=== PATIENT | male | born 1935 | race Caucasian/White ===

== ENCOUNTER → 2016-09-14 | Outpatient (CLI) | payer MEDICARE, OTHER ==
[~2016-09-14] MED LIST: ALLO100T PO; ASPI81CH CHEW; BUME1TAB PO; CHOL1CAP14 PO; FERR325T20; METO50TA PO; OXYGENTANK NAS.CANULA; POLY119S PO; PRED10 PO; Pill Splitter OTHER; Remove Old Patch TD; SPIR25TA PO; SPIRCAP INH; SYMB80AE INH; TYLE325T PO; UNIS25TA2 PO; UNIS25TA3
[2016-09-14 13:16] LABS: AUTOMATED NEUTROPHIL # 4.5 TH/MM3 (1.8-7.7); BASOPHIL % 0.6 % (0.0-2.0); EOSINOPHIL # 0.3 TH/MM3 (0-0.4); EOSINOPHIL % 4.4 % (0.0-4.0); HEMATOCRIT 37.2 % (39.0-51.0); HEMO FLAGS DIFF FINAL; LYMPH % 16.3 % (9.0-44.0); LYMPHOCYTE # 1.1 TH/MM3 (1.0-4.8); MEAN CELL VOLUME 98.8 FL (80.0-100.0); MEAN CORPUSCULAR HEMOGLOBIN 32.2 PG (27.0-34.0); MEAN CORPUSCULAR HGB CONC 32.6 % (32.0-36.0); MONO % 9.6 % (0.0-8.0); NEUT % 69.1 % (16.0-70.0); PLATELET COUNT 153 TH/MM3 (150-450); RED BLOOD COUNT 3.76 MIL/MM3 (4.50-5.90); RED CELL DISTRIBUTION WIDTH 18.5 % (11.6-17.2); WHITE BLOOD COUNT 6.5 TH/MM3 (4.0-11.0)
[2016-09-14 13:42] LABS: POTASSIUM 4.5 MEQ/L (3.5-5.1); URIC ACID 7.6 MG/DL (2.6-7.2)
== END ==
LOC: PLAB 09:44
PROVIDERS: ATTEND Internal Medicine Nephrology
DX: N18.3 Chronic kidney disease, stage 3 (moderate) (principal); M10.00 Idiopathic gout, unspecified site
CPT/HCPCS: 36415; 80048; 82652; 83970; 84100; 84550; 85025

== ENCOUNTER → 2016-11-06 | Outpatient (CLI) | payer MEDICARE, OTHER ==
[2016-11-06 12:57] LABS: BICARBONATE 26.2 MEQ/L (21.0-32.0); POTASSIUM 4.8 MEQ/L (3.5-5.1)
== END ==
LOC: PLAB 09:46
PROVIDERS: ATTEND Internal Medicine Cardiovascular Disease
DX: I50.9 Heart failure, unspecified (principal); R06.02 Shortness of breath; I25.10 Atherosclerotic heart disease of native coronary artery without angina pectoris; I10 Essential (primary) hypertension
CPT/HCPCS: 36415; 80048

== ENCOUNTER 2017-01-04 15:09 | Inpatient (IN) | payer MEDICARE, OTHER ==
[~2017-01-04] VITALS: Ht 190.5 cm; Wt 106.4 kg
[2017-01-04] VITALS (7 sets, daily range): BP systolic 100–113; BP diastolic 57–65; PULSE 65–104; RESP 18–27; TEMP 98.2–98.5; O2SAT 92–97
[~2017-01-04 15:09] MED LIST changes: -ALLO100T PO; -ASPI81CH CHEW; -BUME1TAB PO; -CHOL1CAP14 PO; -FERR325T20; -OXYGENTANK NAS.CANULA; -PRED10 PO; -SPIR25TA PO; -SPIRCAP INH; -SYMB80AE INH; -TYLE325T PO; -UNIS25TA3
[2017-01-04] MEDS: RESP: ALBUTEROL 2.5 MG/3 ML NEB (SCH) INH ×2 (15:45→15:55)
[2017-01-04] MEDS ORDERED: methylPREDNISolone SOD SUCC 125 MG/2 ML VIAL IVP ONE (15:45)
[2017-01-04] MEDS ORDERED: SODIUM CHLORIDE 0.9% FLUSH 10 ML FLUSH IVF PRN (15:45)
--- NOTE | 2017-01-04 15:53 | PD ---
HPI Chief Complaint: SOB/GEN WEAKNESS Time Seen by Provider: 15:37 Travel History International Travel<30 days: No Contact w/Intl Traveler<30days: No Traveled to known affect area: No History of Present Illness HPI C/O SOB AND GEN WEAKNESS, RECENTLY TAKEN OFF ELIQUIS DUE TO BLACK TARRY STOOL PENDING GI VISIT. PCP IS DR MONROE AND CARDIAC IS DR MCKENZIE. PATIENT HAS A H/O RT TOTAL HIP REPLACEMENT AFTER WHICH HE DEVELOPED RT DVT AND PLACED ON ELIQUIS. ALSO HAS H/O HI/VTACH/AICD. TODAY STATES WORSENING SOB AT REST AND WITH EXERTION PFSH Past Medical History Anemia: Yes Arthritis: Yes Asthma: No Autoimmune Disease: No Blood Disorders: No Anxiety: No Depression: No Heart Rhythm Problems: No Cancer: Yes (SKIN CANCER) Cardiovascular Problems: Yes (HI, V TACH ) High Cholesterol: Yes Chemotherapy: No Chest Pain: No Congestive Heart Failure: Yes COPD: Yes Cerebrovascular Accident: Yes (HX ) Coronary Artery Disease: Yes Diabetes: No Diminished Hearing: No Endocrine: No Gastrointestinal Disorders: No GERD: No Glaucoma: No Gout: Yes Genitourinary: Yes Headaches: No Hepatitis: No Hiatal Hernia: No Hypertension: Yes Immune Disorder: No Implanted Vascular Access Dvce: Yes Kidney Stones: No Musculoskeletal: Yes Neurologic: No Psychiatric: No Reproductive: No Respiratory: Yes Immunizations Current: Yes Migraines: No Myocardial Infarction: Yes Radiation Therapy: No Renal Failure: Yes (45% functional) Seizures: No Sickle Cell Disease: No Sleep Apnea: Yes (C-Pap) Thyroid Disease: No Ulcer: No Past Surgical History Abdominal Surgery: Yes (umbilical hernis) AICD: Yes Appendectomy: No Arteriovenous Shunt: No Body Medical Devices: N/A Cardiac Surgery: No Cholecystectomy: No Coronary Artery Bypass Graft: Yes Ear Surgery: No Endocrine Surgery: No Eye Surgery: Yes (bilateral cataracts) Genitourinary Surgery: No Gynecologic Surgery: No Insulin Pump: No Joint Replacement: Yes (RIGHT TOTAL HIP ) Oral Surgery: Yes (wisdom teeth,pulled teeth) Pacemaker: No Thoracic Surgery: No Tonsillectomy: Yes Other Surgery: Yes (ICD) Social History Alcohol Use: Yes (DAILY) Tobacco Use: No Substance Use: No Allergies-Medications (Allergen,Severity, Reaction): Coded Allergies: No Known Allergies (Verified , 01/04/17) Reported Meds & Prescriptions Reported Meds & Active Scripts Active Reported Ferosul (Ferrous Sulfate) 325 Mg Tablet BID Tylenol (Acetaminophen) 325 Mg Tab 650 Mg PO Q4H PRN Unisom Sleep Aid (Doxylamine Succinate) 25 Mg Tablet Aspirin 81 Mg Chew 81 Mg CHEW DAILY Allopurinol 100 Mg Tab 100 Mg PO BID Spiriva Handihaler (Tiotropium Inh) 18 Mcg Cap 18 Mcg INH DAILY 1 capsule = 18 mcg Symbicort Inh (Budesonide/Formoterol Fumarate) 80-4.5 Mcg/Act Aero 2 Puff INH Q12HR D3 Maximum Strength (Cholecalciferol) 5,000 Unit Cap 2,000 Units PO DAILY Metoprolol Tartrate 50 Mg Tab 50 Mg PO BID Spironolactone 25 Mg Tab 25 Mg PO DAILY Review of Systems Except as stated in HPI: all other systems reviewed are Neg Respiratory: Positive: Shortness of Breath, Wheezing Physical Exam Narrative GENERAL: SKIN: Warm and dry. HEAD: Atraumatic. Normocephalic. EYES: Pupils equal and round. No scleral icterus. No injection or drainage. ENT: No nasal bleeding or discharge. Mucous membranes pink and moist. NECK: Trachea midline. No JVD. CARDIOVASCULAR: Regular rate and rhythm. RESPIRATORY: No accessory muscle use. RONCHI AND WHEEZING DIFFUSELY BILATERALLY , TRIPODING,, TACHYPNEIC, GASTROINTESTINAL: Abdomen soft, non-tender, nondistended. Hepatic and splenic margins not palpable. MUSCULOSKELETAL: Extremities without clubbing, OR cyanosis.No obvious deformities. HAS SAMANTHA LE EDEMA 2+ SAMANTHA NEUROLOGICAL: Awake and alert. No obvious cranial nerve deficits. Motor grossly within normal limits. Five out of 5 muscle strength in the arms and legs. Normal speech. PSYCHIATRIC: Appropriate mood and affect; insight and judgment normal. Data Data Last Documented VS Vital Signs Date Time Temp Pulse Resp B/P Pulse Ox O2 Delivery O2 Flow Rate FiO2 01/04/17 17:53 104 20 113/65 94 Nasal Cannula 2 01/04/17 15:12 98.5 Orders Complete Blood Count With Diff (01/04/17 15:40) Comprehensive Metabolic Panel (01/04/17 15:40) B-Type Natriuretic Peptide (01/04/17 15:40) Act Partial Throm Time (Ptt) (01/04/17 15:40) Prothrombin Time / Inr (Pt) (01/04/17 15:40) Ckmb (Isoenzyme) Profile (01/04/17 15:40) Troponin I (01/04/17 15:40) Iv Access Insert/Monitor (01/04/17 15:40) Electrocardiogram (01/04/17 15:40) Ecg Monitoring (01/04/17 15:40) Oximetry (01/04/17 15:40) Oxygen Administration (01/04/17 15:40) Chest, Single Ap (01/04/17 15:40) Sodium Chloride 0.9% Flush (Ns Flush) (01/04/17 15:45) Methylprednisolone So Succ Inj (Solumedr (01/04/17 15:45) Albuterol Neb (Albuterol Neb) (01/04/17 15:45) Furosemide Inj (Lasix Inj) (01/04/17 17:45) Vital Signs (Adult) Q4H (01/04/17 18:01) Activity Oob With Assistance (01/04/17 18:01) Fur Designer / Telemetry .CONTINUOUS (01/04/17 18:01) Intake + Output MICHALE.QSHIFT (01/04/17 18:01) Diet Heart Healthy (01/04/17 Dinner) Sodium Chloride 0.9% Flush (Ns Flush) (01/04/17 18:15) Sodium Chloride 0.9% Flush (Ns Flush) (01/04/17 21:00) Ondansetron Inj (Zofran Inj) (01/04/17 19:00) Basic Metabolic Panel (Bmp) (01/05/17 06:00) Complete Blood Count With Diff (01/05/17 06:00) Resp Oxygen Roge C Titrat 1-4 L (01/04/17 ) Pt Request For Service (01/04/17 18:01) Enoxaparin Inj (Lovenox Inj) (01/04/17 20:00) Scd Bilateral/Knee High MICHAEL.BID (01/04/17 18:01) Cm Bilateral/Knee High MICHAEL.QSHIFT (01/04/17 18:01) Docusate Sodium-Senna (Melanie-Colace) (01/04/17 21:00) Magnesium Hydroxide Liq (Milk Of Magnesi (01/04/17 19:00) Sennosides (Senokot) (01/04/17 19:00) Bisacodyl Supp (Dulcolax Supp) (01/04/17 19:00) Lactulose Liq (Lactulose Liq) (01/04/17 18:15) Furosemide Inj (Lasix Inj) (01/05/17 09:00) B-Type Natriuretic Peptide (01/05/17 06:00) Admit Order (Ed Use Only) (01/04/17 18:07) Labs Laboratory Tests Test 01/04/17 16:01 White Blood Count 8.4 TH/MM3 Red Blood Count 3.10 MIL/MM3 Hemoglobin 10.3 GM/DL Hematocrit 30.9 % Mean Corpuscular Volume 99.6 FL Mean Corpuscular Hemoglobin 33.3 PG Mean Corpuscular Hemoglobin 33.5 % Concent Red Cell Distribution Width 15.8 % Platelet Count 160 TH/MM3 Mean Platelet Volume 9.1 FL Neutrophils (%) (Auto) 76.6 % Lymphocytes (%) (Auto) 9.0 % Monocytes (%) (Auto) 12.9 % Eosinophils (%) (Auto) 0.9 % Basophils (%) (Auto) 0.6 % Neutrophils # (Auto) 6.4 TH/MM3 Lymphocytes # (Auto) 0.8 TH/MM3 Monocytes # (Auto) 1.1 TH/MM3 Eosinophils # (Auto) 0.1 TH/MM3 Basophils # (Auto) 0.0 TH/MM3 CBC Comment DIFF FINAL Differential Comment Prothrombin Time 10.0 SEC Prothromb Time International 0.9 RATIO Ratio Activated Partial 29.2 SEC Thromboplast Time Sodium Level 137 MEQ/L Potassium Level 4.2 MEQ/L Chloride Level 104 MEQ/L Carbon Dioxide Level 21.1 MEQ/L Anion Gap 12 MEQ/L Blood Urea Nitrogen 30 MG/DL Creatinine 2.11 MG/DL Estimat Glomerular Filtration 30 ML/MIN Rate Random Glucose 91 MG/DL Calcium Level 8.6 MG/DL Total Bilirubin 0.5 MG/DL Aspartate Amino Transf 33 U/L (AST/SGOT) Alanine Aminotransferase 29 U/L (ALT/SGPT) Alkaline Phosphatase 86 U/L Total Creatine Kinase 25 U/L Troponin I LESS THAN 0.02 NG/ML B-Type Natriuretic Peptide 299 PG/ML Total Protein 7.3 GM/DL Albumin 3.0 GM/DL MDM Medical Decision Making Medical Screen Exam Complete: Yes Emergency Medical Condition: Yes Medical Record Reviewed: Yes Interpretation(s) NSR 85, PROLONGED NE 1ST DEGREE BLOCK, UNIFOCAL PVC...MOTION ARTIFACT Differential Diagnosis ANEMIA, CHF, COPD EXAC, PE Narrative Course patient presented with sob with h/o copd/chf/anemia as well as dvt to rt leg which was due to a right hip reconstruction. although cxr, bnp and presentation suggests chf exacerebation admitting service was advised that it would be prudent to at least perform a VQ to r/o PE. I made admitting team aware that due to elevated creatinine, i was unable to perform ct chest with IV r/o pe protocol. patient was given lasix and admittted to [facility] service Diagnosis Primary Impression: CHF exacerbation Qualified Code: I50.9 - Acute on chronic congestive heart failure, unspecified congestive heart failure type Additional Impression: Renal insufficiency Scripts Oxygen tank 1 Ea Tank #2 Liter Roge.canula Continuous Oxygen Concentrator Portable Gaseous 2 L/min via Nasal Cannula Continuous For 99 months Prov:Sudhakar Reyes MD 01/06/17 Bumetanide 1 Mg Tab1 Mg PO BID #60 TAB Ref 0 Prov:Sudhakar Reyes MD 01/06/17 Prednisone 10 Mg Tab10 Mg PO DAILY #44 TAB Ref 0 TAKE THREE TABLETS BY MOUTH DAILY FOR FOUR DAYS THEN TAKE TWO TABLETS BY MOUTH DAILY FOR FOUR DAYS THEN TAKE ONE TABLET DAILY Prov:Sudhakar Reyes MD 01/06/17 Guevara Roche MD Jan 04, 2017 15:53
--- NOTE | 2017-01-04 16:16 | RADRPT ---
EXAM DATE/TIME: 01/04/2017 15:55 [facility] COMPARISON: CHEST SINGLE AP, April 02, 2016, 9:21. INDICATIONS : Short of breath for several days. MEDICAL HISTORY : Myocardial infarction. Hypercholesterolemia. Chronic obstructive pulmonary disease. Head trauma. CHF. Hypertension. Sleep apnea. Emphysema. Renal failure. Arthritis. Gout. Anemia. Skin cancer. Measles. SURGICAL HISTORY : Tonsillectomy. CABG Umbilical hernia repair. Bilateral cataract surgery. AICD. Right hip surgery. Blo od transfusion. ENCOUNTER: Initial ACUITY: 2 days PAIN SCORE: 2/10 LOCATION: Bilateral chest FINDINGS: Stable dual-lead AICD device. Lungs are slightly hypoaerated with linear projectile opacity in the le ft lung base. Mild lower lobe predominant interstitial opacities and minimal airspace disease. Cardia c silhouette is enlarged. Pulmonary vascularity is indistinct. Remainder of the exam is unchanged. CONCLUSION: 1. Cardiomegaly with trace positive fluid balance. 2. Mild bibasilar atelectasis. Enoc Das MD on January 04, 2017 at 16:12 Board Certified Radiologist. This report was verified electronically.
[2017-01-04 16:34] LABS: AUTOMATED NEUTROPHIL # 6.4 TH/MM3 (1.8-7.7); BASOPHIL % 0.6 % (0.0-2.0); EOSINOPHIL # 0.1 TH/MM3 (0-0.4); EOSINOPHIL % 0.9 % (0.0-4.0); HEMATOCRIT 30.9 % (39.0-51.0); HEMO FLAGS DIFF FINAL; LYMPHOCYTE # 0.8 TH/MM3 (1.0-4.8); MEAN CELL VOLUME 99.6 FL (80.0-100.0); MEAN CORPUSCULAR HEMOGLOBIN 33.3 PG (27.0-34.0); MEAN CORPUSCULAR HGB CONC 33.5 % (32.0-36.0); MONO % 12.9 % (0.0-8.0); NEUT % 76.6 % (16.0-70.0); PLATELET COUNT 160 TH/MM3 (150-450); RED CELL DISTRIBUTION WIDTH 15.8 % (11.6-17.2); WHITE BLOOD COUNT 8.4 TH/MM3 (4.0-11.0)
[2017-01-04 16:40] LABS: APTT (PATIENT) 29.2 SEC (24.3-30.1); INTERNATIONAL NORMALIZED RATIO 0.9 RATIO
[2017-01-04] MEDS ORDERED: METO50TA PO (16:40)
[2017-01-04] MEDS ORDERED: UNIS25TA3 (16:40)
[2017-01-04] MEDS ORDERED: BUME1TAB PO (16:40)
[2017-01-04] MEDS ORDERED: CHOL1CAP14 PO (16:40)
[2017-01-04] MEDS ORDERED: ALLO100T PO (16:40)
[2017-01-04] MEDS ORDERED: SPIRCAP INH (16:40)
[2017-01-04] MEDS ORDERED: SYMB80AE INH (16:40)
[2017-01-04] MEDS ORDERED: ASPI81CH CHEW (16:40)
[2017-01-04] MEDS ORDERED: TYLE325T PO (16:40)
[2017-01-04] MEDS ORDERED: FERR325T20 (16:40)
[2017-01-04] MEDS ORDERED: SPIR25TA PO (16:40)
[2017-01-04 17:00] LABS: ALT (GPT) 29 U/L (12-78); ANION GAP 12 MEQ/L (5-15); AST (GOT) 33 U/L (15-37); BICARBONATE 21.1 MEQ/L (21.0-32.0); BLOOD UREA NITROGEN 30 MG/DL (7-18); CHLORIDE 104 MEQ/L (98-107); GLOMERULAR FILTRATION RATE 30 ML/MIN (>89); POTASSIUM 4.2 MEQ/L (3.5-5.1); SODIUM (NA) 137 MEQ/L (136-145)
[2017-01-04 17:04] LABS: ALKALINE PHOSPHATASE 86 U/L (45-117); TOTAL BILIRUBIN ADULT 0.5 MG/DL (0.2-1.0)
[2017-01-04 17:09] LABS: CREATINE KINASE 25 U/L (39-308)
[2017-01-04] MEDS ORDERED: FUROSEMIDE 20 MG/2 ML VIAL IV PUSH ONE (17:45)
[2017-01-04] MEDS ORDERED: SODIUM CHLORIDE 0.9% FLUSH 10 ML FLUSH IV FLUSH PRN (18:15)
[2017-01-04] MEDS ORDERED: LACTULOSE SYRUP 20 GM/30 ML CUP PO PRN (18:15)
[2017-01-04] MEDS ORDERED: ONDANSETRON HCL 4 MG/2 ML VIAL IVP PRN (19:00)
[2017-01-04] MEDS ORDERED: BISACODYL 10 MG SUPP RECTAL PRN (19:00)
[2017-01-04] MEDS ORDERED: MAGNESIUM HYDROXIDE SUSP 30 ML CUP PO PRN (19:00)
[2017-01-04] MEDS ORDERED: SENNOSIDES 8.6 MG TAB PO PRN (19:00)
[2017-01-04] MEDS ORDERED: MORPHINE SULFATE 4 MG/ML INJ IV PUSH PRN (20:00)
[2017-01-04] MEDS ORDERED: ENOXAPARIN SODIUM 40 MG/0.4 ML SYRINGE SQ SCH (20:00)
[2017-01-04] MEDS ORDERED: ACETAMINOPHEN/HYDROcodone 325 MG/5 MG TAB PO PRN (20:00)
[2017-01-04] MEDS ORDERED: RESP: ALBUTEROL 2.5 MG/IPRATROPIUM 0.5 MG NEB (PRN) NEB (20:00)
--- NOTE | 2017-01-04 20:07 | HHI.HP ---
[facility] Stanislav Castro MD Admission Diagnosis CHF EXACERBATION Diagnoses: (1) CHF (congestive heart failure) Diagnosis: Principal (2) COPD (chronic obstructive pulmonary disease) Diagnosis: Principal (3) Renal insufficiency Diagnosis: Principal (4) H/O: GI bleed Diagnosis: Principal Travel History International Travel<30 Days: No Contact w/Intl Traveler <30 Da: No Traveled to Known Affected Are: No History of Present Illness This is a 81-year-old male with a PMH of HTN, CAD, h/o V. Tach s/p AICD, CHF ( Cardiac PET 01/2016 w/ EF 63-70%), CKD, h/o DVT, h/o GI Bleed off Eliquis and COPD who was brought to the ER from SNF secondary to progressive SOB and lower extremity edema x1wk. Denies fever, chills or chest pain. On arrival, BP 100 /57, HR 65, O2 sat 92% on RA, Afebrile. CBC at baseline. Creatinine 2.11, previously 2.43 on 11/06/16. Troponin negative. BNP 299. INR 0.9. CXR with cardiomegaly trace positive fluid balance. S/p Lasix 20mg IV x1. Noted to have wheezing on exam, s/p Solu-Medrol and DuoNeb in ER w/ some improvement. Review of Systems Except as stated in HPI: all other systems reviewed are Neg ROS: 14 point review of systems otherwise negative. Past Family Social History Past Medical History PMH: HTN, CAD, h/o V. Tach s/p AICD, CHF (Cardiac PET 01/2016 w/ EF 63-70%), CKD , h/o DVT, h/o GI Bleed off Eliquis and COPD Past Surgical History PAST SURGICAL HISTORY: Umbilical Hernia, AICD, Bilateral Cataract Surgery, CABG , Right Hip Replacement, Tonsillectomy, Dental Extraction Allergies: Coded Allergies: No Known Allergies (Verified , 01/04/17) Family History PAST FAMILY HISTORY: Reviewed. No h/o DM or CAD Social History PAST SOCIAL HISTORY: Positive for alcohol. Negative for tobacco or drugs. Physical Exam Vital Signs Vital Signs Date Time Temp Pulse Resp B/P Pulse Ox O2 Delivery O2 Flow Rate FiO2 01/04/17 17:53 104 20 113/65 94 Nasal Cannula 2 01/04/17 16:29 103 27 109/60 97 Aerosol Mask 01/04/17 16:27 97 Aerosol Mask 01/04/17 16:27 97 Aerosol Mask 01/04/17 15:55 94 Nasal Cannula 2.00 01/04/17 15:12 98.5 65 20 100/57 92 Room Air Physical Exam PE: GENERAL: Elderly male in no acute distress. HEENT: PERRLA, EOMI. No scleral icterus or conjunctival pallor. No lid lag or facial droop. CARDIOVASCULAR: Regular rate and rhythm. No obvious murmurs to auscultation. No chest tenderness to palpation. RESPIRATORY: No obvious rhonchi. Occasional wheezing. Clear to auscultation. Breath sounds equal bilaterally. GASTROINTESTINAL: Abdomen soft, non-tender, nondistended. BS normal. MUSCULOSKELETAL: Extremities without clubbing, cyanosis. 2+ edema. No obvious deformities. NEUROLOGICAL: Awake, alert and oriented x4. No focal neurologic deficits. Moving both upper and lower extremities spontaneously. Laboratory Laboratory Tests Test 01/04/17 16:01 White Blood Count 8.4 Red Blood Count 3.10 Hemoglobin 10.3 Hematocrit 30.9 Mean Corpuscular Volume 99.6 Mean Corpuscular Hemoglobin 33.3 Mean Corpuscular Hemoglobin 33.5 Concent Red Cell Distribution Width 15.8 Platelet Count 160 Mean Platelet Volume 9.1 Neutrophils (%) (Auto) 76.6 Lymphocytes (%) (Auto) 9.0 Monocytes (%) (Auto) 12.9 Eosinophils (%) (Auto) 0.9 Basophils (%) (Auto) 0.6 Neutrophils # (Auto) 6.4 Lymphocytes # (Auto) 0.8 Monocytes # (Auto) 1.1 Eosinophils # (Auto) 0.1 Basophils # (Auto) 0.0 CBC Comment DIFF FINAL Differential Comment Prothrombin Time 10.0 Prothromb Time International 0.9 Ratio Activated Partial 29.2 Thromboplast Time Sodium Level 137 Potassium Level 4.2 Chloride Level 104 Carbon Dioxide Level 21.1 Anion Gap 12 Blood Urea Nitrogen 30 Creatinine 2.11 Estimat Glomerular Filtration 30 Rate Random Glucose 91 Calcium Level 8.6 Total Bilirubin 0.5 Aspartate Amino Transf 33 (AST/SGOT) Alanine Aminotransferase 29 (ALT/SGPT) Alkaline Phosphatase 86 Total Creatine Kinase 25 Troponin I LESS THAN 0.02 B-Type Natriuretic Peptide 299 Total Protein 7.3 Albumin 3.0 Result Diagram: 01/04/17 1601 01/04/17 1601 Assessment and Plan Problem List: (1) CHF (congestive heart failure) ICD Code: I50.9 Status: Chronic (2) COPD (chronic obstructive pulmonary disease) ICD Code: J44.9 Status: Chronic (3) Renal insufficiency ICD Code: N28.9 Status: Acute (4) H/O: GI bleed ICD Code: Z87.19 Status: Acute Assessment and Plan A/P: 1. CHF: Acute on Chronic. Diastolic. Cardiac PET 01/2016 EF 63-70% per Cardiology reports. Follows w/ Dr. Simental as outpatient. +lower extremity edema, BNP 299, CXR w/ cardiomegaly and trace positive fluid balance, images reviewed by me. S/p Lasix 20mg IV x1 in ER, continue w/ diuresis, monitor I/O. Repeat BNP in am. 2. COPD: Chronic Respiratory Failure w/ Acute Exacerbation. +wheezing on arrival, O2 sat 92% on RA. CXR w/ no acute infiltrate. S/p Solu-Medrol and DuoNeb, continue w/ Solu-Medrol, DuoNeb, Symbicort, Mucinex. 3. Renal Insufficiency: Chronic. Creatinine 2.11, previously 2.43 on . Will monitor. 4. H/o GI Bleed: Previous h/o DVT following Hip Replacement, on Eliquis, however anticoagulation d/c'd secondary to GI Bleed. Hgb stable, no acute bleeding at this time. 5. DVT Prophylaxis: SCD/Teds. 6. Social work for d/c planning as needed. 7. Case discussed w/ ER physician at length Chio Lincoln MD Jan 04, 2017 20:07
[2017-01-04] MEDS ORDERED: MELATONIN 5 MG TAB PO ONE (21:15)
[2017-01-04] MEDS: METOPROLOL TARTRATE 50 MG TAB PO SCH (23:11)
[2017-01-04] MEDS: guaiFENesin E.R. 600 MG TAB PO SCH (23:11)
[2017-01-04] MEDS: DOCUSATE SODIUM 50 MG/SENNA 8.6 MG TAB PO SCH (23:11)
[2017-01-04] MEDS: BUDESONIDE-FORMOTEROL 80/4.5 MCG INHALER INH SCH (23:12)
[2017-01-04] MEDS: SODIUM CHLORIDE 0.9% FLUSH 10 ML FLUSH IV FLUSH SCH (23:13)
[2017-01-04] MEDS: methylPREDNISolone SOD SUCC 40 MG/1 ML VIAL IV PUSH SCH (23:20)
[2017-01-05] VITALS (9 sets, daily range): BP systolic 97–111; BP diastolic 63–72; PULSE 66–80; RESP 18–20; TEMP 97.2–97.8; O2SAT 92–96
[2017-01-05] MEDS: methylPREDNISolone SOD SUCC 40 MG/1 ML VIAL IV PUSH SCH ×4 (05:52→23:29)
[2017-01-05] MEDS ORDERED: ACETAMINOPHEN 500 MG CPLT PO PRN (06:15)
[2017-01-05] MEDS: guaiFENesin E.R. 600 MG TAB PO SCH ×2 (08:45→21:06)
[2017-01-05] MEDS: FUROSEMIDE 40 MG/4 ML VIAL IV PUSH SCH ×2 (08:45→18:09)
[2017-01-05] MEDS: DOCUSATE SODIUM 50 MG/SENNA 8.6 MG TAB PO SCH ×2 (08:46→21:06)
[2017-01-05] MEDS: SPIRONOLACTONE 25 MG TAB PO SCH (08:46)
[2017-01-05] MEDS: ASPIRIN 81 MG CHEW TAB CHEW SCH (08:46)
[2017-01-05] MEDS: BUDESONIDE-FORMOTEROL 80/4.5 MCG INHALER INH SCH ×2 (08:46→21:05)
[2017-01-05] MEDS: METOPROLOL TARTRATE 50 MG TAB PO SCH ×2 (08:46→21:06)
[2017-01-05] MEDS: SODIUM CHLORIDE 0.9% FLUSH 10 ML FLUSH IV FLUSH SCH ×2 (08:47→21:05)
[2017-01-05] MEDS: TIOTROPIUM BROMIDE 18 MCG INH INH SCH (08:49)
[2017-01-05 09:28] LABS: AUTOMATED NEUTROPHIL # 4.1 TH/MM3 (1.8-7.7); BASOPHIL % 0.1 % (0.0-2.0); HEMATOCRIT 29.6 % (39.0-51.0); HEMO FLAGS DIFF FINAL; LYMPH % 6.6 % (9.0-44.0); LYMPHOCYTE # 0.3 TH/MM3 (1.0-4.8); MEAN CORPUSCULAR HEMOGLOBIN 31.9 PG (27.0-34.0); MEAN CORPUSCULAR HGB CONC 31.9 % (32.0-36.0); MONO % 5.3 % (0.0-8.0); PLATELET COUNT 153 TH/MM3 (150-450); RED BLOOD COUNT 2.96 MIL/MM3 (4.50-5.90); RED CELL DISTRIBUTION WIDTH 15.5 % (11.6-17.2); WHITE BLOOD COUNT 4.7 TH/MM3 (4.0-11.0)
--- NOTE | 2017-01-05 09:52 | HHI.PR ---
Subjective Remarks This is a pleasant 81 y/o Male with Hypertension, CAD, History of V tach, status post AICD, CHF, (Cardiac PET 01/2016 w/ EF 63-70%), CKD, h/o DVT, h/o GI Bleed off Eliquis and COPD who was brought to the ER from SNF secondary to progressive SOB and lower extremity edema x1wk. Denies fever, chills or chest pain. On arrival, BP 100/57, HR 65 , O2 sat 92% on RA, Afebrile. CBC at baseline. Creatinine 2.11, previously 2.43 on 11/06/16. Troponin negative. BNP 299. INR 0.9. CXR with cardiomegaly trace positive fluid balance. S/p Lasix 20mg IV x1. Noted to have wheezing on exam, s/p Solu-Medrol and DuoNeb in ER w/ some improvement. 01/05: Seen in his bedroom in the presence of his Mrs. Francy Grace, asked for Cm Morgan I agree, asked for Ambien low dose will be given, he is stable improving condition, she says her has chronic swollen legs. No nausea, vomit or diarrhea. Objective Vital Signs Date Time Temp Pulse Resp B/P Pulse Ox O2 Delivery O2 Flow Rate FiO2 01/05/17 08:00 97.4 70 20 109/67 92 01/05/17 07:37 96 21 01/05/17 05:00 97.8 76 20 100/68 95 01/04/17 21:22 93 01/04/17 20:06 98.2 86 18 102/65 94 01/04/17 17:53 104 20 113/65 94 Nasal Cannula 2 01/04/17 16:29 103 27 109/60 97 Aerosol Mask 01/04/17 16:27 97 Aerosol Mask 01/04/17 16:27 97 Aerosol Mask 01/04/17 15:55 94 Nasal Cannula 2.00 01/04/17 15:12 98.5 65 20 100/57 92 Room Air I/O 01/04/17 01/04/17 01/04/17 01/05/17 01/05/17 01/05/17 07:00 15:00 23:00 07:00 15:00 23:00 Output Total 200 ml Balance -200 ml Output Urine Total 200 ml # Bowel Movements 0 Result Diagram: 01/05/17 0831 01/04/17 1601 Imaging Last Impressions Chest X-Ray 01/04/17 1540 Signed Impressions: Service Date/Time: December 15:55 - CONCLUSION: 1. Cardiomegaly with trace positive fluid balance. 2. Mild bibasilar atelectasis. Enoc Das MD Procedures No procedures performed Other Results Laboratory Tests Test 01/04/17 01/05/17 16:01 08:31 Prothrombin Time 10.0 SEC Prothromb Time International 0.9 RATIO Ratio Activated Partial 29.2 SEC Thromboplast Time Sodium Level 137 MEQ/L Potassium Level 4.2 MEQ/L Chloride Level 104 MEQ/L Carbon Dioxide Level 21.1 MEQ/L Anion Gap 12 MEQ/L Blood Urea Nitrogen 30 MG/DL Creatinine 2.11 MG/DL Estimat Glomerular Filtration 30 ML/MIN Rate Random Glucose 91 MG/DL Calcium Level 8.6 MG/DL Total Bilirubin 0.5 MG/DL Aspartate Amino Transf 33 U/L (AST/SGOT) Alanine Aminotransferase 29 U/L (ALT/SGPT) Alkaline Phosphatase 86 U/L Total Creatine Kinase 25 U/L Troponin I LESS THAN 0.02 NG/ML B-Type Natriuretic Peptide 299 PG/ML Total Protein 7.3 GM/DL Albumin 3.0 GM/DL White Blood Count 4.7 TH/MM3 Red Blood Count 2.96 MIL/MM3 Hemoglobin 9.4 GM/DL Hematocrit 29.6 % Mean Corpuscular Volume 100.0 FL Mean Corpuscular Hemoglobin 31.9 PG Mean Corpuscular Hemoglobin 31.9 % Concent Red Cell Distribution Width 15.5 % Platelet Count 153 TH/MM3 Mean Platelet Volume 9.0 FL Neutrophils (%) (Auto) 88.0 % Lymphocytes (%) (Auto) 6.6 % Monocytes (%) (Auto) 5.3 % Eosinophils (%) (Auto) 0.0 % Basophils (%) (Auto) 0.1 % Neutrophils # (Auto) 4.1 TH/MM3 Lymphocytes # (Auto) 0.3 TH/MM3 Monocytes # (Auto) 0.2 TH/MM3 Eosinophils # (Auto) 0.0 TH/MM3 Basophils # (Auto) 0.0 TH/MM3 CBC Comment DIFF FINAL Differential Comment Objective Remarks GENERAL: Elderly male in no acute distress. HEENT: PERRLA, EOMI. No scleral icterus or conjunctival pallor. No lid lag or facial droop. CARDIOVASCULAR: Regular rate and rhythm. No obvious murmurs to auscultation. No chest tenderness to palpation. RESPIRATORY: No obvious rhonchi. Occasional wheezing. Clear to auscultation. Breath sounds equal bilaterally. GASTROINTESTINAL: Abdomen soft, non-tender, nondistended. BS normal. MUSCULOSKELETAL: Extremities without clubbing, cyanosis. 2+ edema. No obvious deformities. NEUROLOGICAL: Awake, alert and oriented x4. No focal neurologic deficits. Moving both upper and lower extremities spontaneously. Medications and IVs Current Medications Medications (Trade) Dose Ordered Sig/Guy Route Start Time Stop Time Status Last Admin (NS Flush) 2 ml UNSCH PRN IV FLUSH 01/04/17 18:15 01/05/17 05:52 (NS Flush) 2 ml BID IV FLUSH 01/04/17 21:00 01/05/17 08:47 (Zofran Inj) 4 mg Q6H PRN IVP 01/04/17 19:00 (Melanie-Colace) 1 tab BID PO 01/04/17 21:00 01/05/17 08:46 (Milk Of Magnesia Liq) 30 ml Q12H PRN PO 01/04/17 19:00 (Senokot) 17.2 mg Q12H PRN PO 01/04/17 19:00 (Dulcolax Supp) 10 mg DAILY PRN RECTAL 01/04/17 19:00 (Lactulose Liq) 30 ml DAILY PRN PO 01/04/17 18:15 (Lasix Inj) 40 mg BID@,18 IV PUSH 01/05/17 09:00 01/05/17 08:45 (SoluMEDROL INJ) 40 mg Q6HR IV PUSH 01/05/17 00:00 01/05/17 05:52 ([place] 5-325 Mg) 1 tab Q4H PRN PO 01/04/17 20:00 (Morphine Inj) 2 mg Q3H PRN IV PUSH 01/04/17 20:00 (Mucinex Er) 600 mg BID PO 01/04/17 21:00 01/05/17 08:45 (Aspirin Chew) 81 mg DAILY CHEW 01/05/17 09:00 01/05/17 08:46 (Symbicort 80-4.5 Mcg Inh) 2 puff Q12HR INH 01/04/17 21:00 01/05/17 08:46 (Lopressor) 50 mg BID PO 01/04/17 21:00 01/05/17 08:46 (Aldactone) 25 mg DAILY PO 01/05/17 09:00 01/05/17 08:46 (Spiriva Inh) 18 mcg DAILY INH 01/05/17 09:00 01/05/17 08:49 (Tylenol) 500 mg Q6H PRN PO 01/05/17 06:15 01/05/17 08:45 A/P Assessment and Plan 1. CHF: Acute on Chronic. Diastolic heart failure. Cardiac PET 01/2016 EF 63- 70% per Cardiology reports. Follows w/ Dr. Simental as outpatient. +lower extremity edema, BNP 299, CXR w/ cardiomegaly and trace positive fluid balance. continue diuresis today, worsening BNP. 2. COPD: Chronic Respiratory Failure w/ Acute Exacerbation. +wheezing on arrival, O2 sat 92% on RA. CXR w/ no acute infiltrate. S/p Solu-Medrol and DuoNeb, continue w/ Solu- Medrol, DuoNeb, Symbicort, Mucinex. added Incentive spirometry. 3. Renal Insufficiency: Chronic. stable and following continue diuresis. 4. H/o GI Bleed: Previous h/o DVT following Hip Replacement, on Eliquis, however anticoagulation d/c'd secondary to GI Bleed. Hgb stable, no acute bleeding at this time. DVT Prophylaxis: SCD/Teds. Social work for d/c planning as needed. Discharge Planning Expected in one to two days. Sudhakar Reyes MD Jan 05, 2017 09:51
[2017-01-05 10:10] LABS: POTASSIUM 4.3 MEQ/L (3.5-5.1)
--- NOTE | 2017-01-05 17:51 | EKG ---
Date Performed: 01/04/2017 Time Performed: 15:58:42 PTAGE: 81 years EKG: Sinus rhythm WITH FIRST DEGREE AV BLOCK WITH FREQUENT VENTRICULAR PREMATURE COMPLEXES LOW QRS VOLTAGE IN PRECORDI AL LEADS ABNORMAL ECG Compared to the PREVIOUS TRACING PVCs present DOCTOR: Jeffery Butt Interpretating Date/Time 01/05/2017 17:50:00
[2017-01-05] MEDS ORDERED: ZOLPIDEM TARTRATE 5 MG TAB PO PRN (18:00)
[2017-01-06 00:31] VITALS: BP 119/67; PULSE 75; RESP 18; TEMP 97.2; O2SAT 92
[2017-01-06 04:30] VITALS: BP 119/67; PULSE 61; RESP 18; TEMP 97.4; O2SAT 92
[2017-01-06] MEDS: methylPREDNISolone SOD SUCC 40 MG/1 ML VIAL IV PUSH SCH ×2 (06:18→12:29)
[2017-01-06] MEDS: guaiFENesin E.R. 600 MG TAB PO SCH (08:25)
[2017-01-06] MEDS: FUROSEMIDE 40 MG/4 ML VIAL IV PUSH SCH (08:25)
[2017-01-06] MEDS: SPIRONOLACTONE 25 MG TAB PO SCH (08:25)
[2017-01-06] MEDS: ASPIRIN 81 MG CHEW TAB CHEW SCH (08:25)
[2017-01-06] MEDS: METOPROLOL TARTRATE 50 MG TAB PO SCH (08:25)
[2017-01-06] MEDS: DOCUSATE SODIUM 50 MG/SENNA 8.6 MG TAB PO SCH (08:25)
[2017-01-06] MEDS: SODIUM CHLORIDE 0.9% FLUSH 10 ML FLUSH IV FLUSH SCH (08:26)
[2017-01-06] MEDS: TIOTROPIUM BROMIDE 18 MCG INH INH SCH (08:29)
[2017-01-06] MEDS: BUDESONIDE-FORMOTEROL 80/4.5 MCG INHALER INH SCH (08:29)
[2017-01-06 08:40] VITALS: BP 116/76; PULSE 52; PULSE 60; RESP 18; TEMP 98.4; O2SAT 96
[2017-01-06 09:51] LABS: BICARBONATE 21.2 MEQ/L (21.0-32.0); MAGNESIUM 2.6 MG/DL (1.5-2.5); POTASSIUM 4.4 MEQ/L (3.5-5.1)
--- NOTE | 2017-01-06 11:58 | HHI.PR ---
Subjective Remarks This is a pleasant 81 y/o Male with Hypertension, CAD, History of V tach, status post AICD, CHF, (Cardiac PET 01/2016 w/ EF 63-70%), CKD, h/o DVT, h/o GI Bleed off Eliquis and COPD who was brought [facility] the ER from SNF secondary to progressive SOB and lower extremity edema x1wk. Denies fever, chills or chest pain. On arrival, BP 100/57, HR 65 , O2 sat 92% on RA, Afebrile. CBC at baseline. Creatinine 2.11, previously 2.43 on 11/06/16. Troponin negative. BNP 299. INR 0.9. CXR with cardiomegaly trace positive fluid balance. S/p Lasix 20mg IV x1. Noted to have wheezing on exam, s/p Solu-Medrol and DuoNeb in ER w/ some improvement. 01/05: Seen in his bedroom in the presence of his Mrs. Francy Grace, asked for Cm Morgan I agree, asked for Ambien low dose will be given, he is stable improving condition, she says her has chronic swollen legs. No nausea, vomit or diarrhea. 01/06: Stable in his bedroom in the presence of his , reviewed his laboratory , and vital sings the patient denies any nausea, vomit or diarrhea he will benefit for the use of Oxygen at home when sleeping and on activity, at this time he may go home and continue management there awaiting final by Respiratory therapy specialist for six minutes walk. Objective Vital Signs Date Time Temp Pulse Resp B/P Pulse Ox O2 Delivery O2 Flow Rate FiO2 01/06/17 08:40 52 01/06/17 08:40 98.4 60 18 116/76 96 01/06/17 04:30 97.4 61 18 119/67 92 01/06/17 00:31 97.2 75 18 119/67 92 01/05/17 20:31 95 Nasal Cannula 2.00 01/05/17 20:05 97.6 76 18 111/72 92 01/05/17 20:01 75 01/05/17 16:00 97.6 66 20 98/63 93 01/05/17 12:00 97.2 66 18 97/66 93 I/O 6/9/17 6/04/1501/05/17 01/06/17 01/06/17 01/06/17 07:00 15:00 23:00 07:00 15:00 23:00 Intake Total 720 ml Output Total 200 ml 550 ml 1000 ml 450 ml Balance -200 ml 170 ml -1000 ml -450 ml Intake Oral 720 ml Output Urine Total 200 ml 550 ml 1000 ml 450 ml # Voids 1 # Bowel Movements 0 1 Result Diagram: 01/05/17 0831 01/06/17 0610 Imaging Last Impressions Chest X-Ray 01/04/17 1540 Signed Impressions: Service Date/Time: December 15:55 - CONCLUSION: 1. Cardiomegaly with trace positive fluid balance. 2. Mild bibasilar atelectasis. Enoc Das MD Procedures No procedures performed Other Results Laboratory Tests Test 01/04/17 01/05/17 01/06/17 16:01 08:31 06:10 Prothrombin Time 10.0 SEC Prothromb Time International 0.9 RATIO Ratio Activated Partial 29.2 SEC Thromboplast Time Total Bilirubin 0.5 MG/DL Aspartate Amino Transf 33 U/L (AST/SGOT) Alanine Aminotransferase 29 U/L (ALT/SGPT) Alkaline Phosphatase 86 U/L Total Creatine Kinase 25 U/L Troponin I LESS THAN 0.02 NG/ML Total Protein 7.3 GM/DL Albumin 3.0 GM/DL White Blood Count 4.7 TH/MM3 Red Blood Count 2.96 MIL/MM3 Hemoglobin 9.4 GM/DL Hematocrit 29.6 % Mean Corpuscular Volume 100.0 FL Mean Corpuscular Hemoglobin 31.9 PG Mean Corpuscular Hemoglobin 31.9 % Concent Red Cell Distribution Width 15.5 % Platelet Count 153 TH/MM3 Mean Platelet Volume 9.0 FL Neutrophils (%) (Auto) 88.0 % Lymphocytes (%) (Auto) 6.6 % Monocytes (%) (Auto) 5.3 % Eosinophils (%) (Auto) 0.0 % Basophils (%) (Auto) 0.1 % Neutrophils # (Auto) 4.1 TH/MM3 Lymphocytes # (Auto) 0.3 TH/MM3 Monocytes # (Auto) 0.2 TH/MM3 Eosinophils # (Auto) 0.0 TH/MM3 Basophils # (Auto) 0.0 TH/MM3 CBC Comment DIFF FINAL Differential Comment B-Type Natriuretic Peptide 370 PG/ML Sodium Level 134 MEQ/L Potassium Level 4.4 MEQ/L Chloride Level 101 MEQ/L Carbon Dioxide Level 21.2 MEQ/L Anion Gap 12 MEQ/L Blood Urea Nitrogen 54 MG/DL Creatinine 2.24 MG/DL Estimat Glomerular Filtration 28 ML/MIN Rate Random Glucose 141 MG/DL Calcium Level 8.3 MG/DL Phosphorus Level 4.7 MG/DL Magnesium Level 2.6 MG/DL Objective Remarks GENERAL: Elderly male in no acute distress. HEENT: PERRLA, EOMI. No scleral icterus or conjunctival pallor. No lid lag or facial droop. CARDIOVASCULAR: Regular rate and rhythm. No obvious murmurs to auscultation. No chest tenderness to palpation. RESPIRATORY: No obvious rhonchi. Occasional wheezing. Clear to auscultation. Breath sounds equal bilaterally. GASTROINTESTINAL: Abdomen soft, non-tender, nondistended. BS normal. MUSCULOSKELETAL: Extremities without clubbing, cyanosis. 2+ edema. No obvious deformities. NEUROLOGICAL: Awake, alert and oriented x4. No focal neurologic deficits. Moving both upper and lower extremities spontaneously. Medications and IVs Current Medications Medications (Trade) Dose Ordered Sig/Guy Route Start Time Stop Time Status Last Admin (NS Flush) 2 ml UNSCH PRN IV FLUSH 01/04/17 18:15 01/05/17 05:52 (NS Flush) 2 ml BID IV FLUSH 01/04/17 21:00 01/06/17 08:26 (Zofran Inj) 4 mg Q6H PRN IVP 01/04/17 19:00 (Melanie-Colace) 1 tab BID PO 01/04/17 21:00 01/06/17 08:25 (Milk Of Magnesia Liq) 30 ml Q12H PRN PO 01/04/17 19:00 (Senokot) 17.2 mg Q12H PRN PO 01/04/17 19:00 (Dulcolax Supp) 10 mg DAILY PRN RECTAL 01/04/17 19:00 (Lactulose Liq) 30 ml DAILY PRN PO 01/04/17 18:15 (Lasix Inj) 40 mg BID@,18 IV PUSH 01/05/17 09:00 01/06/17 08:25 (SoluMEDROL INJ) 40 mg Q6HR IV PUSH 01/05/17 00:00 01/06/17 06:18 (Barre 5-325 Mg) 1 tab Q4H PRN PO 01/04/17 20:00 (Morphine Inj) 2 mg Q3H PRN IV PUSH 01/04/17 20:00 (Mucinex Er) 600 mg BID PO 01/04/17 21:00 01/06/17 08:25 (Aspirin Chew) 81 mg DAILY CHEW 01/05/17 09:00 01/06/17 08:25 (Symbicort 80-4.5 Mcg Inh) 2 puff Q12HR INH 01/04/17 21:00 01/06/17 08:29 (Lopressor) 50 mg BID PO 01/04/17 21:00 01/06/17 08:25 (Aldactone) 25 mg DAILY PO 01/05/17 09:00 01/06/17 08:25 (Spiriva Inh) 18 mcg DAILY INH 01/05/17 09:00 01/06/17 08:29 (Tylenol) 500 mg Q6H PRN PO 01/05/17 06:15 01/05/17 08:45 (Ambien) 5 mg HS PRN PO 01/05/17 18:00 01/05/17 23:28 A/P Assessment and Plan 1. CHF: Acute on Chronic. Diastolic heart failure. Cardiac PET 01/2016 EF 63- 70% per Cardiology reports. Follows w/ Dr. Simental as outpatient. +lower extremity edema, BNP 299, CXR w/ cardiomegaly and trace positive fluid balance. on IV diuretics at this time will switch to by mouth and discharge home. 2. COPD: Chronic Respiratory Failure w/ Acute Exacerbation. +wheezing on arrival, O2 sat 92% on RA. CXR w/ no acute infiltrate. S/p Solu-Medrol and DuoNeb, continue w/ Solu- Medrol, DuoNeb, Symbicort, Mucinex. added Incentive spirometry. Improving will optimize his home medicines and discharge Home 3. Renal Insufficiency: Chronic. stable and following continue diuresis. 4. H/o GI Bleed: Previous h/o DVT following Hip Replacement, on Eliquis, however anticoagulation d/c'd secondary to GI Bleed. Hgb stable, no acute bleeding at this time. DVT Prophylaxis: SCD/Teds. Discussed with Patient and his in the room all questions answered to the best of my abilities. Discussed with nurse Miss Crouch and with Pigment Making Supervisor his considering Palliative care and Hospice for future Discharge Planning Discharge Home Sudhakar Reyes MD Jan 06, 2017 11:58
[2017-01-06 12:00] VITALS: BP 106/68; PULSE 71; RESP 18; TEMP 96.9; O2SAT 95
[2017-01-06] MEDS ORDERED: PRED10 PO (12:04)
[2017-01-06] MEDS ORDERED: BUME1TAB PO (12:04)
--- NOTE | 2017-01-06 12:08 | HHI.DS ---
Discharge Summary Admission Date Jan 05, 2017 at 12:27 Discharge Date: Jan 06, 2017 Admitting Diagnosis CHF EXACERBATION (1) CHF (congestive heart failure) ICD Code: I50.9 Diagnosis: Principal (2) COPD (chronic obstructive pulmonary disease) ICD Code: J44.9 Diagnosis: Principal (3) Renal insufficiency ICD Code: N28.9 Diagnosis: Secondary (4) H/O: GI bleed ICD Code: Z87.19 Diagnosis: Secondary Procedures No procedures Brief History - From Admission This is a 81-year-old male with a PMH of HTN, CAD, h/o V. Tach s/p AICD, CHF ( Cardiac PET 01/2016 w/ EF 63-70%), CKD, h/o DVT, h/o GI Bleed off Eliquis and COPD who was brought to the ER from SNF secondary to progressive SOB and lower extremity edema x1wk. Denies fever, chills or chest pain. On arrival, BP 100 /57, HR 65, O2 sat 92% on RA, Afebrile. CBC at baseline. Creatinine 2.11, previously 2.43 on 11/06/16. Troponin negative. BNP 299. INR 0.9. CXR with cardiomegaly trace positive fluid balance. S/p Lasix 20mg IV x1. Noted to have wheezing on exam, s/p Solu-Medrol and DuoNeb in ER w/ some improvement. CBC/BMP: 01/05/17 0831 01/06/17 0610 Significant Findings Laboratory Tests Test 01/04/17 01/05/17 01/06/17 16:01 08:31 06:10 Red Blood Count 3.10 MIL/MM3 2.96 MIL/MM3 (4.50-5.90) (4.50-5.90) Hemoglobin 10.3 GM/DL 9.4 GM/DL (13.0-17.0) (13.0-17.0) Hematocrit 30.9 % 29.6 % (39.0-51.0) (39.0-51.0) Neutrophils (%) (Auto) 76.6 % 88.0 % (16.0-70.0) (16.0-70.0) Monocytes (%) (Auto) 12.9 % (0.0-8.0) Lymphocytes # (Auto) 0.8 TH/MM3 0.3 TH/MM3 (1.0-4.8) (1.0-4.8) Monocytes # (Auto) 1.1 TH/MM3 (0-0.9) Blood Urea Nitrogen 30 MG/DL (7-18) 42 MG/DL (7-18) 54 MG/DL (7-18) Creatinine 2.11 MG/DL 2.35 MG/DL 2.24 MG/DL (0.60-1.30) (0.60-1.30) (0.60-1.30) Estimat Glomerular Filtration 30 ML/MIN (>89) 27 ML/MIN (>89) 28 ML/MIN (>89) Rate Total Creatine Kinase 25 U/L (39-308) Troponin I LESS THAN 0.02 NG/ML (0.02-0.05) B-Type Natriuretic Peptide 299 PG/ML 370 PG/ML (0-100) (0-100) Albumin 3.0 GM/DL (3.4-5.0) Mean Corpuscular Hemoglobin 31.9 % Concent (32.0-36.0) Lymphocytes (%) (Auto) 6.6 % (9.0-44.0) Carbon Dioxide Level 20.0 MEQ/L (21.0-32.0) Random Glucose 131 MG/DL 141 MG/DL (74-106) (74-106) Sodium Level 134 MEQ/L (136-145) Calcium Level 8.3 MG/DL (8.5-10.1) Magnesium Level 2.6 MG/DL (1.5-2.5) Imaging Last Impressions Chest X-Ray 01/04/17 1540 Signed Impressions: Service Date/Time: December 15:55 - CONCLUSION: 1. Cardiomegaly with trace positive fluid balance. 2. Mild bibasilar atelectasis. Enoc Das MD PE at Discharge GENERAL: Elderly male in no acute distress. HEENT: PERRLA, EOMI. No scleral icterus or conjunctival pallor. No lid lag or facial droop. CARDIOVASCULAR: Regular rate and rhythm. No obvious murmurs to auscultation. No chest tenderness to palpation. RESPIRATORY: No obvious rhonchi. Occasional wheezing. Clear to auscultation. Breath sounds equal bilaterally. GASTROINTESTINAL: Abdomen soft, non-tender, nondistended. BS normal. MUSCULOSKELETAL: Extremities without clubbing, cyanosis. 2+ edema. No obvious deformities. NEUROLOGICAL: Awake, alert and oriented x4. No focal neurologic deficits. Moving both upper and lower extremities spontaneously. Hospital Course This is a pleasant 81 y/o Male with Hypertension, CAD, History of V tach, status post AICD, CHF, (Cardiac PET 01/2016 w/ EF 63-70%), CKD, h/o DVT, h/o GI Bleed off Eliquis and COPD who was brought to the ER from SNF secondary to progressive SOB and lower extremity edema x1wk. Denies fever, chills or chest pain. On arrival, BP 100/57, HR 65 , O2 sat 92% on RA, Afebrile. CBC at baseline. Creatinine 2.11, previously 2.43 on 11/06/16. Troponin negative. BNP 299. INR 0.9. CXR with cardiomegaly trace positive fluid balance. S/p Lasix 20mg IV x1. Noted to have wheezing on exam, s/p Solu-Medrol and DuoNeb in ER w/ some improvement. 01/05: Seen in his bedroom in the presence of his Mrs. Francy Grace, asked for Cm Morgan I agree, asked for Ambien low dose will be given, he is stable improving condition, she says her has chronic swollen legs. No nausea, vomit or diarrhea. 01/06: Stable in his bedroom in the presence of his , reviewed his laboratory , and vital sings the patient denies any nausea, vomit or diarrhea he will benefit for the use of Oxygen at home when sleeping and on activity, at this time he may go home and continue management there awaiting final by Respiratory therapy specialist for six minutes walk. Assessment and Plan 1. CHF: Acute on Chronic. Diastolic heart failure. Cardiac PET 01/2016 EF 63- 70% per Cardiology reports. Follows w/ Dr. Simental as outpatient. +lower extremity edema, BNP 299, CXR w/ cardiomegaly and trace positive fluid balance. on IV diuretics at this time will switch to by mouth and discharge home. 2. COPD: Chronic Respiratory Failure w/ Acute Exacerbation. +wheezing on arrival, O2 sat 92% on RA. CXR w/ no acute infiltrate. S/p Solu-Medrol and DuoNeb, continue w/ Solu- Medrol, DuoNeb, Symbicort, Mucinex. added Incentive spirometry. Improving will optimize his home medicines and discharge Home 3. Renal Insufficiency: Chronic. stable and following continue diuresis. 4. H/o GI Bleed: Previous h/o DVT following Hip Replacement, on Eliquis, however anticoagulation d/c'd secondary to GI Bleed. Hgb stable, no acute bleeding at this time. DVT Prophylaxis: SCD/Teds. Discussed with Patient and his in the room all questions answered to the best of my abilities. Discussed with nurse Miss Crouch and with Sewer Pipe Cleaner his considering Palliative care and Hospice for future Discharge Planning Discharge Home Pt Condition on Discharge: Stable Discharge Disposition: Discharge Home Discharge Time: <= 30 minutes Discharge Instructions DIET: Follow Instructions for: Heart Healthy Diet Activities you can perform: Regular-No Restrictions Sudhakar Reyes MD Jan 06, 2017 12:08
[2017-01-06] MEDS ORDERED: OXYGENTANK NAS.CANULA (13:00)
[2017-01-06 17:23] VITALS: O2SAT 95
== END 2017-01-06 18:02 | disposition home or self-care (01) | DRG 291 ==
LOC: NEPC 15:09 → NEDA 18:09 → N04A 20:07 → OBSVTOIN 01-05 12:27
PROVIDERS: ADMIT Internal Medicine; ATTEND Internal Medicine
DX: I13.0 Hypertensive heart and chronic kidney disease with heart failure and stage 1 through stage 4 chronic kidney disease, or unspecified chronic kidney disease (principal); I50.33 Acute on chronic diastolic (congestive) heart failure; J96.20 Acute and chronic respiratory failure, unspecified whether with hypoxia or hypercapnia; J44.9 Chronic obstructive pulmonary disease, unspecified; M10.9 Gout, unspecified; N18.9 Chronic kidney disease, unspecified; I25.10 Atherosclerotic heart disease of native coronary artery without angina pectoris; Z86.718 Personal history of other venous thrombosis and embolism; Z96.641 Presence of right artificial hip joint; Z95.810 Presence of automatic (implantable) cardiac defibrillator; Z95.1 Presence of aortocoronary bypass graft
CPT/HCPCS: 71010; 80048; 80053; 82550; 83735; 83880; 84100; 84484; 85025; 85610; 85730; 93005; 94150; 94620; 94640; 94664; 96374; 96375; 96376; G0378; G8987-GP; G8988-GP; J1940; J2920; J2930; J7613

== ENCOUNTER → 2017-01-10 | Outpatient (CLI) | payer MEDICARE, OTHER ==
[~2017-01-10] MED LIST changes: +ALLO100T PO; +ASPI81CH CHEW; +BUME1TAB PO; +CHOL1CAP14 PO; +FERR325T20; +OXYGENTANK NAS.CANULA; -POLY119S PO; +PRED10 PO; -Pill Splitter OTHER; -Remove Old Patch TD; +SPIR25TA PO; +SPIRCAP INH; +SYMB80AE INH; +TYLE325T PO; -UNIS25TA2 PO; +UNIS25TA3
[2017-01-10 13:16] LABS: EOSINOPHIL % 0.1 % (0.0-4.0); HEMATOCRIT 32.8 % (39.0-51.0); LYMPH % 10.2 % (9.0-44.0); MEAN CELL VOLUME 97.9 FL (80.0-100.0); MEAN CORPUSCULAR HEMOGLOBIN 30.9 PG (27.0-34.0); MEAN CORPUSCULAR HGB CONC 31.6 % (32.0-36.0); MONO % 7.1 % (0.0-8.0); NEUT % 82.6 % (16.0-70.0); PLATELET COUNT 246 TH/MM3 (150-450); RED BLOOD COUNT 3.35 MIL/MM3 (4.50-5.90); RED CELL DISTRIBUTION WIDTH 15.4 % (11.6-17.2); WHITE BLOOD COUNT 9.7 TH/MM3 (4.0-11.0)
[2017-01-10 13:17] LABS: HEMO FLAGS AUTO DIFF
[2017-01-10 13:20] LABS: BLOOD, URINE NEG (NEG); COMMENT (UR) CULT NOT INDICATED; CULTURE IF INDICATED CULT NOT INDICATED; GLUCOSE,URINE NEG (NEG); KETONE, URINE NEG (NEG); MUCUS URINE FEW /lpf (OCC); NITRITE,URINE NEG (NEG); PH, URINE 5.5 (5.0-8.5); URINE COLOR YELLOW (YELLW/STRAW)
[2017-01-10 13:52] LABS: BICARBONATE 23.2 MEQ/L (21.0-32.0); POTASSIUM 4.7 MEQ/L (3.5-5.1)
[2017-01-10 13:56] LABS: URIC ACID 8.2 MG/DL (2.6-7.2)
[2017-01-10 17:40] LABS: SCAN/DIFF AUTO DIFF CONFIRMED
[2017-01-10 18:02] LABS: PLATELET ESTIMATE SMEAR NORMAL (NORMAL); PLATELET MORPHOLOGY NORMAL (NORMAL)
== END ==
LOC: PLAB 09:32
PROVIDERS: ATTEND Family Medicine
DX: I50.42 Chronic combined systolic (congestive) and diastolic (congestive) heart failure (principal); N18.3 Chronic kidney disease, stage 3 (moderate); M10.00 Idiopathic gout, unspecified site; E55.9 Vitamin D deficiency, unspecified
CPT/HCPCS: 80048; 81001; 82306; 83880; 83970; 84100; 84550; 85025

== ENCOUNTER 2017-02-14 12:05 | Inpatient (IN) | payer MEDICARE, OTHER ==
[2017-02-14] VITALS (7 sets, daily range): BP systolic 105–122; BP diastolic 57–82; PULSE 95–117; RESP 20–40; TEMP 97.4–98.8; O2SAT 89–96
[~2017-02-14] VITALS: Ht 190.5 cm; Wt 109.0 kg
[2017-02-14] MEDS ORDERED: methylPREDNISolone SOD SUCC 125 MG/2 ML VIAL IVP ONE (12:30)
[2017-02-14] MEDS ORDERED: SODIUM CHLORIDE 0.9% FLUSH 10 ML FLUSH IVF PRN (12:30)
[2017-02-14] MEDS ORDERED: SODIUM CHLORID 0.9% 500 ML INJ 500 ML IV ONE (12:45)
--- NOTE | 2017-02-14 12:46 | PD ---
HPI Chief Complaint: Respiratory Distress Time Seen by Provider: 12:10 Travel History International Travel<30 days: No Contact w/Intl Traveler<30days: No Traveled to known affect area: No History of Present Illness HPI Patient is a 81-year-old male presenting to emergency department evaluation of shortness of breath and weakness. Symptoms ongoing for several days, reports a fever of 100.7 this morning. Patient gets more short of breath when he exerts himself, he is oxygen dependent at night. states that he was recently discharged from hospital in [place] after being diagnosed with sepsis. He was on oral Levaquin and steroids which she recently completed. Patient's past medical history significant for hypertension, coronary artery disease, AICD secondary to V. tach, CHF, chronic kidney disease, COPD, DVT, he is off of anticoagulation secondary to a GI bleed. He does continue to take a baby aspirin daily. Patient saw his primary doctor this morning and was sent to the emergency department for evaluation. states that patient's weight has been stable. PFSH Past Medical History Anemia: Yes Arthritis: Yes Asthma: No Autoimmune Disease: No Blood Disorders: No Anxiety: No Depression: No Heart Rhythm Problems: Yes Cancer: Yes (SKIN CANCER) High Cholesterol: Yes Chemotherapy: No Chest Pain: No Congestive Heart Failure: Yes COPD: Yes Cerebrovascular Accident: Yes Coronary Artery Disease: Yes Diabetes: No Diminished Hearing: No Deep Vein Thrombosis: Yes (off anticoagulation secondary to GI bleed) Endocrine: No Gastrointestinal Disorders: Yes (illeus) GERD: No Glaucoma: No Gout: Yes Genitourinary: Yes Headaches: No Hepatitis: No Hiatal Hernia: No Hypertension: Yes Immune Disorder: No Kidney Stones: No Neurologic: Yes Psychiatric: No Reproductive: No Immunizations Current: Yes Migraines: No Myocardial Infarction: Yes Radiation Therapy: No Renal Failure: Yes (chronic kidney disease) Seizures: No Sickle Cell Disease: No Sleep Apnea: Yes (C-Pap) Thyroid Disease: No Ulcer: No Past Surgical History Abdominal Surgery: Yes (umbilical hernia) AICD: Yes Appendectomy: No Arteriovenous Shunt: No Cardiac Surgery: No Cholecystectomy: No Coronary Artery Bypass Graft: Yes Ear Surgery: No Endocrine Surgery: No Eye Surgery: Yes (bilateral cataracts) Genitourinary Surgery: No Gynecologic Surgery: No Insulin Pump: No Joint Replacement: Yes (RIGHT TOTAL HIP ) Oral Surgery: Yes Pacemaker: No Thoracic Surgery: No Tonsillectomy: Yes Social History Alcohol Use: No Tobacco Use: Yes Substance Use: No Allergies-Medications (Allergen,Severity, Reaction): Coded Allergies: No Known Allergies (Verified , 02/14/17) Reported Meds & Prescriptions Reported Meds & Active Scripts Active Oxygen tank (Oxygen) 1 Ea Tank 2 Liter MATY.CANULA CONTINUOUS Oxygen Concentrator Portable Gaseous 2 L/min via Nasal Cannula Continuous For 99 months Bumetanide 1 Mg Tab 1 Mg PO BID Reported Ferosul (Ferrous Sulfate) 325 Mg Tablet BID Tylenol (Acetaminophen) 325 Mg Tab 650 Mg PO Q4H PRN Unisom Sleep Aid (Doxylamine Succinate) 25 Mg Tablet Aspirin 81 Mg Chew 81 Mg CHEW DAILY Allopurinol 100 Mg Tab 100 Mg PO BID Spiriva Handihaler (Tiotropium Inh) 18 Mcg Cap 18 Mcg INH DAILY 1 capsule = 18 mcg Symbicort Inh (Budesonide/Formoterol Fumarate) 80-4.5 Mcg/Act Aero 2 Puff INH Q12HR D3 Maximum Strength (Cholecalciferol) 5,000 Unit Cap 2,000 Units PO DAILY Metoprolol Tartrate 50 Mg Tab 50 Mg PO BID Spironolactone 25 Mg Tab 25 Mg PO DAILY Review of Systems Except as stated in HPI: all other systems reviewed are Neg General / Constitutional: Positive: Fever Cardiovascular: Positive: Tachycardia, Dyspnea on exertion, Edema Respiratory: Positive: Shortness of Breath, Wheezing Gastrointestinal: No: Nausea, Vomiting, Abdominal Pain Genitourinary: No: Dysuria Musculoskeletal: Positive: Edema, No: Myalgias Neurologic: Positive: Weakness, No: Syncope, Focal Abnormalities, Change in Mentation Physical Exam Narrative GENERAL: Well-developed, well-nourished, chronically ill-appearing elderly male. Resting in no acute distress. SKIN: Warm and dry. HEAD: Atraumatic. Normocephalic. EYES: Pupils equal and round. No scleral icterus. No injection or drainage. ENT: No nasal bleeding or discharge. Mucous membranes pink and moist. NECK: Trachea midline. No JVD. CARDIOVASCULAR: Tachycardic RESPIRATORY: Tachypneic, diaphragmatic breathing, etc. expiratory wheezing throughout. GASTROINTESTINAL: Abdomen soft, non-tender, nondistended. Hepatic and splenic margins not palpable. Positive bowel sounds, no rebound, no guarding. MUSCULOSKELETAL: Extremities without clubbing, cyanosis. No obvious deformities. 2+ peripheral edema bilaterally NEUROLOGICAL: Awake and alert. No obvious cranial nerve deficits. Motor grossly within normal limits. Five out of 5 muscle strength in the arms and legs. Normal speech. PSYCHIATRIC: Appropriate mood and affect; insight and judgment normal. Data Data Last Documented VS Vital Signs Date Time Temp Pulse Resp B/P Pulse Ox O2 Delivery O2 Flow Rate FiO2 02/14/17 13:44 96 Nasal Cannula 2 02/14/17 12:08 98.8 110 40 122/82 Orders Electrocardiogram (02/14/17 ) Complete Blood Count With Diff (02/14/17 12:21) Comprehensive Metabolic Panel (02/14/17 12:21) B-Type Natriuretic Peptide (02/14/17 12:21) Act Partial Throm Time (Ptt) (02/14/17 12:21) Prothrombin Time / Inr (Pt) (02/14/17 12:21) Magnesium (Mg) (02/14/17 12:21) Ckmb (Isoenzyme) Profile (02/14/17 12:21) Troponin I (02/14/17 12:21) Iv Access Insert/Monitor (02/14/17 12:21) Electrocardiogram (02/14/17 12:21) Ecg Monitoring (02/14/17 12:21) Oximetry (02/14/17 12:21) Oxygen Administration (02/14/17 12:21) Chest, Single Ap (02/14/17 12:21) Sodium Chloride 0.9% Flush (Ns Flush) (02/14/17 12:30) Methylprednisolone So Succ Inj (Solumedr (02/14/17 12:30) Albuterol-Ipratropium Neb (Duoneb Neb) (02/14/17 12:30) Lactic Acid Sepsis Protocol (02/14/17 12:28) Blood Culture (02/14/17 12:28) Sodium Chlorid 0.9% 500 Ml Inj (Ns 500 M (02/14/17 12:45) Piperacil-Tazo 4.5 Gm Premix (Zosyn 4.5 (02/14/17 13:57) Azithromycin Inj (Zithromax Inj) (02/14/17 13:57) Acetaminophen (Tylenol) (02/14/17 14:15) Allopurinol (Zyloprim) (02/14/17 21:00) Aspirin Chew (Aspirin Chew) (02/15/17 09:00) Budeson-Formot 80-4.5 Mcg Inh (Symbicort (02/14/17 21:00) Bumetanide (Bumetanide) (02/14/17 21:00) Cholecalciferol (Vitamin D3) (02/15/17 09:00) Metoprolol Tartrate (Lopressor) (02/14/17 21:00) Spironolactone (Aldactone) (02/15/17 09:00) Tiotropium Inh (Spiriva Inh) (02/15/17 09:00) Admit Order (Ed Use Only) (02/14/17 14:55) Labs Laboratory Tests Test 02/14/17 12:40 White Blood Count 8.7 TH/MM3 Red Blood Count 3.85 MIL/MM3 Hemoglobin 11.8 GM/DL Hematocrit 36.6 % Mean Corpuscular Volume 95.1 FL Mean Corpuscular Hemoglobin 30.8 PG Mean Corpuscular Hemoglobin 32.3 % Concent Red Cell Distribution Width 18.1 % Platelet Count 124 TH/MM3 Mean Platelet Volume 8.7 FL Neutrophils (%) (Auto) 83.2 % Lymphocytes (%) (Auto) 5.7 % Monocytes (%) (Auto) 9.5 % Eosinophils (%) (Auto) 1.1 % Basophils (%) (Auto) 0.5 % Neutrophils # (Auto) 7.3 TH/MM3 Lymphocytes # (Auto) 0.5 TH/MM3 Monocytes # (Auto) 0.8 TH/MM3 Eosinophils # (Auto) 0.1 TH/MM3 Basophils # (Auto) 0.0 TH/MM3 CBC Comment DIFF FINAL Differential Comment Prothrombin Time 10.1 SEC Prothromb Time International 0.9 RATIO Ratio Activated Partial 25.9 SEC Thromboplast Time Sodium Level 134 MEQ/L Potassium Level 5.7 MEQ/L Chloride Level 102 MEQ/L Carbon Dioxide Level 24.9 MEQ/L Anion Gap 7 MEQ/L Blood Urea Nitrogen 30 MG/DL Creatinine 1.95 MG/DL Estimat Glomerular Filtration 33 ML/MIN Rate Random Glucose 88 MG/DL Lactic Acid Level 1.8 mmol/L Calcium Level 8.7 MG/DL Magnesium Level 2.0 MG/DL Total Bilirubin 1.1 MG/DL Aspartate Amino Transf 47 U/L (AST/SGOT) Alanine Aminotransferase 31 U/L (ALT/SGPT) Alkaline Phosphatase 81 U/L Total Creatine Kinase 68 U/L Troponin I LESS THAN 0.02 NG/ML B-Type Natriuretic Peptide 102 PG/ML Total Protein 7.1 GM/DL Albumin 2.9 GM/DL MDM Medical Decision Making Medical Screen Exam Complete: Yes Emergency Medical Condition: Yes Medical Record Reviewed: Yes Interpretation(s) Last Impressions Chest X-Ray 02/14/17 1221 Signed Impressions: Service Date/Time: Tuesday, February 14, 2017 12:50 - CONCLUSION: Possible early pneumonia left lower lobe. Francis Huerta MD Vital Signs Date Time Temp Pulse Resp B/P Pulse Ox O2 Delivery O2 Flow Rate FiO2 02/14/17 13:44 96 Nasal Cannula 2 02/14/17 13:00 Nasal Cannula 2.00 02/14/17 12:25 Nasal Cannula 2 02/14/17 12:08 98.8 110 40 122/82 89 Room Air Laboratory Tests Test 02/14/17 12:40 White Blood Count 8.7 TH/MM3 Red Blood Count 3.85 MIL/MM3 Hemoglobin 11.8 GM/DL Hematocrit 36.6 % Mean Corpuscular Volume 95.1 FL Mean Corpuscular Hemoglobin 30.8 PG Mean Corpuscular Hemoglobin 32.3 % Concent Red Cell Distribution Width 18.1 % Platelet Count 124 TH/MM3 Mean Platelet Volume 8.7 FL Neutrophils (%) (Auto) 83.2 % Lymphocytes (%) (Auto) 5.7 % Monocytes (%) (Auto) 9.5 % Eosinophils (%) (Auto) 1.1 % Basophils (%) (Auto) 0.5 % Neutrophils # (Auto) 7.3 TH/MM3 Lymphocytes # (Auto) 0.5 TH/MM3 Monocytes # (Auto) 0.8 TH/MM3 Eosinophils # (Auto) 0.1 TH/MM3 Basophils # (Auto) 0.0 TH/MM3 CBC Comment DIFF FINAL Differential Comment Prothrombin Time 10.1 SEC Prothromb Time International 0.9 RATIO Ratio Activated Partial 25.9 SEC Thromboplast Time Sodium Level 134 MEQ/L Potassium Level 5.7 MEQ/L Chloride Level 102 MEQ/L Carbon Dioxide Level 24.9 MEQ/L Anion Gap 7 MEQ/L Blood Urea Nitrogen 30 MG/DL Creatinine 1.95 MG/DL Estimat Glomerular Filtration 33 ML/MIN Rate Random Glucose 88 MG/DL Lactic Acid Level 1.8 mmol/L Calcium Level 8.7 MG/DL Magnesium Level 2.0 MG/DL Total Bilirubin 1.1 MG/DL Aspartate Amino Transf 47 U/L (AST/SGOT) Alanine Aminotransferase 31 U/L (ALT/SGPT) Alkaline Phosphatase 81 U/L Total Creatine Kinase 68 U/L Troponin I LESS THAN 0.02 NG/ML B-Type Natriuretic Peptide 102 PG/ML Total Protein 7.1 GM/DL Albumin 2.9 GM/DL Vital Signs Date Time Temp Pulse Resp B/P Pulse Ox O2 Delivery O2 Flow Rate FiO2 02/14/17 12:25 Nasal Cannula 2 02/14/17 12:08 98.8 110 40 122/82 89 Room Air Differential Diagnosis CHF exacerbation versus COPD exacerbation versus sepsis versus pneumonia versus metabolic abnormality versus other Narrative Course Patient is a 81-year-old male to take for evaluation on the advice of his primary doctor, Dr. Castro. Patient had a recent admit for sepsis in [place]. His past medical history is significant for CHF and COPD with chronic kidney disease. In the differential would be CHF exacerbation, COPD exacerbation, pneumonia, sepsis. Labs and imaging ordered and pending. at bedside. Patient's resting comfortably. IV access was established, patient placed on telemetry monitoring and continuous pulse oximetry. EKG shows sinus tachycardia. CBC with a slight left shift, mild anemia is stable. Chemistry potassium of 5.7, slight hemolysis noted. BUN and creatinine are improved from prior. Lactic acid 1.8, BNP 102 Coags are unremarkable. Chest x-ray shows possible early pneumonia in the left lower lobe Patient was reassessed after duo nebs and budesonide. He reports feeling better with less wheezing. Patient's temp was reassessed at 100.7. [facility] paged for admission, Dr. Hightower came to the ED. Admit accepted. Orders placed. Sepsis Criteria SIRS Criteria (2 or more): Temp > 100.9 or < 96.8, Heart rate over 90 Severe Sepsis (+one): Hypotension Diagnosis Primary Impression: Sepsis Qualified Code: A41.9 - Sepsis, due to unspecified organism Additional Impressions: Pneumonia Qualified Code: J18.1 - Pneumonia of left lower lobe due to infectious organism COPD (chronic obstructive pulmonary disease) Qualified Code: J44.9 - Chronic obstructive pulmonary disease, unspecified COPD type Admitting Information Admitting Physician Requests: Admit Condition: Stable Margarita Cox PROJECTOR OPERATOR Feb 14, 2017 12:46
[2017-02-14 12:58] LABS: AUTOMATED NEUTROPHIL # 7.3 TH/MM3 (1.8-7.7); BASOPHIL % 0.5 % (0.0-2.0); EOSINOPHIL # 0.1 TH/MM3 (0-0.4); EOSINOPHIL % 1.1 % (0.0-4.0); HEMATOCRIT 36.6 % (39.0-51.0); HEMO FLAGS DIFF FINAL; LYMPH % 5.7 % (9.0-44.0); LYMPHOCYTE # 0.5 TH/MM3 (1.0-4.8); MEAN CELL VOLUME 95.1 FL (80.0-100.0); MEAN CORPUSCULAR HEMOGLOBIN 30.8 PG (27.0-34.0); MEAN CORPUSCULAR HGB CONC 32.3 % (32.0-36.0); MONO % 9.5 % (0.0-8.0); NEUT % 83.2 % (16.0-70.0); PLATELET COUNT 124 TH/MM3 (150-450); RED BLOOD COUNT 3.85 MIL/MM3 (4.50-5.90); RED CELL DISTRIBUTION WIDTH 18.1 % (11.6-17.2); WHITE BLOOD COUNT 8.7 TH/MM3 (4.0-11.0)
[2017-02-14] MEDS: RESP: ALBUTEROL 2.5 MG/IPRATROPIUM 0.5 MG NEB (SCH) INH ×2 (12:59→13:00)
[2017-02-14 13:09] LABS: APTT (PATIENT) 25.9 SEC (24.3-30.1); INTERNATIONAL NORMALIZED RATIO 0.9 RATIO; PROTHROMBIN TIME - PATIENT 10.1 SEC (9.8-11.6)
[2017-02-14 13:22] LABS: ALKALINE PHOSPHATASE 81 U/L (45-117); ALT (GPT) 31 U/L (12-78); ANION GAP 7 MEQ/L (5-15); AST (GOT) 47 U/L (15-37); BICARBONATE 24.9 MEQ/L (21.0-32.0); BLOOD UREA NITROGEN 30 MG/DL (7-18); CHLORIDE 102 MEQ/L (98-107); GLOMERULAR FILTRATION RATE 33 ML/MIN (>89); SODIUM (NA) 134 MEQ/L (136-145); TOTAL BILIRUBIN ADULT 1.1 MG/DL (0.2-1.0)
[2017-02-14 13:27] LABS: CREATINE KINASE 68 U/L (39-308); POTASSIUM 5.7 MEQ/L (3.5-5.1)
--- NOTE | 2017-02-14 13:30 | RADRPT ---
EXAM DATE/TIME: 02/14/2017 12:50 [facility] COMPARISON: No previous studies available for comparison. INDICATIONS : Short of breath with wheezing. MEDICAL HISTORY : Chronic obstructive pulmonary disease. Congestive heart failure. Myocardial infarction. SURGICAL HISTORY : Pacemaker. ENCOUNTER: Initial ACUITY: 3 days PAIN SCORE: 0/10 LOCATION: Bilateral chest FINDINGS: A single view of the chest demonstrate there is a new amount of airspace disease in the left lung bas e. Aorta remains quite tortuous. Left subclavian bipolar pacer in good position. Upper lungs are c lear. CONCLUSION: Possible early pneumonia left lower lobe. Francis Huerta MD on February 14, 2017 at 13:24 Board Certified Radiologist. This report was verified electronically.
[2017-02-14] MEDS ORDERED: AZITHROMYCIN INJ 500 MG in SODIUM CHLOR 0.9% 250 ML INJ 250 ML IV STA (13:57)
[2017-02-14] MEDS ORDERED: PIPERACIL-TAZO 4.5 GM PREMIX 100 ML IV STA (13:57)
[2017-02-14] MEDS ORDERED: ACETAMINOPHEN 325 MG TAB PO ONE (14:15)
[2017-02-14] MEDS ORDERED: RESP: ALBUTEROL 2.5 MG/IPRATROPIUM 0.5 MG NEB (PRN) NEB (15:00)
[2017-02-14] MEDS ORDERED: MAGNESIUM HYDROXIDE SUSP 30 ML CUP PO PRN (15:00)
[2017-02-14] MEDS ORDERED: LACTULOSE SYRUP 20 GM/30 ML CUP PO PRN (15:00)
[2017-02-14] MEDS ORDERED: BISACODYL 10 MG SUPP RECTAL PRN (15:00)
[2017-02-14] MEDS ORDERED: ACETAMINOPHEN 325 MG TAB PO PRN (15:00)
[2017-02-14] MEDS ORDERED: ONDANSETRON HCL 4 MG/2 ML VIAL IVP PRN (15:00)
[2017-02-14] MEDS ORDERED: SENNOSIDES 8.6 MG TAB PO PRN (15:00)
[2017-02-14] MEDS: RESP: ALBUTEROL 2.5 MG/IPRATROPIUM 0.5 MG NEB (SCH) NEB ×2 (16:37→19:10)
--- NOTE | 2017-02-14 16:52 | HHI.HP ---
HPI Service [facility] Hospitalists Primary Care Physician Stanislav Castro MD Admission Diagnosis COPD EXAC/ PNA Diagnoses: Chief Complaint: SOB Fatigue Travel History International Travel<30 Days: No Contact w/Intl Traveler <30 Da: No Traveled to Known Affected Are: No Sepsis Criteria SIRS Criteria (2 or more): Heart rate over 90, RR > 20 or PaCO2 < 32 Sepsis Criteria (SIRS+source): Infect source susp/known History of Present Illness Written by Eve Madrid PA-C acting as scribe for Dr. Hightower on 02/14/17 at 16:50. This note was transcribed by scribe Eve Madrid PA-C. I, Dr. Nuris Hightower personally performed the history, physical exam, and medical decision making; and confirmed the accuracy of the information in the transcribed note. Authenticated by Dr. Nuris Hightower on 02/14/17 at 16:50. This is a 81yo male with PMHX of hypertension, history of V. tach status post AICD, CAD s/p CABG, CHF, previous CVA, COPD, MILY on CPAP, chronic kidney disease and h/o DVT following hip replacement not on anticoagulation due to previous GI bleed who presents to [facility] ED with complaints of progressive shortness of breath with minimal exertion and fatigue for the past several days. Patient reports he was recently hospitalized in [place] for sepsis with unknown source. He completed a course of Levaquin and steroids that he finished 1 week ago. Patient reports associated wheezing. He denies any lightheadedness, cough or chest pain. His reports a fever 100.7. Patient admits he did not take his diuretics today because he had a doctor's appointment this morning and did not want to be bothered with frequent urination. In the ED, his tachycardic and tachypneic. His white count is 8.7. Creatinine is 1.95 which appears to be near patient's baseline. BNP is 102. Troponin is flat. Chest x-ray reveals early left lower lobe pneumonia. While in the ED, patient received 125mg of methylprednisolone IVP as well as 3 DuoNeb treatments and his breathing has improved. He was also started on IV Zosyn and azithromycin. Review of Systems Except as stated in HPI: all other systems reviewed are Neg Past Family Social History Past Medical History h/o Vtach s/p AICD HTN CHF CKD COPD oxygen dependent at night CVA H/O DVT following hip replacement not on anticoagulation due to previous GIB HLD Anemia Previous GIB OA Gout MILY on CPAP Past Surgical History AICD Right THR CABG Umbilical hernia surgery Bilateral cataract surgery Tonsillectomy Dental extraction Reported Medications Ferosul (Ferrous Sulfate) 325 Mg Tablet BID Tylenol (Acetaminophen) 325 Mg Tab 650 Mg PO Q4H PRN Unisom Sleep Aid (Doxylamine Succinate) 25 Mg Tablet Aspirin 81 Mg Chew 81 Mg CHEW DAILY Allopurinol 100 Mg Tab 100 Mg PO BID Spiriva Handihaler (Tiotropium Inh) 18 Mcg Cap 18 Mcg INH DAILY 1 capsule = 18 mcg Symbicort Inh (Budesonide/Formoterol Fumarate) 80-4.5 Mcg/Act Aero 2 Puff INH Q12HR D3 Maximum Strength (Cholecalciferol) 5,000 Unit Cap 2,000 Units PO DAILY Metoprolol Tartrate 50 Mg Tab 50 Mg PO BID Spironolactone 25 Mg Tab 25 Mg PO DAILY Allergies: Coded Allergies: No Known Allergies (Verified , 02/14/17) Active Ordered Medications Current Medications Medications (Trade) Dose Ordered Sig/Guy Route Start Time Stop Time Status Last Admin (Zyloprim) 100 mg BID PO 02/14/17 21:00 (Aspirin Chew) 81 mg DAILY CHEW 02/15/17 09:00 (Symbicort 80-4.5 Mcg Inh) 2 puff Q12HR INH 02/14/17 21:00 (Bumetanide) 1 mg BID PO 02/14/17 21:00 (Vitamin D3) 2,000 units DAILY PO 02/15/17 09:00 (Lopressor) 50 mg BID PO 02/14/17 21:00 (Aldactone) 25 mg DAILY PO 02/15/17 09:00 (Spiriva Inh) 18 mcg DAILY INH 02/15/17 09:00 (NS Flush) 2 ml UNSCH PRN IV FLUSH 02/14/17 15:00 (NS Flush) 2 ml BID IV FLUSH 02/14/17 21:00 (Tylenol) 650 mg Q4H PRN PO 02/14/17 15:00 (Zofran Inj) 4 mg Q6H PRN IVP 02/14/17 15:00 (Lovenox Inj) 30 mg Q24H SQ 02/14/17 17:00 (Melanie-Colace) 1 tab BID PO 02/14/17 21:00 (Milk Of Magnesia Liq) 30 ml Q12H PRN PO 02/14/17 15:00 (Senokot) 17.2 mg Q12H PRN PO 02/14/17 15:00 (Dulcolax Supp) 10 mg DAILY PRN RECTAL 02/14/17 15:00 Lactulose 30 ml 30 ml DAILY PRN PO 02/14/17 15:00 Piperacillin Sod/ Tazobactam Sod 50 ml @ 100 mls/hr Q6H IV 02/14/17 20:00 (Zithromax Inj/ NS 250 ml Inj) 250 ml @ 250 mls/hr Q24H IV 02/15/17 15:00 (SoluMEDROL INJ) 40 mg Q6HR IV PUSH 02/14/17 18:00 Family History Father, Alzheimer's dementia Sister, adrenal disorder Social History Patient has a history of tobacco use of 1/2 ppd x 30yrs but quit 5 yrs ago. Patient reports one Martini daily - has not had a drink in 5 days after becoming ill. Denies any previous h/o withdrawal symptoms. Patient denies any illicit drug use. Physical Exam Vital Signs Vital Signs Date Time Temp Pulse Resp B/P Pulse Ox O2 Delivery O2 Flow Rate FiO2 02/14/17 15:15 117 22 105/63 95 Nasal Cannula 2 02/14/17 13:44 96 Nasal Cannula 2 02/14/17 13:00 Nasal Cannula 2.00 02/14/17 12:25 Nasal Cannula 2 02/14/17 12:08 98.8 110 40 122/82 89 Room Air Physical Exam GENERAL: This is a well-nourished, well-developed patient, in mild distress. Awake and alert. On NC. SKIN: No rashes, ecchymoses or lesions. Cool and dry. HEAD: Atraumatic. Normocephalic. No temporal or scalp tenderness. EYES: Pupils equal round and reactive. Extraocular motions intact. No scleral icterus. No injection or drainage. ENT: Nose without bleeding or purulent drainage. Throat without erythema, tonsillar hypertrophy or exudate. Uvula midline. Airway patent. NECK: Trachea midline. No lymphadenopathy. Supple, nontender, no meningeal signs. CARDIOVASCULAR: Tachycardiac without murmurs, gallops, or rubs. RESPIRATORY: Mild scattered wheezing noted. Bibasilar crackles. GASTROINTESTINAL: Abdomen soft, non-tender, nondistended. No hepato-splenomegaly , or palpable masses. No guarding. MUSCULOSKELETAL: Extremities without clubbing or cyanosis. 2+ edema BLE. No joint tenderness, effusion, or edema noted. No calf tenderness. NEUROLOGICAL: Awake and alert. Able to move all extremities. Normal speech. Laboratory Laboratory Tests Test 02/14/17 12:40 White Blood Count 8.7 Red Blood Count 3.85 Hemoglobin 11.8 Hematocrit 36.6 Mean Corpuscular Volume 95.1 Mean Corpuscular Hemoglobin 30.8 Mean Corpuscular Hemoglobin 32.3 Concent Red Cell Distribution Width 18.1 Platelet Count 124 Mean Platelet Volume 8.7 Neutrophils (%) (Auto) 83.2 Lymphocytes (%) (Auto) 5.7 Monocytes (%) (Auto) 9.5 Eosinophils (%) (Auto) 1.1 Basophils (%) (Auto) 0.5 Neutrophils # (Auto) 7.3 Lymphocytes # (Auto) 0.5 Monocytes # (Auto) 0.8 Eosinophils # (Auto) 0.1 Basophils # (Auto) 0.0 CBC Comment DIFF FINAL Differential Comment Prothrombin Time 10.1 Prothromb Time International 0.9 Ratio Activated Partial 25.9 Thromboplast Time Sodium Level 134 Potassium Level 5.7 Chloride Level 102 Carbon Dioxide Level 24.9 Anion Gap 7 Blood Urea Nitrogen 30 Creatinine 1.95 Estimat Glomerular Filtration 33 Rate Random Glucose 88 Lactic Acid Level 1.8 Calcium Level 8.7 Magnesium Level 2.0 Total Bilirubin 1.1 Aspartate Amino Transf 47 (AST/SGOT) Alanine Aminotransferase 31 (ALT/SGPT) Alkaline Phosphatase 81 Total Creatine Kinase 68 Troponin I LESS THAN 0.02 B-Type Natriuretic Peptide 102 Total Protein 7.1 Albumin 2.9 Date/Time Procedure Status Source Growth 02/14/17 12:45 Aerobic Blood Culture Received Blood Peripheral Pending 02/14/17 12:45 Anaerobic Blood Culture Received Blood Peripheral Pending Result Diagram: 02/14/17 1240 02/14/17 1240 Imaging Last Impressions Chest X-Ray 02/14/17 1221 Signed Impressions: Service Date/Time: Tuesday, February 14, 2017 12:50 - CONCLUSION: Possible early pneumonia left lower lobe. Francis Huerta MD Assessment and Plan Assessment and Plan 81yo male with PMHX of hypertension, history of V. tach status post AICD, CAD s/ p CABG, CHF, previous CVA, COPD, MILY on CPAP, chronic kidney disease and h/o DVT following hip replacement not on anticoagulation due to previous GI bleed who presents to [facility] ED with complaints of progressive shortness of breath with minimal exertion and fatigue for the past several days. Sepsis with tachycardia and tachypnea with pneumonia source LLL HCAP, s/p hospitalization last week in [place] for sepsis - CXR personally reviewed shows early LLL PNA - Lactic acid is 1.8 - IV Zosyn and Azithromycin - IS and acapella - supplemental oxygen - follow up on blood culture results COPD exacerbation Acute on chronic respiratory failure - IV methylprednisolone 40mg IV q6h, taper as tolerated - IV abx as above - scheduled Duonebs and prn. taper as tolerated - supplemental oxygen to maintain O2 sats above 92% - resume home bronchodilators - PT eval/tx CHF exacerbation Medication noncompliance - Cardiac PET 01/2016 w/ EF 63-70% - Bumex 1mg IV x 1 dose now - resume home dose of diuretic Bumex 1mg BID and Aldactone 25mg daily - fluid and salt restrictions - monitor I&Os - daily wts - monitor BMP V tach s/p AICD CAD s/p CABG HTN - ASA daily - resume home Metoprolol 50mg BID - continuous cardiac monitoring - monitor CKD stage 3 - creatinine appears at baseline - avoid nephrotoxic agents - monitor BMP Hyperkalemia - s/t hemolysis - repeat lab in am MILY on CPAP - patients to bring in home CPAP machine for nightly use Anemia, chronic - resume home iron supplementation - appears stable - monitor Nausea and constipation - begin bowel regimen - Monitor for BM DVT prophylaxis - Lovenox 30mg sq daily - lower dose due to poor kidney function Other chronic medical conditions include previous CVA, h/o DVT not on anticoagulation due to previous GIB, OA and Gout: Stable at this time and will continue home medications as indicated. Discussed Condition With Patient and ED physician Physician Certification 2 Midnight Certification Type: Admission for Inpatient Services Order for Inpatient Services The services are ordered in accordance with Medicare regulations or non- Medicare payer requirements, as applicable. In the case of services not specified as inpatient-only, they are appropriately provided as inpatient services in accordance with the 2-midnight benchmark. Estimated LOS (days): 4 days is the estimated time the patient will need to remain in the hospital, assuming treatment plan goals are met and no additional complications. Post-Hospital Plan: Home Eve Madrid Feb 14, 2017 16:52 Nuris Hightower MD Feb 14, 2017 18:09
[2017-02-14] MEDS: methylPREDNISolone SOD SUCC 40 MG/1 ML VIAL IV PUSH SCH ×2 (17:58→23:25)
[2017-02-14] MEDS: ENOXAPARIN SODIUM 30 MG/0.3 ML SYRINGE SQ SCH (17:58)
[2017-02-14] MEDS: DOCUSATE SODIUM 50 MG/SENNA 8.6 MG TAB PO SCH (21:09)
[2017-02-14] MEDS: METOPROLOL TARTRATE 50 MG TAB PO SCH (21:10)
[2017-02-14] MEDS: SODIUM CHLORIDE 0.9% FLUSH 10 ML FLUSH IV FLUSH SCH (21:10)
[2017-02-14] MEDS: BUMETANIDE 1 MG TAB PO SCH (21:10)
[2017-02-14] MEDS: ALLOPURINOL 100 MG TAB PO SCH (21:10)
[2017-02-14] MEDS: PIPERACIL-TAZO 3.375 GM PREMIX 50 ML IV SCH (22:07)
[2017-02-14] MEDS: BUDESONIDE-FORMOTEROL 80/4.5 MCG INHALER INH SCH (23:25)
[2017-02-14 23:43] LABS: HDL CHOLESTEROL 47.6 MG/DL (40.0-60.0)
[2017-02-15] VITALS (10 sets, daily range): BP systolic 90–118; BP diastolic 62–78; PULSE 75–106; RESP 18–22; TEMP 97.1–97.5; O2SAT 90–97
[2017-02-15] MEDS ORDERED: ACETAMINOPHEN/HYDROcodone 325 MG/5 MG TAB PO ONE (00:15)
[2017-02-15] MEDS: PIPERACIL-TAZO 3.375 GM PREMIX 50 ML IV SCH ×4 (03:32→21:42)
[2017-02-15] MEDS: RESP: ALBUTEROL 2.5 MG/IPRATROPIUM 0.5 MG NEB (SCH) NEB ×6 (04:30→19:36)
[2017-02-15] MEDS: methylPREDNISolone SOD SUCC 40 MG/1 ML VIAL IV PUSH SCH ×3 (05:52→21:43)
[2017-02-15] MEDS: SODIUM CHLORIDE 0.9% FLUSH 10 ML FLUSH IV FLUSH PRN (05:53)
[2017-02-15 06:14] LABS: AUTOMATED NEUTROPHIL # 5.6 TH/MM3 (1.8-7.7); BASOPHIL % 0.1 % (0.0-2.0); HEMATOCRIT 32.4 % (39.0-51.0); HEMO FLAGS DIFF FINAL; LYMPH % 4.9 % (9.0-44.0); LYMPHOCYTE # 0.3 TH/MM3 (1.0-4.8); MEAN CELL VOLUME 95.1 FL (80.0-100.0); MEAN CORPUSCULAR HEMOGLOBIN 30.5 PG (27.0-34.0); MONO % 2.8 % (0.0-8.0); NEUT % 92.2 % (16.0-70.0); PLATELET COUNT 113 TH/MM3 (150-450); RED CELL DISTRIBUTION WIDTH 16.8 % (11.6-17.2); WHITE BLOOD COUNT 6.1 TH/MM3 (4.0-11.0)
[2017-02-15 07:07] LABS: POTASSIUM 4.4 MEQ/L (3.5-5.1)
[2017-02-15] MEDS ORDERED: CHOLECALCIFEROL (VIT D3) 5000 UNIT CAP PO SCH (09:00)
[2017-02-15] MEDS: CHOLECALCIFEROL (VIT D3) 1000 UNIT TAB PO SCH (10:07)
[2017-02-15] MEDS: DOCUSATE SODIUM 50 MG/SENNA 8.6 MG TAB PO SCH ×2 (10:07→21:43)
[2017-02-15] MEDS: SPIRONOLACTONE 25 MG TAB PO SCH (10:07)
[2017-02-15] MEDS: BUMETANIDE 1 MG TAB PO SCH ×2 (10:07→21:43)
[2017-02-15] MEDS: METOPROLOL TARTRATE 50 MG TAB PO SCH ×2 (10:08→21:43)
[2017-02-15] MEDS: ALLOPURINOL 100 MG TAB PO SCH ×2 (10:08→21:44)
[2017-02-15] MEDS: ASPIRIN 81 MG CHEW TAB CHEW SCH (10:08)
[2017-02-15] MEDS: SODIUM CHLORIDE 0.9% FLUSH 10 ML FLUSH IV FLUSH SCH ×2 (11:26→21:44)
[2017-02-15] MEDS: BUDESONIDE-FORMOTEROL 80/4.5 MCG INHALER INH SCH ×2 (11:26→21:44)
[2017-02-15] MEDS: TIOTROPIUM BROMIDE 18 MCG INH INH SCH (12:23)
--- NOTE | 2017-02-15 12:26 | HHI.PR ---
Subjective Remarks Still with shortness of breath. Coughing no blood in it. No fever or chills. Denies chest pain or palpitations. No wheezing at this time. No nausea, vomiting, diarrhea or constipation. At about bowel movement in the morning. Lower extremity edema is improving, he is able to ambulate he feels very short of breath. No chest pain with deep breaths. He is complaining cramps in his arms and legs, intermittent since he had not times at home. Objective Vitals Vital Signs Date Time Temp Pulse Resp B/P Pulse Ox O2 Delivery O2 Flow Rate FiO2 02/15/17 12:00 97.1 95 18 107/65 93 02/15/17 09:05 92 Nasal Cannula 2.00 02/15/17 08:00 97.4 86 18 114/66 96 02/15/17 04:33 90 Nasal Cannula 2.00 02/15/17 04:00 97.3 75 19 90/63 93 02/15/17 00:00 97.5 75 19 96/62 97 02/15/17 00:00 2.00 02/14/17 20:14 111 02/14/17 20:00 98.0 95 20 106/57 95 02/14/17 20:00 Nasal Cannula 2.00 02/14/17 19:10 91 Nasal Cannula 2.00 02/14/17 17:34 97.4 101 20 112/63 96 02/14/17 15:15 117 22 105/63 95 Nasal Cannula 2 02/14/17 13:44 96 Nasal Cannula 2 02/14/17 13:00 Nasal Cannula 2.00 02/14/17 12:25 Nasal Cannula 2 I/O 02/14/17 02/14/17 02/14/17 02/15/17 02/15/17 02/15/17 07:00 15:00 23:00 07:00 15:00 23:00 Intake Total 460 ml 410 ml Output Total 400 ml 500 ml Balance 60 ml -90 ml Intake Oral 410 ml 360 ml IV Total 50 ml 50 ml Output Urine Total 400 ml 500 ml # Bowel Movements 0 Result Diagram: 02/15/1723 02/15/17 0523 Imaging Last Impressions Chest X-Ray 02/14/17 1221 Signed Impressions: Service Date/Time: Tuesday, February 14, 2017 12:50 - CONCLUSION: Possible early pneumonia left lower lobe. Francis Huerta MD Objective Remarks GENERAL: This is a well-nourished, well-developed patient, in mild distress. Awake and alert. On NC. CARDIOVASCULAR: Tachycardiac without murmurs, gallops, or rubs. RESPIRATORY: Decreased breath sounds. Mild scattered wheezing noted. Bibasilar crackles. GASTROINTESTINAL: Abdomen soft, non-tender, nondistended. No hepato-splenomegaly , or palpable masses. No guarding. MUSCULOSKELETAL: Extremities without clubbing or cyanosis. 2+ edema BLE. No joint tenderness, effusion, or edema noted. No calf tenderness. NEUROLOGICAL: Awake and alert. Able to move all extremities. Normal speech. A/P Assessment and Plan 81yo male with PMHX of hypertension, history of V. tach status post AICD, CAD s/ p CABG, CHF, previous CVA, COPD, MILY on CPAP, chronic kidney disease and h/o DVT following hip replacement not on anticoagulation due to previous GI bleed who presents to [facility] ED with complaints of progressive shortness of breath with minimal exertion and fatigue for the past several days. Sepsis with tachycardia and tachypnea with pneumonia source LLL HCAP, s/p hospitalization last week in [place] for sepsis - CXR personally reviewed shows early LLL PNA - Lactic acid is 1.8 - Continue IV Zosyn and Azithromycin - IS and acapella - supplemental oxygen - follow up on blood culture results COPD exacerbation Acute on chronic respiratory failure - IV methylprednisolone 40mg IV q6h, taper as tolerated - IV abx as above - scheduled Duonebs and prn. taper as tolerated - supplemental oxygen to maintain O2 sats above 92% - resume home bronchodilators - PT eval/tx CHF exacerbation Medication noncompliance - Cardiac PET 01/2016 w/ EF 63-70% - Bumex 1mg IV x 1 dose now - resume home dose of diuretic Bumex 1mg BID and Aldactone 25mg daily - fluid and salt restrictions - monitor I&Os - daily wts - monitor BMP V tach s/p AICD CAD s/p CABG HTN - ASA daily - resume home Metoprolol 50mg BID - continuous cardiac monitoring - monitor CKD stage 3 - creatinine appears at baseline - avoid nephrotoxic agents - monitor BMP Hyperkalemia - s/t hemolysis - repeat lab in am MILY on CPAP - patients to bring in home CPAP machine for nightly use Anemia, chronic - resume home iron supplementation - appears stable - monitor Nausea and constipation - begin bowel regimen - Monitor for BM DVT prophylaxis - Lovenox 30mg sq daily - lower dose due to poor kidney function Other chronic medical conditions include previous CVA, h/o DVT not on anticoagulation due to previous GIB, OA and Gout: Stable at this time and will continue home medications as indicated. Discussed Condition With Patient and nurse Nuris Hightower MD Feb 15, 2017 12:26
[2017-02-15] MEDS ORDERED: TEMAZEPAM 15 MG CAP PO PRN (12:30)
[2017-02-15] MEDS ORDERED: AZITHROMYCIN INJ 500 MG in SODIUM CHLOR 0.9% 250 ML INJ 250 ML IV SCH (15:00)
--- NOTE | 2017-02-15 17:13 | PD.WCN.NOT ---
Wound Consult Description: R upper extremity Communicated with: RN Loreto mattson, and Doctor Katja Recommendation: Please leave scab to RUE open to air and apply skin prep bid. Additional Information: Patient seen for possible wound to RLE. Patient sitting in chair for wound assessment. Pulled compression stocking down to reveal intact skin to RLE. Pulled compression stocking back in to place. Family member in room during assessment state's, "He has a scab on his R arm". Assessed R arm with dry intact scab to RUE measuring 3 cm x 2 cm. . Applied skin prep to scab and left open to air. Cornelia Combs [facility] Feb 15, 2017 17:13
[2017-02-15 17:49] LABS: HEMOGLOBIN A1a 1.2 %; HEMOGLOBIN Ao 82.8 %; HEMOGLOBIN F 1.2 %; HEMOGLOBIN LA1C 2.7 %; HEMOGLOBIN P3 6.4 %
[2017-02-15] MEDS: ENOXAPARIN SODIUM 30 MG/0.3 ML SYRINGE SQ SCH (17:54)
--- NOTE | 2017-02-15 19:10 | EKG ---
Date Performed: 02/14/2017 Time Performed: 12:23:01 PTAGE: 81 years EKG: SINUS TACHYCARDIA Compared to previous tracing, the patient is now tachycardic ABNORMAL RHY THM ECG PREVIOUS TRACING : 01/04/2017 15.58 DOCTOR: Nova Pressley Interpretating Date/Time 02/15/2017 19:08:06
[2017-02-16] VITALS: BP 109/81; PULSE 98; RESP 21; TEMP 97.5; O2SAT 90
[2017-02-16] MEDS: PIPERACIL-TAZO 3.375 GM PREMIX 50 ML IV SCH ×2 (03:00→09:43)
[2017-02-16] MEDS: SODIUM CHLORIDE 0.9% FLUSH 10 ML FLUSH IV FLUSH PRN (03:00)
[2017-02-16 04:00] VITALS: BP 113/75; PULSE 79; RESP 20; TEMP 97.5; O2SAT 97
[2017-02-16 08:35] VITALS: O2SAT 97
[2017-02-16] MEDS: RESP: ALBUTEROL 2.5 MG/IPRATROPIUM 0.5 MG NEB (SCH) NEB ×2 (08:35→12:40)
[2017-02-16] MEDS ORDERED: SENN1TAB PO (09:18)
[2017-02-16] MEDS ORDERED: IPRASOL INH (09:18)
[2017-02-16] MEDS ORDERED: PRED10PA PO (09:18)
[2017-02-16] MEDS ORDERED: LEVO500T8 PO (09:18)
[2017-02-16] MEDS ORDERED: CEFU1TAB20 PO (09:18)
[2017-02-16] MEDS ORDERED: NORC5TAB PO (09:19)
--- NOTE | 2017-02-16 09:20 | HHI.DS ---
Discharge Summary Admission Date Feb 14, 2017 at 14:56 Discharge Date: Feb 16, 2017 Admitting Diagnosis COPD EXAC/ PNA (1) Pneumonia ICD Code: J18.9 Diagnosis: Principal (2) COPD with exacerbation ICD Code: J44.1 Diagnosis: Principal (3) Right leg DVT ICD Code: I82.401 Diagnosis: Secondary (4) Chronic kidney disease (CKD) ICD Code: N18.9 Diagnosis: Secondary (5) Obstructive sleep apnea ICD Code: G47.33 Diagnosis: Secondary Procedures None Brief History - From Admission Written by Eve Madrid PA-C acting as scribe for Dr. Hightower on 02/14/17 at 16:50. This note was transcribed by scribe Eve Madrid PA-C. I, Dr. Nuris Hightower personally performed the history, physical exam, and medical decision making; and confirmed the accuracy of the information in the transcribed note. Authenticated by Dr. Nuris Hightower on 02/14/17 at 16:50. This is a 81yo male with PMHX of hypertension, history of V. tach status post AICD, CAD s/p CABG, CHF, previous CVA, COPD, MILY on CPAP, chronic kidney disease and h/o DVT following hip replacement not on anticoagulation due to previous GI bleed who presents to [facility] ED with complaints of progressive shortness of breath with minimal exertion and fatigue for the past several days. Patient reports he was recently hospitalized in [place] for sepsis with unknown source. He completed a course of Levaquin and steroids that he finished 1 week ago. Patient reports associated wheezing. He denies any lightheadedness, cough or chest pain. His reports a fever 100.7. Patient admits he did not take his diuretics today because he had a doctor's appointment this morning and did not want to be bothered with frequent urination. In the ED, his tachycardic and tachypneic. His white count is 8.7. Creatinine is 1.95 which appears to be near patient's baseline. BNP is 102. Troponin is flat. Chest x-ray reveals early left lower lobe pneumonia. While in the ED, patient received 125mg of methylprednisolone IVP as well as 3 DuoNeb treatments and his breathing has improved. He was also started on IV Zosyn and azithromycin. CBC/BMP: 02/15/17 0523 02/15/17 0523 Significant Findings Laboratory Tests Test 02/14/17 02/15/17 12:40 05:23 Red Blood Count 3.85 MIL/MM3 3.40 MIL/MM3 (4.50-5.90) (4.50-5.90) Hemoglobin 11.8 GM/DL 10.4 GM/DL (13.0-17.0) (13.0-17.0) Hematocrit 36.6 % 32.4 % (39.0-51.0) (39.0-51.0) Red Cell Distribution Width 18.1 % (11.6-17.2) Platelet Count 124 TH/MM3 113 TH/MM3 (150-450) (150-450) Neutrophils (%) (Auto) 83.2 % 92.2 % (16.0-70.0) (16.0-70.0) Lymphocytes (%) (Auto) 5.7 % 4.9 % (9.0-44.0) (9.0-44.0) Monocytes (%) (Auto) 9.5 % (0.0-8.0) Lymphocytes # (Auto) 0.5 TH/MM3 0.3 TH/MM3 (1.0-4.8) (1.0-4.8) Sodium Level 134 MEQ/L (136-145) Potassium Level 5.7 MEQ/L (3.5-5.1) Blood Urea Nitrogen 30 MG/DL (7-18) 35 MG/DL (7-18) Creatinine 1.95 MG/DL 2.16 MG/DL (0.60-1.30) (0.60-1.30) Estimat Glomerular Filtration 33 ML/MIN (>89) 30 ML/MIN (>89) Rate Total Bilirubin 1.1 MG/DL (0.2-1.0) Aspartate Amino Transf 47 U/L (15-37) (AST/SGOT) Troponin I LESS THAN 0.02 NG/ML (0.02-0.05) B-Type Natriuretic Peptide 102 PG/ML (0-100) Albumin 2.9 GM/DL (3.4-5.0) Triglycerides Level 154 MG/DL (42-150) Random Glucose 167 MG/DL (74-106) Imaging Last Impressions Chest X-Ray 02/14/17 1221 Signed Impressions: Service Date/Time: Tuesday, February 14, 2017 12:50 - CONCLUSION: Possible early pneumonia left lower lobe. Francis Huerta MD PE at Discharge GENERAL: This is a well-nourished, well-developed patient, in mild distress. Awake and alert. On NC. CARDIOVASCULAR: Tachycardiac without murmurs, gallops, or rubs. RESPIRATORY: Decreased breath sounds. Mild scattered wheezing noted. Bibasilar crackles. GASTROINTESTINAL: Abdomen soft, non-tender, nondistended. No hepato-splenomegaly , or palpable masses. No guarding. MUSCULOSKELETAL: Extremities without clubbing or cyanosis. 2+ edema BLE. No joint tenderness, effusion, or edema noted. No calf tenderness. NEUROLOGICAL: Awake and alert. Able to move all extremities. Normal speech. Pt update on day of discharge The patient reads in bed at this time. He says he feels improved. He is satting well on 2 L by nasal cannula. He says he has CPAP as well at night and he has the machine at home. She also has oxygen at home. Family also at bedside. Patient says he feels improved. He was able to walk with physical therapy and his shortness of breath has improved significantly. He is not wheezing at this time. Says he doesn't have nebulizers at home and then will like some nebulizers at home at discharge. He denies any chest pain. Has some cough but doesn't feel congested. No nausea, vomiting, diarrhea or constipation. Says he had a bowel movement yesterday. Wants to go home. He will follow-up with his pulmonology Dr. villegas as outpatient Says temazepam was working very well for sleep last night and he had a very good night sleep. He will also like to have them as above at home to use it as needed for insomnia. No pain in his arms or legs, improved significantly with medications. Patient improved significantly quicker than anticipated Hospital Course 81yo male with PMHX of hypertension, history of V. tach status post AICD, CAD s/ p CABG, CHF, previous CVA, COPD, MILY on CPAP, chronic kidney disease and h/o DVT following hip replacement not on anticoagulation due to previous GI bleed who presents to [facility] ED with complaints of progressive shortness of breath with minimal exertion and fatigue for the past several days. The patient is found with left lower lobe hospital-acquired pneumonia he presented with sepsis meeting criteria. Treated with IV abx, steroids, nebs. Patient improved faster than anticipated. He will follow-up with Dr. Villegas his pulmonology as outpatient Patient is discharged home with [facility], to follow-up with his primary care doctor and pulmonology as outpatient. Keep other appointments with consultants. Sepsis with tachycardia and tachypnea with pneumonia source LLL HCAP, s/p hospitalization last week in [place] for sepsis - CXR personally reviewed shows early LLL PNA - Lactic acid is 1.8 - Continue IV Zosyn and Azithromycin - IS and acapella - supplemental oxygen - follow up on blood culture results, NTD COPD exacerbation Acute on chronic respiratory failure - IV methylprednisolone 40mg IV q6h, taper as tolerated, change to PO prednisone and continue tapering down. - IV abx as above - scheduled Duonebs and prn. taper as tolerated - supplemental oxygen to maintain O2 sats above 92% - resume home bronchodilators - PT eval/tx CHF exacerbation Medication noncompliance - Cardiac PET 01/2016 w/ EF 63-70% - Bumex 1mg IV x 1 dose now - resume home dose of diuretic Bumex 1mg BID and Aldactone 25mg daily - fluid and salt restrictions - monitor I&Os - daily wts - monitor BMP V tach s/p AICD CAD s/p CABG HTN - ASA daily - resume home Metoprolol 50mg BID - continuous cardiac monitoring - monitor CKD stage 3 - creatinine appears at baseline - avoid nephrotoxic agents - monitor BMP Hyperkalemia - s/t hemolysis - repeat lab in am MILY on CPAP - patients to bring in home CPAP machine for nightly use Anemia, chronic - resume home iron supplementation - appears stable - monitor Nausea and constipation - begin bowel regimen - Monitor for BM Insomnia. Ayaz upon as need at night DVT prophylaxis - Lovenox 30mg sq daily - lower dose due to poor kidney function Other chronic medical conditions include previous CVA, h/o DVT not on anticoagulation due to previous GIB, OA and Gout: Stable at this time and will continue home medications as indicated. Discussed Condition With Patient and nurse, family Pt Condition on Discharge: Stable Discharge Disposition: Disch w/ Home Health Serv Discharge Time: > 30 minutes Discharge Instructions DIET: Follow Instructions for: Heart Healthy Diet Activities you can perform: Regular-No Restrictions Follow up Referrals: PCP Follow-up - 3-5 Days Pulmonology - 3-5 Days with Matty Villegas MD New Medications: Albuterol 8.5 GM Inh (Proair Hfa 8.5 GM Inh) 90 Mcg/Act Aer 2 PUFF INH Q4-6H 108 mcg/actuation PRN SHORTNESS OF BREATH #1 Ref 0 INHALER Cefuroxime (Cefuroxime) 500 Mg Tab 500 MG PO BID Infection #20 Ref 0 TAB Hydrocodone-Acetaminophen ([place]) 5-325 mg Tab 1 TAB PO Q6H PRN PAIN #15 Ref 0 TAB Ipratropium-Albuterol Neb (Duoneb) 0.5-2.5 Mg/3 Ml Neb 1 NEBULE INH Q4HR NEB Breathing Treatment #180 Ref 0 NEBULE Levofloxacin (Levofloxacin) 500 Mg Tablet 500 MG PO DAILY Infection #7 Ref 0 TAB Nebulizer (Nebulizer) 1 Mis Mis 1 EA .ROUTE DIRECTED Breathing Treatment #1 Ref 0 EA Prednisone (21) 10 mg tab Dose Pack (Prednisone (21) 10 mg tab Dose Pack) 10 Mg Pack 10 MG PO DIRECTED Inflammation #1 Ref 0 DSPK Ranitidine (Ranitidine 75) 75 Mg Tab 75 MG PO BID Take 30 to 60 minutes before eating food or drinking beverages that cause heartburn. Heartburn #60 Ref 0 TAB Spacer/Device For Mdi (Inspirease Drug Delivery) 1 Ea Mis 1 EA .ROUTE DIRECTED #1 Ref 0 EA Sennosides-Docusate Sodium (Senna Plus 8.6-50 mg) 1 Tab Tab 1 TAB PO BID Constipation #30 TAB Temazepam (Restoril) 15 Mg Cap 15 MG PO HS PRN INSOMNIA #30 CAP Continued Medications: Acetaminophen (Tylenol) 325 Mg Tab 650 MG PO Q4H PRN PAIN SCALE 1 TO 4 Ref 0 TAB Allopurinol (Allopurinol) 100 Mg Tab 100 MG PO BID Gout #30 Ref 0 TAB Aspirin (Aspirin) 81 Mg Chew 81 MG CHEW DAILY Ref 0 TAB Budesonide-Formoterol Inh (Symbicort Inh) 80-4.5 Mcg/Act Aero 2 PUFF INH Q12HR Asthma Management #1 Ref 0 INHALER Bumetanide (Bumetanide) 1 Mg Tab 1 MG PO BID #60 Ref 0 TAB Cholecalciferol (D3 Maximum Strength) 5,000 Unit Cap 2000 UNITS PO DAILY Nutritional Supplement #30 Ref 0 CAP Doxylamine Succinate (Unisom Sleep Aid) 25 Mg Tablet Ferrous Sulfate (Ferosul) 325 Mg Tablet BID Metoprolol Tartrate (Metoprolol Tartrate) 50 Mg Tab 50 MG PO BID #60 Ref 0 TAB Oxygen tank (Oxygen tank) 1 Ea Tank 2 LITER MATY[employer] CONTINUOUS Oxygen Concentrator Portable Gaseous 2 L/min via Nasal Cannula Continuous For 99 months HYPOXEMIA PREVENTION #2 CYLINDER Spironolactone (Spironolactone) 25 Mg Tab 25 MG PO DAILY #30 Ref 0 TAB Tiotropium Inh (Spiriva Handihaler) 18 Mcg Cap 18 MCG INH DAILY 1 capsule = 18 mcg COPD #30 Ref 0 CAP Nuris Hightower MD Feb 16, 2017 09:20
[2017-02-16] MEDS ORDERED: INSPIREASE DRUG1 EA (09:25)
[2017-02-16] MEDS ORDERED: NEBULIZER1 MI1 (09:25)
[2017-02-16] MEDS: CHOLECALCIFEROL (VIT D3) 1000 UNIT TAB PO SCH (09:36)
[2017-02-16] MEDS: ASPIRIN 81 MG CHEW TAB CHEW SCH (09:36)
[2017-02-16] MEDS: SPIRONOLACTONE 25 MG TAB PO SCH (09:36)
[2017-02-16] MEDS: BUMETANIDE 1 MG TAB PO SCH (09:37)
[2017-02-16] MEDS: METOPROLOL TARTRATE 50 MG TAB PO SCH (09:37)
[2017-02-16] MEDS: DOCUSATE SODIUM 50 MG/SENNA 8.6 MG TAB PO SCH (09:38)
[2017-02-16] MEDS: ALLOPURINOL 100 MG TAB PO SCH (09:38)
[2017-02-16] MEDS: methylPREDNISolone SOD SUCC 40 MG/1 ML VIAL IV PUSH SCH (09:39)
[2017-02-16] MEDS: BUDESONIDE-FORMOTEROL 80/4.5 MCG INHALER INH SCH (09:41)
[2017-02-16] MEDS ORDERED: RANI1TAB5 PO (09:41)
[2017-02-16] MEDS: TIOTROPIUM BROMIDE 18 MCG INH INH SCH (09:42)
[2017-02-16] MEDS: SODIUM CHLORIDE 0.9% FLUSH 10 ML FLUSH IV FLUSH SCH (09:43)
[2017-02-16 09:57] LABS: AUTOMATED NEUTROPHIL # 12.5 TH/MM3 (1.8-7.7); BASOPHIL % 0.1 % (0.0-2.0); HEMATOCRIT 31.4 % (39.0-51.0); HEMO FLAGS DIFF FINAL; LYMPH % 2.7 % (9.0-44.0); LYMPHOCYTE # 0.4 TH/MM3 (1.0-4.8); MEAN CORPUSCULAR HEMOGLOBIN 30.3 PG (27.0-34.0); MEAN CORPUSCULAR HGB CONC 32.3 % (32.0-36.0); MONO % 3.5 % (0.0-8.0); NEUT % 93.7 % (16.0-70.0); PLATELET COUNT 129 TH/MM3 (150-450); RED BLOOD COUNT 3.34 MIL/MM3 (4.50-5.90); RED CELL DISTRIBUTION WIDTH 16.9 % (11.6-17.2); WHITE BLOOD COUNT 13.3 TH/MM3 (4.0-11.0)
[2017-02-16 10:21] LABS: BICARBONATE 27.1 MEQ/L (21.0-32.0); MAGNESIUM 2.4 MG/DL (1.5-2.5); POTASSIUM 4.5 MEQ/L (3.5-5.1)
[2017-02-16] MEDS ORDERED: ALBUAER3 INH (10:42)
[2017-02-16] MEDS ORDERED: REST15CA PO (10:42)
--- NOTE | 2017-02-16 10:44 | HHI.FF ---
Face to Face Verification Diagnosis: (1) Chronic kidney disease (CKD) (2) Obstructive sleep apnea (3) Hypertension (4) Cardiac dysrhythmia (5) Pneumonia (6) Right leg DVT (7) COPD with exacerbation Home Health Nursing Order: Medical education Signs/symptoms of disease process CHF education Oxygen administration education Medication education-adverse effect Nursing assessment with vital signs I have seen patient Cricket Grace on 02/16/17. My clinical findings support the need for the requested home health care services because: Ltd mobility - disease progression Patient has SOB I certify that my clinical findings support that this patient is homebound because: Post-op weakness Hx COPD- exertion dyspnea/weakness Nuris Hightower MD Feb 16, 2017 10:44
[2017-02-16 11:54] VITALS: PULSE 95
== END 2017-02-16 13:05 | disposition home or self-care (01) | DRG 871 ==
LOC: NEPC 12:05 → NEDA 14:56 → N04A 16:55
PROVIDERS: ADMIT Hospitalist; ATTEND Hospitalist
DX: A41.9 Sepsis, unspecified organism (principal); J18.9 Pneumonia, unspecified organism; J96.20 Acute and chronic respiratory failure, unspecified whether with hypoxia or hypercapnia; I13.0 Hypertensive heart and chronic kidney disease with heart failure and stage 1 through stage 4 chronic kidney disease, or unspecified chronic kidney disease; E87.5 Hyperkalemia; Z99.81 Dependence on supplemental oxygen; I50.9 Heart failure, unspecified; J44.0 Chronic obstructive pulmonary disease with (acute) lower respiratory infection; J44.1 Chronic obstructive pulmonary disease with (acute) exacerbation; G47.00 Insomnia, unspecified; K59.00 Constipation, unspecified; N18.3 Chronic kidney disease, stage 3 (moderate); I25.10 Atherosclerotic heart disease of native coronary artery without angina pectoris; M10.9 Gout, unspecified; D64.9 Anemia, unspecified; E78.5 Hyperlipidemia, unspecified; G47.33 Obstructive sleep apnea (adult) (pediatric); Z95.810 Presence of automatic (implantable) cardiac defibrillator; Z86.718 Personal history of other venous thrombosis and embolism; Z95.1 Presence of aortocoronary bypass graft; Z79.82 Long term (current) use of aspirin; Z86.73 Personal history of transient ischemic attack (TIA), and cerebral infarction without residual deficits; Z87.891 Personal history of nicotine dependence
CPT/HCPCS: 71010; 80048; 80053; 80061; 82550; 83036; 83605; 83735; 83880; 84484; 85025; 85610; 85730; 87040; 93005; 94150; 94640; 94664; 94667; 96361; 96365; 96375; J0456; J1650; J2543; J2920; J2930; J7040; J7050

== ENCOUNTER 2017-02-23 14:28 | Inpatient (IN) | payer MEDICARE, OTHER ==
[2017-02-23] VITALS (7 sets, daily range): BP systolic 105–123; BP diastolic 56–80; PULSE 76–113; RESP 16–24; TEMP 98.5–98.6; O2SAT 92–98
[~2017-02-23] VITALS: Ht 190.5 cm; Wt 108.0 kg
[~2017-02-23 14:28] MED LIST changes: +ALBUAER3 INH; +CEFU1TAB20 PO; +INSPIREASE DRUG1 EA; +IPRASOL INH; +LEVO500T8 PO; +NEBULIZER1 MI1; +NORC5TAB PO; -PRED10 PO; +PRED10PA PO; +RANI1TAB5 PO; +REST15CA PO; +SENN1TAB PO; -UNIS25TA3; +UNIS25TA3 PO
[2017-02-23] MEDS ORDERED: FUROSEMIDE 100 MG/10 ML VIAL IVP ONE (15:00)
[2017-02-23] MEDS ORDERED: SODIUM CHLORIDE 0.9% FLUSH 10 ML FLUSH IVF PRN (15:00)
[2017-02-23] MEDS: RESP: ALBUTEROL 2.5 MG/IPRATROPIUM 0.5 MG NEB (SCH) INH ×2 (15:13→21:01)
[2017-02-23 15:14] LABS: AUTOMATED NEUTROPHIL # 10.2 TH/MM3 (1.8-7.7); BASOPHIL % 0.2 % (0.0-2.0); EOSINOPHIL # 0.2 TH/MM3 (0-0.4); EOSINOPHIL % 1.5 % (0.0-4.0); HEMATOCRIT 37.8 % (39.0-51.0); LYMPH % 6.6 % (9.0-44.0); LYMPHOCYTE # 0.8 TH/MM3 (1.0-4.8); MEAN CELL VOLUME 94.3 FL (80.0-100.0); MEAN CORPUSCULAR HEMOGLOBIN 30.1 PG (27.0-34.0); MEAN CORPUSCULAR HGB CONC 31.9 % (32.0-36.0); MONO % 8.5 % (0.0-8.0); NEUT % 83.2 % (16.0-70.0); PLATELET COUNT 207 TH/MM3 (150-450); WHITE BLOOD COUNT 12.2 TH/MM3 (4.0-11.0)
[2017-02-23 15:18] LABS: INTERNATIONAL NORMALIZED RATIO 0.9 RATIO; PROTHROMBIN TIME - PATIENT 10.3 SEC (9.8-11.6)
--- NOTE | 2017-02-23 15:19 | PD ---
HPI Chief Complaint: Respiratory Distress Time Seen by Provider: 14:42 Travel History International Travel<30 days: No Contact w/Intl Traveler<30days: No Traveled to known affect area: No History of Present Illness HPI 81-year-old male came to the emergency room by his for shortness of breath. Patient was just discharged a few days ago after being treated for pneumonia in the hospital. Patient has history of congestive heart failure and COPD. He requires 2 L of oxygen at home and CPAP at night. He seemed obviously short of breath and unable to speak nearly one word per breath. His oxygen saturation was in the low 90s on 2 L of oxygen via nasal cannula. The nurse said that he had to bump it up to 3 L and oxygen saturation picked up to 95%. He sees Dr. Simental for his cardiac issues and Dr. Villegas for his pulmonology symptoms. Patient was diagnosed with DVT one year ago when he was started on Coumadin but he started having GI bleed and that was stopped. No history of fever or chills. The also says that his COPD medications didn' t arrive for 3-4 days after he left the hospital. Today she noticed that both his legs are more swollen than usual and felt cold and she was on his way to take him to his primary care. But when he appeared significantly short of breath she decided to bring him to the emergency room instead. Patient told me that he does not have history of coronary artery disease but I noticed that he has had bypass surgery in the past and has an AICD. No history of chest pain. [facility] Past Medical History Narrative Medical List of his past medical, surgical, social and family history is reviewed from the nursing note. Anemia: Yes Arthritis: Yes Asthma: No Autoimmune Disease: No Blood Disorders: No Anxiety: No Depression: No Heart Rhythm Problems: Yes Cancer: Yes (SKIN CANCER) Cardiovascular Problems: Yes (CHF, ND) High Cholesterol: No Chemotherapy: No Chest Pain: No Congestive Heart Failure: Yes COPD: Yes Cerebrovascular Accident: Yes (OCULAR STROKE) Coronary Artery Disease: Yes Diabetes: No Diminished Hearing: No Deep Vein Thrombosis: Yes (off anticoagulation secondary to GI bleed) Endocrine: No Gastrointestinal Disorders: Yes (illeus) GERD: No Glaucoma: No Gout: Yes Genitourinary: Yes Headaches: No Hepatitis: No Hiatal Hernia: No Hypertension: Yes Immune Disorder: No Implanted Vascular Access Dvce: Yes Kidney Stones: No Medical other: Yes (GOUT SAMANTHA) Musculoskeletal: Yes Neurologic: Yes Psychiatric: No Reproductive: No Respiratory: Yes (COPD) Immunizations Current: Yes Migraines: No Myocardial Infarction: Yes Radiation Therapy: No Renal Failure: Yes (chronic kidney disease) Seizures: No Sickle Cell Disease: No Sleep Apnea: Yes (C-Pap) Thyroid Disease: No Ulcer: No Influenza Vaccination: Yes Past Surgical History Abdominal Surgery: Yes (umbilical hernia) AICD: Yes Appendectomy: No Arteriovenous Shunt: No Body Medical Devices: N/A Cardiac Surgery: Yes (FEM-POP RIGHT LEG) Cholecystectomy: No Coronary Artery Bypass Graft: Yes Ear Surgery: No Endocrine Surgery: No Eye Surgery: Yes (bilateral cataracts) Genitourinary Surgery: No Gynecologic Surgery: No Insulin Pump: No Joint Replacement: Yes (RIGHT TOTAL HIP ) Oral Surgery: Yes Pacemaker: No Thoracic Surgery: No Tonsillectomy: Yes Other Surgery: Yes (AICD) Social History Alcohol Use: Yes (COUPLE DRINKS DAILY) Tobacco Use: No Substance Use: No Allergies-Medications (Allergen,Severity, Reaction): Coded Allergies: No Known Allergies (Verified , 02/23/17) Comments No known drug allergies. Reported Meds & Prescriptions Reported Meds & Active Scripts Active Proair Hfa 8.5 GM Inh (Albuterol Sulfate) 90 Mcg/Act Aer 2 Puff INH Q4-6H PRN 108 mcg/actuation Restoril (Temazepam) 15 Mg Cap 15 Mg PO HS PRN Inspirease Drug Delivery (Spacer/Device For Mdi) 1 Ea Mis 1 Ea .ROUTE DIRECTED Nebulizer 1 Mis Mis 1 Ea .ROUTE DIRECTED [place] (Hydrocodone-Acetaminophen) 5-325 mg Tab 1 Tab PO Q6H PRN Levofloxacin 500 Mg Tablet 500 Mg PO DAILY Duoneb (Ipratropium-Albuterol Neb) 0.5-2.5 Mg/3 Ml Neb 1 Nebule INH Q4HR NEB Cefuroxime (Cefuroxime Axetil) 500 Mg Tab 500 Mg PO BID Oxygen tank (Oxygen) 1 Ea Tank 2 Liter MATY.CANULA CONTINUOUS Oxygen Concentrator Portable Gaseous 2 L/min via Nasal Cannula Continuous For 99 months Bumetanide 1 Mg Tab 1 Mg PO BID Reported D3 (Cholecalciferol) 2,000 Unit Cap 2,000 Unit PO 3X WEEKLY Tylenol (Acetaminophen) 325 Mg Tab 650 Mg PO Q4H PRN Unisom Sleep Aid (Doxylamine Succinate) 25 Mg Tablet 25 Mg PO HS PRN Aspirin 81 Mg Chew 81 Mg CHEW DAILY Allopurinol 100 Mg Tab 100 Mg PO BID Spiriva Handihaler (Tiotropium Inh) 18 Mcg Cap 18 Mcg INH DAILY 1 capsule = 18 mcg Symbicort Inh (Budesonide/Formoterol Fumarate) 80-4.5 Mcg/Act Aero 2 Puff INH Q12HR Metoprolol Tartrate 50 Mg Tab 50 Mg PO BID Spironolactone 25 Mg Tab 25 Mg PO DAILY Narrative Medication List of his home medications reviewed from the nursing note. Review of Systems Except as stated in HPI: all other systems reviewed are Neg Physical Exam Narrative GENERAL: Awake, alert, obese, moderate to significant respiratory distress SKIN: Focused skin assessment warm/dry. Rosacea HEAD: Atraumatic. Normocephalic. EYES: Pupils equal and round. No scleral icterus. No injection or drainage. ENT: No nasal bleeding or discharge. Mucous membranes pink and moist. Rosacea NECK: Trachea midline. No JVD. CARDIOVASCULAR: Regular rate and rhythm. No murmur appreciated. RESPIRATORY: Moderate to significant respiratory distress, accessory muscles use for respiration, decreased air entry bilaterally GASTROINTESTINAL: Abdomen soft, non-tender, nondistended. Hepatic and splenic margins not palpable. MUSCULOSKELETAL: No obvious deformities. No clubbing. No cyanosis. 3+ pedal edema bilaterally NEUROLOGICAL: Awake and alert. No obvious cranial nerve deficits. Motor grossly within normal limits. Normal speech. PSYCHIATRIC: Appropriate mood and affect; insight and judgment normal. Data Data Last Documented VS Vital Signs Date Time Temp Pulse Resp B/P Pulse Ox O2 Delivery O2 Flow Rate FiO2 02/23/17 15:03 96 Nasal Cannula 3 02/23/17 14:36 95 16 123/80 02/23/17 14:33 98.5 Orders Complete Blood Count With Diff (02/23/17 14:49) Basic Metabolic Panel (Bmp) (02/23/17 14:49) B-Type Natriuretic Peptide (02/23/17 14:49) Prothrombin Time / Inr (Pt) (02/23/17 14:49) Ckmb (Isoenzyme) Profile (02/23/17 14:49) Troponin I (02/23/17 14:49) Iv Access Insert/Monitor (02/23/17 14:49) Ecg Monitoring (02/23/17 14:49) Oximetry (02/23/17 14:49) Oxygen Administration (02/23/17 14:49) Chest, Single Ap (02/23/17 14:49) Sodium Chloride 0.9% Flush (Ns Flush) (02/23/17 15:00) Albuterol-Ipratropium Neb (Duoneb Neb) (02/23/17 15:00) Furosemide Inj (Lasix Inj) (02/23/17 15:00) Arterial Blood Gas (Abg) (02/23/17 ) Us Leg Venous Doppler Bilat (02/23/17 ) Methylprednisolone So Succ Inj (Solumedr (02/23/17 15:30) Admit Order (Ed Use Only) (02/23/17 16:18) Labs Laboratory Tests Test 02/23/17 02/23/17 15:00 15:18 White Blood Count 12.2 TH/MM3 Red Blood Count 4.00 MIL/MM3 Hemoglobin 12.1 GM/DL Hematocrit 37.8 % Mean Corpuscular Volume 94.3 FL Mean Corpuscular Hemoglobin 30.1 PG Mean Corpuscular Hemoglobin 31.9 % Concent Red Cell Distribution Width 17.0 % Platelet Count 207 TH/MM3 Mean Platelet Volume 8.0 FL Neutrophils (%) (Auto) 83.2 % Lymphocytes (%) (Auto) 6.6 % Monocytes (%) (Auto) 8.5 % Eosinophils (%) (Auto) 1.5 % Basophils (%) (Auto) 0.2 % Neutrophils # (Auto) 10.2 TH/MM3 Lymphocytes # (Auto) 0.8 TH/MM3 Monocytes # (Auto) 1.0 TH/MM3 Eosinophils # (Auto) 0.2 TH/MM3 Basophils # (Auto) 0.0 TH/MM3 CBC Comment AUTO DIFF Differential Total Cells 100 Counted Neutrophils % (Manual) 84 % Band Neutrophils % 3 % Lymphocytes % 6 % Monocytes % 5 % Eosinophils % 1 % Neutrophils # (Manual) 10.7 TH/MM3 Metamyelocytes 1 % Differential Comment FINAL DIFF MANUAL Platelet Estimate NORMAL Platelet Morphology Comment NORMAL Ovalocytes 1+ Prothrombin Time 10.3 SEC Prothromb Time International 0.9 RATIO Ratio Sodium Level 135 MEQ/L Potassium Level 4.5 MEQ/L Chloride Level 102 MEQ/L Carbon Dioxide Level 23.7 MEQ/L Anion Gap 9 MEQ/L Blood Urea Nitrogen 40 MG/DL Creatinine 2.06 MG/DL Estimat Glomerular Filtration 31 ML/MIN Rate Random Glucose 85 MG/DL Calcium Level 8.5 MG/DL Total Creatine Kinase 19 U/L Troponin I LESS THAN 0.02 NG/ML B-Type Natriuretic Peptide 160 PG/ML Blood Gas Puncture Site LT RADIAL Blood Gas Patient Temperature 98.6 Blood Gas HCO3 21 mmol/L Blood Gas Base Excess -1.8 mmol/L Blood Gas Oxygen Saturation 90 % Arterial Blood pH 7.50 Arterial Blood Partial 28 mmHg Pressure CO2 Arterial Blood Partial 61 mmHG Pressure O2 Arterial Blood Oxygen Content 14.7 Vol % Arterial Blood 1.7 % Carboxyhemoglobin Arterial Blood Methemoglobin 1.2 % Blood Gas Hemoglobin 11.6 G/DL Blood Gas Inspired Oxygen 21 % MDM Medical Decision Making Medical Screen Exam Complete: Yes Emergency Medical Condition: Yes Medical Record Reviewed: Yes Interpretation(s) Twelve-lead EKG was reviewed by me. Normal sinus rhythm, left axis deviation, PVC, echocardiogram, left axis deviation. Heart rate of 101 bpm. Differential Diagnosis Congestive heart failure, pleural effusion, pneumonia, COPD exacerbation, ACS, non-STEMI Narrative Course 3:18 PM patient was started on two duo nebs, IV Solu-Medrol bolus, IV Lasix 60 mg. Awaiting for the blood test results and chest x-ray to be done and resulted. Looking at patient's condition he will require admission and I have discussed this with the . She understands. 4:06 PM blood test results of back and patient has slightly elevated white blood cell count. His renal insufficiency seems similar to before. I looked at the chest x-ray myself and does not appear to be grossly abnormal. Awaiting for the radiologist read. Patient however requires to be admitted. I have put a call out for the hospitalist. ABG was suggestive of hypoxia on room air. Critical Care Narrative Aggregate critical care time was 30 minutes. Time to perform other separately billable procedures was not included in the critical care time. My time did not include minutes spent treating any other patients simultaneously or on activities that did not directly contribute to the patient's treatment. The services I provided to this patient were to treat and/or prevent clinically significant deterioration that could result in: Respiratory distress, hypoxia I provided critical care services requiring my management, as noted below: Chart data review, documentation time, medication orders and management, vital sign assessments/reviewing monitor data, ordering and reviewing lab tests, ordering and interpreting/reviewing x-rays and diagnostic studies, care of the patient and discussion of the patient with the admitting physicians. Procedures EKG Prior to Arrival: No Diagnosis Primary Impression: Respiratory distress Additional Impressions: Hypoxia Pedal edema Admitting Information Admitting Physician Requests: Admit Celi Shepard MD Feb 23, 2017 15:19
[2017-02-23 15:20] LABS: HEMO FLAGS AUTO DIFF
[2017-02-23] MEDS ORDERED: methylPREDNISolone SOD SUCC 125 MG/2 ML VIAL IV PUSH ONE (15:30)
[2017-02-23 15:35] LABS: ANION GAP 9 MEQ/L (5-15); BICARBONATE 23.7 MEQ/L (21.0-32.0); BLOOD UREA NITROGEN 40 MG/DL (7-18); CHLORIDE 102 MEQ/L (98-107); GLOMERULAR FILTRATION RATE 31 ML/MIN (>89); POTASSIUM 4.5 MEQ/L (3.5-5.1); SODIUM (NA) 135 MEQ/L (136-145)
[2017-02-23 15:44] LABS: CREATINE KINASE 19 U/L (39-308)
[2017-02-23 15:53] LABS: BLOOD GAS BASE EXCESS -1.8 mmol/L (-2-2); BLOOD GAS CARBOXYHEMOGLOBIN 1.7 % (0-4); BLOOD GAS HCO3 21 mmol/L (22-26); BLOOD GAS METHEMOGLOBIN 1.2 % (0-2); BLOOD GAS O2 HGB SATURATION 90 % (90-100); BLOOD GAS OXYGEN CONTENT 14.7 Vol % (12.0-20.0); BLOOD GAS PCO2 28 mmHg (38-42); BLOOD GAS PO2 61 mmHG (61-120); BLOOD GAS TOTAL HGB 11.6 G/DL (12.0-16.0); CRITICAL VALUE NO; TEMP CORR TO 98.6
[2017-02-23 15:54] LABS: DRAW SITE LT RADIAL; FIO2 21 %; NUMBER OF ARTERIAL PUNCTURES 1; STAT YES; ULNAR PULSE PRESENT
[2017-02-23] MEDS ORDERED: CHOL20003 PO (16:00)
[2017-02-23 16:18] LABS: BANDS 3 % (0-6); EOSINOPHILS 1 % (0-4); METAMYELOCYTES 1 % (0-1); NEUTROPHIL # MANUAL DIFF 10.7 TH/MM3 (1.8-7.7); POLYS (SEG NEUTROPHILS) 84 % (16-70); WBC DIFF SAMPLE 100
[2017-02-23 16:19] LABS: OVALOCYTES 1+ (NORMAL); PLATELET ESTIMATE SMEAR NORMAL (NORMAL); PLATELET MORPHOLOGY NORMAL (NORMAL); SCAN/DIFF FINAL DIFF MANUAL
--- NOTE | 2017-02-23 16:25 | RADRPT ---
EXAM DATE/TIME: 02/23/2017 15:21 [facility] COMPARISON: No previous studies available for comparison. EXTERNAL COMPARISON : [facility], US LEG, RIGHT VENOUS DOPPLER, January 10, 2017 INDICATIONS : Bilateral leg swelling. MEDICAL HISTORY : Myocardial infarction. Chronic obstructive pulmonary disease. Congestive heart failure. Cerebrovascul ar accident. Syncope. Coronary artery disease. Anticoagulant therapy. Deep vein thrombosis. Irregular heartbeat. Hypertension. Sleep apnea. Renal disease. Arthritis. Gout. Skin cancer. Measles. Blood tr ansfusion. SURGICAL HISTORY : Tonsillectomy.CABG Umbilical hernia repair.Bilateral cataract removal. Internal defibrillator. Right hip replacement. ENCOUNTER: Initial ACUITY: 1 day PAIN SCORE: 4/10 LOCATION: Bilateral legs. TECHNIQUE: Venous ultrasound of the left and right leg was performed from the inguinal ligament to the proximal calf. Real-time, color Doppler and spectral tracing, compression and augmentation techniques were us ed. FINDINGS: RIGHT LEG: There is normal compressibility of the deep venous system from the inguinal region to the proximal ca lf. No echogenic clot is seen in the lumen of the common femoral, femoral, popliteal, and posterior tibial veins. There is a normal response of the venous system to proximal and distal augmentation an d respiration. LEFT LEG: The common femoral artery appears dilated and severely diseased. The superficial femoral artery appea rs potential be occluded, however color flow images are not provided to clearly document this one way or the other. Clinical correlation recommended. There is normal compressibility of the deep venous system from the inguinal region to the proxim al calf. No echogenic clot is seen in the lumen of the common femoral, femoral, popliteal, and poste rior tibial veins. There is a normal response of the venous system to proximal and distal augmentati on and respiration. CONCLUSION: No evidence of lower extremity DVT Rusty Mccurdy MD on February 23, 2017 at 16:15 Board Certified Radiologist. This report was verified electronically.
[2017-02-23] MEDS ORDERED: SODIUM CHLORIDE 0.9% FLUSH 10 ML FLUSH IV FLUSH PRN (16:30)
--- NOTE | 2017-02-23 16:31 | RADRPT ---
EXAM DATE/TIME: 02/23/2017 15:06 [facility] COMPARISON: CHEST SINGLE AP, February 14, 2017, 12:50. INDICATIONS : Shortness of breath MEDICAL HISTORY : Chronic obstructive pulmonary disease. Congestive heart failure. Myocardial infarction. SURGICAL HISTORY : Pacemaker. ENCOUNTER: Initial ACUITY: 1 day PAIN SCORE: 0/10 LOCATION: Bilateral chest FINDINGS: The lungs are clear without infiltrate, nodule, or mass. There is no appreciable pleural effusion fo r technique. Heart and mediastinum are unremarkable. Left subclavian transvenous pacer wires are pre sent with tips in the right atrium and right ventricle. CONCLUSION: No acute cardiopulmonary disease. Marcia Garzon MD on February 23, 2017 at 16:29 Board Certified Radiologist. This report was verified electronically.
[2017-02-23] MEDS ORDERED: RESP: ALBUTEROL 2.5 MG/3 ML NEB (PRN) INH (17:00)
[2017-02-23] MEDS: methylPREDNISolone SOD SUCC 125 MG/2 ML VIAL IVP SCH ×2 (17:54→23:57)
[2017-02-23] MEDS ORDERED: ACETAMINOPHEN/HYDROcodone 325 MG/5 MG TAB PO PRN (18:00)
[2017-02-23] MEDS ORDERED: ACETAMINOPHEN 325 MG TAB PO PRN (18:00)
--- NOTE | 2017-02-23 18:04 | HHI.HP ---
[facility] Stanislav Castro MD Admission Diagnosis respiratory distress, hypoxia Diagnoses: Chief Complaint: Shortness of breath Travel History International Travel<30 Days: No Contact w/Intl Traveler <30 Da: No Traveled to Known Affected Are: No History of Present Illness Written by Osorio Branch, acting as scribe for Dr. Lara on 02/23/17 at 17:59. 81-year-old male with a past medical history of CAD, CHF, COPD, MILY, CKD who presented for shortness of breath. The patient's had 3 recent admissions for similar complaints. He reports significant effort in breathing with activity. He has severe emphysema and is on O2 at night, follows with Dr. Villegas. The patient states that this morning he began having worsening shortness of breath, decreased energy, and generalized weakness. He's been on multiple antibiotics recently for respiratory issues, and has been having loose stools about 3 times daily. He denies any cough, chest pain, fever, chills, night sweats, headache, vision changes. He does have chronic lower extremity swelling, uses THEO hose. Review of Systems Except as stated in HPI: all other systems reviewed are Neg Past Family Social History Past Medical History History of V. tach status post AICD placement Coronary artery disease Congestive heart failure COPD/emphysema with chronic respiratory failure on oxygen at night Sleep apnea on CPAP at night Chronic kidney disease History of DVT History of GI bleeding after starting on anticoagulation Past Surgical History AICD placement excellent CABG Umbilical hernia repair Bilateral cataract surgery Tonsillectomy Right hip surgery 2 Right popliteal artery aneurysm repair Reported Medications Proair Hfa 8.5 GM Inh (Albuterol Sulfate) 90 Mcg/Act Aer 2 Puff INH Q4-6H PRN 108 mcg/actuation Restoril (Temazepam) 15 Mg Cap 15 Mg PO HS PRN Inspirease Drug Delivery (Spacer/Device For Mdi) 1 Ea Mis 1 Ea .ROUTE DIRECTED Nebulizer 1 Mis Mis 1 Ea .ROUTE DIRECTED [place] (Hydrocodone-Acetaminophen) 5-325 mg Tab 1 Tab PO Q6H PRN Levofloxacin 500 Mg Tablet 500 Mg PO DAILY Duoneb (Ipratropium-Albuterol Neb) 0.5-2.5 Mg/3 Ml Neb 1 Nebule INH Q4HR NEB Cefuroxime (Cefuroxime Axetil) 500 Mg Tab 500 Mg PO BID Oxygen tank (Oxygen) 1 Ea Tank 2 Liter MATY.CANULA CONTINUOUS Oxygen Concentrator Portable Gaseous 2 L/min via Nasal Cannula Continuous For 99 months Bumetanide 1 Mg Tab 1 Mg PO BID D3 (Cholecalciferol) 2,000 Unit Cap 2,000 Unit PO 3X WEEKLY Tylenol (Acetaminophen) 325 Mg Tab 650 Mg PO Q4H PRN Unisom Sleep Aid (Doxylamine Succinate) 25 Mg Tablet 25 Mg PO HS PRN Aspirin 81 Mg Chew 81 Mg CHEW DAILY Allopurinol 100 Mg Tab 100 Mg PO BID Spiriva Handihaler (Tiotropium Inh) 18 Mcg Cap 18 Mcg INH DAILY 1 capsule = 18 mcg Symbicort Inh (Budesonide/Formoterol Fumarate) 80-4.5 Mcg/Act Aero 2 Puff INH Q12HR Metoprolol Tartrate 50 Mg Tab 50 Mg PO BID Spironolactone 25 Mg Tab 25 Mg PO DAILY Allergies: Coded Allergies: No Known Allergies (Verified , 02/23/17) Active Ordered Medications Current Medications Medications (Trade) Dose Ordered Sig/Guy Route Start Time Stop Time Status Last Admin (NS Flush) 2 ml UNSCH PRN IVF 02/23/17 15:00 (NS Flush) 2 ml BID IV FLUSH 02/23/17 21:00 (NS Flush) 2 ml UNSCH PRN IV FLUSH 02/23/17 16:30 (SoluMEDROL INJ) 60 mg Q6H IVP 02/23/17 18:00 (Heparin Inj) 5,000 units Q12H SQ 02/23/17 18:00 (Bumex Inj) 1 mg BID@09,18 IV PUSH 02/24/17 09:00 ([place] 5-325 Mg) 1 tab Q6H PRN PO 02/23/17 18:00 (Tylenol) 650 mg Q6HR PRN PO 02/23/17 18:00 Family History Father had Alzheimer's disease Social History Drinks martinis nightly For tobacco use, quit 2 years ago Denies any drug use Physical Exam Vital Signs Vital Signs Date Time Temp Pulse Resp B/P Pulse Ox O2 Delivery O2 Flow Rate FiO2 02/23/17 17:58 106 16 123/77 95 Nasal Cannula 3 02/23/17 16:36 113 24 121/76 95 Nasal Cannula 3 02/23/17 15:03 96 Nasal Cannula 3 02/23/17 14:36 95 16 123/80 97 Room Air 02/23/17 14:33 98.5 95 16 123/80 92 Physical Exam GENERAL: Well-developed well-nourished. In no acute distress. SKIN: Warm and dry. Chronic cellulitic changes bilateral lower extremities. HEENT: Normocephalic. Pupils equal and round. Mucous membranes pink and moist. CARDIOVASCULAR: Regular rate and rhythm. No murmur appreciated. RESPIRATORY: Fair air entry bilaterally. Wheezing present bilaterally. GASTROINTESTINAL: Abdomen soft, non-tender, nondistended. Bowel sounds x4. MUSCULOSKELETAL: No obvious deformities. No clubbing or cyanosis. 2+ lower extremity edema. NEUROLOGICAL: Awake and alert. No focal neurological deficits. Moves upper and lower extremities spontaneously. Normal speech. PSYCHIATRIC: Appropriate mood and affect; insight and judgment normal. Laboratory Laboratory Tests Test 02/23/17 02/23/17 15:00 15:18 White Blood Count 12.2 Red Blood Count 4.00 Hemoglobin 12.1 Hematocrit 37.8 Mean Corpuscular Volume 94.3 Mean Corpuscular Hemoglobin 30.1 Mean Corpuscular Hemoglobin 31.9 Concent Red Cell Distribution Width 17.0 Platelet Count 207 Mean Platelet Volume 8.0 Neutrophils (%) (Auto) 83.2 Lymphocytes (%) (Auto) 6.6 Monocytes (%) (Auto) 8.5 Eosinophils (%) (Auto) 1.5 Basophils (%) (Auto) 0.2 Neutrophils # (Auto) 10.2 Lymphocytes # (Auto) 0.8 Monocytes # (Auto) 1.0 Eosinophils # (Auto) 0.2 Basophils # (Auto) 0.0 CBC Comment AUTO DIFF Differential Total Cells 100 Counted Neutrophils % (Manual) 84 Band Neutrophils % 3 Lymphocytes % 6 Monocytes % 5 Eosinophils % 1 Neutrophils # (Manual) 10.7 Metamyelocytes 1 Differential Comment FINAL DIFF MANUAL Platelet Estimate NORMAL Platelet Morphology Comment NORMAL Ovalocytes 1+ Prothrombin Time 10.3 Prothromb Time International 0.9 Ratio Sodium Level 135 Potassium Level 4.5 Chloride Level 102 Carbon Dioxide Level 23.7 Anion Gap 9 Blood Urea Nitrogen 40 Creatinine 2.06 Estimat Glomerular Filtration 31 Rate Random Glucose 85 Calcium Level 8.5 Total Creatine Kinase 19 Troponin I LESS THAN 0.02 B-Type Natriuretic Peptide 160 Blood Gas Puncture Site LT RADIAL Blood Gas Patient Temperature 98.6 Blood Gas HCO3 21 Blood Gas Base Excess -1.8 Blood Gas Oxygen Saturation 90 Arterial Blood pH 7.50 Arterial Blood Partial 28 Pressure CO2 Arterial Blood Partial 61 Pressure O2 Arterial Blood Oxygen Content 14.7 Arterial Blood 1.7 Carboxyhemoglobin Arterial Blood Methemoglobin 1.2 Blood Gas Hemoglobin 11.6 Blood Gas Inspired Oxygen 21 Result Diagram: 02/23/17 1500 02/23/17 1500 Imaging Last Impressions Chest X-Ray 02/23/17 1449 Signed Impressions: Service Date/Time: Thursday, February 23, 2017 15:06 - CONCLUSION: No acute cardiopulmonary disease. Marcia Garzon MD Lower Extremity Ultrasound 02/23/17 0000 Signed Impressions: Service Date/Time: Thursday, February 23, 2017 15:21 - CONCLUSION: No evidence of lower extremity DVT Rusty Mccurdy MD Assessment and Plan Assessment and Plan 81-year-old male with a past medical history of CAD, CHF, COPD, MILY, CKD who presented for shortness of breath Acute COPD exacerbation on chronic respiratory failure: ABG reviewed. Hypoxia on room air. Chest x-ray no acute process. BNP 160. Afebrile, WBC 12.2, possibly from steroids. Scheduled and as needed nebs. Supplemental O2 as needed. IV steroids. Consider antibiotics depending on stool culture. Continue home pulmonary regimen. Consult pulmonology. Chronic congestive heart failure: BNP minimally elevated at 160. Change home Bumex to IV and monitor clinically. Continue Aldactone. Follow-up a.m. labs. Diarrhea: Recent antibiotic use, rule out C. difficile. CKD: Creatinine 2.06, previously 2.02 on 02/16/17. Stable. Monitor BMP. DVT prophylaxis: Heparin Attending Statement This note was transcribed by yolanda Branch. I, Dr. Riley Lara personally performed the history, physical exam, and medical decision making; and confirmed the accuracy of the information in the transcribed note. Authenticated by Dr. Riley Lara on 02/23/17 at 18:58. Osorio Branch Feb 23, 2017 18:04 Riley Lara MD Feb 23, 2017 18:59
[2017-02-23] MEDS: HEPARIN SODIUM - SQ 10,000 UNITS/ML VIAL SQ SCH (18:20)
--- NOTE | 2017-02-23 20:03 | MB ---
cc: CYNDI IBRAHIM DATE OF CONSULTATION 02/23/[address] Riley Lara REASON FOR CONSULTATION COPD exacerbation. HISTORY OF PRESENT ILLNESS Mr. Grace is a 81-year-old male with was history of COPD, obstructive sleep apnea. He uses a C-PAP machine with oxygen at night time. He has been having worsening of his shortness of breath, mostly today any he has noticed increased swelling in his legs. He has cough, wheezing, small amount of sputum production. No fever or chills. No night sweats. No chest pain. The patient was evaluated in the emergency room. He had a workup done. Chest x-ray shows no acute cardiopulmonary process. His CBC showed WBC count 12.2, hemoglobin 12.1, hematocrit 37.8, MCV 94, platelet count 207, sodium 135, potassium 4.5, chloride 102, CO2 23, BUN 40, creatinine 2.06. His blood gas shows pH 7.50, pCO2 28, pO2 61 on room air. PAST MEDICAL HISTORY His past medical history is significant for history of COPD, obstructive sleep apnea, congestive heart failure, chronic kidney disease, history of DVT, history of AICD placement. MEDICATIONS He is currently takin. Bumex 1 milligram twice a day. 2. Aspirin 81 milligrams a day. 3. Spironolactone 25 milligrams a day. 4. Spiriva once a day. 5. Nebulizer treatment, DuoNeb for times a day. 6. Symbicort 80/4.5 2 puffs twice a day. 7. Lopressor 50 milligrams twice a day. 8. Temazepam 15 milligrams at nighttime. 9. Solu-Medrol 40 milligrams q. 6-hour. 10. Heparin 5000 units q.12 hours. 11. Hydrocodone 5/325 as needed. ALLERGIES NO KNOWN DRUG ALLERGIES. SOCIAL HISTORY He is , has history of smoking in the past. No alcohol abuse. He worked as a [employer]. FAMILY HISTORY Noncontributory. REVIEW OF SYSTEMS He walks with the help of a walker. He uses his C-PAP machine. Has gained weight, has swelling in his legs. No seizure, stroke or epilepsy. PHYSICAL EXAMINATION GENERAL: Obese male, mild to moderate short of breath. VITAL SIGNS: Blood pressure 123/77, heart rate 106, respirations 16, temperature 98. HEENT: Pupils are equal and reactive to light. Oral mucosa and nasal mucosa normal. NECK: Supple. JVP not raised. CHEST: He has bilateral expiratory rhonchi. CARDIOVASCULAR: S1-S2 normal. ABDOMEN: Soft, nondistended. Bowel sounds are present EXTREMITIES: 2 to 3+ pedal edema. PATTERN AND CHAIN MAKER: Alert and oriented x3. No focal deficit. IMPRESSION 1. COPD exacerbation. 2. Obstructive sleep apnea. 3. Congestive heart failure. 4. Chronic kidney disease. 5. History of DVT. 6. AICD placement. PLAN I discussed with the patient and his . Will supplement his oxygen. He will use C-PAP machine with oxygen at nighttime and the will bring his own machine. Will give him IV Solu-Medrol, aerosol treatment, albuterol and Atrovent. Continue Spiriva and Symbicort. The patient is being diuresed. Monitor his electrolytes. Further treatment will depend on the course in the hospital. Thank you Dr. Lara for this consultation. MD JOSEPH Pickering/ALISON /6:51 PM /7:37 PM [id number]
[2017-02-23] MEDS: SODIUM CHLORIDE 0.9% FLUSH 10 ML FLUSH IV FLUSH SCH (21:09)
[2017-02-23] MEDS: METOPROLOL TARTRATE 50 MG TAB PO SCH (21:09)
[2017-02-23] MEDS: BUDESONIDE-FORMOTEROL 80/4.5 MCG INHALER INH SCH (21:38)
[2017-02-23] MEDS: TEMAZEPAM 15 MG CAP PO PRN (23:57)
[2017-02-24] VITALS (10 sets, daily range): BP systolic 96–130; BP diastolic 68–88; PULSE 63–91; RESP 18–20; TEMP 97.1–97.6; O2SAT 94–98
[2017-02-24] MEDS: RESP: ALBUTEROL 2.5 MG/IPRATROPIUM 0.5 MG NEB (SCH) INH ×4 (03:47→20:58)
[2017-02-24] MEDS: HEPARIN SODIUM - SQ 10,000 UNITS/ML VIAL SQ SCH ×2 (05:55→17:30)
[2017-02-24] MEDS: methylPREDNISolone SOD SUCC 125 MG/2 ML VIAL IVP SCH ×4 (05:55→23:09)
[2017-02-24 08:25] LABS: C. DIFF EPI 027 PRESUMPTIVE NEGATIVE (NEGATIVE); C. DIFF TOXIN PCR NEGATIVE (NEGATIVE)
[2017-02-24] MEDS ORDERED: FUROSEMIDE 20 MG/2 ML VIAL IV PUSH SCH (09:00)
[2017-02-24] MEDS: SPIRONOLACTONE 25 MG TAB PO SCH (09:09)
[2017-02-24] MEDS: BUDESONIDE-FORMOTEROL 80/4.5 MCG INHALER INH SCH ×2 (09:09→21:34)
[2017-02-24] MEDS: METOPROLOL TARTRATE 50 MG TAB PO SCH ×2 (09:09→21:34)
[2017-02-24] MEDS: ASPIRIN 81 MG CHEW TAB CHEW SCH (09:09)
[2017-02-24] MEDS: SODIUM CHLORIDE 0.9% FLUSH 10 ML FLUSH IV FLUSH SCH ×2 (09:10→21:34)
[2017-02-24] MEDS: BUMETANIDE INJ 1 MG/4 ML VIAL IV PUSH SCH ×2 (09:10→17:29)
[2017-02-24] MEDS: TIOTROPIUM BROMIDE 18 MCG INH INH SCH (09:19)
[2017-02-24 10:04] LABS: AUTOMATED NEUTROPHIL # 8.2 TH/MM3 (1.8-7.7); BASOPHIL % 0.1 % (0.0-2.0); HEMO FLAGS DIFF FINAL; LYMPHOCYTE # 0.3 TH/MM3 (1.0-4.8); MEAN CELL VOLUME 92.3 FL (80.0-100.0); MEAN CORPUSCULAR HGB CONC 33.6 % (32.0-36.0); MONO % 0.9 % (0.0-8.0); PLATELET COUNT 170 TH/MM3 (150-450); RED BLOOD COUNT 3.79 MIL/MM3 (4.50-5.90); RED CELL DISTRIBUTION WIDTH 17.3 % (11.6-17.2); WHITE BLOOD COUNT 8.5 TH/MM3 (4.0-11.0)
[2017-02-24 10:19] LABS: BICARBONATE 22.6 MEQ/L (21.0-32.0); POTASSIUM 3.8 MEQ/L (3.5-5.1)
--- NOTE | 2017-02-24 13:56 | HHI.PR ---
Subjective Remarks Follow-up COPD, CHF. The patient states that he feels a little better today. Less short of breath. No chest pain. Still with significant lower extremity edema. Objective Vitals Vital Signs Date Time Temp Pulse Resp B/P Pulse Ox O2 Delivery O2 Flow Rate FiO2 02/24/17 12:00 97.5 91 18 116/68 96 02/24/17 10:52 96 Nasal Cannula 3.00 02/24/17 08:30 Nasal Cannula 3.00 02/24/17 08:00 97.4 63 18 115/73 96 02/24/17 08:00 65 02/24/17 04:00 Nasal Cannula 3.00 02/24/17 04:00 97.6 81 18 130/69 94 02/24/17 03:49 98 cpap 3.00 02/24/17 00:00 97.1 64 18 96/70 96 02/23/17 21:01 98 Nasal Cannula 3.00 02/23/17 20:00 98.5 95 18 105/56 94 02/23/17 20:00 Nasal Cannula 3.00 02/23/17 20:00 98 02/23/17 19:02 98.6 76 115/69 94 02/23/17 17:58 106 16 123/77 95 Nasal Cannula 3 02/23/17 16:36 113 24 121/76 95 Nasal Cannula 3 02/23/17 15:03 96 Nasal Cannula 3 02/23/17 14:36 95 16 123/80 97 Room Air 02/23/17 14:33 98.5 95 16 123/80 92 I/O 02/23/17 02/23/17 02/23/17 02/24/17 02/24/17 02/24/17 07:00 15:00 23:00 07:00 15:00 23:00 Output Total 450 ml 400 ml Balance -450 ml -400 ml Output Urine Total 450 ml 400 ml # Voids 1 # Bowel Movements 1 Result Diagram: 02/24/17 0842 02/24/17 0812 Imaging Last Impressions Chest X-Ray 02/23/17 1449 Signed Impressions: Service Date/Time: Thursday, February 23, 2017 15:06 - CONCLUSION: No acute cardiopulmonary disease. Marcia Garzon MD Lower Extremity Ultrasound 02/23/17 0000 Signed Impressions: Service Date/Time: Thursday, February 23, 2017 15:21 - CONCLUSION: No evidence of lower extremity DVT Rusty Mccurdy MD Objective Remarks General: Elderly male in no acute distress. Sitting up in a chair. Heart: Regular rate and rhythm. No murmur. Lungs: Scattered rhonchi. Breathing is nonlabored. Abdomen: Soft, nontender, nondistended. Extremities: 2+ bilateral lower extremity edema. Psych: Alert and oriented. Procedures None Urinary Catheter: No Vascular Central Line Catheter: No A/P Problem List: (1) COPD with exacerbation ICD Code: J44.1 Status: Acute (2) Pedal edema ICD Code: R60.0 Status: Acute (3) CHF (congestive heart failure) ICD Code: I50.9 Status: Chronic (4) CHF exacerbation ICD Code: I50.9 Status: Acute (5) Chronic kidney disease, stage 3 ICD Code: N18.3 Status: Acute Assessment and Plan 1. COPD exacerbation: Continue supplemental oxygen, steroids, bronchodilators. Appreciate pulmonology recommendations. 2. Chronic respiratory failure: Patient on home oxygen, generally just at night. 3. Congestive heart failure: Continue diuresis. Patient has significant lower extremity edema. Check 2-D echocardiogram. Consult patient's edger hand. 4. Diarrhea: Improved. C. difficile negative. 5. Chronic kidney disease stage III: Stable. 6. DVT prophylaxis: Heparin. Riley Lara MD Feb 24, 2017 13:56
--- NOTE | 2017-02-24 14:51 | HHI.PR ---
Subjective Remarks 81 YOWM with COPD exac, CHF,AICD Breathing much better No CP No Fever or chills Slept well Objective Vital Signs Vital Signs Date Time Temp Pulse Resp B/P Pulse Ox O2 Delivery O2 Flow Rate FiO2 02/24/17 12:00 97.5 91 18 116/68 96 02/24/17 10:52 96 Nasal Cannula 3.00 02/24/17 08:30 Nasal Cannula 3.00 02/24/17 08:00 97.4 63 18 115/73 96 02/24/17 08:00 65 02/24/17 04:00 Nasal Cannula 3.00 02/24/17 04:00 97.6 81 18 130/69 94 02/24/17 03:49 98 cpap 3.00 02/24/17 00:00 97.1 64 18 96/70 96 02/23/17 21:01 98 Nasal Cannula 3.00 02/23/17 20:00 98.5 95 18 105/56 94 02/23/17 20:00 Nasal Cannula 3.00 02/23/17 20:00 98 02/23/17 19:02 98.6 76 115/69 94 02/23/17 17:58 106 16 123/77 95 Nasal Cannula 3 02/23/17 16:36 113 24 121/76 95 Nasal Cannula 3 02/23/17 15:03 96 Nasal Cannula 3 I/O 02/23/17 02/23/17 02/23/17 02/24/17 02/24/17 02/24/17 07:00 15:00 23:00 07:00 15:00 23:00 Intake Total 2 ml Output Total 450 ml 400 ml Balance -450 ml -400 ml 2 ml IV Total 2 ml Output Urine Total 450 ml 400 ml # Voids 1 # Bowel Movements 1 Result Diagram: 02/24/17 0842 02/24/17 0812 Objective Remarks GENERAL: WBWN WM, NAD SKIN: Warm and dry. HEAD: Normocephalic. EYES: No scleral icterus. No injection or drainage. NECK: Supple, trachea midline. No JVD or lymphadenopathy. CARDIOVASCULAR: Regular rate and rhythm without murmurs, gallops, or rubs. RESPIRATORY: Breath sounds equal bilaterally. No accessory muscle use. Exp rhonchi GASTROINTESTINAL: Abdomen soft, non-tender, nondistended. MUSCULOSKELETAL: No cyanosis, ++ edema. BACK: Nontender without obvious deformity. No CVA tenderness. A/P Assessment and Plan COPD Exac MILY CHF CKD S/P AICD H/O DVT PLAN: Aerosol Nebs IV Solumedrol Diurease Supplement 02 CPAP at night DW pt and his RomySeng babb MD Feb 24, 2017 14:51
--- NOTE | 2017-02-24 15:33 | ECHRPT ---
Indication: heart failure CONCLUSIONS Normal left ventricular size. The left ventricular systolic function is low normal with an estimated ejection fraction in the rang e of 50- 55%. The left ventricle is not well visualized. There was limited left ventricular wall motion assessment due to poor endocardial visualization. The right ventricular systoilc function is normal. The right ventricle was not well visualized. The right atrium is not well visualized. The interatrial septum not well visualized. Mildly dilated proximal ascending aorta. Mild aortic dilatation at the level of the sinuses of Valsalva. The mitral valve is not well visualized. No mitral valve regurgitation. No mitral valve stenosis. The aortic valve is not well visualized. No aortic valve regurgitation. No aortic valve stenosis. aortic root diamer is 4.3No tricuspid regurgitation. The tricuspid valve is not well visualized. The pulmonary valve is not well visualized. The inferior vena cava was not well visualized. BP: / HR: Rhythm: MEASUREMENTS (Male / Female) Normal Values Technical Quality:Very technically difficult study ., Poor 2D ECHO LV Diastolic Diameter PLAX 5.0 cm 4.2 - 5.9 / 3.9 - 5.3 cm LV Systolic Diameter PLAX 4.0 cm IVS Diastolic Thickness 1.3 cm 0.6 - 1.0 / 0.6 - 0.9 cm LVPW Diastolic Thickness 0.9 cm 0.6 - 1.0 / 0.6 - 0.9 cm LV Relative Wall Thickness 0.4 RV Internal Dim ED PLAX 3.2 cm M-MODE Aortic Root Diameter MM 4.3 cm LA Systolic Diameter MM 3.1 cm LA Ao Ratio MM 0.7 AV Cusp Separation MM 3.4 cm DOPPLER Mitral E Point Velocity 50.8 cm/s Mitral A Point Velocity 86.9 cm/s Mitral E to A Ratio 0.6 LV E' Lateral Velocity 9.8 cm/s Mitral E to LV E' Lateral Ratio 5.2 LV E' Septal Velocity 7.4 cm/s Mitral E to LV E' Septal Ratio 6.9 FINDINGS LEFT VENTRICLE Normal left ventricular size. The left ventricular systolic function is low normal with an estimated ejection fraction in the rang e of 50- 55%. The left ventricle is not well visualized. There was limited left ventricular wall motion assessment due to poor endocardial visualization. RIGHT VENTRICLE The right ventricular systoilc function is normal. The right ventricle was not well visualized. LEFT ATRIUM The left atrial size is normal. RIGHT ATRIUM The right atrium is not well visualized. The right atrial size is normal. ATRIAL SEPTUM The interatrial septum not well visualized. Normal atrial septal thickness without atrial level shunting by limited color doppler interrogation. AORTA Mildly dilated proximal ascending aorta. Mild aortic dilatation at the level of the sinuses of Valsalva. MITRAL VALVE The mitral valve is not well visualized. No mitral valve regurgitation. No mitral valve stenosis. AORTIC VALVE The aortic valve is not well visualized. No aortic valve regurgitation. No aortic valve stenosis. aortic root diamer is 4.3 TRICUSPID VALVE No tricuspid regurgitation. The tricuspid valve is not well visualized. PULMONARY VALVE The pulmonary valve is not well visualized. VESSELS The inferior vena cava was not well visualized. PERICARDIUM No pericardial effusion. Vito Rios MD (Electronically Signed) Final Date:24 February 2017 15:31
--- NOTE | 2017-02-24 19:25 | EKG ---
Date Performed: 02/23/2017 Time Performed: 15:31:09 PTAGE: 81 years EKG: SINUS TACHYCARDIA WITH OCCASIONAL VENTRICULAR PREMATURE COMPLEXES ABNORMAL RHYTHM ECG Alessandro red to PREVIOUS TRACING , the PVC is new otherwise no signficant change. PREVIOUS TRACIN02/14 12.23 DOCTOR: Joel Vogel Interpretating Date/Time 02/24/2017 19:23:51
[2017-02-24] MEDS: TEMAZEPAM 15 MG CAP PO PRN (23:08)
[2017-02-25] VITALS (8 sets, daily range): BP systolic 108–126; BP diastolic 77–82; PULSE 58–95; RESP 17–20; TEMP 97.1–99; O2SAT 94–100
[2017-02-25] MEDS: RESP: ALBUTEROL 2.5 MG/IPRATROPIUM 0.5 MG NEB (SCH) INH ×4 (04:10→21:04)
[2017-02-25] MEDS: methylPREDNISolone SOD SUCC 125 MG/2 ML VIAL IVP SCH ×2 (06:36→13:08)
[2017-02-25] MEDS: HEPARIN SODIUM - SQ 10,000 UNITS/ML VIAL SQ SCH ×2 (06:36→17:16)
[2017-02-25 08:01] LABS: AUTOMATED NEUTROPHIL # 10.5 TH/MM3 (1.8-7.7); BASOPHIL % 0.1 % (0.0-2.0); HEMATOCRIT 36.4 % (39.0-51.0); LYMPHOCYTE # 0.3 TH/MM3 (1.0-4.8); MEAN CELL VOLUME 94.2 FL (80.0-100.0); MEAN CORPUSCULAR HEMOGLOBIN 29.7 PG (27.0-34.0); MEAN CORPUSCULAR HGB CONC 31.5 % (32.0-36.0); MONO % 2.1 % (0.0-8.0); NEUT % 94.8 % (16.0-70.0); PLATELET COUNT 175 TH/MM3 (150-450); RED BLOOD COUNT 3.86 MIL/MM3 (4.50-5.90); RED CELL DISTRIBUTION WIDTH 17.2 % (11.6-17.2)
[2017-02-25 08:03] LABS: HEMO FLAGS AUTO DIFF
[2017-02-25 08:23] LABS: BICARBONATE 20.6 MEQ/L (21.0-32.0); MAGNESIUM 2.4 MG/DL (1.5-2.5); POTASSIUM 3.5 MEQ/L (3.5-5.1)
[2017-02-25 08:45] LABS: PLATELET ESTIMATE SMEAR NORMAL (NORMAL); PLATELET MORPHOLOGY NORMAL (NORMAL); SCAN/DIFF AUTO DIFF CONFIRMED
[2017-02-25] MEDS: SPIRONOLACTONE 25 MG TAB PO SCH ×2 (09:39→20:53)
[2017-02-25] MEDS: BUDESONIDE-FORMOTEROL 80/4.5 MCG INHALER INH SCH ×2 (09:39→20:54)
[2017-02-25] MEDS: ASPIRIN 81 MG CHEW TAB CHEW SCH (09:39)
[2017-02-25] MEDS: TIOTROPIUM BROMIDE 18 MCG INH INH SCH (09:39)
[2017-02-25] MEDS: METOPROLOL TARTRATE 50 MG TAB PO SCH ×2 (09:41→20:53)
[2017-02-25] MEDS: BUMETANIDE INJ 1 MG/4 ML VIAL IV PUSH SCH ×2 (09:41→20:53)
[2017-02-25] MEDS: SODIUM CHLORIDE 0.9% FLUSH 10 ML FLUSH IV FLUSH SCH ×2 (09:42→20:54)
--- NOTE | 2017-02-25 13:32 | HHI.PR ---
Subjective Remarks Follow-up COPD, CHF. Feels that his breathing is improving. Denies chest pain. Still having lower extremity swelling. Denies pain in his lower extremities. Objective Vitals Vital Signs Date Time Temp Pulse Resp B/P Pulse Ox O2 Delivery O2 Flow Rate FiO2 02/25/17 11:42 94 Nasal Cannula 2.00 02/25/17 08:00 99.0 76 17 118/82 98 02/25/17 00:54 97.2 78 20 108/80 96 02/25/17 00:54 Nasal Cannula 2.00 02/24/17 21:00 98 Nasal Cannula 2.00 02/24/17 20:07 89 02/24/17 20:00 Nasal Cannula 2.00 02/24/17 20:00 97.1 79 20 104/74 95 02/24/17 16:00 97.4 87 18 113/76 96 02/24/17 16:00 Nasal Cannula 2.00 I/O 02/24/17 02/24/17 02/24/17 02/25/17 02/25/17 02/25/17 06:59 14:59 22:59 06:59 14:59 22:59 Intake Total 602 ml 360 ml Output Total 400 ml 150 ml 600 ml 675 ml Balance -400 ml 452 ml -600 ml -315 ml Intake Oral 600 ml 360 ml IV Total 2 ml Output Urine Total 400 ml 150 ml 600 ml 675 ml # Voids 2 0 # Bowel Movements 1 2 0 0 Result Diagram: 02/25/17 0450 02/25/17 0450 Imaging Last Impressions Chest X-Ray 02/23/17 1449 Signed Impressions: Service Date/Time: Thursday, February 23, 2017 15:06 - CONCLUSION: No acute cardiopulmonary disease. KLala Garzon MD Lower Extremity Ultrasound 02/23/17 0000 Signed Impressions: Service Date/Time: Thursday, February 23, 2017 15:21 - CONCLUSION: No evidence of lower extremity DVT Rusty Mccurdy MD Objective Remarks General: Elderly male in no acute distress. Sitting up in a chair. Heart: Regular rate and rhythm. No murmur. Lungs: Scattered rhonchi. Breathing is nonlabored. Abdomen: Soft, nontender, nondistended. Extremities: 3+ bilateral lower extremity pitting edema. Left leg swelling to the mid silva. Left lower leg is cool to touch compared to right leg. Psych: Alert and oriented. Procedures None Urinary Catheter: No Vascular Central Line Catheter: No A/P Problem List: (1) COPD with exacerbation ICD Code: J44.1 Status: Acute (2) Pedal edema ICD Code: R60.0 Status: Acute (3) CHF (congestive heart failure) ICD Code: I50.9 Status: Chronic (4) CHF exacerbation ICD Code: I50.9 Status: Acute (5) Chronic kidney disease, stage 3 ICD Code: N18.3 Status: Acute (6) Peripheral arterial disease ICD Code: I73.9 Status: Chronic Assessment and Plan 1. COPD exacerbation: Continue supplemental oxygen, bronchodilators. Taper steroids. Appreciate pulmonology recommendations. Improving clinically. 2. Chronic respiratory failure: Patient on home oxygen, generally just at night. 3. Congestive heart failure: Continue diuresis. Patient has significant lower extremity edema. 2-D echocardiogram shows EF 50-55%. Cardiology consultation is pending. 4. Diarrhea: Improved. C. difficile negative. 5. Chronic kidney disease stage III: Stable. 6. Peripheral arterial disease: Patient has significant lower extremity edema. Left lower leg and foot are cool to touch. He denies pain in his lower legs/ feet. Has seen Dr. Garrett for vascular surgery in the past. Consult requested. Check TRISTON. 7. DVT prophylaxis: Heparin. Riley Lara MD Feb 25, 2017 13:32
--- NOTE | 2017-02-25 15:21 | HHI.PR ---
Subjective Remarks 81 YOWM with COPD exac, CHF,AICD Breathing much better No CP No Fever or chills Slept well Up in chair wants to have a consultation with palliative care Objective Vital Signs Vital Signs Date Time Temp Pulse Resp B/P Pulse Ox O2 Delivery O2 Flow Rate FiO2 02/25/17 12:00 97.5 80 19 116/79 96 02/25/17 11:42 94 Nasal Cannula 2.00 02/25/17 08:00 99.0 76 17 118/82 98 02/25/17 00:54 97.2 78 20 108/80 96 02/25/17 00:54 Nasal Cannula 2.00 02/24/17 21:00 98 Nasal Cannula 2.00 02/24/17 20:07 89 02/24/17 20:00 Nasal Cannula 2.00 02/24/17 20:00 97.1 79 20 104/74 95 02/24/17 16:00 97.4 87 18 113/76 96 02/24/17 16:00 Nasal Cannula 2.00 I/O 02/24/17 02/24/17 02/24/17 02/25/17 02/25/17 02/25/17 07:00 15:00 23:00 07:00 15:00 23:00 Intake Total 602 ml 360 ml Output Total 400 ml 150 ml 600 ml 675 ml Balance -400 ml 452 ml -600 ml -315 ml Intake Oral 600 ml 360 ml IV Total 2 ml Output Urine Total 400 ml 150 ml 600 ml 675 ml # Voids 2 0 # Bowel Movements 1 2 0 0 Result Diagram: 02/25/17 0450 02/25/17 0450 Objective Remarks GENERAL: WBWN WM, NAD SKIN: Warm and dry. HEAD: Normocephalic. EYES: No scleral icterus. No injection or drainage. NECK: Supple, trachea midline. No JVD or lymphadenopathy. CARDIOVASCULAR: Regular rate and rhythm without murmurs, gallops, or rubs. RESPIRATORY: Breath sounds equal bilaterally. No accessory muscle use. Exp rhonchi GASTROINTESTINAL: Abdomen soft, non-tender, nondistended. MUSCULOSKELETAL: No cyanosis, ++ edema. BACK: Nontender without obvious deformity. No CVA tenderness. A/P Assessment and Plan COPD Exac MILY CHF CKD S/P AICD H/O DVT PLAN: Aerosol Nebs IV Solumedrol Diurease Supplement 02 CPAP at night DW pt and his Palliative care consult. Seng Weaver MD Feb 25, 2017 15:21
--- NOTE | 2017-02-25 16:31 | MB ---
cc: MARIA ISABEL SIMENTAL M.D., RYAN R. M.D. LOPEZ, MARIA I. M.D. DATE OF CONSULTATION 02/25/2017 REASON FOR CONSULTATION 02/25/2017 REASON FOR CONSULTATION Shortness of breath. HISTORY OF PRESENT ILLNESS The patient is a 81-year-old white male with past medical history of oxygen-dependent COPD and diastolic heart failure who presented with progressive shortness of breath. He has had three recent admissions for similar complaints. He reports dyspnea on mild to moderate activity. He decided to come to the hospital for worsening symptoms associated with decreased energy and generalized weakness. He has been on multiple antibiotics recently for respiratory COPD exacerbation and having loose stools three times per day. On the time of my exam he looks in no acute distress. He is sitting up in a chair. He does complain of lower extremity swelling and cold toes. PAST MEDICAL HISTORY 1. Ventricular tachycardia status post AICD placement. 2. Mild coronary artery disease as per cardiac catheterization in 2005. 3. Diastolic congestive heart failure. 4. COPD. 5. Sleep apnea on C-PAP at night. 6. Chronic kidney disease. 7. History of DVT after hip surgery. 8. History of gastrointestinal bleeding. PAST SURGICAL HISTORY 1. Umbilical hernia repair. 2. Bilateral cataract surgery. 3. Tonsillectomy. 4. Right hip surgery x2. 5. Right popliteal artery aneurysm repair. ALLERGIES NO KNOWN DRUG ALLERGIES. FAMILY HISTORY Noncontributory. SOCIAL HISTORY He drinks martinis at night and quit smoking 2 years ago. MEDICATIONS His current medications include: 1. Solu-Medrol 40 mg IV q.8 h. 2. Bumex 1 mg IV b.i.d. 3. Aspirin 81 mg daily. 4. Spironolactone 25 mg daily. 5. Spiriva one puff daily. 6. Metoprolol 50 milligrams twice a day. 7. Temazepam 50 milligrams q.h.s. 8. Heparin 5000 units sub twice a day. REVIEW OF SYSTEMS As stated in the history of present illness. PHYSICAL EXAMINATION GENERAL: The patient in no acute distress. VITAL SIGNS: Blood pressure 116/79 mmHg, heart rate 80 beats per minute. He is a febrile. HEAD AND NECK: Without JVD or carotid bruits. LUNGS: With bibasilar crackles. HEART: Normal S1-S2 without murmurs or gallops. ABDOMEN: Benign without visceromegaly or bruits. EXTREMITIES: With marked lower extremity edema +2 with hyperchromic skin changes suggestive of chronic venous insufficiency. Pulses are not palpable but he does have cold toes which are symmetrical in both legs. Electrocardiogram showed initially sinus tachycardia and then sinus rhythm with nonspecific repolarization changes. Chest x-ray with no acute cardiopulmonary disease. LABORATORY DATA Blood work, sodium 134, potassium 3.5, BUN 59, creatinine 1.95, GFR 33, glucose 127. Troponin less than 0.02. And BNP 160. PT and INR within normal limits. CBC with white count of 11, hemoglobin 11.5, platelet count 175. IMAGING Lower extremity venous ultrasound with no evidence of recurrent DVT. IMPRESSION 1. Chronic dyspnea secondary to combination of COPD exacerbation and acute on chronic diastolic heart failure. 2. Chronic kidney disease with a stable creatinine around 1.95. 3. Hypokalemia with a potassium of 3.5. RECOMMENDATIONS Continue current medications. The patient seems to be optimized on cardiac therapy. Add diuretics, aspirin and beta nathanael. Secondary to his lower extremity swelling I will adjust or increase his Bumex to 2 milligrams IV twice a day for a couple of doses and also increase his Aldactone as well. Due to his cold feet, it would be advisable to perform lower extremity arterial Doppler to rule out significant peripheral arterial disease. Dr. Simental will be back tomorrow and continue follow up. MD MISTI Alexander/GROVER /3:28 PM /4:03 PM
[2017-02-25] MEDS: POTASSIUM CHLORIDE 20 MEQ CONTROLLED RELEASE TAB PO SCH (20:53)
[2017-02-25] MEDS: methylPREDNISolone SOD SUCC 40 MG/1 ML VIAL IV PUSH SCH (20:54)
[2017-02-26] VITALS (8 sets, daily range): BP systolic 108–131; BP diastolic 68–79; PULSE 72–107; RESP 16–20; TEMP 97–98.2; O2SAT 93–98
[2017-02-26] MEDS: RESP: ALBUTEROL 2.5 MG/IPRATROPIUM 0.5 MG NEB (SCH) INH ×4 (04:22→21:01)
[2017-02-26] MEDS: methylPREDNISolone SOD SUCC 40 MG/1 ML VIAL IV PUSH SCH ×2 (06:33→13:28)
[2017-02-26] MEDS: HEPARIN SODIUM - SQ 10,000 UNITS/ML VIAL SQ SCH ×2 (06:34→17:35)
[2017-02-26] MEDS: TIOTROPIUM BROMIDE 18 MCG INH INH SCH (08:21)
[2017-02-26] MEDS: SODIUM CHLORIDE 0.9% FLUSH 10 ML FLUSH IV FLUSH SCH ×2 (08:21→20:10)
[2017-02-26] MEDS: BUMETANIDE INJ 1 MG/4 ML VIAL IV PUSH SCH ×2 (08:21→20:10)
[2017-02-26] MEDS: ASPIRIN 81 MG CHEW TAB CHEW SCH (08:21)
[2017-02-26] MEDS: METOPROLOL TARTRATE 50 MG TAB PO SCH ×2 (08:21→20:10)
[2017-02-26] MEDS: SPIRONOLACTONE 25 MG TAB PO SCH ×2 (08:21→20:10)
[2017-02-26] MEDS: BUDESONIDE-FORMOTEROL 80/4.5 MCG INHALER INH SCH ×2 (08:21→20:10)
[2017-02-26] MEDS: POTASSIUM CHLORIDE 20 MEQ CONTROLLED RELEASE TAB PO SCH ×2 (08:22→20:10)
--- NOTE | 2017-02-26 08:58 | HHI.PR ---
Subjective Remarks Follow up edema, COPD. Patient states that his breathing "seems to be" better today. Denies chest pain, nausea, vomiting. Per nursing, patient has had short runs of V-tach (about 3-4 beats). Patient remained asymptomatic. Objective Vitals Vital Signs Date Time Temp Pulse Resp B/P Pulse Ox O2 Delivery O2 Flow Rate FiO2 02/26/17 08:34 97 Nasal Cannula 2.00 02/26/17 04:00 2.00 02/26/17 04:00 97.1 72 18 129/71 93 02/26/17 00:00 97.6 81 18 108/77 94 02/26/17 00:00 2.00 02/25/17 21:06 98 Nasal Cannula 2.00 02/25/17 20:00 97.3 58 18 126/80 99 02/25/17 20:00 95 02/25/17 20:00 Nasal Cannula 2.00 02/25/17 16:00 97.1 84 19 113/77 100 02/25/17 16:00 Nasal Cannula 2.00 02/25/17 12:00 Nasal Cannula 2.00 02/25/17 12:00 97.5 80 19 116/79 96 02/25/17 11:42 94 Nasal Cannula 2.00 I/O 02/25/17 02/25/17 02/25/17 02/26/17 02/26/17 02/26/17 06:59 14:59 22:59 06:59 14:59 22:59 Intake Total 360 ml 1660 ml 360 ml Output Total 675 ml 1900 ml 1400 ml Balance -315 ml -240 ml -1040 ml Intake Oral 360 ml 1660 ml 360 ml Output Urine Total 675 ml 1900 ml 1400 ml # Voids 0 2 # Bowel Movements 0 5 0 Result Diagram: 02/25/17 0450 02/25/17 0450 Imaging Last Impressions Chest X-Ray 02/23/17 1449 Signed Impressions: Service Date/Time: Thursday, February 23, 2017 15:06 - CONCLUSION: No acute cardiopulmonary disease. Marcia Garzon MD Lower Extremity Ultrasound 02/23/17 0000 Signed Impressions: Service Date/Time: Thursday, February 23, 2017 15:21 - CONCLUSION: No evidence of lower extremity DVT uRsty Mccurdy MD Objective Remarks General: Elderly male in no acute distress. Heart: Regular rate and rhythm. No murmur. Lungs: Scattered rhonchi. Breathing is nonlabored. Abdomen: Soft, nontender, nondistended. Extremities: 3+ bilateral lower extremity pitting edema. Left leg swelling to the mid silva. Bilateral lower legs are more warm on exam compared to yesterday. Psych: Alert and oriented. Procedures None Urinary Catheter: No Vascular Central Line Catheter: No A/P Problem List: (1) COPD with exacerbation ICD Code: J44.1 Status: Acute (2) Pedal edema ICD Code: R60.0 Status: Acute (3) CHF (congestive heart failure) ICD Code: I50.9 Status: Chronic (4) CHF exacerbation ICD Code: I50.9 Status: Acute (5) Chronic kidney disease, stage 3 ICD Code: N18.3 Status: Acute (6) Peripheral arterial disease ICD Code: I73.9 Status: Chronic Assessment and Plan 1. COPD exacerbation: Continue supplemental oxygen, bronchodilators. Taper steroids. Appreciate pulmonology recommendations. Improving clinically. 2. Chronic respiratory failure: Patient on home oxygen, generally just at night with CPAP. Will likely need continuous home O2 on discharge. 3. Congestive heart failure: Continue diuresis. Patient has significant lower extremity edema. 2-D echocardiogram shows EF 50-55%. Appreciate cardiology recommendations. 4. Diarrhea: Improved. C. difficile negative. 5. Chronic kidney disease stage III: Stable. 6. Peripheral arterial disease: Patient has significant lower extremity edema. Left lower leg and foot have been cool to touch, but this is improved on exam today. He denies pain in his lower legs/feet. Vascular surgery consult pending. Check TRISTON. 7. Sleep apnea: Continue CPAP. 8. DVT prophylaxis: Heparin. Riley Lara MD Feb 26, 2017 08:58
[2017-02-26 09:13] LABS: BICARBONATE 21.8 MEQ/L (21.0-32.0); POTASSIUM 3.8 MEQ/L (3.5-5.1)
[2017-02-26] MEDS ORDERED: LORazepam 0.5 MG TAB PO PRN (15:00)
--- NOTE | 2017-02-26 15:14 | PD.CONS ---
Consult Service Palliative Care . Consult Requested By Dr. Lara . Primary Care Physician Stanislav Castro MD Reason for Consultation a. To assist with evaluation and management of symptoms including: anxiety, dyspnea. b. To assist medical decision maker(s) with: better understanding of current medical conditions; weighing benefits/burdens of medical treatment options; making medical treatment decisions. . HPI History of Present Illness Mr. 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 This is the patient's 4th acute care hospitalization in the past few months. He's been on multiple antibiotics and steroids for respiratory issues. Patient presented to [facility] emergency department on 02/23/17 with worsening shortness of breath, decreased energy and increased weakness and LE edema. He also reported loose stools about 3 times daily. He denied any cough, chest pain, fever, chills, night sweats, headache, vision changes. He has chronic lower extremity swelling, uses THEO hose. Initial evaluation revealed: * WBC 12.2, hgb 12.1, hct 37.8, platelets 207, neutrophils 83.2% * Sodium 135, creatinine 2.06, GFR 31, BUN 40. * Troponin less than 0.02 * C. Diff negative * BNP 160 * Chest xray - no acute cardiopulmonary disease. * LE ultrasound - negative for DVT. * ABGs - pH 7.5, pO2 61, pCO2 28. Patient was admitted with CHF and COPD exacerbation, renal insufficiency. Pulmonology, Dr. Weaver was consulted for COPD. Cardiology, Dr. Styles was consulted for acute on chronic diastolic heart failure. Patient has increasing LE edema and feet cool to touch ( reports this is new). Arterial doppler has been ordered, pending. Vascular surgery, Dr. Garrett was consulted. Palliative care was consulted per family request. Discussed with Dr. Lara. Met with patient and his at bedside. Patient is awake and alert, sitting in chair. He reports some intermittent shortness of breath and associated anxiety. He denies pain. He verbalizes frustration about repeat hospitalizations and weakness. He and his are open to conversation about disease, disease progression, goals of care. He does not want cardiac resuscitation or intubation, he wants to be able to "go when it's his time." He desires continued aggressive care short of NO CODE. We had a long talk about his limits in terms of disease progression. He and his are open to conversations about hospice services in the future. His step daughter, Rosa Isela is a [facility] Hospice nurse. I explained that if and when he decides he does not want repeat hospitalizations, tests or has comfort oriented goals that hospice would be appropriate. He wants to complete a [place] DNR form to bring home upon DC. He desires trial of low dose Lorazepam for management of anxiety, shortness of breath, agrees. They are very appreicative of time spent and welcome continued palliative care consultation. . Function/Cognitive Trajectory Has had ongoing decline with recent hospitalizations. He ambulates with walker. He is requiring assistance with ADLs and dressing. Trouble sleeping. Increased weakness. Fluctuating appetite. . Review of Systems Constitutional: COMPLAINS OF: Fatigue, Change in appetite (decreased), Pain, Generalized weakness, Sleep problems (insomnia. ) Respiratory: COMPLAINS OF: Apneas, Cough, Sputum production, Shortness of breath Cardiovascular: COMPLAINS OF: Dyspnea on Exertion, Lower Extremity Edema Gastrointestinal: COMPLAINS OF: Diarrhea Musculoskeletal: COMPLAINS OF: Joint pain, Back pain Hematologic/Lymphatics: COMPLAINS OF: Bruising Psychiatric: COMPLAINS OF: Anxiety Past Family Social History Coded Allergies: No Known Allergies (Verified , 02/23/17) Past Medical History History of V. tach status post AICD placement Coronary artery disease Congestive heart failure, diastolic COPD/emphysema with chronic respiratory failure Sleep apnea on CPAP at night Chronic kidney disease History of DVT (RLE) on Aspirin History of GI bleeding after starting on anticoagulation Ileus post hip surgery Arthritis Gout Basal Cell Skin Cancers removed from nose, face, scalp and arms Peripheral arterial disease CVA affected eye Anemia . Past Surgical History AICD placement Umbilical hernia repair Bilateral cataract surgery Tonsillectomy Right hip surgery 2 Right popliteal artery aneurysm repair oral surgery . Reported Medications Reported Meds & Active Scripts Active Proair Hfa 8.5 GM Inh (Albuterol Sulfate) 90 Mcg/Act Aer 2 Puff INH Q4-6H PRN 108 mcg/actuation Restoril (Temazepam) 15 Mg Cap 15 Mg PO HS PRN Inspirease Drug Delivery (Spacer/Device For Mdi) 1 Ea Mis 1 Ea .ROUTE DIRECTED Nebulizer 1 Mis Mis 1 Ea .ROUTE DIRECTED Medina (Hydrocodone-Acetaminophen) 5-325 mg Tab 1 Tab PO Q6H PRN Levofloxacin 500 Mg Tablet 500 Mg PO DAILY Duoneb (Ipratropium-Albuterol Neb) 0.5-2.5 Mg/3 Ml Neb 1 Nebule INH Q4HR NEB Cefuroxime (Cefuroxime Axetil) 500 Mg Tab 500 Mg PO BID Oxygen tank (Oxygen) 1 Ea Tank 2 Liter MATY.CANULA CONTINUOUS Oxygen Concentrator Portable Gaseous 2 L/min via Nasal Cannula Continuous For 99 months Bumetanide 1 Mg Tab 1 Mg PO BID Reported D3 (Cholecalciferol) 2,000 Unit Cap 2,000 Unit PO 3X WEEKLY Tylenol (Acetaminophen) 325 Mg Tab 650 Mg PO Q4H PRN Unisom Sleep Aid (Doxylamine Succinate) 25 Mg Tablet 25 Mg PO HS PRN Aspirin 81 Mg Chew 81 Mg CHEW DAILY Allopurinol 100 Mg Tab 100 Mg PO BID Spiriva Handihaler (Tiotropium Inh) 18 Mcg Cap 18 Mcg INH DAILY 1 capsule = 18 mcg Symbicort Inh (Budesonide/Formoterol Fumarate) 80-4.5 Mcg/Act Aero 2 Puff INH Q12HR Metoprolol Tartrate 50 Mg Tab 50 Mg PO BID Spironolactone 25 Mg Tab 25 Mg PO DAILY . Current Medications Medications (Trade) Dose Ordered Sig/Guy Route Start Time Stop Time Status Last Admin (NS Flush) 2 ml BID IV FLUSH 02/23/17 21:00 02/26/17 08:21 (NS Flush) 2 ml UNSCH PRN IV FLUSH 02/23/17 16:30 02/25/17 06:36 (Heparin Inj) 5,000 units Q12H SQ 02/23/17 18:00 02/26/17 06:34 (Medina 5-325 Mg) 1 tab Q6H PRN PO 02/23/17 18:00 (Tylenol) 650 mg Q6HR PRN PO 02/23/17 18:00 (Aspirin Chew) 81 mg DAILY CHEW 02/24/17 09:00 02/26/17 08:21 (Symbicort 80-4.5 Mcg Inh) 2 puff Q12HR INH 02/23/17 21:00 02/26/17 08:21 (Lopressor) 50 mg BID PO 02/23/17 21:00 02/26/17 08:21 (Spiriva Inh) 18 mcg DAILY INH 02/24/17 09:00 02/26/17 08:21 (SoluMEDROL INJ) 40 mg Q8HR IV PUSH 02/25/17 22:00 02/26/17 13:28 (Bumex Inj) 2 mg BID IV PUSH 02/25/17 21:00 02/26/17 08:21 (Aldactone) 25 mg BID PO 02/25/17 21:00 02/26/17 08:21 (KCl) 20 meq BID PO 02/25/17 21:00 02/27/17 09:01 02/26/17 08:22 (Ativan) 0.5 mg Q6H PRN PO 02/26/17 15:00 Family History Father had Alzheimer's disease. Substance Use Tobacco: Prior heavy smoker, quit 3 years ago. Alcohol: Drinks a few alcoholic beverages daily. Prescription med abuse: None. Illicits: None. . Psychosocial History Was born in [place], [place]. Wnet to [place] [employer] for [employer]. He was in the [employer]. He served in [employer], upon his return from the war, he went to [employer] where he got his Masters in Virology. He retired in 1974. 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 He was to his 1st for 33 years, they had no children. Before she of brain cancer, she made him promise he would 1) work less, 2) pursue his hobbies and 3) again. He retired in 1998. He later moved to [place] where he met his second , Francy. He now has step-children and grandchildren he is thankful for. . Spiritual/Cultural Factors [facility]. . Living Will: Copy in medical record Health Care Surrogate: Copy in medical record Durable Power of Gauge Maker Apprentice: Never completed Health Care Surrogate(s): Patient is currently capacitated to make his own health care decisions. Written living will designates his Francy Grace as healthcare surrogate should he lose capacity. . Today's verbally stated goals: Elects NO CODE. Desires contiued aggressive care for now short of NO CODE. . Family/friends goals: supports patient goals. . Ethical and Legal Issues Patient is currently capacitated to make his own health care decisions. Written living will designates his Francy Grace as healthcare surrogate should he lose capacity. . Physical Exam Vital Signs Date Time Temp Pulse Resp B/P Pulse Ox O2 Delivery O2 Flow Rate FiO2 02/26/17 12:00 97.0 107 20 109/70 94 02/26/17 08:34 97 Nasal Cannula 2.00 02/26/17 08:00 82 02/26/17 08:00 Simple Mask 3.00 02/26/17 08:00 97.0 80 20 113/75 97 02/26/17 04:00 2.00 02/26/17 04:00 97.1 72 18 129/71 93 02/26/17 00:00 97.6 81 18 108/77 94 02/26/17 00:00 2.00 02/25/17 21:06 98 Nasal Cannula 2.00 02/25/17 20:00 97.3 58 18 126/80 99 02/25/17 20:00 95 02/25/17 20:00 Nasal Cannula 2.00 02/25/17 16:00 97.1 84 19 113/77 100 02/25/17 16:00 Nasal Cannula 2.00 02/25/17 02/26/17 18:59 06:59 Intake Total 840 ml 1180 ml Output Total 950 ml 2350 ml Balance -110 ml -1170 ml Intake Oral 840 ml 1180 ml Output Urine Total 950 ml 2350 ml # Voids 2 # Bowel Movements 2 3 Exam CONSTITUTIONAL/GENERAL: This is an adequately nourished patient, in no apparent distress. TUBES/LINES/DRAINS: oxygen via NC, PIV, THEO hose. SKIN: No jaundice, rashes, or lesions. Ecchymoses on upper extremities. No wounds seen anteriorly. Skin temperature appropriate. Not diaphoretic. HEAD: Atraumatic. Normocephalic. EYES: Pupils equal and round and reactive. Extraocular motions intact. No scleral icterus. No injection or drainage. Fundi not examined. ENT: Hearing grossly normal. Nose without bleeding or purulent drainage. Throat without visible erythema, exudates, masses, or lesions. NECK: Trachea midline. Supple, nontender. CARDIOVASCULAR: Regular rate and rhythm without murmurs, gallops, or rubs. RESPIRATORY/CHEST: Symmetric, unlabored respirations. Scattered rhonchi. GASTROINTESTINAL: Abdomen protuberant, soft, non-tender, nondistended. No guarding. Bowel sounds present. GENITOURINARY: Without palpable bladder distension. MUSCULOSKELETAL: Extremities with 3+ pitting edema. No mottling or clubbing. LYMPHATICS: No palpable cervical or supraclavicular adenopathy. NEUROLOGICAL: Awake and alert.Generalized weakness. Follows commands. Cognitively sharp. Moves all extremities. PSYCHIATRIC: No obvious anxiety/depression. no apparent hallucinations or other psychotic thought process. . Diagnostic Tests Laboratory Laboratory Tests Test 02/23/17 02/24/17 02/24/17 02/24/17 15:18 06:00 08:12 08:42 Blood Gas Puncture Site LT RADIAL Blood Gas Patient Temperature 98.6 Blood Gas HCO3 21 mmol/L (22-26) Blood Gas Base Excess -1.8 mmol/L (-2-2) Blood Gas Oxygen Saturation 90 % (90-100) Arterial Blood pH 7.50 (7.380-7.420) Arterial Blood Partial 28 mmHg (38-42) Pressure CO2 Arterial Blood Partial 61 mmHG Pressure O2 (61-120) Arterial Blood Oxygen Content 14.7 Vol % (12.0-20.0) Arterial Blood 1.7 % (0-4) Carboxyhemoglobin Arterial Blood Methemoglobin 1.2 % (0-2) Blood Gas Hemoglobin 11.6 G/DL (12.0-16.0) Blood Gas Inspired Oxygen 21 % Stool C. difficile Toxin (PCR) NEGATIVE (NEGATIVE) Stl C. difficile Toxin PRESUMPTIVE Epiderm 027 NEGATIVE (NEGATIVE) Sodium Level 136 MEQ/L (136-145) Potassium Level 3.8 MEQ/L (3.5-5.1) Chloride Level 102 MEQ/L (98-107) Carbon Dioxide Level 22.6 MEQ/L (21.0-32.0) Anion Gap 11 MEQ/L (5-15) Blood Urea Nitrogen 48 MG/DL (7-18) Creatinine 2.02 MG/DL (0.60-1.30) Estimat Glomerular Filtration 32 ML/MIN (>89) Rate Random Glucose 129 MG/DL (74-106) Calcium Level 8.4 MG/DL (8.5-10.1) White Blood Count 8.5 TH/MM3 (4.0-11.0) Red Blood Count 3.79 MIL/MM3 (4.50-5.90) Hemoglobin 11.8 GM/DL (13.0-17.0) Hematocrit 35.0 % (39.0-51.0) Mean Corpuscular Volume 92.3 FL (80.0-100.0) Mean Corpuscular Hemoglobin 31.0 PG (27.0-34.0) Mean Corpuscular Hemoglobin 33.6 % Concent (32.0-36.0) Red Cell Distribution Width 17.3 % (11.6-17.2) Platelet Count 170 TH/MM3 (150-450) Mean Platelet Volume 8.5 FL (7.0-11.0) Neutrophils (%) (Auto) 96.0 % (16.0-70.0) Lymphocytes (%) (Auto) 3.0 % (9.0-44.0) Monocytes (%) (Auto) 0.9 % (0.0-8.0) Eosinophils (%) (Auto) 0.0 % (0.0-4.0) Basophils (%) (Auto) 0.1 % (0.0-2.0) Neutrophils # (Auto) 8.2 TH/MM3 (1.8-7.7) Lymphocytes # (Auto) 0.3 TH/MM3 (1.0-4.8) Monocytes # (Auto) 0.1 TH/MM3 (0-0.9) Eosinophils # (Auto) 0.0 TH/MM3 (0-0.4) Basophils # (Auto) 0.0 TH/MM3 (0-0.2) CBC Comment DIFF FINAL Differential Comment Test 02/25/17 02/26/17 04:50 07:17 White Blood Count 11.0 TH/MM3 (4.0-11.0) Red Blood Count 3.86 MIL/MM3 (4.50-5.90) Hemoglobin 11.5 GM/DL (13.0-17.0) Hematocrit 36.4 % (39.0-51.0) Mean Corpuscular Volume 94.2 FL (80.0-100.0) Mean Corpuscular Hemoglobin 29.7 PG (27.0-34.0) Mean Corpuscular Hemoglobin 31.5 % Concent (32.0-36.0) Red Cell Distribution Width 17.2 % (11.6-17.2) Platelet Count 175 TH/MM3 (150-450) Mean Platelet Volume 8.4 FL (7.0-11.0) Neutrophils (%) (Auto) 94.8 % (16.0-70.0) Lymphocytes (%) (Auto) 3.0 % (9.0-44.0) Monocytes (%) (Auto) 2.1 % (0.0-8.0) Eosinophils (%) (Auto) 0.0 % (0.0-4.0) Basophils (%) (Auto) 0.1 % (0.0-2.0) Neutrophils # (Auto) 10.5 TH/MM3 (1.8-7.7) Lymphocytes # (Auto) 0.3 TH/MM3 (1.0-4.8) Monocytes # (Auto) 0.2 TH/MM3 (0-0.9) Eosinophils # (Auto) 0.0 TH/MM3 (0-0.4) Basophils # (Auto) 0.0 TH/MM3 (0-0.2) CBC Comment AUTO DIFF Differential Comment AUTO DIFF CONFIRMED Platelet Estimate NORMAL (NORMAL) Platelet Morphology Comment NORMAL (NORMAL) Sodium Level 134 MEQ/L 136 MEQ/L (136-145) (136-145) Potassium Level 3.5 MEQ/L 3.8 MEQ/L (3.5-5.1) (3.5-5.1) Chloride Level 101 MEQ/L 100 MEQ/L (98-107) (98-107) Carbon Dioxide Level 20.6 MEQ/L 21.8 MEQ/L (21.0-32.0) (21.0-32.0) Anion Gap 12 MEQ/L (5-15) 14 MEQ/L (5-15) Blood Urea Nitrogen 59 MG/DL (7-18) 58 MG/DL (7-18) Creatinine 1.95 MG/DL 2.02 MG/DL (0.60-1.30) (0.60-1.30) Estimat Glomerular Filtration 33 ML/MIN (>89) 32 ML/MIN (>89) Rate Random Glucose 127 MG/DL 116 MG/DL (74-106) (74-106) Calcium Level 8.7 MG/DL 9.0 MG/DL (8.5-10.1) (8.5-10.1) Phosphorus Level 4.0 MG/DL (2.5-4.9) Magnesium Level 2.4 MG/DL (1.5-2.5) Result Diagram: 02/25/17 0450 02/26/17 0717 Imaging Last Impressions Chest X-Ray 02/23/17 1449 Signed Impressions: Service Date/Time: Thursday, February 23, 2017 15:06 - CONCLUSION: No acute cardiopulmonary disease. Marcia Garzon MD Lower Extremity Ultrasound 02/23/17 0000 Signed Impressions: Service Date/Time: Thursday, February 23, 2017 15:21 - CONCLUSION: No evidence of lower extremity DVT Rusty Mccurdy MD Patient/Family Conference Present at Family Conference: Met with pt and spouse, Francy. Family Conference Time (mins): 75 Family Conference Location: Bedside Issues Discussed: * Palliative care role, purpose, approach * Additional medical, psychosocial, and spiritual history * Patients general health, functional status, and cognitive changes in the months leading up to the current hospitalization * Patient/family understanding of the current medical problems * Patient/family understanding of prognosis * Patients goals of care as best understood from advance directives and/or conversations and/or values * Current medical treatment options and benefits/burdens of those options * Likely scenarios comparing ongoing aggressive care with a transition to comfort measures only * Questions answered to the best of my ability * Palliative care contact information provided Met with patient and his at bedside. Patient is awake and alert, sitting in chair. He reports some intermittent shortness of breath and associated anxiety. He denies pain. He verbalizes frustration about repeat hospitalizations and weakness. He and his are open to conversation about disease, disease progression, goals of care. He does not want cardiac resuscitation or intubation, he wants to be able to "go when it's his time." He desires continued aggressive care short of NO CODE. We had a long talk about his limits in terms of disease progression. He and his are open to conversations about hospice services in the future. His step daughter, Rosa Isela is a [facility] nurse. I explained that if and when he decides he does not want repeat hospitalizations, tests or has comfort oriented goals that hospice would be appropriate. He wants [place] D[place] form to bring home upon DC. He desires trial of low dose Lorazepam for management of anxiety, shortness of breath, agrees. They are very appreicative of time spent and welcome continued palliative care consultation. . Assessment and Plan Disease Oriented Problem List: (1) COPD (chronic obstructive pulmonary disease) (2) Obstructive sleep apnea (3) Pneumonia (4) Chronic kidney disease, stage 3 (5) CHF exacerbation (6) Peripheral arterial disease (7) Pedal edema Symptom Scale: (1) Anxiety 0-10 Scale: Unable to quantify (2) Dyspnea 0-10 Scale: Unable to quantify (3) Weakness 0-10 Scale: Unable to quantify Pertinent Non-Medical Issues Psychosocial: . No children. Spiritual: Presbyterian wen. Supported by his local protestant. Legal:Patient is currently capacitated to make his own health care decisions. Written living will designates his Francy Grace as healthcare surrogate should he lose capacity. Ethical issues impacting care: . Important Contacts * Francy Grace, : home [phone] or cell [phone] * Rosa Isela Dutta, step-daughter: [phone] .- Prognosis Patient with multiple medical comorbidities including CHF and COPD and 4 recent acute care hospitalizations, hospice appropriate if goals are comfort oriented. . Code Status: No Code Plan * Decision Maker: Patient is currently capacitated to make his own health care decisions. Written living will designates his Francy Grace as healthcare surrogate should he lose capacity. * NO CODE * Palliative care met with patient and his : In summary, the patient elects NO CODE status. He desires continued aggressive care at this time. Would consider transition to comfort focused care with hospice support in the future should his condition worsened. Family supports this decision. He desires medication for management of anxiety/dyspnea, agreed to trial of low dose Lorazepam 0.5 mg Q6 hours PRN. Discussed with Dr. Lara who agrees. * SYMPTOMS: Anxiety: secondary to shortness of breath and fear of shortness of breath. Dyspnea: due to underlying COPD, CHF, renal insufficiency. Weakness: due to 4 recent acute care hospitalizations and comorbidities. Insomnia: DC Restoril and will add PRN Lorazepam as above. * Palliative care number provided. * Palliative care will continue to follow throughout hospital course to assist with symptom management and clarification of goals as needed. . Time Spent Total Floor Time (mins): 95 Face to Face Time (mins): 75 >50% Counseling/Coord of Care: Yes Thank you for the opportunity to participate in the care of Mr. Grace. Attestation To help prompt me to consider important information that might be impacting today's encounter and assessment, information from prior notes written by myself or my colleagues may have been "brought forward" into today's note. My signature on this note, however, is an attestation that I personally performed the exam, history, and/or decision-making noted today, and, unless otherwise indicated, the interactions with patient, family, and staff as well as the review of records all occurred today. I also attest that the listed assessment and stated plan reflect my best clinical judgment today based on the combination of historical information, prior notes, and today's exam/ interactions. When time spent is documented, it refers only to time spent today by the signer, or if indicated, combined time spent today by collaborating physician/nurse practitioner. Kemi Ott Feb 26, 2017 15:14
[2017-02-26] MEDS: predniSONE 10 MG TAB PO SCH (17:46)
[2017-02-27] VITALS (8 sets, daily range): BP systolic 110–130; BP diastolic 60–80; PULSE 68–88; RESP 18–20; TEMP 97–98.6; O2SAT 89–100
[2017-02-27] MEDS: RESP: ALBUTEROL 2.5 MG/IPRATROPIUM 0.5 MG NEB (SCH) INH ×3 (03:11→15:40)
[2017-02-27] MEDS: HEPARIN SODIUM - SQ 10,000 UNITS/ML VIAL SQ SCH (06:10)
[2017-02-27] MEDS: SPIRONOLACTONE 25 MG TAB PO SCH (09:12)
[2017-02-27] MEDS: POTASSIUM CHLORIDE 20 MEQ CONTROLLED RELEASE TAB PO SCH (09:12)
[2017-02-27] MEDS: METOPROLOL TARTRATE 50 MG TAB PO SCH (09:12)
[2017-02-27] MEDS: BUMETANIDE INJ 1 MG/4 ML VIAL IV PUSH SCH (09:12)
[2017-02-27] MEDS: ASPIRIN 81 MG CHEW TAB CHEW SCH (09:12)
[2017-02-27] MEDS: predniSONE 10 MG TAB PO SCH ×2 (09:12→13:31)
[2017-02-27] MEDS: SODIUM CHLORIDE 0.9% FLUSH 10 ML FLUSH IV FLUSH SCH (09:13)
[2017-02-27] MEDS: BUDESONIDE-FORMOTEROL 80/4.5 MCG INHALER INH SCH (09:13)
[2017-02-27] MEDS: TIOTROPIUM BROMIDE 18 MCG INH INH SCH (09:13)
[2017-02-27] MEDS ORDERED: PRED10 PO (13:30)
--- NOTE | 2017-02-27 13:31 | HHI.DCPOC ---
Discharge Care Plan Diagnosis: (1) Peripheral arterial disease (2) Chronic kidney disease, stage 3 (3) COPD with exacerbation (4) CHF (congestive heart failure) Goals to Promote Your Health * To prevent worsening of your condition and complications * To maintain your health at the optimal level Directions to Meet Your Goals Take your medications as prescribed Follow your dietary instruction Follow activity as directed Keep your appointments as scheduled Take your immunizations and boosters as scheduled If your symptoms worsen call your PCP, if no PCP go to Urgent Care Center or Emergency Room Smoking is Dangerous to Your Health. Avoid second hand smoke Call the 24-hour hour crisis hotline for domestic abuse at Riley Lara MD Feb 27, 2017 13:31
--- NOTE | 2017-02-27 13:32 | HHI.FF ---
Face to Face Verification Diagnosis: (1) COPD with exacerbation (2) CHF (congestive heart failure) (3) Peripheral arterial disease Physical Therapy Order: Evaluate and Treat Home Health Nursing Order: Nursing assessment with vital signs I have seen patient Cricket Grace on 02/27/17. My clinical findings support the need for the requested home health care services because: Patient has SOB I certify that my clinical findings support that this patient is homebound because: Hx COPD- exertion dyspnea/weakness Riley Lara MD Feb 27, 2017 13:32
--- NOTE | 2017-02-27 13:38 | HHI.DS ---
cc: Stanislav Castro MD Discharge Summary Admission Date Feb 23, 2017 at 16:20 Discharge Date: Feb 27, 2017 Admitting Diagnosis respiratory distress, hypoxia (1) COPD with exacerbation ICD Code: J44.1 (2) Pedal edema ICD Code: R60.0 (3) CHF (congestive heart failure) ICD Code: I50.9 (4) Chronic kidney disease, stage 3 ICD Code: N18.3 (5) Peripheral arterial disease ICD Code: I73.9 Procedures None Brief History - From Admission Written by Osorio Branch, acting as scribe for Dr. Lara on 02/23/17 at 17:59. 81-year-old male with a past medical history of CAD, CHF, COPD, MILY, CKD who presented for shortness of breath. The patient's had 3 recent admissions for similar complaints. He reports significant effort in breathing with activity. He has severe emphysema and is on O2 at night, follows with Dr. Villegas. The patient states that this morning he began having worsening shortness of breath, decreased energy, and generalized weakness. He's been on multiple antibiotics recently for respiratory issues, and has been having loose stools about 3 times daily. He denies any cough, chest pain, fever, chills, night sweats, headache, vision changes. He does have chronic lower extremity swelling, uses THEO hose. CBC/BMP: 02/25/17 0450 02/26/17 0717 Significant Findings Laboratory Tests Test 02/25/17 02/26/17 04:50 07:17 Red Blood Count 3.86 MIL/MM3 (4.50-5.90) Hemoglobin 11.5 GM/DL (13.0-17.0) Hematocrit 36.4 % (39.0-51.0) Mean Corpuscular Hemoglobin 31.5 % Concent (32.0-36.0) Neutrophils (%) (Auto) 94.8 % (16.0-70.0) Lymphocytes (%) (Auto) 3.0 % (9.0-44.0) Neutrophils # (Auto) 10.5 TH/MM3 (1.8-7.7) Lymphocytes # (Auto) 0.3 TH/MM3 (1.0-4.8) Sodium Level 134 MEQ/L (136-145) Carbon Dioxide Level 20.6 MEQ/L (21.0-32.0) Blood Urea Nitrogen 59 MG/DL (7-18) 58 MG/DL (7-18) Creatinine 1.95 MG/DL 2.02 MG/DL (0.60-1.30) (0.60-1.30) Estimat Glomerular Filtration 33 ML/MIN (>89) 32 ML/MIN (>89) Rate Random Glucose 127 MG/DL 116 MG/DL (74-106) (74-106) Imaging Last Impressions Chest X-Ray 02/23/17 1449 Signed Impressions: Service Date/Time: Thursday, February 23, 2017 15:06 - CONCLUSION: No acute cardiopulmonary disease. Marcia Garzon MD Lower Extremity Ultrasound 02/23/17 0000 Signed Impressions: Service Date/Time: Thursday, February 23, 2017 15:21 - CONCLUSION: No evidence of lower extremity DVT Rusty Mccurdy MD PE at Discharge General: Elderly male in no acute distress. Heart: Regular rate and rhythm. No murmur. Lungs: Scattered rhonchi. Breathing is nonlabored. Abdomen: Soft, nontender, nondistended. Extremities: 3+ bilateral lower extremity pitting edema. Left leg swelling to the mid silva. Bilateral lower legs are more warm on exam compared to yesterday. Psych: Alert and oriented. Pt update on day of discharge The patient has no complaints at this time. Denies chest pain. Dyspnea has improved. He has been on room air most of the day. He ambulated with PT. He was evaluated by vascular surgery, who was present when his TRISTON was done. I spoke with Dr. Garrett, who recommended outpatient follow up. Hospital Course The patient was admitted for management of acute COPD exacerbation and congestive heart failure. He was continued on oxygen, steroids, bronchodilators. Pulmonology and cardiology were consulted. Patient improved medically throughout the hospitalization and his oxygen requirement decreased. He was noted to have significant lower extremity edema because his lower legs were cool to touch, TRISTON and vascular surgery consultation were requested. The patient was evaluated by his vascular surgeon, Dr. Garrett. Outpatient follow-up was recommended. Palliative care was consulted at the family's request. The patient's goals of care remain aggressive at this time. He has oxygen at home. On the day of discharge, he was felt to be stable for discharge home with home health care. He was counseled to return to the ER if his symptoms worsen, specifically shortness of breath or chest pain. Pt Condition on Discharge: Stable Discharge Disposition: Disch w/ Home Health Serv Discharge Time: > 30 minutes Discharge Instructions DIET: Follow Instructions for: Heart Healthy Diet Activities you can perform: Regular-No Restrictions Follow up Referrals: Cardiology - 2-3 Days with Kirsten Simental MD PCP Follow-up - 1 Week with Stanislav Castro MD Pulmonology - 1 Week with Matty Villegas MD Vascular Surgery - 2 Weeks with Enrike Garrett MD New Medications: Prednisone (Prednisone) 10 Mg Tab 10 MG PO DIRECTED 10mg PO TID x 3 days, then 10mg PO BID x 3 days, then 10mg PO daily. COPD #30 Ref 0 TAB Continued Medications: Acetaminophen (Tylenol) 325 Mg Tab 650 MG PO Q4H PRN PAIN SCALE 1 TO 4 Ref 0 TAB Albuterol 8.5 GM Inh (Proair Hfa 8.5 GM Inh) 90 Mcg/Act Aer 2 PUFF INH Q4-6H 108 mcg/actuation PRN SHORTNESS OF BREATH #1 Ref 0 INHALER Allopurinol (Allopurinol) 100 Mg Tab 100 MG PO BID Gout #30 Ref 0 TAB Aspirin (Aspirin) 81 Mg Chew 81 MG CHEW DAILY Ref 0 TAB Budesonide-Formoterol Inh (Symbicort Inh) 80-4.5 Mcg/Act Aero 2 PUFF INH Q12HR Asthma Management #1 Ref 0 INHALER Bumetanide (Bumetanide) 1 Mg Tab 1 MG PO BID #60 Ref 0 TAB Cholecalciferol (D3) 2,000 Unit Cap 2000 UNIT PO 3X WEEKLY Doxylamine Succinate (Unisom Sleep Aid) 25 Mg Tablet 25 MG PO HS PRN INSOMNIA Ipratropium-Albuterol Neb (Duoneb) 0.5-2.5 Mg/3 Ml Neb 1 NEBULE INH Q4HR NEB Breathing Treatment #180 Ref 0 NEBULE Metoprolol Tartrate (Metoprolol Tartrate) 50 Mg Tab 50 MG PO BID #60 Ref 0 TAB Spironolactone (Spironolactone) 25 Mg Tab 25 MG PO DAILY #30 Ref 0 TAB Temazepam (Restoril) 15 Mg Cap 15 MG PO HS PRN INSOMNIA #30 CAP Tiotropium Inh (Spiriva Handihaler) 18 Mcg Cap 18 MCG INH DAILY 1 capsule = 18 mcg COPD #30 Ref 0 CAP Discontinued Medications: Cefuroxime (Cefuroxime) 500 Mg Tab 500 MG PO BID Infection #20 Ref 0 TAB Hydrocodone-Acetaminophen (Garwin) 5-325 mg Tab 1 TAB PO Q6H PRN PAIN #15 Ref 0 TAB Levofloxacin (Levofloxacin) 500 Mg Tablet 500 MG PO DAILY Infection #7 Ref 0 TAB Riley Lara MD Feb 27, 2017 13:37
[2017-02-27] MEDS ORDERED: LORA-392 PO (14:01)
--- NOTE | 2017-02-27 14:41 | RADRPT ---
EXAM DATE/TIME: 02/25/2017 00:00 [facility] COMPARISON: No previous studies available for comparison. INDICATIONS : Pedal edema, hypoxia TECHNIQUE: Four-cuff ankle and brachial pressures were obtained. Pulse cuff waveform tracings of the ankles were recorded, and ankle-brachial indices were calculated. PRESSURES (mmHg): Brachial (arm): Right 128 Left iv site Ankle: Right 154 Left 93 TRISTON: Right 1.20 Left 0.73 TBI: Right 1.05 Left 0.52 PULSED CUFF WAVEFORMS: Decreased amplitude on the left. CONCLUSION: 1. Moderate claudication range left ABIs. Consider further evaluation with CT or conventional angiogr aphy. Enoc Das MD on February 27, 2017 at 14:36 Board Certified Radiologist. This report was verified electronically.
--- NOTE | 2017-02-27 15:11 | HHI.HCPN ---
Reason for visit a. To assist with evaluation and management of symptoms including: anxiety, dyspnea. b. To assist medical decision maker(s) with: better understanding of current medical conditions; weighing benefits/burdens of medical treatment options; making medical treatment decisions. . Subjective/Interval History Patient seen and examined in ICU. No family at bedside. Also present, Elvi Ye LCSW. Patient is sitting in chair. Afebrile. Vital signs stable. Arterial doppler results pending. Spoke with Dr. Lara who spoke with Dr. Garrett who does not feel any intervention is needed that PAD is stable. Plan for DC home today. Patient reports Lorazepam worked well last night. Dr. Lara will provide RX fro PRN Lorazepam at home. Patient and are very appreciative of the conversation yesterday. He reports feeling better after the talk. He signed [place] DNR and original given to to take home, reviewed instructions for keeping it in sight. Will consider hospice in the future, they are not ready yet. . Family/friend interactions See interval note. . Advance Directives Living Will: Copy in medical record Health Care Surrogate: Copy in medical record Durable Power of Biologics Specialist: Never completed Advance Directive Specifics Health Care Surrogate(s): Patient is currently capacitated to make his own health care decisions. Written living will designates his Francy Grace as healthcare surrogate should he lose capacity. . Significant change in goals: NO CODE - [place] DNR completed. Desires DC home, not yet ready to consider hospice at this time, will consider in the future if his condition worsens. . Objective Vital Signs Date Time Temp Pulse Resp B/P Pulse Ox O2 Delivery O2 Flow Rate FiO2 02/27/17 12:51 Room Air 02/27/17 12:03 68 02/27/17 12:00 97.0 88 20 125/80 98 02/27/17 11:18 89 21 02/27/17 08:00 Room Air 02/27/17 08:00 97.8 82 20 130/80 100 02/27/17 07:10 96 Nasal Cannula 2.00 02/27/17 04:00 98.6 82 18 110/70 96 02/27/17 04:00 Nasal Cannula 2.00 02/27/17 00:00 98.6 88 18 110/60 98 02/27/17 00:00 Nasal Cannula 2.00 02/26/17 20:00 100 02/26/17 20:00 Nasal Cannula 2.00 02/26/17 20:00 98.2 95 16 131/79 96 02/26/17 16:00 97.2 90 20 108/68 98 02/26/17 15:20 95 Nasal Cannula 2.00 Intake & Output 02/27/17 02/27/17 07:00 19:00 Intake Total 620 ml Output Total 1400 ml Balance -780 ml Intake Oral 620 ml Output Urine Total 1400 ml # Bowel Movements 1 Physical Exam CONSTITUTIONAL/GENERAL: This is an adequately nourished patient, in no apparent distress. TUBES/LINES/DRAINS: oxygen via NC, PIV, THEO hose. SKIN: No jaundice, rashes, or lesions. Ecchymoses on upper extremities. No wounds seen anteriorly. Skin temperature appropriate. Not diaphoretic. CARDIOVASCULAR: Regular rate and rhythm without murmurs, gallops, or rubs. RESPIRATORY/CHEST: Symmetric, unlabored respirations. Scattered rhonchi. GASTROINTESTINAL: Abdomen protuberant, soft, non-tender, nondistended. No guarding. Bowel sounds present. GENITOURINARY: Without palpable bladder distension. MUSCULOSKELETAL: Extremities with 3+ pitting edema. No mottling or clubbing. NEUROLOGICAL: Awake and alert.Generalized weakness. Follows commands. Cognitively sharp. Moves all extremities. PSYCHIATRIC: No obvious anxiety/depression. no apparent hallucinations or other psychotic thought process. . Diagnostic Tests Laboratory Laboratory Tests Test 02/25/17 02/26/17 04:50 07:17 White Blood Count 11.0 TH/MM3 (4.0-11.0) Red Blood Count 3.86 MIL/MM3 (4.50-5.90) Hemoglobin 11.5 GM/DL (13.0-17.0) Hematocrit 36.4 % (39.0-51.0) Mean Corpuscular Volume 94.2 FL (80.0-100.0) Mean Corpuscular Hemoglobin 29.7 PG (27.0-34.0) Mean Corpuscular Hemoglobin 31.5 % Concent (32.0-36.0) Red Cell Distribution Width 17.2 % (11.6-17.2) Platelet Count 175 TH/MM3 (150-450) Mean Platelet Volume 8.4 FL (7.0-11.0) Neutrophils (%) (Auto) 94.8 % (16.0-70.0) Lymphocytes (%) (Auto) 3.0 % (9.0-44.0) Monocytes (%) (Auto) 2.1 % (0.0-8.0) Eosinophils (%) (Auto) 0.0 % (0.0-4.0) Basophils (%) (Auto) 0.1 % (0.0-2.0) Neutrophils # (Auto) 10.5 TH/MM3 (1.8-7.7) Lymphocytes # (Auto) 0.3 TH/MM3 (1.0-4.8) Monocytes # (Auto) 0.2 TH/MM3 (0-0.9) Eosinophils # (Auto) 0.0 TH/MM3 (0-0.4) Basophils # (Auto) 0.0 TH/MM3 (0-0.2) CBC Comment AUTO DIFF Differential Comment AUTO DIFF CONFIRMED Platelet Estimate NORMAL (NORMAL) Platelet Morphology Comment NORMAL (NORMAL) Sodium Level 134 MEQ/L 136 MEQ/L (136-145) (136-145) Potassium Level 3.5 MEQ/L 3.8 MEQ/L (3.5-5.1) (3.5-5.1) Chloride Level 101 MEQ/L 100 MEQ/L (98-107) (98-107) Carbon Dioxide Level 20.6 MEQ/L 21.8 MEQ/L (21.0-32.0) (21.0-32.0) Anion Gap 12 MEQ/L (5-15) 14 MEQ/L (5-15) Blood Urea Nitrogen 59 MG/DL (7-18) 58 MG/DL (7-18) Creatinine 1.95 MG/DL 2.02 MG/DL (0.60-1.30) (0.60-1.30) Estimat Glomerular Filtration 33 ML/MIN (>89) 32 ML/MIN (>89) Rate Random Glucose 127 MG/DL 116 MG/DL (74-106) (74-106) Calcium Level 8.7 MG/DL 9.0 MG/DL (8.5-10.1) (8.5-10.1) Phosphorus Level 4.0 MG/DL (2.5-4.9) Magnesium Level 2.4 MG/DL (1.5-2.5) Result Diagram: 02/25/17 0450 02/26/17 0717 Imaging Last Impressions Chest X-Ray 02/23/17 1449 Signed Impressions: Service Date/Time: Thursday, February 23, 2017 15:06 - CONCLUSION: No acute cardiopulmonary disease. Marcia Garzon MD Lower Extremity Ultrasound 02/23/17 0000 Signed Impressions: Service Date/Time: Thursday, February 23, 2017 15:21 - CONCLUSION: No evidence of lower extremity DVT Rusty Mccurdy MD . Assessment and Plan Disease Oriented Problem List: (1) COPD (chronic obstructive pulmonary disease) (2) Obstructive sleep apnea (3) Pneumonia (4) Chronic kidney disease, stage 3 (5) CHF exacerbation (6) Peripheral arterial disease (7) Pedal edema Symptom Scale: (1) Anxiety 0-10 Scale: Unable to quantify (2) Dyspnea 0-10 Scale: Unable to quantify (3) Weakness 0-10 Scale: Unable to quantify Pertinent Non-Medical Issues Psychosocial: . No children. Spiritual: [employer] wen. Supported by his local druze. Legal:Patient is currently capacitated to make his own health care decisions. Written living will designates his Francy Grace as healthcare surrogate should he lose capacity. Ethical issues impacting care: . Important Contacts * Francy Grace, : home [phone] or cell [phone] * Rosa Isela Dutta, step-daughter: [phone] .- Prognosis Patient with multiple medical comorbidities including CHF and COPD and 4 recent acute care hospitalizations, hospice appropriate if goals are comfort oriented. . Code Status: No Code Plan * Decision Maker: Patient is currently capacitated to make his own health care decisions. Written living will designates his Francy Grace as healthcare surrogate should he lose capacity. * NO CODE - [place] DNR completed. * 02/27/17 - Desires DC home, not yet ready to consider hospice at this time, will consider in the future if his condition worsens. * SYMPTOMS: Anxiety: secondary to shortness of breath and fear of shortness of breath. Dyspnea: due to underlying COPD, CHF, renal insufficiency. Weakness: due to 4 recent acute care hospitalizations and comorbidities. Insomnia: DC Restoril and will add PRN Lorazepam as above. * Palliative care will continue to follow throughout hospital course to assist with symptom management and clarification of goals as needed. . Attestation To help prompt me to consider important information that might be impacting today's encounter and assessment, information from prior notes written by myself or my colleagues may have been "brought forward" into today's note. My signature on this note, however, is an attestation that I personally performed the exam, history, and/or decision-making noted today, and, unless otherwise indicated, the interactions with patient, family, and staff as well as the review of records all occurred today. I also attest that the listed assessment and stated plan reflect my best clinical judgment today based on the combination of historical information, prior notes, and today's exam/ interactions. When time spent is documented, it refers only to time spent today by the signer, or if indicated, combined time spent today by collaborating physician/nurse practitioner. Kemi Ott Feb 27, 2017 15:11 Kemi Ott Feb 27, 2017 15:11
--- NOTE | 2017-02-27 18:08 | MB ---
cc: KIRSTEN SIMENTAL M.D.,Matty DURHAM DATE OF CONSULTATION 02/27/[address] Riley Lara REASON FOR CONSULTATION Lower extremity edema / peripheral vascular evaluation. 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 He has been hospitalized on three occasions since early December with similar complaints. He has well documented advanced COPD managed by Santiago Villegas MD in addition to coronary artery disease, congestive heart failure, cardiomyopathy status post AICD defibrillator followed by Kirsten Simental MD. I have previously taken care of Dr. 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 He also has a small right internal carotid artery aneurysm which has remained asymptomatic and fairly stable incised for the past 11 years. He has chronic venous stasis within both lower extremities which has become significantly exacerbated by his comorbid cardiopulmonary dysfunction. His is a retired registered nurse and is well versed in assisting her with management of his lower extremity edema. At home he regularly utilizes graduated compression stockings with avoidance of the lower extremity dependency as much as possible. He has no recent symptoms of ischemia despite well documented left popliteal arterial occlusion. PAST MEDICAL HISTORY 1. Advanced COPD managed by Santiago Villegas. 2. Coronary artery disease / compensated congestive heart failure / cardiomyopathy status post AICD defibrillator - followed by Kirsten Simental MD. 3. Hypertension. 4. Hypercholesterolemia. 5. Degenerative joint disease. MEDICATIONS AND ALLERGIES Are detailed in the med reconciliation form. PHYSICAL EXAMINATION GENERAL: Well-developed, obese 80-year-old male who appears chronically debilitated with mild dyspnea at rest. LUNGS: Are symmetrically expanded with diminished breath sounds throughout. CARDIOVASCULAR: Rhythm is currently sinus. No rubs or gallops. No neck vein distension. AICD / defibrillator generator left infraclavicular position - uncomplicated. Small right internal carotid aneurysm is nonpalpable. There are no carotid bruits. ABDOMEN: Abdomen is obese and soft. Well healed umbilical herniorrhaphy. EXTREMITIES: Marked venous stasis changes are present within both legs, slightly more prominent on the right than left as manifested by diffuse, brawny edema with skin changes, lipodermatosclerosis of the gaiting surfaces. No active ulcerations. Right SFA popliteal bypasses is patent. Right pedal pulses are easily palpable. Left pedal pulses are nonpalpable. NEUROLOGIC: No gross focal deficit. IMPRESSION 1. Chronic venous stasis both lower extremities exacerbated by comorbid cardiopulmonary dysfunction / history of right lower extremity DVT March 2016. 2. Left popliteal artery occlusion - asymptomatic. 3. Asymptomatic, stable right internal carotid aneurysm. RECOMMENDATIONS Discussed with the patient and ongoing conservative management of lower extremity edema / chronic venous stasis. Again as referenced above, his is well versed in assisting him with edema management. I will continue to follow Dr. Grace intermittently on an outpatient basis. Thank you for allowing me to participate in his care. Enrike Garrett MD JTS/KK /5:33 PM /5:45 PM
--- NOTE | 2017-02-27 19:04 | HHI.PR ---
Subjective Remarks 81 YOWM with COPD exac, CHF,AICD Breathing much better No CP No Fever or chills Slept well Up in chair Objective Vital Signs Vital Signs Date Time Temp Pulse Resp B/P Pulse Ox O2 Delivery O2 Flow Rate FiO2 02/27/17 15:40 92 21 02/27/17 12:51 Room Air 02/27/17 12:03 68 02/27/17 12:00 97.0 88 20 125/80 98 02/27/17 11:18 89 21 02/27/17 08:00 Room Air 02/27/17 08:00 97.8 82 20 130/80 100 02/27/17 07:10 96 Nasal Cannula 2.00 02/27/17 04:00 98.6 82 18 110/70 96 02/27/17 04:00 Nasal Cannula 2.00 02/27/17 00:00 98.6 88 18 110/60 98 02/27/17 00:00 Nasal Cannula 2.00 02/26/17 20:00 100 02/26/17 20:00 Nasal Cannula 2.00 02/26/17 20:00 98.2 95 16 131/79 96 I/O 02/26/17 02/26/17 02/26/17 02/27/17 02/27/17 02/27/17 07:00 15:00 23:00 07:00 15:00 23:00 Intake Total 360 ml 480 ml 320 ml 300 ml Output Total 1400 ml 700 ml 700 ml 700 ml Balance -1040 ml -220 ml -380 ml -400 ml Intake Oral 360 ml 480 ml 320 ml 300 ml Output Urine Total 1400 ml 700 ml 700 ml 700 ml # Bowel Movements 0 0 1 0 Result Diagram: 02/25/17 0450 02/26/17 0717 Objective Remarks GENERAL: WBWN WM, NAD SKIN: Warm and dry. HEAD: Normocephalic. EYES: No scleral icterus. No injection or drainage. NECK: Supple, trachea midline. No JVD or lymphadenopathy. CARDIOVASCULAR: Regular rate and rhythm without murmurs, gallops, or rubs. RESPIRATORY: Breath sounds equal bilaterally. No accessory muscle use. Exp rhonchi GASTROINTESTINAL: Abdomen soft, non-tender, nondistended. MUSCULOSKELETAL: No cyanosis, ++ edema. BACK: Nontender without obvious deformity. No CVA tenderness. A/P Assessment and Plan COPD Exac MILY CHF CKD S/P AICD H/O DVT PLAN: Aerosol Nebs PO Steroids Diurease Supplement 02 CPAP at night DW pt and his Palliative care consult. DC Plans for Home He will FU with . Seng Weaver MD Feb 27, 2017 19:04
== END 2017-02-27 17:05 | disposition home or self-care (01) | DRG 291 ==
LOC: NEPD 14:28 → NEDA 16:20 → N04A 18:40
PROVIDERS: ADMIT Family Medicine; ATTEND Family Medicine
DX: I13.0 Hypertensive heart and chronic kidney disease with heart failure and stage 1 through stage 4 chronic kidney disease, or unspecified chronic kidney disease (principal); I50.33 Acute on chronic diastolic (congestive) heart failure; I47.2 Ventricular tachycardia; J96.11 Chronic respiratory failure with hypoxia; I42.9 Cardiomyopathy, unspecified; J44.1 Chronic obstructive pulmonary disease with (acute) exacerbation; I67.1 Cerebral aneurysm, nonruptured; Z99.81 Dependence on supplemental oxygen; N18.3 Chronic kidney disease, stage 3 (moderate); M10.9 Gout, unspecified; I25.10 Atherosclerotic heart disease of native coronary artery without angina pectoris; G47.33 Obstructive sleep apnea (adult) (pediatric); R19.7 Diarrhea, unspecified; E87.6 Hypokalemia; I73.9 Peripheral vascular disease, unspecified; Z66 Do not resuscitate; F41.9 Anxiety disorder, unspecified; G47.00 Insomnia, unspecified; I87.8 Other specified disorders of veins; E78.00 Pure hypercholesterolemia, unspecified; M19.90 Unspecified osteoarthritis, unspecified site; Z87.891 Personal history of nicotine dependence; Z86.718 Personal history of other venous thrombosis and embolism; Z95.810 Presence of automatic (implantable) cardiac defibrillator; Z79.82 Long term (current) use of aspirin
CPT/HCPCS: 36600; 71010; 80048; 82550; 82805; 83735; 83880; 84100; 84484; 85007; 85025; 85027; 85610; 87493; 93005; 93306; 93922; 93970; 94640; 94664; 96374; J1644; J1940; J2920; J2930; J7512

== ENCOUNTER 2017-03-08 11:36 | Inpatient (IN) | payer MEDICARE, OTHER ==
[~2017-03-08] VITALS: Ht 182.9 cm; Wt 104.4 kg
[2017-03-08 11:36] VITALS: BP 110/67; PULSE 114; RESP 28; TEMP 99.3; O2SAT 95
[~2017-03-08 11:36] MED LIST changes: -CEFU1TAB20 PO; -CHOL1CAP14 PO; +CHOL20003 PO; -FERR325T20; -LEVO500T8 PO; +LORA-392 PO; -NORC5TAB PO; +PRED10 PO; -PRED10PA PO; -RANI1TAB5 PO; -SENN1TAB PO
[2017-03-08 11:53] VITALS: O2SAT 97
[2017-03-08] MEDS ORDERED: SIMV20TA PO (12:04)
--- NOTE | 2017-03-08 12:11 | PD ---
HPI Chief Complaint: Respiratory Symptoms Time Seen by Provider: 11:51 Travel History International Travel<30 days: No Contact w/Intl Traveler<30days: No Traveled to known affect area: No History of Present Illness HPI Patient is a 81-year-old male with history of COPD, CHF, peripheral arterial disease, sleep apnea, arthritis, anemia, chronic renal insufficiency, coronary artery disease, CVA, history of DVT to the right lower extremity, presents to emergency room with complaints of shortness of breath. Patient reports that he woke up this morning and felt short of breath. Reports that he had an appointment today with his land planner, Dr. Francis Villegas, reports that he did not take his Bumex as he wanted to avoid urinating in the car on route to his doctor's office. At the office, it was recommended the patient go to the emergency room for evaluation as patient was tachycardic and febrile and appeared sob. Patient reports that he has not been feeling well since this morning. Reports sob at rest as well as on exertion. Denies chest pain. Denies cough. Patient reports that he was recently discharged from the hospital with diagnosis of chf and possibly pneumonia PFS Past Medical History Anemia: Yes Arthritis: Yes Asthma: No Autoimmune Disease: No Blood Disorders: No Anxiety: No Depression: No Heart Rhythm Problems: Yes Cancer: Yes (SKIN CANCER) Cardiovascular Problems: Yes (CHF, DC) High Cholesterol: No Chemotherapy: No Chest Pain: No Congestive Heart Failure: Yes COPD: Yes Cerebrovascular Accident: Yes (OCULAR STROKE) Coronary Artery Disease: Yes Diabetes: No Diminished Hearing: No Deep Vein Thrombosis: Yes (off anticoagulation secondary to GI bleed) Endocrine: No Gastrointestinal Disorders: Yes (illeus) GERD: No Glaucoma: No Gout: Yes Genitourinary: Yes Headaches: No Hepatitis: No Hiatal Hernia: No Hypertension: Yes Immune Disorder: No Implanted Vascular Access Dvce: Yes Kidney Stones: No Medical other: Yes (GOUT SAMANTHA) Musculoskeletal: Yes Neurologic: Yes Psychiatric: No Reproductive: No Respiratory: Yes (COPD) Immunizations Current: Yes Migraines: No Myocardial Infarction: Yes Radiation Therapy: No Renal Failure: Yes (chronic kidney disease) Seizures: No Sickle Cell Disease: No Sleep Apnea: Yes (C-Pap) Thyroid Disease: No Ulcer: No Past Surgical History Abdominal Surgery: Yes (umbilical hernia) AICD: Yes Appendectomy: No Arteriovenous Shunt: No Body Medical Devices: N/A Cardiac Surgery: Yes (FEM-POP RIGHT LEG) Cholecystectomy: No Coronary Artery Bypass Graft: Yes Ear Surgery: No Endocrine Surgery: No Eye Surgery: Yes (bilateral cataracts) Genitourinary Surgery: No Gynecologic Surgery: No Insulin Pump: No Joint Replacement: Yes (RIGHT TOTAL HIP ) Oral Surgery: Yes Pacemaker: No Thoracic Surgery: No Tonsillectomy: Yes Other Surgery: Yes (AICD) Social History Alcohol Use: Yes (COUPLE DRINKS DAILY) Tobacco Use: No Substance Use: No Allergies-Medications (Allergen,Severity, Reaction): Coded Allergies: No Known Allergies (Verified , 03/08/17) Reported Meds & Prescriptions Reported Meds & Active Scripts Active Ativan (Lorazepam) 0.5 Mg Tab 0.5 Mg PO Q6H PRN Prednisone 10 Mg Tab 10 Mg PO DIRECTED 10mg PO TID x 3 days, then 10mg PO BID x 3 days, then 10mg PO daily. Proair Hfa 8.5 GM Inh (Albuterol Sulfate) 90 Mcg/Act Aer 2 Puff INH Q4-6H PRN 108 mcg/actuation Inspirease Drug Delivery (Spacer/Device For Mdi) 1 Ea Mis 1 Ea .ROUTE DIRECTED Nebulizer 1 Mis Mis 1 Ea .ROUTE DIRECTED Duoneb (Ipratropium-Albuterol Neb) 0.5-2.5 Mg/3 Ml Neb 1 Nebule INH Q4HR NEB Oxygen tank (Oxygen) 1 Ea Tank 2 Liter MATY.CANULA CONTINUOUS Oxygen Concentrator Portable Gaseous 2 L/min via Nasal Cannula Continuous For 99 months Bumetanide 1 Mg Tab 1 Mg PO BID Reported Simvastatin 20 Mg Tab 20 Mg PO DAILY D3 (Cholecalciferol) 2,000 Unit Cap 2,000 Unit PO 3X WEEKLY Tylenol (Acetaminophen) 325 Mg Tab 650 Mg PO Q4H PRN Unisom Sleep Aid (Doxylamine Succinate) 25 Mg Tablet 25 Mg PO HS PRN Aspirin 81 Mg Chew 81 Mg CHEW DAILY Allopurinol 100 Mg Tab 100 Mg PO BID Spiriva Handihaler (Tiotropium Inh) 18 Mcg Cap 18 Mcg INH DAILY 1 capsule = 18 mcg Symbicort Inh (Budesonide/Formoterol Fumarate) 80-4.5 Mcg/Act Aero 2 Puff INH Q12HR Metoprolol Tartrate 50 Mg Tab 60 Mg PO BID Spironolactone 25 Mg Tab 25 Mg PO DAILY Review of Systems General / Constitutional: No: Fever, Chills Eyes: No: Visual changes HENT: No: Headaches Cardiovascular: No: Chest Pain or Discomfort Respiratory: Positive: Shortness of Breath Gastrointestinal: No: Abdominal Pain Genitourinary: No: Dysuria Musculoskeletal: Positive: Weakness, No: Pain Skin: No Rash Neurologic: No: Weakness Psychiatric: No: Depression Endocrine: No: Polydipsia Hematologic/Lymphatic: No: Easy Bruising Physical Exam Narrative GENERAL: moderate distress SKIN: Focused skin assessment warm/dry. HEAD: Atraumatic. Normocephalic. EYES: Pupils equal and round. No scleral icterus. No injection or drainage. ENT: No nasal bleeding or discharge. Mucous membranes pink and moist. NECK: Trachea midline. No JVD. CARDIOVASCULAR: Tachycardic No murmur appreciated. RESPIRATORY: Increased accessory muscle use. Clear to auscultation. Breath sounds equal bilaterally. GASTROINTESTINAL: Abdomen soft, non-tender, nondistended. Hepatic and splenic margins not palpable. MUSCULOSKELETAL: No obvious deformities. No clubbing. No cyanosis. +3 edema b/ l, patient with erythema with blisters and clear fluid from [facility] NEUROLOGICAL: Awake and alert. No obvious cranial nerve deficits. Motor grossly within normal limits. Normal speech. PSYCHIATRIC: Appropriate mood and affect; insight and judgment normal. Data Data Last Documented VS Vital Signs Date Time Temp Pulse Resp B/P Pulse Ox O2 Delivery O2 Flow Rate FiO2 03/08/17 13:58 96 Nasal Cannula 4.00 03/08/17 11:53 110 28 03/08/17 11:36 99.3 110/67 Orders Electrocardiogram (03/08/17 11:49) Complete Blood Count With Diff (03/08/17 11:49) Comprehensive Metabolic Panel (03/08/17 11:49) Prothrombin Time / Inr (Pt) (03/08/17 11:49) Act Partial Throm Time (Ptt) (03/08/17 11:49) Lactic Acid Sepsis Protocol (03/08/17 11:49) Magnesium (Mg) (03/08/17 11:49) Lipase (03/08/17 11:49) Ckmb (Isoenzyme) Profile (03/08/17 11:49) Troponin I (03/08/17 11:49) Urinalysis - C+S If Indicated (03/08/17 11:49) Influenzae A/B Antigen (03/08/17 11:49) Blood Culture (03/08/17 11:49) Chest, Single Ap (03/08/17 11:49) Arterial Blood Gas (Abg) (03/08/17 11:49) Blood Glucose (03/08/17 11:49) Ecg Monitoring (03/08/17 11:49) Iv Access Insert/Monitor (03/08/17 11:49) Oximetry (03/08/17 11:49) Oxygen Administration (03/08/17 11:49) B-Type Natriuretic Peptide (03/08/17 11:49) Consult Wound / Ostomy Nurse (03/08/17 ) Vancomycin Inj (Vancomycin Inj) (03/08/17 12:31) Azithromycin Inj (Zithromax Inj) (03/08/17 12:31) Ceftriaxone Inj (Rocephin Inj) (03/08/17 13:00) Admit To Inpatient (03/08/17 ) Vital Signs (Adult) Q4H (03/08/17 13:47) Activity Oob With Assistance (03/08/17 13:47) Diet Heart Healthy (03/08/17 Lunch) Sodium Chloride 0.9% Flush (Ns Flush) (03/08/17 14:00) Sodium Chloride 0.9% Flush (Ns Flush) (03/08/17 21:00) Acetaminophen (Tylenol) (03/08/17 14:00) Ondansetron Inj (Zofran Inj) (03/08/17 14:00) Basic Metabolic Panel (Bmp) (03/09/17 06:00) Complete Blood Count With Diff (03/09/17 06:00) Resp Oxygen Maty C Titrat 1-4 L (03/08/17 ) Naloxone Inj (Narcan Inj) (03/08/17 14:00) Docusate Sodium-Senna (Melanie-Colace) (03/08/17 21:00) Magnesium Hydroxide Liq (Milk Of Magnesi (03/08/17 14:00) Sennosides (Senokot) (03/08/17 14:00) Bisacodyl Supp (Dulcolax Supp) (03/08/17 14:00) Lactulose Liq (Lactulose Liq) (03/08/17 14:00) Inpatient Certification (03/08/17 ) Heparin Inj (Heparin Inj) (03/08/17 21:00) Albuterol-Ipratropium Neb (Duoneb Neb) (03/08/17 16:00) Albuterol-Ipratropium Neb (Duoneb Neb) (03/08/17 14:00) Levofloxacin 500 Mg Premix Inj (Levaquin (03/09/17 09:00) Consult Pulmonology (03/08/17 ) Admit Order (Ed Use Only) (03/08/17 13:59) Labs Laboratory Tests Test 03/08/17 03/08/17 12:00 12:02 White Blood Count 10.9 TH/MM3 Red Blood Count 4.17 MIL/MM3 Hemoglobin 12.9 GM/DL Hematocrit 38.8 % Mean Corpuscular Volume 92.9 FL Mean Corpuscular Hemoglobin 30.8 PG Mean Corpuscular Hemoglobin 33.2 % Concent Red Cell Distribution Width 17.5 % Platelet Count 83 TH/MM3 Mean Platelet Volume 7.9 FL Neutrophils (%) (Auto) 91.6 % Lymphocytes (%) (Auto) 2.7 % Monocytes (%) (Auto) 4.9 % Eosinophils (%) (Auto) 0.5 % Basophils (%) (Auto) 0.3 % Neutrophils # (Auto) 10.0 TH/MM3 Lymphocytes # (Auto) 0.3 TH/MM3 Monocytes # (Auto) 0.5 TH/MM3 Eosinophils # (Auto) 0.1 TH/MM3 Basophils # (Auto) 0.0 TH/MM3 CBC Comment AUTO DIFF Differential Total Cells 100 Counted Neutrophils % (Manual) 95 % Lymphocytes % 2 % Monocytes % 2 % Neutrophils # (Manual) 10.5 TH/MM3 Myelocytes 1 % Differential Comment FINAL DIFF MANUAL Platelet Estimate LOW Platelet Morphology Comment NORMAL Red Cell Morphology Comment NORMAL Prothrombin Time 10.4 SEC Prothromb Time International 0.9 RATIO Ratio Activated Partial 22.4 SEC Thromboplast Time Sodium Level 134 MEQ/L Potassium Level 4.5 MEQ/L Chloride Level 100 MEQ/L Carbon Dioxide Level 27.6 MEQ/L Anion Gap 6 MEQ/L Blood Urea Nitrogen 41 MG/DL Creatinine 2.06 MG/DL Estimat Glomerular Filtration 31 ML/MIN Rate Random Glucose 97 MG/DL Lactic Acid Level 2.5 mmol/L Calcium Level 8.5 MG/DL Magnesium Level 2.2 MG/DL Total Bilirubin 0.9 MG/DL Aspartate Amino Transf 18 U/L (AST/SGOT) Alanine Aminotransferase 37 U/L (ALT/SGPT) Alkaline Phosphatase 70 U/L Total Creatine Kinase 14 U/L Troponin I LESS THAN 0.02 NG/ML B-Type Natriuretic Peptide 120 PG/ML Total Protein 6.4 GM/DL Albumin 2.9 GM/DL Lipase 195 U/L Blood Gas Puncture Site RT RADIAL Blood Gas Patient Temperature 98.6 Blood Gas HCO3 22 mmol/L Blood Gas Base Excess -1.0 mmol/L Blood Gas Oxygen Saturation 86 % Arterial Blood pH 7.50 Arterial Blood Partial 29 mmHg Pressure CO2 Arterial Blood Partial 52 mmHG Pressure O2 Arterial Blood Oxygen Content 14.4 Vol % Arterial Blood 1.9 % Carboxyhemoglobin Arterial Blood Methemoglobin 0.7 % Blood Gas Hemoglobin 11.9 G/DL Oxygen Delivery Device ROOM AIR Blood Gas Inspired Oxygen 21 % MDM Medical Decision Making Medical Screen Exam Complete: Yes Emergency Medical Condition: Yes Interpretation(s) EKG at 1153: Sinus tach at 109bpm, qt/qtc: 292/356 Vital Signs Date Time Temp Pulse Resp B/P Pulse Ox O2 Delivery O2 Flow Rate FiO2 03/08/17 11:53 97 Nasal Cannula 4 03/08/17 11:53 110 28 4 Nasal Cannula 03/08/17 11:53 97 Nasal Cannula 4 03/08/17 11:36 99.3 114 28 110/67 95 Differential Diagnosis Differential includes CHF, Pneumonia, COPD, ACS, electrolyte abnormality, hypoxia, PE, DVT Narrative Course Patient is a 81 year old male with history of COPD, CHF, Htn, CAD, CVA, presents to ER with c/o of sob. Patient has been feeling sob since he woke up this morning. He was sent to the ER by Dr. Aurelio Villegas (land planner) as patient was in respiratory distress (tachycardia, febrile with increased respiratory rate) in the office today. Vital Signs Date Time Temp Pulse Resp B/P Pulse Ox O2 Delivery O2 Flow Rate FiO2 03/08/17 11:53 97 Nasal Cannula 4 03/08/17 11:53 110 28 4 Nasal Cannula 03/08/17 11:53 97 Nasal Cannula 4 03/08/17 11:36 99.3 114 28 110/67 95 Patient tachypneic and tachycardic and was febrile at Dr. Villegas's office. Sepsis workup ordered. Laboratory Tests Test 03/08/17 03/08/17 12:00 12:02 White Blood Count 10.9 TH/MM3 (4.0-11.0) Red Blood Count 4.17 MIL/MM3 (4.50-5.90) Hemoglobin 12.9 GM/DL (13.0-17.0) Hematocrit 38.8 % (39.0-51.0) Mean Corpuscular Volume 92.9 FL (80.0-100.0) Mean Corpuscular Hemoglobin 30.8 PG (27.0-34.0) Mean Corpuscular Hemoglobin 33.2 % Concent (32.0-36.0) Red Cell Distribution Width 17.5 % (11.6-17.2) Platelet Count 83 TH/MM3 (150-450) Mean Platelet Volume 7.9 FL (7.0-11.0) Neutrophils (%) (Auto) 91.6 % (16.0-70.0) Lymphocytes (%) (Auto) 2.7 % (9.0-44.0) Monocytes (%) (Auto) 4.9 % (0.0-8.0) Eosinophils (%) (Auto) 0.5 % (0.0-4.0) Basophils (%) (Auto) 0.3 % (0.0-2.0) Neutrophils # (Auto) 10.0 TH/MM3 (1.8-7.7) Lymphocytes # (Auto) 0.3 TH/MM3 (1.0-4.8) Monocytes # (Auto) 0.5 TH/MM3 (0-0.9) Eosinophils # (Auto) 0.1 TH/MM3 (0-0.4) Basophils # (Auto) 0.0 TH/MM3 (0-0.2) CBC Comment AUTO DIFF Differential Total Cells 100 Counted Neutrophils % (Manual) 95 % (16-70) Lymphocytes % 2 % (9-44) Monocytes % 2 % (0-8) Neutrophils # (Manual) 10.5 TH/MM3 (1.8-7.7) Myelocytes 1 % (0-0) Differential Comment FINAL DIFF MANUAL Platelet Estimate LOW (NORMAL) Platelet Morphology Comment NORMAL (NORMAL) Red Cell Morphology Comment NORMAL (NORMAL) Prothrombin Time 10.4 SEC (9.8-11.6) Prothromb Time International 0.9 RATIO Ratio Activated Partial 22.4 SEC Thromboplast Time (24.3-30.1) Sodium Level 134 MEQ/L (136-145) Potassium Level 4.5 MEQ/L (3.5-5.1) Chloride Level 100 MEQ/L (98-107) Carbon Dioxide Level 27.6 MEQ/L (21.0-32.0) Anion Gap 6 MEQ/L (5-15) Blood Urea Nitrogen 41 MG/DL (7-18) Creatinine 2.06 MG/DL (0.60-1.30) Estimat Glomerular Filtration 31 ML/MIN (>89) Rate Random Glucose 97 MG/DL (74-106) Lactic Acid Level 2.5 mmol/L (0.4-2.0) Calcium Level 8.5 MG/DL (8.5-10.1) Magnesium Level 2.2 MG/DL (1.5-2.5) Total Bilirubin 0.9 MG/DL (0.2-1.0) Aspartate Amino Transf 18 U/L (15-37) (AST/SGOT) Alanine Aminotransferase 37 U/L (12-78) (ALT/SGPT) Alkaline Phosphatase 70 U/L (45-117) Total Creatine Kinase 14 U/L (39-308) Troponin I LESS THAN 0.02 NG/ML (0.02-0.05) B-Type Natriuretic Peptide 120 PG/ML (0-100) Total Protein 6.4 GM/DL (6.4-8.2) Albumin 2.9 GM/DL (3.4-5.0) Lipase 195 U/L (73-393) Blood Gas Puncture Site RT RADIAL Blood Gas Patient Temperature 98.6 Blood Gas HCO3 22 mmol/L (22-26) Blood Gas Base Excess -1.0 mmol/L (-2-2) Blood Gas Oxygen Saturation 86 % (90-100) Arterial Blood pH 7.50 (7.380-7.420) Arterial Blood Partial 29 mmHg (38-42) Pressure CO2 Arterial Blood Partial 52 mmHG Pressure O2 (61-120) Arterial Blood Oxygen Content 14.4 Vol % (12.0-20.0) Arterial Blood 1.9 % (0-4) Carboxyhemoglobin Arterial Blood Methemoglobin 0.7 % (0-2) Blood Gas Hemoglobin 11.9 G/DL (12.0-16.0) Oxygen Delivery Device ROOM AIR Blood Gas Inspired Oxygen 21 % Vital Signs Date Time Temp Pulse Resp B/P Pulse Ox O2 Delivery O2 Flow Rate FiO2 03/08/17 11:53 97 Nasal Cannula 4 03/08/17 11:53 110 28 4 Nasal Cannula 03/08/17 11:53 97 Nasal Cannula 4 03/08/17 11:36 99.3 114 28 110/67 95 Last Impressions Chest X-Ray 03/08/17 1149 Signed Impressions: Service Date/Time: February 11:57 - CONCLUSION: No acute disease Rusty Mccurdy MD Patient with ABG and pO2 86% on room air, he is hypoxic and requires oxygen, patient does have oxygen tanks at home and only uses it when his pulse ox is lower than 88% - his lactic acid 2.5 - lactic acid could be secondary from hypoperfusion versus cellulitis of his left lower extremity. Patient has been pancultured, has been treated with vancomycin for his cellulitis. Broad spectrum antibiotics given for his lactate of 2.5. Patient feeling much better on 4LNC. Family reports that they did consider hospice but patient is not ready for hospice yet. Request that his land planner may consider letting patient use oxygen 24-7 for therapeutic relief. Request that his land planner be consulted on his case as family. Case reviewed with Dr. Mace who accepts pt to service Critical Care Narrative Aggregate critical care time was 30 minutes. Time to perform other separately billable procedures was not included in the critical care time. My time did not include minutes spent treating any other patients simultaneously or on activities that did not directly contribute to the patient's treatment. The services I provided to this patient were to treat and/or prevent clinically significant deterioration that could result in: , decompensation, deterioration I provided critical care services requiring my management, as noted below: Chart data review, documentation time, medication orders and management, vital sign assessments/reviewing monitor data, ordering and reviewing lab tests, ordering and interpreting/reviewing x-rays and diagnostic studies, care of the patient and discussion of the patient with the admitting physicians. Diagnosis Primary Impression: Sepsis Additional Impressions: Hypoxia Cellulitis Thrombocytopenia Admitting Information Admitting Physician Requests: Amy Hensley DO Mar 08, 2017 12:11
[2017-03-08 12:12] LABS: BLOOD GAS CARBOXYHEMOGLOBIN 1.9 % (0-4); BLOOD GAS HCO3 22 mmol/L (22-26); BLOOD GAS METHEMOGLOBIN 0.7 % (0-2); BLOOD GAS O2 HGB SATURATION 86 % (90-100); BLOOD GAS OXYGEN CONTENT 14.4 Vol % (12.0-20.0); BLOOD GAS PCO2 29 mmHg (38-42); BLOOD GAS PO2 52 mmHG (61-120); BLOOD GAS TOTAL HGB 11.9 G/DL (12.0-16.0); CRITICAL VALUE YES; DRAW SITE RT RADIAL; FIO2 21 %; OXYGEN DEVICE ROOM AIR; TEMP CORR TO 98.6
[2017-03-08 12:13] LABS: NUMBER OF ARTERIAL PUNCTURES 1; STAT YES
[2017-03-08 12:20] LABS: BASOPHIL % 0.3 % (0.0-2.0); EOSINOPHIL # 0.1 TH/MM3 (0-0.4); EOSINOPHIL % 0.5 % (0.0-4.0); HEMATOCRIT 38.8 % (39.0-51.0); LYMPH % 2.7 % (9.0-44.0); LYMPHOCYTE # 0.3 TH/MM3 (1.0-4.8); MEAN CELL VOLUME 92.9 FL (80.0-100.0); MEAN CORPUSCULAR HEMOGLOBIN 30.8 PG (27.0-34.0); MEAN CORPUSCULAR HGB CONC 33.2 % (32.0-36.0); MONO % 4.9 % (0.0-8.0); NEUT % 91.6 % (16.0-70.0); PLATELET COUNT 83 TH/MM3 (150-450); RED BLOOD COUNT 4.17 MIL/MM3 (4.50-5.90); RED CELL DISTRIBUTION WIDTH 17.5 % (11.6-17.2); WHITE BLOOD COUNT 10.9 TH/MM3 (4.0-11.0)
[2017-03-08 12:23] LABS: HEMO FLAGS AUTO DIFF
--- NOTE | 2017-03-08 12:24 | RADRPT ---
EXAM DATE/TIME: 03/08/2017 11:57 [facility] COMPARISON: CHEST SINGLE AP, February 23, 2017, 15:06. INDICATIONS : Short of breath. MEDICAL HISTORY : Myocardial infarction. Chronic obstructive pulmonary disease. Congestive heart failure. coronary artery disease, deep vein thrombosis, irreg. heartbeat, sleep apnea, gout SURGICAL HISTORY : CABG. internal defibrillator ENCOUNTER: Initial ACUITY: 1 day PAIN SCORE: 0/10 LOCATION: Bilateral chest FINDINGS: Pacemaker device is noted with control pack over the left chest. The lungs are focally clear. No pleu ral effusion is evident. Cardiac contours are stable with tortuosity thoracic aorta. CONCLUSION: No acute disease Rusty Mccurdy MD on March 08, 2017 at 12:22 Board Certified Radiologist. This report was verified electronically.
[2017-03-08] MEDS ORDERED: VANCOMYCIN INJ 1,000 MG in SODIUM CHLOR 0.9% 250 ML INJ 250 ML IV STA (12:31)
[2017-03-08] MEDS ORDERED: AZITHROMYCIN INJ 500 MG in SODIUM CHLOR 0.9% 250 ML INJ 250 ML IV STA (12:31)
[2017-03-08 12:32] LABS: INTERNATIONAL NORMALIZED RATIO 0.9 RATIO; PROTHROMBIN TIME - PATIENT 10.4 SEC (9.8-11.6)
[2017-03-08 12:35] LABS: ANION GAP 6 MEQ/L (5-15); AST (GOT) 18 U/L (15-37); BICARBONATE 27.6 MEQ/L (21.0-32.0); BLOOD UREA NITROGEN 41 MG/DL (7-18); CHLORIDE 100 MEQ/L (98-107); GLOMERULAR FILTRATION RATE 31 ML/MIN (>89); MAGNESIUM 2.2 MG/DL (1.5-2.5); POTASSIUM 4.5 MEQ/L (3.5-5.1); SODIUM (NA) 134 MEQ/L (136-145)
[2017-03-08 12:36] LABS: ALT (GPT) 37 U/L (12-78)
[2017-03-08 12:40] LABS: ALKALINE PHOSPHATASE 70 U/L (45-117); TOTAL BILIRUBIN ADULT 0.9 MG/DL (0.2-1.0)
[2017-03-08 12:43] LABS: CREATINE KINASE 14 U/L (39-308)
[2017-03-08 12:49] LABS: APTT (PATIENT) 22.4 SEC (24.3-30.1)
[2017-03-08 12:55] LABS: MYELOCYTES 1 % (0-0); NEUTROPHIL # MANUAL DIFF 10.5 TH/MM3 (1.8-7.7); PLATELET ESTIMATE SMEAR LOW (NORMAL); PLATELET MORPHOLOGY NORMAL (NORMAL); POLYS (SEG NEUTROPHILS) 95 % (16-70); SCAN/DIFF FINAL DIFF MANUAL; WBC DIFF SAMPLE 100
[2017-03-08] MEDS ORDERED: cefTRIAXone INJ 1,000 MG in SODIUM CHLORIDE 0.9% INJ 100 ML IV ONE (13:00)
[2017-03-08 13:58] VITALS: O2SAT 96
[2017-03-08] MEDS ORDERED: BISACODYL 10 MG SUPP RECTAL PRN (14:00)
[2017-03-08] MEDS ORDERED: ONDANSETRON HCL 4 MG/2 ML VIAL IVP PRN (14:00)
[2017-03-08] MEDS ORDERED: SENNOSIDES 8.6 MG TAB PO PRN (14:00)
[2017-03-08] MEDS ORDERED: SODIUM CHLORIDE 0.9% FLUSH 10 ML FLUSH IV FLUSH PRN (14:00)
[2017-03-08] MEDS ORDERED: LACTULOSE SYRUP 20 GM/30 ML CUP PO PRN (14:00)
[2017-03-08] MEDS ORDERED: NALOXONE HCL 0.4 MG/ML AMP IV PRN (14:00)
[2017-03-08] MEDS ORDERED: MAGNESIUM HYDROXIDE SUSP 30 ML CUP PO PRN (14:00)
[2017-03-08 14:08] LABS: LACTIC ACID GHOST NOT REPORTABLE
--- NOTE | 2017-03-08 14:58 | HHI.HP ---
[facility] Primary [facility] Physician Stanislav Castro MD Admission Diagnosis Sepsis, hypoxia Diagnoses: Chief Complaint: dyspnea Travel History International Travel<30 Days: No Contact w/Intl Traveler <30 Da: No Traveled to Known Affected Are: No Sepsis Criteria SIRS Criteria (2 or more): Heart rate over 90, RR > 20 or PaCO2 < 32 Sepsis Criteria (SIRS+source): Infect source susp/known Severe Sepsis (+one): Lactate >2 History of Present Illness Written by EVELIN Madison acting as scribe for Dr. Courtney] on 03/08/17 at 14: 42. This note was transcribed by scribe EVELIN Madison. I, Dr. Oscar Mace personally performed the history, physical exam, and medical decision making; and confirmed the accuracy of the information in the transcribed note. Authenticated by Dr. Oscar Mace on 03/08/17 at 22:55. 81 y/o male with a history of CAD, CHF, COPD 2L at , sleep apnea and MILY presented to the ED with complaints of increased dyspnea. He woke up with chills this morning and per the his temperature was normal. He felt weak and had increased dyspnea and the felt he was a little confused. He felt normal yesterday. He denies any chest pain, nausea, diarrhea or dizziness. He had an appointment today with Dr. Villegas and was found to have a fever of 103, and he sent him to the ED. The states his past 5 admissions have presented the same way. Patient also complains of redness, swelling, and serous drainage to left lower extremity, the redness started today and the drainage has been on since last admission. He does have chronic lower extremity edema and no change is noted according to . A CTA was done in January in [place] and states it was negative for PE. 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 Palmer Show Horse Driver Dr. Villegas Review of Systems Except as stated in HPI: all other systems reviewed are Neg Past Family Social History Past Medical History CAD COPD CHF MILY Past Surgical History Hip surgery Fem pop Umbilical hernia repair Reported Medications Reported Meds & Active Scripts Active Ativan (Lorazepam) 0.5 Mg Tab 0.5 Mg PO Q6H PRN Prednisone 10 Mg Tab 10 Mg PO DIRECTED 10mg PO TID x 3 days, then 10mg PO BID x 3 days, then 10mg PO daily. Proair Hfa 8.5 GM Inh (Albuterol Sulfate) 90 Mcg/Act Aer 2 Puff INH Q4-6H PRN 108 mcg/actuation Inspirease Drug Delivery (Spacer/Device For Mdi) 1 Ea Mis 1 Ea .ROUTE DIRECTED Nebulizer 1 Mis Mis 1 Ea .ROUTE DIRECTED Duoneb (Ipratropium-Albuterol Neb) 0.5-2.5 Mg/3 Ml Neb 1 Nebule INH Q4HR NEB Oxygen tank (Oxygen) 1 Ea Tank 2 Liter MATY.CANHighlighter CONTINUOUS Oxygen Concentrator Portable Gaseous 2 L/min via Nasal Cannula Continuous For 99 months Bumetanide 1 Mg Tab 1 Mg PO BID Reported Simvastatin 20 Mg Tab 20 Mg PO DAILY D3 (Cholecalciferol) 2,000 Unit Cap 2,000 Unit PO 3X WEEKLY Tylenol (Acetaminophen) 325 Mg Tab 650 Mg PO Q4H PRN Unisom Sleep Aid (Doxylamine Succinate) 25 Mg Tablet 25 Mg PO HS PRN Aspirin 81 Mg Chew 81 Mg CHEW DAILY Allopurinol 100 Mg Tab 100 Mg PO BID Spiriva Handihaler (Tiotropium Inh) 18 Mcg Cap 18 Mcg INH DAILY 1 capsule = 18 mcg Symbicort Inh (Budesonide/Formoterol Fumarate) 80-4.5 Mcg/Act Aero 2 Puff INH Q12HR Metoprolol Tartrate 50 Mg Tab 60 Mg PO BID Spironolactone 25 Mg Tab 25 Mg PO DAILY Allergies: Coded Allergies: No Known Allergies (Verified , 03/08/17) Active Ordered Medications Current Medications Medications (Trade) Dose Ordered Sig/Guy Route Start Time Stop Time Status Last Admin (NS Flush) 2 ml UNSCH PRN IV FLUSH 03/08/17 14:00 UNV (NS Flush) 2 ml BID IV FLUSH 03/08/17 21:00 UNV (Tylenol) 650 mg Q4H PRN PO 03/08/17 14:00 UNV (Zofran Inj) 4 mg Q6H PRN IVP 03/08/17 14:00 UNV (Narcan Inj) 0.4 mg UNSCH PRN IV 03/08/17 14:00 UNV (Melanie-Colace) 1 tab BID PO 03/08/17 21:00 UNV (Milk Of Magnesia Liq) 30 ml Q12H PRN PO 03/08/17 14:00 UNV (Senokot) 17.2 mg Q12H PRN PO 03/08/17 14:00 UNV (Dulcolax Supp) 10 mg DAILY PRN RECTAL 03/08/17 14:00 UNV (Lactulose Liq) 30 ml DAILY PRN PO 03/08/17 14:00 UNV Heparin Sodium (Porcine) 5000 units 5,000 units Q12HR SQ 03/08/17 21:00 UNV (Levaquin 500 Mg Premix Inj) 100 ml @ 100 mls/hr Q24H IV 03/09/17 09:00 UNV Family History DAD: Alzheimer's Social History Tobacco use: Quit 2 years ago Alcohol use: 2 martinis at night Illicit drug use: Denies Physical Exam Vital Signs Vital Signs Date Time Temp Pulse Resp B/P Pulse Ox O2 Delivery O2 Flow Rate FiO2 03/08/17 13:58 96 Nasal Cannula 4.00 03/08/17 11:53 97 Nasal Cannula 4 03/08/17 11:53 110 28 4 Nasal Cannula 03/08/17 11:53 97 Nasal Cannula 4 03/08/17 11:36 99.3 114 28 110/67 95 Physical Exam GENERAL: This is a well-nourished, well-developed patient, with some dyspnea. SKIN: Left lower extremity cellulitis with erythema, serous drainage and edema. HEAD: Atraumatic. Normocephalic. EYES: Pupils equal round and reactive ENT: Nose without bleeding, purulent drainage or septal hematoma. Airway patent. NECK: Trachea midline. No JVD or lymphadenopathy. CARDIOVASCULAR: Regular rate and rhythm without murmurs, gallops, or rubs. RESPIRATORY: Clear to auscultation. Breath sounds equal bilaterally. No wheezes , rales, or rhonchi. Increased respiratory rate. GASTROINTESTINAL: Abdomen soft, non-tender, nondistended. No hepato-splenomegaly , or palpable masses. No guarding. MUSCULOSKELETAL: Bilateral lower extremity edema +2 pitting. No joint tenderness , effusion, or edema noted. No calf tenderness. NEUROLOGICAL: Awake and alert. Motor and sensory grossly within normal limits. Normal speech. Laboratory Laboratory Tests Test 03/08/17 03/08/17 12:00 12:02 White Blood Count 10.9 Red Blood Count 4.17 Hemoglobin 12.9 Hematocrit 38.8 Mean Corpuscular Volume 92.9 Mean Corpuscular Hemoglobin 30.8 Mean Corpuscular Hemoglobin 33.2 Concent Red Cell Distribution Width 17.5 Platelet Count 83 Mean Platelet Volume 7.9 Neutrophils (%) (Auto) 91.6 Lymphocytes (%) (Auto) 2.7 Monocytes (%) (Auto) 4.9 Eosinophils (%) (Auto) 0.5 Basophils (%) (Auto) 0.3 Neutrophils # (Auto) 10.0 Lymphocytes # (Auto) 0.3 Monocytes # (Auto) 0.5 Eosinophils # (Auto) 0.1 Basophils # (Auto) 0.0 CBC Comment AUTO DIFF Differential Total Cells 100 Counted Neutrophils % (Manual) 95 Lymphocytes % 2 Monocytes % 2 Neutrophils # (Manual) 10.5 Myelocytes 1 Differential Comment FINAL DIFF MANUAL Platelet Estimate LOW Platelet Morphology Comment NORMAL Red Cell Morphology Comment NORMAL Prothrombin Time 10.4 Prothromb Time International 0.9 Ratio Activated Partial 22.4 Thromboplast Time Sodium Level 134 Potassium Level 4.5 Chloride Level 100 Carbon Dioxide Level 27.6 Anion Gap 6 Blood Urea Nitrogen 41 Creatinine 2.06 Estimat Glomerular Filtration 31 Rate Random Glucose 97 Lactic Acid Level 2.5 Calcium Level 8.5 Magnesium Level 2.2 Total Bilirubin 0.9 Aspartate Amino Transf 18 (AST/SGOT) Alanine Aminotransferase 37 (ALT/SGPT) Alkaline Phosphatase 70 Total Creatine Kinase 14 Troponin I LESS THAN 0.02 B-Type Natriuretic Peptide 120 Total Protein 6.4 Albumin 2.9 Lipase 195 Blood Gas Puncture Site RT RADIAL Blood Gas Patient Temperature 98.6 Blood Gas HCO3 22 Blood Gas Base Excess -1.0 Blood Gas Oxygen Saturation 86 Arterial Blood pH 7.50 Arterial Blood Partial 29 Pressure CO2 Arterial Blood Partial 52 Pressure O2 Arterial Blood Oxygen Content 14.4 Arterial Blood 1.9 Carboxyhemoglobin Arterial Blood Methemoglobin 0.7 Blood Gas Hemoglobin 11.9 Oxygen Delivery Device ROOM AIR Blood Gas Inspired Oxygen 21 Date/Time Procedure Status Source Growth 03/08/17 12:10 Influenza Types A,B Antigen (HENRRY) - Final Complete Nasal Aspirate NEGATIVE FOR FLU A AND B ANTIGEN.... 03/08/17 12:00 Aerobic Blood Culture Received Blood Peripheral Pending 03/08/17 12:00 Anaerobic Blood Culture Received Blood Peripheral Pending Result Diagram: 03/08/17 1200 03/08/17 1200 Imaging Last Impressions Chest X-Ray 03/08/17 1149 Signed Impressions: Service Date/Time: February 11:57 - CONCLUSION: No acute disease Rusty Mccurdy MD Assessment and Plan Problem List: (1) Acute respiratory failure ICD Code: J96.00 Status: Acute (2) Sepsis ICD Code: A41.9 Status: Acute (3) Cellulitis ICD Code: L03.90 Status: Acute (4) Chronic kidney disease (CKD) ICD Code: N18.9 Status: Chronic Assessment and Plan 81 y/o male with a history of CAD, CHF, COPD 2L at HS, sleep apnea and MILY presented to the ED with complaints of increased dyspnea. Acute respiratory failure, now requiring O2 2L during the day Chest xray reviewed and unremarkable -Cont O2 at 2L -Consult pulmonology -Will consider VQ scan once seen by pulmonology -Cont antibiotics -Duonebs as needed for dyspnea -Walk test when stable Sepsis per criteria, HR 114, RR 28, outpatient fever [address] Tapia office, lactic acid 2.5 -Trend lactic acid -Blood cultures pending -Cont antibiotics as above Cellulitis, Left lower extremity, history of Levaquin use multiple times in the last few months -Will use Doxycycline IV BID -If no improvement noted will consult ID CKD, stage 4, creatine 2.0, at baseline -Avoid nephrotoxins -If creatine worsens will consult nephrology -BMP in AM DVT prophylaxis: Heparin Code status: DNR Code Status DNR Discussed Condition With Patient, ED physician, , and Daughter Physician Certification 2 Midnight Certification Type: Admission for Inpatient Services Order for Inpatient Services The services are ordered in accordance with Medicare regulations or non- Medicare payer requirements, as applicable. In the case of services not specified as inpatient-only, they are appropriately provided as inpatient services in accordance with the 2-midnight benchmark. Estimated LOS (days): 2 days is the estimated time the patient will need to remain in the hospital, assuming treatment plan goals are met and no additional complications. Post-Hospital Plan: Home Problem Qualifiers (1) Sepsis: Qualified Code: A41.9 - Sepsis, due to unspecified organism (2) Cellulitis: Qualified Code: L03.116 - Cellulitis of left lower extremity (3) Chronic kidney disease (CKD): Qualified Code: N18.4 - Stage 4 chronic kidney disease Nelly Rios Mar 08, 2017 14:58 Rosmery Mace DO Mar 08, 2017 22:55
[2017-03-08] MEDS: RESP: ALBUTEROL 2.5 MG/IPRATROPIUM 0.5 MG NEB (SCH) NEB ×2 (15:16→20:24)
[2017-03-08 16:13] LABS: BLOOD, URINE NEG (NEG); GLUCOSE,URINE NEG (NEG); KETONE, URINE NEG (NEG); NITRITE,URINE NEG (NEG); PH, URINE 6.5 (5.0-8.5); URINE COLOR YELLOW (YELLW/STRAW)
[2017-03-08 16:22] LABS: COMMENT (UR) CATH-CULT NOT IND; CULTURE IF INDICATED CATH CULTURE NOT IND
[2017-03-08 17:30] VITALS: BP 107/64; PULSE 95; RESP 15; TEMP 99.3; O2SAT 98
[2017-03-08] MEDS: LACTOBACILLUS ACIDOPHILUS TAB PO SCH (17:35)
[2017-03-08] MEDS: DOXYCYCLINE INJ 100 MG in SODIUM CHLORIDE 0.9% INJ 100 ML IV SCH (17:35)
[2017-03-08 20:00] VITALS: BP 106/61; PULSE 89; RESP 20; TEMP 98.5; O2SAT 96
[2017-03-08] MEDS ORDERED: BUMETANIDE INJ 1 MG/4 ML VIAL IV PUSH ONE (20:00)
[2017-03-08 20:26] VITALS: O2SAT 92
[2017-03-08] MEDS: SODIUM CHLORIDE 0.9% FLUSH 10 ML FLUSH IV FLUSH SCH (21:08)
[2017-03-08] MEDS: HEPARIN SODIUM - SQ 10,000 UNITS/ML VIAL SQ SCH (21:08)
[2017-03-08] MEDS: DOCUSATE SODIUM 50 MG/SENNA 8.6 MG TAB PO SCH (21:08)
[2017-03-09] VITALS (10 sets, daily range): BP systolic 109–140; BP diastolic 65–85; PULSE 57–126; RESP 18–22; TEMP 97.4–99.3; O2SAT 91–97
[2017-03-09] MEDS: DOXYCYCLINE INJ 100 MG in SODIUM CHLORIDE 0.9% INJ 100 ML IV SCH (04:57)
[2017-03-09] MEDS: RESP: ALBUTEROL 2.5 MG/IPRATROPIUM 0.5 MG NEB (SCH) NEB ×4 (08:07→20:15)
[2017-03-09] MEDS: LACTOBACILLUS ACIDOPHILUS TAB PO SCH ×3 (08:37→19:27)
[2017-03-09] MEDS: HEPARIN SODIUM - SQ 10,000 UNITS/ML VIAL SQ SCH (08:37)
[2017-03-09] MEDS: DOCUSATE SODIUM 50 MG/SENNA 8.6 MG TAB PO SCH ×2 (08:37→20:55)
[2017-03-09] MEDS: SODIUM CHLORIDE 0.9% FLUSH 10 ML FLUSH IV FLUSH SCH ×2 (09:00→20:56)
[2017-03-09] MEDS ORDERED: LEVOFLOXACIN 500 MG PREMIX INJ 100 ML IV SCH (09:00)
[2017-03-09 10:21] LABS: POTASSIUM 3.8 MEQ/L (3.5-5.1)
--- NOTE | 2017-03-09 10:41 | PD.CONS ---
HPI Service Nephrology Consult Requested By Dr. Villegas Reason for Consult Hx CKD, fluid overload Primary Care Physician Stanislav Castro MD History of Present Illness This is a 81 y/o male who was sent from pulmonary MDs office for fever , shortness of breath. He has a hx of COPD, CHF, CKD 3, and CAD. On arrival he was not febrile. Renal function was at baseline which is creatinine around 2, GFR in 30s. His AM labs today show some improvement. His lactic acid was elevated, he is being worked up for sepsis with probable left leg has cellulitis. He was placed on doxycycline, given a dose of Rocephin, vancomycin, Zithromax, and Levaquin. Today he feels better, has pursed lip breathing on oxygen, denies recent cough or sick contacts. He has no pain today. We were consulted for renal management. (Gosia Mike) Review of Systems Constitutional: COMPLAINS OF: Fatigue, Fever, Chills Respiratory: COMPLAINS OF: Shortness of breath, DENIES: Cough, Wheezing Cardiovascular: COMPLAINS OF: Dyspnea on Exertion, PND, Lower Extremity Edema, DENIES: Chest pain Gastrointestinal: DENIES: Abdominal pain (Gosia Mike) Past Family Social History Allergies: Coded Allergies: Heparin (Verified Allergy, Severe, 03/10/17) HIT Past Medical History CKD 3, baseline creatinine 2.06, GFR 31 CAD COPD CHF MILY on CPAP qhs Anemia Gout Anxiety Past Surgical History Hip surgery Fem pop Umbilical hernia repair Reported Medications Ativan (Lorazepam) 0.5 Mg Tab 0.5 Mg PO Q6H PRN Prednisone 10 Mg Tab 10 Mg PO DIRECTED 10mg PO TID x 3 days, then 10mg PO BID x 3 days, then 10mg PO daily. Proair Hfa 8.5 GM Inh (Albuterol Sulfate) 90 Mcg/Act Aer 2 Puff INH Q4-6H PRN 108 mcg/actuation Inspirease Drug Delivery (Spacer/Device For Mdi) 1 Ea Mis 1 Ea .ROUTE DIRECTED Nebulizer 1 Mis Mis 1 Ea .ROUTE DIRECTED Duoneb (Ipratropium-Albuterol Neb) 0.5-2.5 Mg/3 Ml Neb 1 Nebule INH Q4HR NEB Oxygen tank (Oxygen) 1 Ea Tank 2 Liter MATY.CANULA CONTINUOUS Oxygen Concentrator Portable Gaseous 2 L/min via Nasal Cannula Continuous For 99 months Bumetanide 1 Mg Tab 1 Mg PO BID Simvastatin 20 Mg Tab 20 Mg PO DAILY D3 (Cholecalciferol) 2,000 Unit Cap 2,000 Unit PO 3X WEEKLY Tylenol (Acetaminophen) 325 Mg Tab 650 Mg PO Q4H PRN Unisom Sleep Aid (Doxylamine Succinate) 25 Mg Tablet 25 Mg PO HS PRN Aspirin 81 Mg Chew 81 Mg CHEW DAILY Allopurinol 100 Mg Tab 100 Mg PO BID Spiriva Handihaler (Tiotropium Inh) 18 Mcg Cap 18 Mcg INH DAILY 1 capsule = 18 mcg Symbicort Inh (Budesonide/Formoterol Fumarate) 80-4.5 Mcg/Act Aero 2 Puff INH Q12HR Metoprolol Tartrate 50 Mg Tab 60 Mg PO BID Spironolactone 25 Mg Tab 25 Mg PO DAILY Active Ordered Medications Current Medications Medications (Trade) Dose Ordered Sig/Guy Route Start Time Stop Time Status Last Admin (NS Flush) 2 ml UNSCH PRN IV FLUSH 03/08/17 14:00 (NS Flush) 2 ml BID IV FLUSH 03/08/17 21:00 03/09/17 09:00 (Tylenol) 650 mg Q4H PRN PO 03/08/17 14:00 (Zofran Inj) 4 mg Q6H PRN IVP 03/08/17 14:00 (Narcan Inj) 0.4 mg UNSCH PRN IV 03/08/17 14:00 (Melanie-Colace) 1 tab BID PO 03/08/17 21:00 03/09/17 08:37 (Milk Of Magnesia Liq) 30 ml Q12H PRN PO 03/08/17 14:00 (Senokot) 17.2 mg Q12H PRN PO 03/08/17 14:00 (Dulcolax Supp) 10 mg DAILY PRN RECTAL 03/08/17 14:00 (Lactulose Liq) 30 ml DAILY PRN PO 03/08/17 14:00 Heparin Sodium (Porcine) 5000 units 5,000 units Q12HR SQ 03/08/17 21:00 03/09/17 08:37 (Vibramycin Inj/ NS Inj) 100 ml @ 100 mls/hr Q12H IV 03/08/17 17:00 03/09/17 04:57 (Lactinex) 1 tab TID PO 03/08/17 18:00 03/09/17 08:37 Family History No hx of renal disorders Social History former smoker , lives with uses walker, uses CPAP at night, not on oxygen retired full code (Gosia Mike) Physical Exam Vital Signs Vital Signs Date Time Temp Pulse Resp B/P Pulse Ox O2 Delivery O2 Flow Rate FiO2 03/09/17 08:10 93 Nasal Cannula 3.00 03/09/17 08:00 98.4 117 20 140/85 91 03/09/17 04:00 Nasal Cannula 2.00 03/09/17 04:00 98.3 75 20 109/73 94 03/09/17 00:00 Nasal Cannula 2.00 03/09/17 00:00 97.4 80 22 112/74 94 03/08/17 20:26 92 Nasal Cannula 3.00 03/08/17 20:00 98.5 89 20 106/61 96 03/08/17 20:00 Nasal Cannula 2.00 03/08/17 17:30 99.3 95 15 107/64 98 Nasal Cannula 2 03/08/17 13:58 96 Nasal Cannula 4.00 03/08/17 11:53 97 Nasal Cannula 4 03/08/17 11:53 110 28 4 Nasal Cannula 03/08/17 11:53 97 Nasal Cannula 4 03/08/17 11:36 99.3 114 28 110/67 95 Physical Exam Elcerly male awake/alert, no neuro deficit S1/S2, RRR no murmrus Lungs decreased in bases, no wheezing, faint crackles Abd round, soft, non tender Ext: 1-2+ edema, left leg with erythema and some lesions that are not draining Laboratory Laboratory Tests Test 03/08/17 03/08/17 03/08/17 03/08/17 12:00 12:02 15:35 15:40 White Blood Count 10.9 Red Blood Count 4.17 Hemoglobin 12.9 Hematocrit 38.8 Mean Corpuscular Volume 92.9 Mean Corpuscular Hemoglobin 30.8 Mean Corpuscular Hemoglobin 33.2 Concent Red Cell Distribution Width 17.5 Platelet Count 83 Mean Platelet Volume 7.9 Neutrophils (%) (Auto) 91.6 Lymphocytes (%) (Auto) 2.7 Monocytes (%) (Auto) 4.9 Eosinophils (%) (Auto) 0.5 Basophils (%) (Auto) 0.3 Neutrophils # (Auto) 10.0 Lymphocytes # (Auto) 0.3 Monocytes # (Auto) 0.5 Eosinophils # (Auto) 0.1 Basophils # (Auto) 0.0 CBC Comment AUTO DIFF Differential Total Cells 100 Counted Neutrophils % (Manual) 95 Lymphocytes % 2 Monocytes % 2 Neutrophils # (Manual) 10.5 Myelocytes 1 Differential Comment FINAL DIFF MANUAL Platelet Estimate LOW Platelet Morphology Comment NORMAL Red Cell Morphology Comment NORMAL Prothrombin Time 10.4 Prothromb Time International 0.9 Ratio Activated Partial 22.4 Thromboplast Time Sodium Level 134 Potassium Level 4.5 Chloride Level 100 Carbon Dioxide Level 27.6 Anion Gap 6 Blood Urea Nitrogen 41 Creatinine 2.06 Estimat Glomerular Filtration 31 Rate Random Glucose 97 Lactic Acid Level 2.5 1.8 Calcium Level 8.5 Magnesium Level 2.2 Total Bilirubin 0.9 Aspartate Amino Transf 18 (AST/SGOT) Alanine Aminotransferase 37 (ALT/SGPT) Alkaline Phosphatase 70 Total Creatine Kinase 14 Troponin I LESS THAN 0.02 C-Reactive Protein 4.60 B-Type Natriuretic Peptide 120 Total Protein 6.4 Albumin 2.9 Lipase 195 Blood Gas Puncture Site RT RADIAL Blood Gas Patient Temperature 98.6 Blood Gas HCO3 22 Blood Gas Base Excess -1.0 Blood Gas Oxygen Saturation 86 Arterial Blood pH 7.50 Arterial Blood Partial 29 Pressure CO2 Arterial Blood Partial 52 Pressure O2 Arterial Blood Oxygen Content 14.4 Arterial Blood 1.9 Carboxyhemoglobin Arterial Blood Methemoglobin 0.7 Blood Gas Hemoglobin 11.9 Oxygen Delivery Device ROOM AIR Blood Gas Inspired Oxygen 21 Urine Color YELLOW Urine Turbidity CLEAR Urine pH 6.5 Urine Specific [place] 1.019 Urine Protein TRACE Urine Glucose (UA) NEG Urine Ketones NEG Urine Occult Blood NEG Urine Nitrite NEG Urine Bilirubin NEG Urine Urobilinogen LESS THAN 2.0 Urine Leukocyte Esterase NEG Urine RBC 1 Urine WBC 1 Microscopic Urinalysis Comment CATH-CULT NOT IND Test 03/09/17 07:59 Sodium Level 137 Potassium Level 3.8 Chloride Level 102 Carbon Dioxide Level 26.0 Anion Gap 9 Blood Urea Nitrogen 31 Creatinine 1.68 Estimat Glomerular Filtration 40 Rate Random Glucose 93 Calcium Level 8.5 Date/Time Procedure Status Source Growth 03/08/17 12:10 Influenza Types A,B Antigen (HENRRY) - Final Complete Nasal Aspirate NEGATIVE FOR FLU A AND B ANTIGEN.... 03/08/17 12:00 Aerobic Blood Culture Received Blood Peripheral Pending 03/08/17 12:00 Anaerobic Blood Culture Received Blood Peripheral Pending (Gosia Mike) Result Diagram: 03/08/17 1200 03/09/17 0759 Imaging Last Impressions Chest X-Ray 03/08/17 1149 Signed Impressions: Service Date/Time: February 11:57 - CONCLUSION: No acute disease Rusty Mccurdy MD (Gosia Mike) Assessment and Plan Problem List: (1) Chronic kidney disease, stage 3 Plan: His renal function has improved, in out office his GFR is normally around 31. CKD likely due to nephrosclerosis Has some edema, see below no acute electrolyte concerns UA is negative for infection, no proteinuria at this time continue current plan avoid nephrotoxic substances, avoid IVF follow renal function. (2) Shortness of breath Plan: Hx CHF, COPD chest xray negative chest CT taken, results pending oxygen as needed continue nebulizers (3) Cellulitis Plan: he has left leg cellulitis , possible etiology of fever started on doxycycline possible sepsis related to infection CRP elevated, lactic acid normalized (4) Edema Plan: he is on Bumex 1 mg BID at home with spironolactone 25 daily I will resume these, follow fluid status (5) Hypertension Plan: resume home medications (6) Anemia Plan: Hb stable and at baseline monitor for changes (Gosia Mike) Assessment and Plan patient was seen and examined. Renal function is near baseline. Appears to have signs of fluid overload. Continue diuresis. Monitor renal function. Agree with above assessment and plan. (Uli Light MD) Problem Qualifiers (1) Cellulitis: Qualified Code: L03.116 - Cellulitis of left lower extremity Gosia Mike Mar 09, 2017 10:41 Uli Light MD Mar 11, 2017 09:17
--- NOTE | 2017-03-09 10:59 | RADRPT ---
EXAM DATE/TIME: 03/09/2017 09:21 [place] COMPARISON: No previous studies available for comparison. INDICATIONS : Fever, shortness of breath. RADIATION DOSE: 9.39 CTDIvol (mGy) MEDICAL HISTORY : Chronic obstructive pulmonary disease. SURGICAL HISTORY : None. ENCOUNTER: Initial ACUITY: 1 day PAIN SCALE: 0/10 LOCATION: chest TECHNIQUE: Volumetric scanning of the chest was performed. Using automated exposure control and adjustment of t he mA and/or kV according to patient size, radiation dose was kept as low as reasonably achievable to obtain optimal diagnostic quality images. DICOM format image data is available electronically for r eview and comparison. Follow-up recommendations for incidentally detected pulmonary nodules are based at a minimum on nodul e size and patient risk factors according to Fleischner Society Guidelines. FINDINGS: LUNGS: Emphysematous changes are present throughout both lungs especially in the upper lobes. Subsegmental a irspace disease is identified in the left lower lobe. There are no suspicious nodular densities. PLEURAE: There is no pleural thickening or pleural effusion. MEDIASTINUM: The heart and great vessels demonstrate no acute abnormality. There is no mediastinal or hilar lymph adenopathy. AICD device is noted. AXILLAE: Within normal limits. No lymphadenopathy. MUSCULOSKELETAL: Within normal limits for patient age. MISCELLANEOUS: The visualized upper abdominal organs demonstrate no acute abnormality. CONCLUSION: 1. 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 2. Subsegmental airspace disease left lower lobe. 3. AICD Agapito Keys MD on March 09, 2017 at 10:41 Board Certified Radiologist. This report was verified electronically.
[2017-03-09] MEDS: RESP: ALBUTEROL 2.5 MG/IPRATROPIUM 0.5 MG NEB (PRN) NEB (14:12)
--- NOTE | 2017-03-09 14:44 | HHI.PR ---
Subjective Remarks Follow up for pneumonia, left lower ext cellulitis, COPD. Patient complains of shortness of breath. No fever but he had chills. Objective Vitals Vital Signs Date Time Temp Pulse Resp B/P Pulse Ox O2 Delivery O2 Flow Rate FiO2 03/09/17 12:00 98.1 104 20 124/69 96 03/09/17 11:09 96 Nasal Cannula 3.00 03/09/17 08:10 93 Nasal Cannula 3.00 03/09/17 08:00 98.4 117 20 140/85 91 03/09/17 04:00 Nasal Cannula 2.00 03/09/17 04:00 98.3 75 20 109/73 94 03/09/17 00:00 Nasal Cannula 2.00 03/09/17 00:00 97.4 80 22 112/74 94 03/08/17 20:26 92 Nasal Cannula 3.00 03/08/17 20:00 98.5 89 20 106/61 96 03/08/17 20:00 Nasal Cannula 2.00 03/08/17 17:30 99.3 95 15 107/64 98 Nasal Cannula 2 I/O 03/08/17 03/08/17 03/08/17 03/09/17 03/09/17 03/09/17 07:00 15:00 23:00 07:00 15:00 23:00 Intake Total 240 ml 120 ml Output Total 950 ml 325 ml Balance -710 ml -205 ml Intake Oral 240 ml 120 ml Output Urine Total 950 ml 325 ml # Bowel Movements 1 Result Diagram: 03/08/17 1200 03/09/17 0759 Imaging Last Impressions Chest CT 03/09/17 0000 Signed Impressions: Service Date/Time: Thursday, March 09, 2017 09:21 - CONCLUSION: 1. 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 2. Subsegmental airspace disease left lower lobe. 3. AICD Agapito Keys MD Chest X-Ray 03/08/17 1149 Signed Impressions: Service Date/Time: February 11:57 - CONCLUSION: No acute disease Rusty Mccurdy MD Objective Remarks GENERAL: Alert, NAD. SKIN: Warm and dry. HEAD: Normocephalic. EYES: No scleral icterus. No injection or drainage. NECK: Supple, trachea midline. No JVD or lymphadenopathy. CARDIOVASCULAR: Regular rate and rhythm without murmurs, gallops, or rubs. RESPIRATORY: Breath sounds equal bilaterally. No accessory muscle use. GASTROINTESTINAL: Abdomen soft, non-tender, nondistended. MUSCULOSKELETAL: No cyanosis, or edema. Left lower ext erythema with skin ulceration. BACK: Nontender without obvious deformity. No CVA tenderness. A/P Problem List: (1) Acute respiratory failure ICD Code: J96.00 Status: Acute (2) Sepsis ICD Code: A41.9 Status: Acute (3) Cellulitis ICD Code: L03.90 Status: Acute (4) Chronic kidney disease (CKD) ICD Code: N18.9 Status: Chronic Assessment and Plan 81 y/o male with a history of CAD, CHF, COPD 2L at HS, sleep apnea and MILY presented to the ED with complaints of increased dyspnea. Acute respiratory failure, now requiring O2 2L during the day Chest xray reviewed and unremarkable -Cont O2 via NC to keep O2 sat > 90%. -Consulted pulmonology -CT chest showed emphysema and left sided airspace disease. -Started Levaquin and Vancomycin. Consulted ID - abx changed to Levaquin and Ceftriaxone. -Duonebs as needed for dyspnea Cellulitis, Left lower extremity, history of Levaquin use multiple times in the last few months - Given patient's overall deconditioning, no improvement since admission, we will consult ID for Pneumonia and left lower ext cellulitis. - Per ID, continue Levaquin and Ceftriaxone. CKD, stage 4, creatine 2.0, at baseline. Improved creatinine 1.68 today. -Avoid nephrotoxins - Nephrology following. Thrombocytopenia - Possibly related to medications. - Hematology consult pending. Code status DNR. Heparin SQ Discussed at length with Dr. Villegas (Pulmonology). Problem Qualifiers (1) Sepsis: Qualified Code: A41.9 - Sepsis, due to unspecified organism (2) Cellulitis: Qualified Code: L03.116 - Cellulitis of left lower extremity (3) Chronic kidney disease (CKD): Qualified Code: N18.4 - Stage 4 chronic kidney disease Rosmery Mace DO Mar 09, 2017 14:44
[2017-03-09] MEDS ORDERED: Vancomycin Consult Pharmacy 1 EA OTHER SCH (14:45)
[2017-03-09 14:53] LABS: AUTOMATED NEUTROPHIL # 7.2 TH/MM3 (1.8-7.7); BASOPHIL % 0.5 % (0.0-2.0); EOSINOPHIL # 0.1 TH/MM3 (0-0.4); EOSINOPHIL % 0.9 % (0.0-4.0); HEMATOCRIT 34.1 % (39.0-51.0); LYMPH % 5.4 % (9.0-44.0); LYMPHOCYTE # 0.4 TH/MM3 (1.0-4.8); MEAN CORPUSCULAR HEMOGLOBIN 29.9 PG (27.0-34.0); MEAN CORPUSCULAR HGB CONC 31.8 % (32.0-36.0); MONO % 7.1 % (0.0-8.0); NEUT % 86.1 % (16.0-70.0); PLATELET COUNT 73 TH/MM3 (150-450); RED BLOOD COUNT 3.63 MIL/MM3 (4.50-5.90); RED CELL DISTRIBUTION WIDTH 17.8 % (11.6-17.2); WHITE BLOOD COUNT 8.3 TH/MM3 (4.0-11.0)
[2017-03-09 15:02] LABS: HEMO FLAGS AUTO DIFF
[2017-03-09 16:06] LABS: PLATELET ESTIMATE SMEAR LOW (NORMAL); SCAN/DIFF FINAL DIFF MANUAL
--- NOTE | 2017-03-09 16:50 | MB ---
cc: Matty COHN DATE OF CONSULTATION: 03/10/2017. HISTORY OF PRESENT ILLNESS: A 81-year-old white male with a history of COPD of moderate severity, a history of coronary artery disease, congestive heart failure and ventricular arrhythmias with a defibrillator in place by Dr. Simental, obstructive sleep apnea, peripheral arterial insufficiency and chronic venous insufficiency who has had several recent hospitalizations for pneumonia, exacerbation of COPD and sepsis syndrome. I saw him in the office yesterday as a followup from hospitalizations. I had not been involved in any of those previous hospitalizations and the patient was in respiratory distress with a temperature of 103, obvious significant edema so he was sent back to the emergency room and readmitted. Since admission he has had some laboratory work including white count of 10,000, a hemoglobin of 10, platelet count of 73,000 and a left shift in the white blood cell count. His arterial blood gases on room air: his pO2 was 52 with a pH 7.5, pCO2 was 29 on room air. Coagulation profile was normal. Serum chemistries were normal except his BUN was elevated at 31, creatinine 1.68. Lactic acid was initially 2.5 with follow up normal. BNP was only 20. C-reactive protein was high at 4.6. He had a CT of his chest which revealed minimal density at the left posterior base, probable scarring, doubt that this represents significant pneumonia. Blood cultures were negative. Influenza A and B were negative. 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 Umbilical hernia repair as well. ALLERGIES: None. MEDICATIONS: Reviewed in the electronic medical record. SOCIAL HISTORY: and living with his . Former smoker, has not smoked for years. No excessive alcohol use. He is retired from [employer]. PHYSICAL EXAMINATION: GENERAL: On physical exam, this is an obese male who is fairly comfortable at rest. Respirations are rapid at about 22. He is anxious. VITAL SIGNS: Afebrile currently. Heart rate is anywhere from 75 to 117, somewhat irregular. Blood pressure 37274. Saturations are 94% to 96% on three liters. HEAD, EYES, EARS, NOSE, THROAT: The sclerae are nonicteric. The mucous membranes are moist. NECK: Neck veins are not distended. CHEST: Actually quite clear. No audible wheezing. No basilar rales. HEART: Slightly irregular rhythm but no harsh murmur. No audible S3. EKG shows frequent ventricular premature beats but otherwise sinus tachycardia. EXTREMITIES: He has significant edema in both legs above the knees as well as erythema and some skin ulcerations. DISCUSSION: Mr. Grace has COPD which actually at present seems fairly stable other than the fact that he is tachypneic probably because of infection and fluid overload. 1. Will continue him on aerosol therapy and oxygen. 2. I do not think steroids are indicated at the present time. There is no evidence that he is having a significant exacerbation. 3. Will try to avoid anything that would cause additional fluid retention. 4. He has very significant edema in the lower extremities. I spoke to Dr. Enrike Garrett about that today who has followed him from a vascular standpoint and he really does not have significant correctable arterial insufficiency but he does have very severe venous insufficiency. I spoke with Dr. Palmer today as well. He agreed with an attempt to try to diurese him aggressively while monitoring his marginal renal function carefully. Infectious disease has been consulted to try to control the infection that seems apparent in the legs with cellulitis. On previous admissions, Mr. Grace has elected not to be intubated or resuscitated in the event his status deteriorates. However other than that, we will continue measures to try to correct these problems. Further diagnostic and/or therapeutic intervention will depend on his ongoing clinical course and response to therapy. RMD SPENSER Hurd/SEGUNDO /4:25 PM /4:36 PM
[2017-03-09] MEDS ORDERED: VANCOMYCIN INJ 1,750 MG in SODIUM CHLORID 0.9% 500 ML INJ 500 ML IV ONE (17:00)
[2017-03-09] MEDS ORDERED: METOLAZONE 2.5 MG TAB PO ONE (17:00)
--- NOTE | 2017-03-09 17:06 | PD.ID.CON ---
History of Present Illness Service ID Consult Requested By Reason for Consult Evaluation and Mment of Left LE cellulitis and pneumonia. Primary Care Physician Stanislav Castro MD Diagnoses: History of Present Illness Ms. Grace is a 81 y/o CF with PMHx of COPD moderate severity, CAD (sees ), CHF, Ventricular arrhythmias s/p defibrillator, PAD, MILY, Chronic venous insufficiency, CRF stage III (per d.w Nephro team). She needs provided most of the history and reports that patient has had at least 4 or 5 admissions this year due to respiratory issues. Patient has been diagnosed with pneumonia, exacerbation of COPD and sepsis on several of these occasions. Patient was seeing Dr. mason in follow-up after his hospitalizations and was in respiratory distress with a temperature of 103, obvious significant edema and so therefore was sent to the emergency room for readmission. His arterial blood gases on room air: his pO2 was 52 with a pH 7.5, pCO2 was 29 on room air. During hospitalization patient has been treated for both cellulitis and pneumonia since admission and has received multiple antibiotics ( Levaquin, Doxy, Vanco IV. Of note I did place order for Zyvox but patient has not received any doses and Zyvox order was cancelled by me. Of note patient had normal platelets in his end of January admission but now has platelets in 80s. The patients reports blisters with fluid that now bust spontaneously. Blood cultures and Flu antigen are negative. ID is consulted for evaluation and management of cellulitis and pneumonia. Hospital course patient reports ongoing shortness of breath and need for oxygen although he is not on oxygen at home. Patient denies any cough with expectoration but does report some chest discomfort. Patient's reports that overall his pedal edema has now remarkably improved but the area of erythema lore about the same. Patient had a CT of his chest which revealed minimal density at the left posterior base probable scarring versus pneumonia. Review of Systems ROS Limitations: Clinical Condition ( provided most of the history patient was short of breath.) Constitutional: COMPLAINS OF: Fever, Weight gain, Chills, DENIES: Diaphoretic episodes, Fatigue, Weight loss, Dizziness, Change in appetite, Night Sweats Endocrine: DENIES: Heat/cold intolerance, Polydipsia, Polyuria, Polyphagia Eyes: DENIES: Blurred vision, Diplopia, Eye inflammation, Eye pain, Vision loss , Photosensitivity, Double Vision Ears, nose, mouth, throat: DENIES: Tinnitus, Hearing loss, Vertigo, Nasal discharge, Oral lesions, Throat pain, Hoarseness, Ear Pain, Running Nose, Epistaxis, Sinus Pain, Toothache, Odynophagia Respiratory: COMPLAINS OF: Snoring, Shortness of breath, DENIES: Apneas, Cough , Wheezing, Hemoptysis, Sputum production Cardiovascular: COMPLAINS OF: Dyspnea on Exertion, Lower Extremity Edema, Orthopnea, DENIES: Chest pain, Palpitations, Syncope, PND, Claudication Gastrointestinal: DENIES: Abdominal pain, Black stools, Bloody stools, Constipation, Diarrhea, Nausea, Vomiting, Difficulty Swallowing, Anorexia Genitourinary: DENIES: Sexual dysfunction, Urinary frequency, Urinary incontinence, Urgency, Hematuria, Dysuria, Nocturia, Penile Discharge, Testicular Pain, Testicular Swelling Musculoskeletal: DENIES: Joint pain, Muscle aches, Stiffness, Joint Swelling, Back pain, Neck pain Integumentary: COMPLAINS OF: Abnormal pigmentation, DENIES: Nail changes, Pruritus, Rash Hematologic/lymphatic: DENIES: Bruising, Lymphadenopathy Immunologic/allergic: DENIES: Eczema, Urticaria Neurologic: DENIES: Abnormal gait, Headache, Localized weakness, Paresthesias, Seizures, Speech Problems, Tremor, Poor Balance Psychiatric: COMPLAINS OF: Anxiety, DENIES: Confusion, Mood changes, Depression, Hallucinations, Agitation, Suicidal Ideation, Homicidal Ideation, Delusions Past Family Social History Allergies: Coded Allergies: No Known Allergies (Verified , 03/08/17) Past Medical History CAD COPD CHF MILY Cardiac Arrhythmias PAD Chronic venous insufficiency Past Surgical History Hip surgery Fem pop Umbilical hernia repair Reported Medications Reported Meds & Active Scripts Active Ativan (Lorazepam) 0.5 Mg Tab 0.5 Mg PO Q6H PRN Prednisone 10 Mg Tab 10 Mg PO DIRECTED 10mg PO TID x 3 days, then 10mg PO BID x 3 days, then 10mg PO daily. Proair Hfa 8.5 GM Inh (Albuterol Sulfate) 90 Mcg/Act Aer 2 Puff INH Q4-6H PRN 108 mcg/actuation Inspirease Drug Delivery (Spacer/Device For Mdi) 1 Ea Mis 1 Ea .ROUTE DIRECTED Nebulizer 1 Mis Mis 1 Ea .ROUTE DIRECTED Duoneb (Ipratropium-Albuterol Neb) 0.5-2.5 Mg/3 Ml Neb 1 Nebule INH Q4HR NEB Oxygen tank (Oxygen) 1 Ea Tank 2 Liter MATY.CANULA CONTINUOUS Oxygen Concentrator Portable Gaseous 2 L/min via Nasal Cannula Continuous For 99 months Bumetanide 1 Mg Tab 1 Mg PO BID Reported Simvastatin 20 Mg Tab 20 Mg PO DAILY D3 (Cholecalciferol) 2,000 Unit Cap 2,000 Unit PO 3X WEEKLY Tylenol (Acetaminophen) 325 Mg Tab 650 Mg PO Q4H PRN Unisom Sleep Aid (Doxylamine Succinate) 25 Mg Tablet 25 Mg PO HS PRN Aspirin 81 Mg Chew 81 Mg CHEW DAILY Allopurinol 100 Mg Tab 100 Mg PO BID Spiriva Handihaler (Tiotropium Inh) 18 Mcg Cap 18 Mcg INH DAILY 1 capsule = 18 mcg Symbicort Inh (Budesonide/Formoterol Fumarate) 80-4.5 Mcg/Act Aero 2 Puff INH Q12HR Metoprolol Tartrate 50 Mg Tab 60 Mg PO BID Spironolactone 25 Mg Tab 25 Mg PO DAILY Active Ordered Medications Current Medications Medications (Trade) Dose Ordered Sig/Guy Route Start Time Stop Time Status Last Admin (NS Flush) 2 ml UNSCH PRN IV FLUSH 03/08/17 14:00 (NS Flush) 2 ml BID IV FLUSH 03/08/17 21:00 03/09/17 09:00 (Tylenol) 650 mg Q4H PRN PO 03/08/17 14:00 (Zofran Inj) 4 mg Q6H PRN IVP 03/08/17 14:00 (Narcan Inj) 0.4 mg UNSCH PRN IV 03/08/17 14:00 (Melanie-Colace) 1 tab BID PO 03/08/17 21:00 03/09/17 08:37 (Milk Of Magnesia Liq) 30 ml Q12H PRN PO 03/08/17 14:00 (Senokot) 17.2 mg Q12H PRN PO 03/08/17 14:00 (Dulcolax Supp) 10 mg DAILY PRN RECTAL 03/08/17 14:00 (Lactulose Liq) 30 ml DAILY PRN PO 03/08/17 14:00 (Heparin Inj) 5,000 units Q12HR SQ 03/08/17 21:00 03/09/17 08:37 (Lactinex) 1 tab TID PO 03/08/17 18:00 03/09/17 13:24 (Aldactone) 25 mg DAILY PO 03/10/17 09:00 Levofloxacin 750 mg 750 mg DAILY PO 03/10/17 09:00 (Vancomycin Inj/ NS 500 ml Inj) 517.5 ml @ 257.5 mls/ hr ONCE ONCE IV 03/09/17 17:00 03/09/17 19:00 (Bumex Inj) 1 mg BID@09,18 IV PUSH 03/09/17 18:00 Methylprednisolone Sodium Succinate 20 mg 20 mg Q12HR IV PUSH 03/09/17 21:00 03/12/17 07:00 (Rocephin Inj/NS Inj) 100 ml @ 200 mls/hr Q24H IV 03/09/17 17:15 UNV Family History reviewed and NC Social History Tobacco use: Quit 2 years ago Alcohol use: 2 martinis at night Illicit drug use: Denies Physical Exam Vital Signs Vital Signs Date Time Temp Pulse Resp B/P Pulse Ox O2 Delivery O2 Flow Rate FiO2 03/09/17 16:03 94 Nasal Cannula 3.00 03/09/17 12:00 98.1 104 20 124/69 96 03/09/17 11:09 96 Nasal Cannula 3.00 03/09/17 08:10 93 Nasal Cannula 3.00 03/09/17 08:00 98.4 117 20 140/85 91 03/09/17 04:00 Nasal Cannula 2.00 03/09/17 04:00 98.3 75 20 109/73 94 03/09/17 00:00 Nasal Cannula 2.00 03/09/17 00:00 97.4 80 22 112/74 94 03/08/17 20:26 92 Nasal Cannula 3.00 03/08/17 20:00 98.5 89 20 106/61 96 03/08/17 20:00 Nasal Cannula 2.00 03/08/17 17:30 99.3 95 15 107/64 98 Nasal Cannula 2 Physical Exam GENERAL: Citrus Puffer face, Obese, Large neck, Pt in mild respiratory distress. SKIN: No rashes, ecchymoses or lesions. Cool and dry. Dry oral mucosa. HEAD: Atraumatic. Normocephalic. No temporal or scalp tenderness. EYES: Pupils equal round and reactive. Extraocular motions intact. No scleral icterus. No injection or drainage. ENT: Nose without bleeding, purulent drainage or septal hematoma. Throat without erythema, tonsillar hypertrophy or exudate. Uvula midline. Airway patent. NECK: Trachea midline. Supple, nontender, no meningeal signs. CARDIOVASCULAR: HS audible. Defib site ok. RESPIRATORY: Bilateral occ wheezes. Breath sounds equal bilaterally but decreased in bases L > R GASTROINTESTINAL: Abdomen soft, non-tender, nondistended. Obese. MUSCULOSKELETAL: Pedal edema pitting bilaterally noted. Left silva of tibia with area of busted blisters. Erythema and induration noted. NEUROLOGICAL: Awake and alert.Grossly non focal Psych: appears anxious. IV line sites with no e.o infection. Laboratory Laboratory Tests Test 03/09/17 03/09/17 07:59 13:44 Sodium Level 137 Potassium Level 3.8 Chloride Level 102 Carbon Dioxide Level 26.0 Anion Gap 9 Blood Urea Nitrogen 31 Creatinine 1.68 Estimat Glomerular Filtration 40 Rate Random Glucose 93 Calcium Level 8.5 White Blood Count 8.3 Red Blood Count 3.63 Hemoglobin 10.9 Hematocrit 34.1 Mean Corpuscular Volume 94.0 Mean Corpuscular Hemoglobin 29.9 Mean Corpuscular Hemoglobin 31.8 Concent Red Cell Distribution Width 17.8 Platelet Count 73 Mean Platelet Volume 9.4 Neutrophils (%) (Auto) 86.1 Lymphocytes (%) (Auto) 5.4 Monocytes (%) (Auto) 7.1 Eosinophils (%) (Auto) 0.9 Basophils (%) (Auto) 0.5 Neutrophils # (Auto) 7.2 Lymphocytes # (Auto) 0.4 Monocytes # (Auto) 0.6 Eosinophils # (Auto) 0.1 Basophils # (Auto) 0.0 CBC Comment AUTO DIFF Differential Comment FINAL DIFF MANUAL Platelet Estimate LOW Date/Time Procedure Status Source Growth 03/08/17 12:10 Influenza Types A,B Antigen (HENRRY) - Final Complete Nasal Aspirate NEGATIVE FOR FLU A AND B ANTIGEN.... 03/08/17 12:00 Aerobic Blood Culture - Preliminary Resulted Blood Peripheral NO GROWTH IN 1 DAY 03/08/17 12:00 Anaerobic Blood Culture - Preliminary Resulted Blood Peripheral NO GROWTH IN 1 DAY Result Diagram: 03/09/17 1344 03/09/17 0759 Imaging Last Impressions Chest CT 03/09/17 0000 Signed Impressions: Service Date/Time: Thursday, March 09, 2017 09:21 - CONCLUSION: 1. 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 2. Subsegmental airspace disease left lower lobe. 3. AICD Agapito Keys MD Chest X-Ray 03/08/17 1149 Signed Impressions: Service Date/Time: February 11:57 - CONCLUSION: No acute disease Rusty Mccurdy MD Assessment and Plan Assessment and Plan Sepsis present on admission (fever 103, chills, elevated lactic acid, source: pneumonia, cellulitis) Pneumonia (likely atypical or CAP) Left LE cellulitis Acute resp failure CKD stage III PAD, Chronic venous insufficiency CAD, CHF, Venous arrhythmias s/p AICD/defib Recs Continue Levaquin (monitor QT interval) Start Ceftriaxone IV (covers CAP and also strep in cellulitis) Discontinue Vanco IV (cellulitis likely strep related given blisters) Avoid nephrotoxins per d.w Nephro team Consult Hematology (re: acute thrombocytopenia in pt on Heparin and multiple antibiotics ? HIT vs med induced) Avoid Zyvox due to low platelets. Urine legionella Ag Urine Pneumococcal Ag Follow cultures Follow clinically Follow platelets and Hematology recs. covering for me this weekend. Please call her if any change in condition or new information on tests. Ayse Nicole MD Mar 09, 2017 17:06
--- NOTE | 2017-03-09 17:31 | EKG ---
Date Performed: 03/08/2017 Time Performed: 11:53:21 PTAGE: 81 years EKG: SINUS TACHYCARDIA WITH FREQUENT VENTRICULAR PREMATURE COMPLEXES. When compared to previous tracing, premature ventricular Contractios are more frequent. ABNORMAL RHYTHM ECG PREVIOUS TRACING : 02/23/2017 15.31 DOCTOR: Joel Vogel Interpretating Date/Time 03/09/2017 17:31:00
[2017-03-09] MEDS ORDERED: BUMETANIDE 1 MG TAB PO SCH (18:00)
[2017-03-09] MEDS: BUMETANIDE INJ 1 MG/4 ML VIAL IV PUSH SCH (19:26)
[2017-03-09] MEDS: methylPREDNISolone SOD SUCC 40 MG/1 ML VIAL IV PUSH SCH (20:56)
[2017-03-09] MEDS ORDERED: LINEZOLID 600 MG TAB PO SCH (21:00)
[2017-03-09] MEDS ORDERED: LORazepam 0.5 MG TAB PO ONE (22:00)
[2017-03-09] MEDS ORDERED: ARGATROBAN INJ 250 MG in SODIUM CHLOR 0.9% 250 ML INJ 250 ML IV SCH (22:30)
[2017-03-09] MEDS: cefTRIAXone INJ 2,000 MG in SODIUM CHLORIDE 0.9% INJ 100 ML IV SCH (22:37)
--- NOTE | 2017-03-09 22:50 | MB ---
cc: NICKOLAS SALCEDO MD, RUBY ANNE E. M.D. DATE OF CONSULTATION 03/09/17 DATE OF [address] Salcedo[address] CHIEF COMPLAINT [address]. Salcedo requests a consultation for Mr. Grace regarding thrombocytopenia on admission. HISTORY OF PRESENT ILLNESS Mr. Grace is a 81-year-old man with multiple medical problems. He has a history of coronary artery disease, congestive heart failure, peripheral arterial disease, chronic renal insufficiency and COPD. He was discharged from the hospital on 02/27/2017 with COPD exacerbation and possible CHF complication. He reports feeling well after being discharged from the hospital. He was actually feeling better and less short of breath. He is able to get around his home uneventfully. He denied any fevers or chills or night sweats. The day prior to admission he developed symptoms of shortness of breath which began all of a sudden. He had an appointment with Dr. Villegas, his offset press assistant. In light of fever, hypoxia, significant lower extremity edema he is referred to the emergency room for readmission. He was admitted to the hospital with cellulitis and pneumonia. He had imaging study, CT scan of the chest, that showed COPD changes which are chronic subsegmental airspace disease in left lower lobe. He still feels short of breath. Interestingly on admission, he has a mild normocytic anemia. His platelet count was 83,000, MCV was normal. His platelet count was 73,000 the day of the consultation. Review of his previous labs during his prior admission showed platelet count to be in the normal range on 02/23 and his last platelet count was 175. Review of the medication from his last admission showed that he received unfractionated heparin as DVT prophylaxis. His appetite is good. Denies any vision changes. He has had chronic surgical scars in his right leg. His left leg has the cellulitis. The rest of his review of systems is negative. PAST MEDICAL HISTORY 1. Coronary artery disease, 2. Congestive heart failure, 3. COPD, 4. Peripheral vascular disease, 5. Chronic renal insufficiency, 6. Cardiac arrhythmias 7. History of deep vein thromboses during hospitalization 8. History of GI bleed on Eliquis PAST SURGICAL HISTORY 1. Hip surgery 2. Femoral popliteal bypass 3. Umbilical hernia repair. 4. AICD placement, 5. Bilateral cataract 6. Coronary artery bypass graft. SOCIAL HISTORY Drinks a couple of drinks a day. Denies any tobacco or illicit drug use. He is , lives with his . FAMILY HISTORY No family history of deep vein thromboses. No family history of cancer. ALLERGIES NO KNOWN DRUG ALLERGIES. MEDICATIONS Current, 1. Aldactone 2. Levaquin 3. Solu-Medrol 4. Bumex. 5. Ceftriaxone 6. Melanie-Colace 7. Lactinex. 8. Duo nebs. PHYSICAL EXAMINATION VITAL SIGNS: Temperature 98.4, heart rate 126, respiratory rate 20, blood pressure 133/65, saturation 94-97%. GENERAL: Mr. Grace is an obese 81-year-old man who looks chronically ill. He is pink and large. HEENT: His pupils are round, reactive to light and accommodation. Oropharynx is clear. NECK: Supple. LUNGS: Diminished breath sounds throughout. CARDIOVASCULAR: Reveals a tachycardia. ABDOMEN: Distended and large lower extremity with chronic scars on his left leg from the upper thigh down to the left calf. Pulses are present. The left leg with Abe bandage. Dressing is dry. LABORATORY DATA Hemoglobin 10.9, platelet count of 73,000, BUN of 31, creatinine 1.68. Lactic acid is normal 1.8. PT/PTT are normal. UA is negative. ASSESSMENT/PLAN Mr. Grace is a 81-year-old man with multiple medical problems described above. He was recently discharged from the hospital from treatment of pneumonia. He was actually getting better at home. Approximately 10 days after his hospitalization, he developed acute shortness of breath. He was readmitted to the hospital on 03/08/2017, started on antibiotic therapy. He still is short of breath. CT scan of the chest shows possible infiltrate. His shortness of breath seems out of proportion to the degree of pathology in the lung. Concern is a new thrombocytopenia. I am unable to exclude other drug effect. Zyvox is being held by Dr. Salcedo in light of its propensity in causing thrombocytopenia. Cephalosporin can cause thrombocytopenia. However, he seems to have had a decreasing trend in platelet count starting back from his admission February 23. Although he was discharged with platelet count of 175,000. Review of the electronic medical record shows platelet counts in the mid 200 range. The decreasing trend in platelet count occurred during that admission. On this admission, his platelet count is 83,000. The timing appears appropriate for heparin-induced thrombocytopenia. He has been exposed to heparin. He is re-exposed to heparin during this admission. Heparin induced thrombocytopenia is associated with high risk for venous thromboembolic event. I am unable to exclude venous thromboembolic event as contributing factor to his shortness of breath since it seems to have been sudden in onset. Heparin-induced thrombocytopenia antibodies are obtained. We will start argatroban empirically. We will monitor closely for bleeding. He reports having GI bleeding associated with Eliquis from his previous diagnosis of deep vein thromboses in the lower extremity. Options for anticoagulation are difficult with history of bleeding on Eliquis, renal insufficiency and older age. Further recommendations pending the laboratory findings. Differential includes sepsis. Coagulation test in addition to fibrinogen will be checked. KORI will be checked. We will monitor his platelet count. Platelet count will be reviewed and peripheral smear. We will rule out a microangiopathic hemolytic process. His questions were answered to his satisfaction. Risk and benefit of argatroban was discussed. MD ZI Nickerson/ /8:20 PM /10:11 PM
[2017-03-09 22:52] LABS: APTT (PATIENT) 26.4 SEC (24.3-30.1); INTERNATIONAL NORMALIZED RATIO 0.9 RATIO; PROTHROMBIN TIME - PATIENT 10.4 SEC (9.8-11.6)
[2017-03-09] MEDS: ACETAMINOPHEN 325 MG TAB PO PRN (23:40)
[2017-03-10] VITALS (9 sets, daily range): BP systolic 114–128; BP diastolic 59–82; PULSE 64–126; RESP 18–20; TEMP 97.2–100.6; O2SAT 92–99
[2017-03-10 03:13] LABS: AUTOMATED NEUTROPHIL # 6.6 TH/MM3 (1.8-7.7); BASOPHIL % 0.2 % (0.0-2.0); EOSINOPHIL % 0.2 % (0.0-4.0); HEMATOCRIT 31.6 % (39.0-51.0); LYMPHOCYTE # 0.2 TH/MM3 (1.0-4.8); MEAN CELL VOLUME 92.5 FL (80.0-100.0); MEAN CORPUSCULAR HEMOGLOBIN 29.9 PG (27.0-34.0); MEAN CORPUSCULAR HGB CONC 32.3 % (32.0-36.0); MONO % 3.5 % (0.0-8.0); NEUT % 93.1 % (16.0-70.0); PLATELET COUNT 70 TH/MM3 (150-450); RED BLOOD COUNT 3.41 MIL/MM3 (4.50-5.90); RED CELL DISTRIBUTION WIDTH 17.5 % (11.6-17.2); RETIC % 1.5 % (0.4-3.0); WHITE BLOOD COUNT 7.1 TH/MM3 (4.0-11.0)
[2017-03-10 03:16] LABS: HEMO FLAGS AUTO DIFF; REVIEW FLAG FINAL
[2017-03-10 03:30] LABS: APTT (PATIENT) 62.6 SEC (24.3-30.1)
[2017-03-10 03:48] LABS: PLATELET ESTIMATE SMEAR LOW (NORMAL); PLATELET MORPHOLOGY NORMAL (NORMAL); SCAN/DIFF AUTO DIFF CONFIRMED
[2017-03-10 03:50] LABS: BICARBONATE 23.6 MEQ/L (21.0-32.0)
[2017-03-10 07:35] LABS: APTT (PATIENT) 67.6 SEC (24.3-30.1)
[2017-03-10] MEDS: RESP: ALBUTEROL 2.5 MG/IPRATROPIUM 0.5 MG NEB (SCH) NEB ×4 (08:17→20:44)
[2017-03-10] MEDS ORDERED: LEVOFLOXACIN 750 MG TAB PO SCH (09:00)
[2017-03-10] MEDS: DOCUSATE SODIUM 50 MG/SENNA 8.6 MG TAB PO SCH ×2 (09:26→21:08)
[2017-03-10] MEDS: LACTOBACILLUS ACIDOPHILUS TAB PO SCH ×3 (09:26→17:32)
[2017-03-10] MEDS: SPIRONOLACTONE 25 MG TAB PO SCH (09:26)
[2017-03-10] MEDS: methylPREDNISolone SOD SUCC 40 MG/1 ML VIAL IV PUSH SCH ×2 (09:26→21:08)
[2017-03-10] MEDS: BUMETANIDE INJ 1 MG/4 ML VIAL IV PUSH SCH ×2 (09:26→17:32)
[2017-03-10] MEDS: SODIUM CHLORIDE 0.9% FLUSH 10 ML FLUSH IV FLUSH SCH ×2 (09:28→21:10)
--- NOTE | 2017-03-10 10:24 | HHI.PR ---
Subjective Remarks This is a pleasant 81 y/o Male with CAD, CHF, COPD, on Oxygen 2L at HS, MILY came to ER with dyspnea, Febrile and confused chronic lower extremity edema. with diagnosis of Cellulitis of Left lower extremity and Pneumonia. Sepsis on admission, followed by ID specialist, recommended to continue Levaquin, Started on Ceftriaxone, Discontinued Vancomycin, Consulted clinical implementation specialist due to Thrombocytopenia in a patient on Heparin and Multiple antibiotics, questionable HIT, Avoid Zyvox due to low platelets. Seen in his bedroom in the presence of his and seen already by clinical implementation specialist with Diagnosis of Thrombocytopenia His platelet count was normal on the last admission in late January, cytopenia probable caused by Cephalosporin, recommended to continue Argatroban, await result for HIT, Objective Vital Signs Date Time Temp Pulse Resp B/P Pulse Ox O2 Delivery O2 Flow Rate FiO2 03/10/17 08:19 99 Nasal Cannula 3.00 03/10/17 04:00 97.5 79 18 115/82 96 03/10/17 03:53 Bi-Pap 2.00 03/10/17 00:00 100.6 96 20 128/72 96 03/10/17 00:00 Nasal Cannula 2.00 Bi-Pap Humidified 03/09/17 21:00 Nasal Cannula 2.00 03/09/17 20:00 99.3 121 18 132/78 94 03/09/17 19:12 57 03/09/17 18:34 94 Nasal Cannula 2.00 03/09/17 16:03 94 Nasal Cannula 3.00 03/09/17 16:00 98.4 126 20 133/65 97 03/09/17 12:00 98.1 104 20 124/69 96 03/09/17 11:09 96 Nasal Cannula 3.00 I/O 03/09/17 03/09/17 03/09/17 03/10/17 03/10/17 03/10/17 07:00 15:00 23:00 07:00 15:00 23:00 Intake Total 120 ml 240 ml 1242 ml 71 ml Output Total 325 ml 400 ml 300 ml 250 ml Balance -205 ml -160 ml 942 ml -179 ml Intake Oral 120 ml 240 ml IV Total 1242 ml 71 ml Output Urine Total 325 ml 400 ml 300 ml 250 ml # Bowel Movements 1 0 Result Diagram: 03/10/17 0254 03/10/17253 Imaging Last Impressions Chest CT 03/09/17 0000 Signed Impressions: Service Date/Time: Thursday, March 09, 2017 09:21 - CONCLUSION: 1. 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 2. Subsegmental airspace disease left lower lobe. 3. AICD Agapito Keys MD Chest X-Ray 03/08/17 1149 Signed Impressions: Service Date/Time: February 11:57 - CONCLUSION: No acute disease Rusty Mccurdy MD Procedures None Other Results Laboratory Tests Test 03/08/17 03/08/17 03/08/17 03/08/17 12:00 12:02 15:35 15:40 Differential Total Cells 100 Counted Neutrophils % (Manual) 95 % Lymphocytes % 2 % Monocytes % 2 % Neutrophils # (Manual) 10.5 TH/MM3 Myelocytes 1 % Red Cell Morphology Comment NORMAL Magnesium Level 2.2 MG/DL Total Bilirubin 0.9 MG/DL Aspartate Amino Transf 18 U/L (AST/SGOT) Alanine Aminotransferase 37 U/L (ALT/SGPT) Alkaline Phosphatase 70 U/L Total Creatine Kinase 14 U/L Troponin I LESS THAN 0.02 NG/ML C-Reactive Protein 4.60 MG/DL B-Type Natriuretic Peptide 120 PG/ML Total Protein 6.4 GM/DL Lipase 195 U/L Blood Gas Puncture Site RT RADIAL Blood Gas Patient Temperature 98.6 Blood Gas HCO3 22 mmol/L Blood Gas Base Excess -1.0 mmol/L Blood Gas Oxygen Saturation 86 % Arterial Blood pH 7.50 Arterial Blood Partial 29 mmHg Pressure CO2 Arterial Blood Partial 52 mmHG Pressure O2 Arterial Blood Oxygen Content 14.4 Vol % Arterial Blood 1.9 % Carboxyhemoglobin Arterial Blood Methemoglobin 0.7 % Blood Gas Hemoglobin 11.9 G/DL Oxygen Delivery Device ROOM AIR Blood Gas Inspired Oxygen 21 % Urine Color YELLOW Urine Turbidity CLEAR Urine pH 6.5 Urine Specific [place] 1.019 Urine Protein TRACE mg/dL Urine Glucose (UA) NEG mg/dL Urine Ketones NEG mg/dL Urine Occult Blood NEG Urine Nitrite NEG Urine Bilirubin NEG Urine Urobilinogen LESS THAN 2.0 MG/DL Urine Leukocyte Esterase NEG Urine RBC 1 /hpf Urine WBC 1 /hpf Microscopic Urinalysis Comment CATH-CULT NOT IND Lactic Acid Level 1.8 mmol/L Test 03/09/17 03/10/17 03/10/17 21:50 02:54 06:20 Prothrombin Time 10.4 SEC Prothromb Time International 0.9 RATIO Ratio Fibrinogen 569 mg/dL White Blood Count 7.1 TH/MM3 Red Blood Count 3.41 MIL/MM3 Hemoglobin 10.2 GM/DL Hematocrit 31.6 % Mean Corpuscular Volume 92.5 FL Mean Corpuscular Hemoglobin 29.9 PG Mean Corpuscular Hemoglobin 32.3 % Concent Red Cell Distribution Width 17.5 % Platelet Count 70 TH/MM3 Mean Platelet Volume 8.1 FL Neutrophils (%) (Auto) 93.1 % Lymphocytes (%) (Auto) 3.0 % Monocytes (%) (Auto) 3.5 % Eosinophils (%) (Auto) 0.2 % Basophils (%) (Auto) 0.2 % Neutrophils # (Auto) 6.6 TH/MM3 Lymphocytes # (Auto) 0.2 TH/MM3 Monocytes # (Auto) 0.2 TH/MM3 Eosinophils # (Auto) 0.0 TH/MM3 Basophils # (Auto) 0.0 TH/MM3 CBC Comment AUTO DIFF Differential Comment AUTO DIFF CONFIRMED Platelet Estimate LOW Platelet Morphology Comment NORMAL Blood Smear Pathologist Review Reticulocyte Count 1.5 % Absolute Reticulocyte Count 49.8 MIL/L Sodium Level 137 MEQ/L Potassium Level 4.0 MEQ/L Chloride Level 102 MEQ/L Carbon Dioxide Level 23.6 MEQ/L Anion Gap 11 MEQ/L Blood Urea Nitrogen 27 MG/DL Creatinine 1.83 MG/DL Estimat Glomerular Filtration 36 ML/MIN Rate Random Glucose 216 MG/DL Calcium Level 8.2 MG/DL Phosphorus Level 3.8 MG/DL Lactate Dehydrogenase 221 U/L Albumin 2.3 GM/DL Blood Type O POSITIVE Direct Antiglobulin Test NEGATIVE (Harrison) Activated Partial 67.6 SEC Thromboplast Time Objective Remarks GENERAL: Alert, NAD. SKIN: Warm and dry. HEAD: Normocephalic. EYES: No scleral icterus. No injection or drainage. NECK: Supple, trachea midline. No JVD or lymphadenopathy. CARDIOVASCULAR: Regular rate and rhythm without murmurs, gallops, or rubs. RESPIRATORY: Breath sounds equal bilaterally. No accessory muscle use. GASTROINTESTINAL: Abdomen soft, non-tender, nondistended. MUSCULOSKELETAL: No cyanosis, or edema. Left lower ext erythema with skin ulceration. BACK: Nontender without obvious deformity. No CVA tenderness. Medications and IVs Current Medications Medications (Trade) Dose Ordered Sig/Guy Route Start Time Stop Time Status Last Admin (NS Flush) 2 ml UNSCH PRN IV FLUSH 03/08/17 14:00 (NS Flush) 2 ml BID IV FLUSH 03/08/17 21:00 03/10/17 09:28 (Tylenol) 650 mg Q4H PRN PO 03/08/17 14:00 03/09/17 23:40 (Zofran Inj) 4 mg Q6H PRN IVP 03/08/17 14:00 (Narcan Inj) 0.4 mg UNSCH PRN IV 03/08/17 14:00 (Melanie-Colace) 1 tab BID PO 03/08/17 21:00 03/10/17 09:26 (Milk Of Magnesia Liq) 30 ml Q12H PRN PO 03/08/17 14:00 (Senokot) 17.2 mg Q12H PRN PO 03/08/17 14:00 (Dulcolax Supp) 10 mg DAILY PRN RECTAL 03/08/17 14:00 (Lactulose Liq) 30 ml DAILY PRN PO 03/08/17 14:00 (Lactinex) 1 tab TID PO 03/08/17 18:00 03/10/17 09:26 (Aldactone) 25 mg DAILY PO 03/10/17 09:00 03/10/17 09:26 (Levaquin) 750 mg DAILY PO 03/10/17 09:00 03/10/17 09:26 (Bumex Inj) 1 mg BID@09,18 IV PUSH 03/09/17 18:00 03/10/17 09:26 Methylprednisolone Sodium Succinate 20 mg 20 mg Q12HR IV PUSH 03/09/17 21:00 03/12/17 07:00 03/10/17 09:26 Ceftriaxone Sodium 2000 mg/ Sodium Chloride 100 ml @ 200 mls/hr Q24H IV 03/09/17 18:00 03/09/17 22:37 (Novastan Inj/NS 250 ml Inj) 252.5 ml @ 0 mls/hr TITRATE IV 03/09/17 22:30 03/10/17 00:13 A/P Assessment and Plan 81 y/o male with a history of CAD, CHF, COPD 2L at HS, sleep apnea and MILY presented to the ED with complaints of increased dyspnea. Acute respiratory failure, now requiring O2 2L during the day Chest xray reviewed and unremarkable -Cont O2 via NC to keep O2 sat > 90%. -Consulted pulmonology -CT chest showed emphysema and left sided airspace disease. -Started Levaquin and Vancomycin. Consulted ID - abx changed to Levaquin and Ceftriaxone. -Duonebs as needed for dyspnea Cellulitis, Left lower extremity, history of Levaquin use multiple times in the last few months, Improving. - Given patient's overall deconditioning, no improvement since admission, we will consult ID for Pneumonia and left lower ext cellulitis. - Per ID, continue Levaquin and Ceftriaxone. CKD, stage 4, creatine 2.0, at baseline. Improved creatinine 1.68 today. -Avoid nephrotoxins - Nephrology following. Thrombocytopenia - Possibly related to medications. - Hematology consult pending. Code status DNR. Heparin SQ Discharge Planning Once cleared by specialists. Sudhakar Reyes MD Mar 10, 2017 10:24
[2017-03-10] MEDS: ACETAMINOPHEN 325 MG TAB PO PRN (12:20)
--- NOTE | 2017-03-10 12:36 | PD.ONC.PN ---
Subjective Subjective Remarks Tmax overnight was 100.6. Patient sitting up in chair at bedside with present No obvious bleeding noted Denies any acute complaints Objective Data Date Time Temp Pulse Resp B/P Pulse Ox O2 Delivery O2 Flow Rate FiO2 03/10/17 08:19 99 Nasal Cannula 3.00 03/10/17 08:00 97.2 81 20 122/71 96 03/10/17 04:00 97.5 79 18 115/82 96 03/10/17 03:53 Bi-Pap 2.00 03/10/17 00:00 100.6 96 20 128/72 96 03/10/17 00:00 Nasal Cannula 2.00 Bi-Pap Humidified 03/09/17 21:00 Nasal Cannula 2.00 03/09/17 20:00 99.3 121 18 132/78 94 03/09/17 19:12 57 03/09/17 18:34 94 Nasal Cannula 2.00 03/09/17 16:03 94 Nasal Cannula 3.00 03/09/17 16:00 98.4 126 20 133/65 97 03/10/17 03/10/17 03/10/17 06:59 14:59 22:59 Intake Total 71 ml Output Total 250 ml Balance -179 ml Result Diagram: 03/10/17 0254 03/10/17 0254 Laboratory Results Laboratory Tests Test 03/09/17 03/09/17 03/10/17 03/10/17 13:44 21:50 02:54 06:20 White Blood Count 8.3 TH/MM3 7.1 TH/MM3 Red Blood Count 3.63 MIL/MM3 3.41 MIL/MM3 Hemoglobin 10.9 GM/DL 10.2 GM/DL Hematocrit 34.1 % 31.6 % Mean Corpuscular Volume 94.0 FL 92.5 FL Mean Corpuscular Hemoglobin 29.9 PG 29.9 PG Mean Corpuscular Hemoglobin 31.8 % 32.3 % Concent Red Cell Distribution Width 17.8 % 17.5 % Platelet Count 73 TH/MM3 70 TH/MM3 Mean Platelet Volume 9.4 FL 8.1 FL Neutrophils (%) (Auto) 86.1 % 93.1 % Lymphocytes (%) (Auto) 5.4 % 3.0 % Monocytes (%) (Auto) 7.1 % 3.5 % Eosinophils (%) (Auto) 0.9 % 0.2 % Basophils (%) (Auto) 0.5 % 0.2 % Neutrophils # (Auto) 7.2 TH/MM3 6.6 TH/MM3 Lymphocytes # (Auto) 0.4 TH/MM3 0.2 TH/MM3 Monocytes # (Auto) 0.6 TH/MM3 0.2 TH/MM3 Eosinophils # (Auto) 0.1 TH/MM3 0.0 TH/MM3 Basophils # (Auto) 0.0 TH/MM3 0.0 TH/MM3 CBC Comment AUTO DIFF AUTO DIFF Differential Comment FINAL DIFF AUTO DIFF MANUAL CONFIRMED Platelet Estimate LOW LOW Prothrombin Time 10.4 SEC Prothromb Time International 0.9 RATIO Ratio Activated Partial 26.4 SEC 62.6 SEC 67.6 SEC Thromboplast Time Fibrinogen 569 mg/dL Platelet Morphology Comment NORMAL Blood Smear Pathologist Review Reticulocyte Count 1.5 % Absolute Reticulocyte Count 49.8 MIL/L Sodium Level 137 MEQ/L Potassium Level 4.0 MEQ/L Chloride Level 102 MEQ/L Carbon Dioxide Level 23.6 MEQ/L Anion Gap 11 MEQ/L Blood Urea Nitrogen 27 MG/DL Creatinine 1.83 MG/DL Estimat Glomerular Filtration 36 ML/MIN Rate Random Glucose 216 MG/DL Calcium Level 8.2 MG/DL Phosphorus Level 3.8 MG/DL Lactate Dehydrogenase 221 U/L Albumin 2.3 GM/DL Blood Type O POSITIVE Direct Antiglobulin Test NEGATIVE (Harrison) Culture Results Microbiology Date/Time Procedure Status Source Growth 03/08/17 12:00 Aerobic Blood Culture - Preliminary Resulted Blood Peripheral NO GROWTH IN 2 DAYS 03/08/17 12:00 Anaerobic Blood Culture - Preliminary Resulted Blood Peripheral NO GROWTH IN 2 DAYS 03/08/17 12:00 Aerobic Blood Culture - Preliminary Resulted Blood Peripheral NO GROWTH IN 2 DAYS 03/08/17 12:00 Anaerobic Blood Culture - Preliminary Resulted Blood Peripheral NO GROWTH IN 2 DAYS 03/08/17 12:10 Influenza Types A,B Antigen (HENRRY) - Final Complete Nasal Aspirate NEGATIVE FOR FLU A AND B ANTIGEN.... 03/09/17 21:00 Legionella Antigen - Final Complete Urine Random Urine PRESUMPTIVE NEGATIVE FOR LEGIONELLA P... 03/09/17 21:00 Streptococcus pneumoniae Antigen (M - Final Complete Urine Random Urine PRESUMPTIVE NEGATIVE FOR STREPTOCOCCU... Administered Medications Medications (Trade) Dose Ordered Sig/Guy Route PRN Reason Start Time Stop Time Status Last Admin Dose Admin Sodium Chloride (NS Flush) 2 ml BID IV FLUSH 03/08/17 21:00 03/10/17 09:28 Acetaminophen (Tylenol) 650 mg Q4H PRN PO headache, fever, pain 1-4 03/08/17 14:00 03/10/17 12:20 Senna/Docusate Sodium (Melanie-Colace) 1 tab BID PO 03/08/17 21:00 03/10/17 09:26 Lactobacillus Acidophilus (Lactinex) 1 tab TID PO 03/08/17 18:00 03/10/17 12:21 Spironolactone (Aldactone) 25 mg DAILY PO 03/10/17 09:00 03/10/17 09:26 Levofloxacin (Levaquin) 750 mg DAILY PO 03/10/17 09:00 03/10/17 09:26 Bumetanide (Bumex Inj) 1 mg BID@09,18 IV PUSH 03/09/17 18:00 03/10/17 09:26 Methylprednisolone Sodium Succinate 20 mg 20 mg Q12HR IV PUSH 03/09/17 21:00 03/12/17 07:00 03/10/17 09:26 Ceftriaxone Sodium 2000 mg/ Sodium Chloride 100 ml @ 200 mls/hr Q24H IV 03/09/17 18:00 03/09/17 22:37 Argatroban/Sodium Chloride (Novastan Inj/NS 250 ml Inj) 252.5 ml @ 0 mls/hr TITRATE IV 03/09/17 22:30 03/10/17 00:13 Objective Remarks GENERAL: Older male, resting in chair at bedside in no acute distress SKIN: Warm and dry. HEAD: Normocephalic. EYES: No scleral icterus. No injection or drainage. NECK: Supple, trachea midline. No JVD or lymphadenopathy. CARDIOVASCULAR: Regular rate and rhythm without murmurs. RESPIRATORY: Breath sounds equal bilaterally. No accessory muscle use. GASTROINTESTINAL: Abdomen soft, non-tender, nondistended. EXTREMITIES: No cyanosis, bilateral lower extremity edema. Left leg wrapped in an Abe bandage. NEUROLOGICAL: No obvious focal deficit. Awake, alert, and oriented x3. Assessment/Plan Problem List: (1) Thrombocytopenia Status: Acute Plan: -- His platelet count was normal on the last admission in late January. He also received unfractionated heparin as DVT prophylaxis at that time. -- Cytopenia unlikely due to DIC as his coags are normal. -- Possibly caused by cephalosporin use -- Cannot exclude heparin-induced thrombocytopenia; HIT panel pending. Assessment 81 y/o male admitted for SOB, hypoxia and LE edema and was found to have thrombocytopenia. Plan 1. Continue argatroban 2. Await results of HIT 3. Thrombocytopenia does not appear to be due to DIC; coags OK. 4. Monitor CBC Attending Statement The exam, history, and the medical decision-making described in the above note were completed with the assistance of the mid-level provider. I reviewed and agree with the findings presented. I attest that I had a [id number] encounter with the patient on the same day, and personally performed and documented my assessment and findings in the medical record. Pt seen and examined. supplement history, pt has multiple admissions recently. All admission begin with SOB, first admission when pt has significant thrombocytopenia. Discussed HIT. Noted antibody test is negative. Plan to stop Argatroban when current bag finish. Pt will need DVT prophylaxis given h/o DVT. R leg> L, L leg better after Vancomycin Unable to exclude other drug effect. Jacque Yo Mar 10, 2017 12:36 Park Allan MD Mar 10, 2017 15:31
--- NOTE | 2017-03-10 13:11 | HHI.NPPN ---
Subjective General Problems: Anemia, Edema, Heart Disease, Hypertension Renal Failure: Stage III History of Present Illness 81 y/o male who was sent from pulmonary MDs office for fever, shortness of breath. He has a hx of COPD, CHF, CKD 3, and CAD. On arrival he was not febrile. Renal function was at baseline which is creatinine around 2, GFR in 30s. Additional Remarks Patient is alert, sitting on chair, breathing is better, on room air, not in distress. Review of Systems General Constitutional: Fatigue Respiratory Lungs: SOB, Wheeze Cardiovascular Cardiac: Edema, ROGERS Objective Data Data 03/09/17 03/10/17 19:00 07:00 Intake Total 240 ml 1313 ml Output Total 400 ml 550 ml Balance -160 ml 763 ml Intake Oral 240 ml IV Total 1313 ml Output Urine Total 400 ml 550 ml # Bowel Movements 0 Vital Signs Date Time Temp Pulse Resp B/P Pulse Ox O2 Delivery O2 Flow Rate FiO2 03/10/17 08:19 99 Nasal Cannula 3.00 03/10/17 08:00 97.2 81 20 122/71 96 03/10/17 04:00 97.5 79 18 115/82 96 03/10/17 03:53 Bi-Pap 2.00 03/10/17 00:00 100.6 96 20 128/72 96 03/10/17 00:00 Nasal Cannula 2.00 Bi-Pap Humidified 03/09/17 21:00 Nasal Cannula 2.00 03/09/17 20:00 99.3 121 18 132/78 94 03/09/17 19:12 57 03/09/17 18:34 94 Nasal Cannula 2.00 03/09/17 16:03 94 Nasal Cannula 3.00 03/09/17 16:00 98.4 126 20 133/65 97 -: 03/10/17 0254 03/10/17 0254 Microbiology 03/09/17 Legionella Antigen - Final, Complete PRESUMPTIVE NEGATIVE FOR LEGIONELLA P... 03/09/17 Streptococcus pneumoniae Antigen (M - Final, Complete PRESUMPTIVE NEGATIVE FOR STREPTOCOCCU... 03/10/17 Stool Occult Blood (HENRRY), Received Pending Physical Exam General Appearance: No Acute Distress, Comfortable Eyes Eye Exam: Pupils Equal Throat Throat Exam: Oral Mucosa [place] & Moist Neck Neck Exam: Neck Supple Pulmonary Resp Exam: No Distress, Rhonchi, Decreased Bases, Diminished Breath Sounds Cardiology CV Exam: Regular, Normal Sinus Rhythm Gastrointestinal/Abdomen GI Exam: Soft, Non-Tender, Bowel Sounds Present Extremeties Extremities Exam: Moderate Edema, Pitting Edema, Dependent Edema Neurologic Neuro Exam: Alert, Awake, Oriented Psychiatric Psych Exam: Appropriate Responses Assessment/Plan Problem List: (1) Chronic kidney disease, stage 3 Plan: His renal function has improved, in out office his GFR is normally around 31. CKD likely due to nephrosclerosis Has some edema, see below no acute electrolyte concerns UA is negative for infection, no proteinuria avoid nephrotoxic substances, avoid IVF Creatinine is now 1.8, stable close to his baseline. Continue Bumex and Aldactone. (2) Shortness of breath Plan: Hx CHF, COPD chest xray negative chest CT taken, results pending oxygen as needed continue nebulizers (3) Cellulitis Plan: he has left leg cellulitis , possible etiology of fever started on doxycycline possible sepsis related to infection CRP elevated, lactic acid normalized (4) Edema Plan: he is on Bumex 1 mg BID at home with spironolactone 25 daily I will resume these, follow fluid status (5) Hypertension Plan: resume home medications (6) Anemia Plan: Hb stable and at baseline monitor for changes Problem Qualifiers (1) Cellulitis: Qualified Code: L03.116 - Cellulitis of left lower extremity Ritesh Dennis MD Mar 10, 2017 13:11
[2017-03-10 13:53] LABS: HEPARIN AB OD 0.044 O.D. (0.000-0.300); HEPARIN INDUCED PLATELET AB NEGATIVE (NEGATIVE)
[2017-03-10] MEDS: cefTRIAXone INJ 2,000 MG in SODIUM CHLORIDE 0.9% INJ 100 ML IV SCH (17:32)
[2017-03-10] MEDS ORDERED: LORazepam 0.5 MG TAB PO ONE (21:00)
[2017-03-11] VITALS (8 sets, daily range): BP systolic 118–142; BP diastolic 58–95; PULSE 78–114; RESP 20; TEMP 97.1–97.3; O2SAT 92–98
[2017-03-11 00:18] LABS: BICARBONATE 25.7 MEQ/L (21.0-32.0); MAGNESIUM 1.8 MG/DL (1.5-2.5); POTASSIUM 3.9 MEQ/L (3.5-5.1)
[2017-03-11] MEDS: SODIUM CHLORIDE 0.9% FLUSH 10 ML FLUSH IV FLUSH SCH ×2 (09:00→21:06)
[2017-03-11] MEDS: RESP: ALBUTEROL 2.5 MG/IPRATROPIUM 0.5 MG NEB (SCH) NEB ×4 (09:04→19:54)
[2017-03-11 09:51] LABS: AUTOMATED NEUTROPHIL # 9.3 TH/MM3 (1.8-7.7); BASOPHIL % 0.1 % (0.0-2.0); EOSINOPHIL % 0.1 % (0.0-4.0); HEMATOCRIT 33.1 % (39.0-51.0); LYMPH % 2.9 % (9.0-44.0); LYMPHOCYTE # 0.3 TH/MM3 (1.0-4.8); MEAN CELL VOLUME 91.2 FL (80.0-100.0); MEAN CORPUSCULAR HEMOGLOBIN 30.4 PG (27.0-34.0); MEAN CORPUSCULAR HGB CONC 33.4 % (32.0-36.0); MONO % 4.8 % (0.0-8.0); NEUT % 92.1 % (16.0-70.0); PLATELET COUNT 97 TH/MM3 (150-450); RED BLOOD COUNT 3.63 MIL/MM3 (4.50-5.90); RED CELL DISTRIBUTION WIDTH 17.4 % (11.6-17.2); WHITE BLOOD COUNT 10.1 TH/MM3 (4.0-11.0)
[2017-03-11 10:03] LABS: APTT (PATIENT) 62.6 SEC (24.3-30.1)
[2017-03-11 10:12] LABS: HEMO FLAGS AUTO DIFF
[2017-03-11] MEDS: methylPREDNISolone SOD SUCC 40 MG/1 ML VIAL IV PUSH SCH ×2 (10:12→21:06)
[2017-03-11] MEDS: BUMETANIDE INJ 1 MG/4 ML VIAL IV PUSH SCH ×2 (10:12→17:24)
[2017-03-11] MEDS: DOCUSATE SODIUM 50 MG/SENNA 8.6 MG TAB PO SCH ×2 (10:12→21:07)
[2017-03-11] MEDS: LACTOBACILLUS ACIDOPHILUS TAB PO SCH ×3 (10:12→17:24)
[2017-03-11] MEDS: SPIRONOLACTONE 25 MG TAB PO SCH ×2 (10:12→21:06)
[2017-03-11 10:14] LABS: BICARBONATE 23.3 MEQ/L (21.0-32.0); POTASSIUM 3.9 MEQ/L (3.5-5.1)
--- NOTE | 2017-03-11 11:08 | HHI.NPPN ---
Subjective General Problems: Anemia, Edema, Heart Disease, Hypertension Renal Failure: Stage III History of Present Illness 81 y/o male who was sent from pulmonary MDs office for fever, shortness of breath. He has a hx of COPD, CHF, CKD 3, and CAD. On arrival he was not febrile. Renal function was at baseline which is creatinine around 2, GFR in 30s. Additional Remarks Patient is alert, sitting on chair, has increase swelling in legs. Review of Systems General Constitutional: Fatigue Respiratory Lungs: SOB, Wheeze Cardiovascular Cardiac: Edema, ROGERS Objective Data Data 03/10/17 03/11/17 19:00 07:00 Intake Total 865 ml 647 ml Output Total 850 ml 350 ml Balance 15 ml 297 ml Intake Oral 720 ml 480 ml IV Total 145 ml 167 ml Output Urine Total 850 ml 350 ml # Voids 1 # Bowel Movements 1 Vital Signs Date Time Temp Pulse Resp B/P Pulse Ox O2 Delivery O2 Flow Rate FiO2 03/11/17 09:07 98 03/11/17 08:49 97.2 100 133/62 92 03/11/17 00:00 97.3 94 20 122/75 96 03/11/17 00:00 Room Air 03/10/17 21:50 126 03/10/17 20:44 96 03/10/17 20:00 97.3 64 20 127/75 94 03/10/17 20:00 Room Air 03/10/17 16:00 Nasal Cannula 3.00 03/10/17 16:00 97.4 118 20 117/59 92 03/10/17 12:00 97.5 114 20 114/74 93 03/10/17 12:00 Nasal Cannula 3.00 -: 03/11/17 0915 03/11/17 0915 Microbiology 03/10/17 Stool Occult Blood (HENRRY) - Final, Complete HEMOCCULT NEGATIVE Physical Exam General Appearance: No Acute Distress, Comfortable Eyes Eye Exam: Pupils Equal Throat Throat Exam: Oral Mucosa [place] & Moist Neck Neck Exam: Neck Supple Pulmonary Resp Exam: No Distress, Rhonchi, Decreased Bases, Diminished Breath Sounds Cardiology CV Exam: Regular, Normal Sinus Rhythm Gastrointestinal/Abdomen GI Exam: Soft, Non-Tender, Bowel Sounds Present Extremeties Extremities Exam: Moderate Edema, Pitting Edema, Dependent Edema Neurologic Neuro Exam: Alert, Awake, Oriented Psychiatric Psych Exam: Appropriate Responses Assessment/Plan Problem List: (1) Chronic kidney disease, stage 3 Plan: His renal function has improved, in out office his GFR is normally around 31. CKD likely due to nephrosclerosis Has some edema, see below no acute electrolyte concerns UA is negative for infection, no proteinuria avoid nephrotoxic substances, avoid IVF Creatinine is now 1.8, stable close to his baseline. Increase the Bumex 2 mg BID and Aldactone to BID. (2) Shortness of breath Plan: Hx CHF, COPD chest xray negative chest CT taken, results pending oxygen as needed continue nebulizers (3) Cellulitis Plan: he has left leg cellulitis , possible etiology of fever started on doxycycline possible sepsis related to infection CRP elevated, lactic acid normalized (4) Edema Plan: he is on Bumex 1 mg BID at home with spironolactone 25 daily I will resume these, follow fluid status (5) Hypertension Plan: resume home medications (6) Anemia Plan: Hb stable and at baseline monitor for changes Problem Qualifiers (1) Cellulitis: Qualified Code: L03.116 - Cellulitis of left lower extremity Ritesh Dennis MD Mar 11, 2017 11:08
[2017-03-11] MEDS: ENOXAPARIN SODIUM 30 MG/0.3 ML SYRINGE SQ SCH (12:02)
[2017-03-11 12:15] LABS: PLATELET ESTIMATE SMEAR LOW (NORMAL); PLATELET MORPHOLOGY NORMAL (NORMAL); SCAN/DIFF AUTO DIFF CONFIRMED
--- NOTE | 2017-03-11 13:07 | HHI.PR ---
Subjective Remarks This is a pleasant 81 y/o Male with CAD, CHF, COPD, on Oxygen 2L at HS, MILY came to ER with dyspnea, Febrile and confused chronic lower extremity edema. with diagnosis of Cellulitis of Left lower extremity and Pneumonia. Sepsis on admission, followed by ID specialist, recommended to continue Levaquin, Started on Ceftriaxone, Discontinued Vancomycin, Consulted personal loan specialist due to Thrombocytopenia in a patient on Heparin and Multiple antibiotics, questionable HIT, Avoid Zyvox due to low platelets. Seen in his bedroom in the presence of his and seen already by personal loan specialist with Diagnosis of Thrombocytopenia His platelet count was normal on the last admission in late January, cytopenia probable caused by Cephalosporin, recommended to continue Argatroban, await result for HIT 03/11: Seen in her bedroom in the presence of his , discussed with nurse Jaciel the patient has two episodes of firing from his Defibrillator, that was Interrogated and found Bigeminy and PVCs. no need changes at this time as per body shop technician. patient stable no other complaint, asked for Ativan at bed time placed for low dose Ativan if Insomnia. Objective Vital Signs Date Time Temp Pulse Resp B/P Pulse Ox O2 Delivery O2 Flow Rate FiO2 03/11/17 12:36 97.2 81 119/76 93 03/11/17 09:07 98 03/11/17 08:49 97.2 100 133/62 92 03/11/17 00:00 97.3 94 20 122/75 96 03/11/17 00:00 Room Air 03/10/17 21:50 126 03/10/17 20:44 96 03/10/17 20:00 97.3 64 20 127/75 94 03/10/17 20:00 Room Air 03/10/17 16:00 Nasal Cannula 3.00 03/10/17 16:00 97.4 118 20 117/59 92 I/O 03/10/17 03/10/17 03/10/17 03/11/17 03/11/17 03/11/17 07:00 15:00 23:00 07:00 15:00 23:00 Intake Total 71 ml 720 ml 702 ml 90 ml Output Total 250 ml 850 ml 350 ml 0 ml Balance -179 ml -130 ml 352 ml 90 ml Intake Oral 720 ml 480 ml 0 ml IV Total 71 ml 222 ml 90 ml Output Urine Total 250 ml 850 ml 350 ml 0 ml # Voids 1 # Bowel Movements 1 Result Diagram: 03/11/17 0915 03/11/17 0915 Imaging Last Impressions Chest CT 03/09/17 0000 Signed Impressions: Service Date/Time: Thursday, March 09, 2017 09:21 - CONCLUSION: 1. 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 2. Subsegmental airspace disease left lower lobe. 3. AICD Agapito Keys MD Chest X-Ray 03/08/17 1149 Signed Impressions: Service Date/Time: February 11:57 - CONCLUSION: No acute disease Rusty Mccurdy MD Procedures None Other Results Laboratory Tests Test 03/08/17 03/08/17 03/08/17 03/08/17 12:00 12:02 15:35 15:40 Differential Total Cells 100 Counted Neutrophils % (Manual) 95 % Lymphocytes % 2 % Monocytes % 2 % Neutrophils # (Manual) 10.5 TH/MM3 Myelocytes 1 % Red Cell Morphology Comment NORMAL Total Bilirubin 0.9 MG/DL Aspartate Amino Transf 18 U/L (AST/SGOT) Alanine Aminotransferase 37 U/L (ALT/SGPT) Alkaline Phosphatase 70 U/L Total Creatine Kinase 14 U/L C-Reactive Protein 4.60 MG/DL Total Protein 6.4 GM/DL Lipase 195 U/L Blood Gas Puncture Site RT RADIAL Blood Gas Patient Temperature 98.6 Blood Gas HCO3 22 mmol/L Blood Gas Base Excess -1.0 mmol/L Blood Gas Oxygen Saturation 86 % Arterial Blood pH 7.50 Arterial Blood Partial 29 mmHg Pressure CO2 Arterial Blood Partial 52 mmHG Pressure O2 Arterial Blood Oxygen Content 14.4 Vol % Arterial Blood 1.9 % Carboxyhemoglobin Arterial Blood Methemoglobin 0.7 % Blood Gas Hemoglobin 11.9 G/DL Oxygen Delivery Device ROOM AIR Blood Gas Inspired Oxygen 21 % Urine Color YELLOW Urine Turbidity CLEAR Urine pH 6.5 Urine Specific [place] 1.019 Urine Protein TRACE mg/dL Urine Glucose (UA) NEG mg/dL Urine Ketones NEG mg/dL Urine Occult Blood NEG Urine Nitrite NEG Urine Bilirubin NEG Urine Urobilinogen LESS THAN 2.0 MG/DL Urine Leukocyte Esterase NEG Urine RBC 1 /hpf Urine WBC 1 /hpf Microscopic Urinalysis Comment CATH-CULT NOT IND Lactic Acid Level 1.8 mmol/L Test 803/10/17 03/10/17 03/11/17 21:50 02:54 23:35 09:15 Prothrombin Time 10.4 SEC Prothromb Time International 0.9 RATIO Ratio Fibrinogen 569 mg/dL Heparin-Induced Platelet Ab NEGATIVE (Rebekah) HIPA Patient Optical Density 0.044 O.D. Blood Smear Pathologist Review Reticulocyte Count 1.5 % Absolute Reticulocyte Count 49.8 MIL/L Phosphorus Level 3.8 MG/DL Lactate Dehydrogenase 221 U/L Albumin 2.3 GM/DL Blood Type O POSITIVE Direct Antiglobulin Test NEGATIVE (Harrison) Magnesium Level 1.8 MG/DL Troponin I 0.04 NG/ML B-Type Natriuretic Peptide 114 PG/ML White Blood Count 10.1 TH/MM3 Red Blood Count 3.63 MIL/MM3 Hemoglobin 11.0 GM/DL Hematocrit 33.1 % Mean Corpuscular Volume 91.2 FL Mean Corpuscular Hemoglobin 30.4 PG Mean Corpuscular Hemoglobin 33.4 % Concent Red Cell Distribution Width 17.4 % Platelet Count 97 TH/MM3 Mean Platelet Volume 9.4 FL Neutrophils (%) (Auto) 92.1 % Lymphocytes (%) (Auto) 2.9 % Monocytes (%) (Auto) 4.8 % Eosinophils (%) (Auto) 0.1 % Basophils (%) (Auto) 0.1 % Neutrophils # (Auto) 9.3 TH/MM3 Lymphocytes # (Auto) 0.3 TH/MM3 Monocytes # (Auto) 0.5 TH/MM3 Eosinophils # (Auto) 0.0 TH/MM3 Basophils # (Auto) 0.0 TH/MM3 CBC Comment AUTO DIFF Differential Comment AUTO DIFF CONFIRMED Platelet Estimate LOW Platelet Morphology Comment NORMAL Activated Partial 62.6 SEC Thromboplast Time Sodium Level 137 MEQ/L Potassium Level 3.9 MEQ/L Chloride Level 102 MEQ/L Carbon Dioxide Level 23.3 MEQ/L Anion Gap 12 MEQ/L Blood Urea Nitrogen 37 MG/DL Creatinine 1.86 MG/DL Estimat Glomerular Filtration 35 ML/MIN Rate Random Glucose 126 MG/DL Calcium Level 8.6 MG/DL Objective Remarks GENERAL: Alert, NAD. SKIN: Warm and dry. HEAD: Normocephalic. EYES: No scleral icterus. No injection or drainage. NECK: Supple, trachea midline. No JVD or lymphadenopathy. CARDIOVASCULAR: Regular rate and rhythm without murmurs, gallops, or rubs. RESPIRATORY: Breath sounds equal bilaterally. No accessory muscle use. GASTROINTESTINAL: Abdomen soft, non-tender, nondistended. MUSCULOSKELETAL: No cyanosis, Edema 3+, Left lower ext erythema with skin ulceration. BACK: Nontender without obvious deformity. No CVA tenderness. Medications and IVs Current Medications Medications (Trade) Dose Ordered Sig/Guy Route Start Time Stop Time Status Last Admin (NS Flush) 2 ml UNSCH PRN IV FLUSH 03/08/17 14:00 (NS Flush) 2 ml BID IV FLUSH 03/08/17 21:00 03/11/17 09:00 (Tylenol) 650 mg Q4H PRN PO 03/08/17 14:00 03/10/17 12:20 (Zofran Inj) 4 mg Q6H PRN IVP 03/08/17 14:00 (Narcan Inj) 0.4 mg UNSCH PRN IV 03/08/17 14:00 (Melanie-Colace) 1 tab BID PO 03/08/17 21:00 03/11/17 10:12 (Milk Of Magnesia Liq) 30 ml Q12H PRN PO 03/08/17 14:00 (Senokot) 17.2 mg Q12H PRN PO 03/08/17 14:00 (Dulcolax Supp) 10 mg DAILY PRN RECTAL 03/08/17 14:00 (Lactulose Liq) 30 ml DAILY PRN PO 03/08/17 14:00 (Lactinex) 1 tab TID PO 03/08/17 18:00 03/11/17 12:02 Methylprednisolone Sodium Succinate 20 mg 20 mg Q12HR IV PUSH 03/09/17 21:00 03/12/17 07:00 03/11/17 10:12 (Rocephin Inj/NS Inj) 100 ml @ 200 mls/hr Q24H IV 03/09/17 18:00 03/10/17 17:32 (Levaquin) 750 mg Q48H PO 03/12/17 09:00 (Lovenox Inj) 30 mg Q24H SQ 03/11/17 09:00 03/11/17 12:02 (Bumex Inj) 2 mg BID@09,18 IV PUSH 03/11/17 18:00 (Aldactone) 25 mg BID PO 03/11/17 21:00 A/P Assessment and Plan 81 y/o male with a history of CAD, CHF, COPD 2L at HS, sleep apnea and MILY presented to the ED with complaints of increased dyspnea. Acute respiratory failure, now requiring O2 2L during the day Chest xray reviewed and unremarkable -Cont O2 via NC to keep O2 sat > 90%. -Consulted pulmonology -CT chest showed emphysema and left sided airspace disease. -Started Levaquin and Vancomycin. Consulted ID - abx changed to Levaquin and Ceftriaxone. -Duonebs as needed for dyspnea Cellulitis, Left lower extremity, history of Levaquin use multiple times in the last few months, Improving. - Given patient's overall deconditioning, no improvement since admission, we will consult ID for Pneumonia and left lower ext cellulitis. - Per ID, continue Levaquin and Ceftriaxone. at this time walking in the aisle. CKD, stage 4, creatine 2.0, at baseline. Improved creatinine 1.68 today. -Avoid nephrotoxins - Nephrology following. Thrombocytopenia - Possibly related to medications. - Hematology consulted and did not found HIT Argatroban removed. Defibrillator firing status post [facility] Interrogated device and did not found malfunction no changes recommended needs to re start his Beta [place]ño Metoprolol at 12.5 mg BID. Discussed with patient and his in the room also his nurse Miss Grissom, all questions answered to the best of my abilities. he is walking in the aisle without difficulty. Code status DNR. Heparin SQ Discharge Planning Once cleared by specialists. Sudhakar Reyes MD Mar 11, 2017 13:07
--- NOTE | 2017-03-11 14:29 | HHI.PR ---
Subjective Remarks ass: alert less SOB increase ankle edema Objective Vital Signs Date Time Temp Pulse Resp B/P Pulse Ox O2 Delivery O2 Flow Rate FiO2 03/11/17 12:36 97.2 81 119/76 93 03/11/17 09:07 98 03/11/17 08:49 97.2 100 133/62 92 03/11/17 00:00 97.3 94 20 122/75 96 03/11/17 00:00 Room Air 03/10/17 21:50 126 03/10/17 20:44 96 03/10/17 20:00 97.3 64 20 127/75 94 03/10/17 20:00 Room Air 03/10/17 16:00 Nasal Cannula 3.00 03/10/17 16:00 97.4 118 20 117/59 92 I/O 03/10/17 03/10/17 03/10/17 03/11/17 03/11/17 03/11/17 07:00 15:00 23:00 07:00 15:00 23:00 Intake Total 71 ml 720 ml 702 ml 90 ml Output Total 250 ml 850 ml 350 ml 0 ml Balance -179 ml -130 ml 352 ml 90 ml Intake Oral 720 ml 480 ml 0 ml IV Total 71 ml 222 ml 90 ml Output Urine Total 250 ml 850 ml 350 ml 0 ml # Voids 1 # Bowel Movements 1 Result Diagram: 03/11/1791403/11/17914 Procedures None Objective Remarks GENERAL: EXTREMETIES +++ EDEMA SKIN: Warm and dry. HEAD: Atraumatic. Normocephalic. EYES: Pupils equal and round. No scleral icterus. No injection or drainage. ENT: No nasal bleeding or discharge. Mucous membranes pink and moist. NECK: Trachea midline. No JVD. CARDIOVASCULAR: Regular rate and rhythm. RESPIRATORY: No accessory muscle use. Clear to auscultation. Breath sounds equal bilaterally. GASTROINTESTINAL: Abdomen soft, non-tender, nondistended. Hepatic and splenic margins not palpable. MUSCULOSKELETAL: Extremities without clubbing, cyanosis, or edema. No obvious deformities. NEUROLOGICAL: Awake and alert. No obvious cranial nerve deficits. Motor grossly within normal limits. Five out of 5 muscle strength in the arms and legs. Normal speech. PSYCHIATRIC: Appropriate mood and affect; insight and judgment normal. Laboratory Tests Test 03/09/17 03/09/17 03/09/1717 07:59 13:44 21:50 02:54 Blood Urea Nitrogen 31 MG/DL (7-18) 27 MG/DL (7-18) Creatinine 1.68 MG/DL 1.83 MG/DL (0.60-1.30) (0.60-1.30) Estimat Glomerular Filtration 40 ML/MIN (>89) 36 ML/MIN (>89) Rate Red Blood Count 3.63 MIL/MM3 3.41 MIL/MM3 (4.50-5.90) (4.50-5.90) Hemoglobin 10.9 GM/DL 10.2 GM/DL (13.0-17.0) (13.0-17.0) Hematocrit 34.1 % 31.6 % (39.0-51.0) (39.0-51.0) Mean Corpuscular Hemoglobin 31.8 % Concent (32.0-36.0) Red Cell Distribution Width 17.8 % 17.5 % (11.6-17.2) (11.6-17.2) Platelet Count 73 TH/MM3 70 TH/MM3 (150-450) (150-450) Neutrophils (%) (Auto) 86.1 % 93.1 % (16.0-70.0) (16.0-70.0) Lymphocytes (%) (Auto) 5.4 % 3.0 % (9.0-44.0) (9.0-44.0) Lymphocytes # (Auto) 0.4 TH/MM3 0.2 TH/MM3 (1.0-4.8) (1.0-4.8) Platelet Estimate LOW (NORMAL) LOW (NORMAL) Fibrinogen 569 mg/dL (227-377) Activated Partial 62.6 SEC Thromboplast Time (24.3-30.1) Random Glucose 216 MG/DL (74-106) Calcium Level 8.2 MG/DL (8.5-10.1) Albumin 2.3 GM/DL (3.4-5.0) Test 03/10/17 03/10/17 03/11/17 06:20 23:35 09:15 Activated Partial 67.6 SEC 62.6 SEC Thromboplast Time (24.3-30.1) (24.3-30.1) Blood Urea Nitrogen 40 MG/DL (7-18) 37 MG/DL (7-18) Creatinine 2.07 MG/DL 1.86 MG/DL (0.60-1.30) (0.60-1.30) Estimat Glomerular Filtration 31 ML/MIN (>89) 35 ML/MIN (>89) Rate Random Glucose 168 MG/DL 126 MG/DL (74-106) (74-106) Calcium Level 8.3 MG/DL (8.5-10.1) B-Type Natriuretic Peptide 114 PG/ML (0-100) Red Blood Count 3.63 MIL/MM3 (4.50-5.90) Hemoglobin 11.0 GM/DL (13.0-17.0) Hematocrit 33.1 % (39.0-51.0) Red Cell Distribution Width 17.4 % (11.6-17.2) Platelet Count 97 TH/MM3 (150-450) Neutrophils (%) (Auto) 92.1 % (16.0-70.0) Lymphocytes (%) (Auto) 2.9 % (9.0-44.0) Neutrophils # (Auto) 9.3 TH/MM3 (1.8-7.7) Lymphocytes # (Auto) 0.3 TH/MM3 (1.0-4.8) Platelet Estimate LOW (NORMAL) Assessment and Plan Assessment and Plan ASS: RESPIRATORY FAILURE COPD EX. CAD CHF MILY PLAN O2 NEEDED BRONCHODILATOR THERAPY CPAP WHEN SLEEPING Aime Salomon MD Mar 11, 2017 14:29
[2017-03-11] MEDS: METOPROLOL TARTRATE 25 MG TAB PO SCH ×2 (15:02→21:07)
--- NOTE | 2017-03-11 15:05 | PD.ONC.PN ---
Subjective Subjective Remarks Afebrile overnight [facility] rep in room to interrogate defibrillator Per patient it went off twice overnight Objective Data Date Time Temp Pulse Resp B/P Pulse Ox O2 Delivery O2 Flow Rate FiO2 03/11/17 12:36 97.2 81 119/76 93 03/11/17 09:07 98 03/11/17 08:49 97.2 100 133/62 92 03/11/17 00:00 97.3 94 20 122/75 96 03/11/17 00:00 Room Air 03/10/17 21:50 126 03/10/17 20:44 96 03/10/17 20:00 97.3 64 20 127/75 94 03/10/17 20:00 Room Air 03/10/17 16:00 Nasal Cannula 3.00 03/10/17 16:00 97.4 118 20 117/59 92 03/11/17 03/11/17 03/11/17 06:59 14:59 22:59 Intake Total 90 ml Output Total 0 ml Balance 90 ml Result Diagram: 03/11/17 0915 03/11/17 0915 Laboratory Results Laboratory Tests Test 03/10/17 03/11/17 23:35 09:15 Sodium Level 138 MEQ/L 137 MEQ/L Potassium Level 3.9 MEQ/L 3.9 MEQ/L Chloride Level 101 MEQ/L 102 MEQ/L Carbon Dioxide Level 25.7 MEQ/L 23.3 MEQ/L Anion Gap 11 MEQ/L 12 MEQ/L Blood Urea Nitrogen 40 MG/DL 37 MG/DL Creatinine 2.07 MG/DL 1.86 MG/DL Estimat Glomerular Filtration 31 ML/MIN 35 ML/MIN Rate Random Glucose 168 MG/DL 126 MG/DL Calcium Level 8.3 MG/DL 8.6 MG/DL Magnesium Level 1.8 MG/DL Troponin I 0.04 NG/ML B-Type Natriuretic Peptide 114 PG/ML White Blood Count 10.1 TH/MM3 Red Blood Count 3.63 MIL/MM3 Hemoglobin 11.0 GM/DL Hematocrit 33.1 % Mean Corpuscular Volume 91.2 FL Mean Corpuscular Hemoglobin 30.4 PG Mean Corpuscular Hemoglobin 33.4 % Concent Red Cell Distribution Width 17.4 % Platelet Count 97 TH/MM3 Mean Platelet Volume 9.4 FL Neutrophils (%) (Auto) 92.1 % Lymphocytes (%) (Auto) 2.9 % Monocytes (%) (Auto) 4.8 % Eosinophils (%) (Auto) 0.1 % Basophils (%) (Auto) 0.1 % Neutrophils # (Auto) 9.3 TH/MM3 Lymphocytes # (Auto) 0.3 TH/MM3 Monocytes # (Auto) 0.5 TH/MM3 Eosinophils # (Auto) 0.0 TH/MM3 Basophils # (Auto) 0.0 TH/MM3 CBC Comment AUTO DIFF Differential Comment AUTO DIFF CONFIRMED Platelet Estimate LOW Platelet Morphology Comment NORMAL Activated Partial 62.6 SEC Thromboplast Time Culture Results Microbiology Date/Time Procedure Status Source Growth 03/09/17 21:00 Legionella Antigen - Final Complete Urine Random Urine PRESUMPTIVE NEGATIVE FOR LEGIONELLA P... 03/09/17 21:00 Streptococcus pneumoniae Antigen (M - Final Complete Urine Random Urine PRESUMPTIVE NEGATIVE FOR STREPTOCOCCU... 03/10/17 11:45 Stool Occult Blood (HENRRY) - Final Complete Stool Stool HEMOCCULT NEGATIVE Administered Medications Medications (Trade) Dose Ordered Sig/Guy Route PRN Reason Start Time Stop Time Status Last Admin Dose Admin Sodium Chloride (NS Flush) 2 ml BID IV FLUSH 03/08/17 21:00 03/11/17 09:00 Acetaminophen (Tylenol) 650 mg Q4H PRN PO headache, fever, pain 1-4 03/08/17 14:00 03/10/17 12:20 Senna/Docusate Sodium (Melanie-Colace) 1 tab BID PO 03/08/17 21:00 03/11/17 10:12 Lactobacillus Acidophilus (Lactinex) 1 tab TID PO 03/08/17 18:00 03/11/17 12:02 Methylprednisolone Sodium Succinate 20 mg 20 mg Q12HR IV PUSH 03/09/17 21:00 03/12/17 07:00 03/11/17 10:12 Ceftriaxone Sodium/Sodium Chloride (Rocephin Inj/NS Inj) 100 ml @ 200 mls/hr Q24H IV 03/09/17 18:00 03/10/17 17:32 Enoxaparin Sodium (Lovenox Inj) 30 mg Q24H SQ 03/11/17 09:00 03/11/17 12:02 Objective Remarks GENERAL: Older male, resting in chair at bedside in no acute distress SKIN: Warm and dry. HEAD: Normocephalic. EYES: No scleral icterus. No injection or drainage. NECK: Supple, trachea midline. No JVD or lymphadenopathy. CARDIOVASCULAR: Regular rate and rhythm without murmurs. RESPIRATORY: Breath sounds equal bilaterally. No accessory muscle use. GASTROINTESTINAL: Abdomen soft, non-tender, nondistended. EXTREMITIES: No cyanosis, bilateral lower extremity edema, worse on the L. NEUROLOGICAL: No obvious focal deficit. Awake, alert, and oriented x3. Assessment/Plan Problem List: (1) Thrombocytopenia Status: Acute Plan: -- His platelet count was normal on the last admission in late January. He also received unfractionated heparin as DVT prophylaxis at that time. -- Cytopenia unlikely due to DIC as his coags are normal. -- Possibly caused by cephalosporin use -- Cannot exclude heparin-induced thrombocytopenia; HIT panel pending. Assessment 81 y/o male admitted for SOB, hypoxia and LE edema and was found to have thrombocytopenia. Plan 1. HIT negative. 2. Argatroban stopped; pt tolerating low dose Lovenox for DVT prevention. 3. Thrombocytopenia improving; likely due to SE of antibiotics. 4. Monitor CBC Attending Statement The exam, history, and the medical decision-making described in the above note were completed with the assistance of the mid-level provider. I reviewed and agree with the findings presented. I attest that I had a [id number] encounter with the patient on the same day, and personally performed and documented my assessment and findings in the medical record. Platelet continue to increase despite stopping Argatroban. Cont DVT prophylaxis as ordered. Pt and inquired if DVT prophylaxis could be continued for a time even after going home. This is something to consider given pt's decrease activity, more sedentary with pulmonary condition, and previous DVT treatment held due to bleeding. Continue to monitor platelet count and likely offer extended DVT prophylaxis when DC. Jacque Yo Mar 11, 2017 15:05 Park Allan MD Mar 11, 2017 22:42
[2017-03-11] MEDS: THIAMINE HCL 100 MG TAB PO SCH (15:49)
[2017-03-11] MEDS: cefTRIAXone INJ 2,000 MG in SODIUM CHLORIDE 0.9% INJ 100 ML IV SCH (17:23)
--- NOTE | 2017-03-11 17:46 | MB ---
cc: MARIA ISABEL MCKENZIE M.D.MOHAMUDGILBERTO SilverLala ALONSO DATE OF CONSULTATION: 03/11/2017. IMPRESSIONS: 1. Probable sepsis with febrile illness, cultures apparently still pending. The possibilities include community-acquired pneumonia and cellulitis. 2. Advanced COPD. 3. Obstructive sleep apnea. 4. Cardiomyopathy apparently with preserved left ventricular function, etiology is unknown, [place] [employer] Association functional class III. Cardiac catheterization and echo 2005 demonstrated ejection fraction of 60% range with mild coronary disease. 5. I suspect history of heavy alcohol usage, although the patient states he only drinks two drinks per day. He has had several admissions with high alcohol levels noted in the emergency room. 6. Chronic renal failure, etiology unknown. The patient states that he was taking large doses of [id number] nonsteroidal anti-inflammatory drugs at one point in his life. 7. Obesity. 8. Thrombocytopenia. 9. History of bleeding from normal anticoagulant agent Eliquis. 10. History of paroxysmal atrial fibrillation. 11. Appropriate ICD shock. The patient appears to have had several episodes of paroxysmal atrial fibrillation with rapid ventricular response and was shocked last night. He also has a history of sinus tachycardia and may have had inappropriate shocks for sinus tachycardia in the past. The patient is currently in a sinus rhythm. RECOMMENDATIONS: 1. Will continue the patient's home medications including metoprolol. He has been on 25 milligrams twice a day although somewhere along the line this has been decreased from 50 twice a day possibly related to hypotension. 2. With a history of atrial fibrillation, ICD shocks and sinus tachycardia, will start the patient on Sotalol 80 milligrams twice a day. 3. Await results of cultures, adjust antibiotics as indicated. 4. I would recommend an echocardiogram if one has not been done. I cannot see one in the hospital records for the past ten years. CLINICAL DATA: Mr. Grace is a 81-year-old male admitted to the hospital with fever of 103. Apparently he did have some chills and some shortness of breath. In the emergency room, he was noted to have cellulitis. A chest x-ray failed to demonstrate any significant infiltrates, although there are increased interstitial markings in the right lower lung field. He has a history of cardiomyopathy. He has a history of ICD placement and a history of peripheral vascular disease. He has had a popliteal artery aneurysm. It is unclear whether he has had evaluation for an abdominal aortic aneurysm. He states that he had one heart attack. His states that this occurred when they were in [facility]. He was transferred to [place], [place] and told that he had congestive heart failure and was started on diuretic therapy. He was a heavy cigarette smoker but has quit smoking in the recent past. The patient states he was never a heavy drinker. He states he was a moderate drinker. On reviewing some old records, he did admit to four or five drinks per day and has had several elevated alcohol levels on emergency room blood testing. PAST SURGICAL HISTORY: His past surgical history includes: 1. Hip replacement. 2. Femoropopliteal bypass. 3. Umbilical hernia. 4. ICD implantation. 5. He has had a cardiac catheterization apparently most recently in 2005. 6. He apparently has a popliteal artery aneurysm which may have been repaired. MEDICATIONS: His medications at the time of admission included: 1. Ativan. 2. Prednisone weaning dose. 3. ProAir inhaler. 4. InspirEase drug delivery system with nebulizer. 5. DuoNeb inhaler. 6. Home oxygen. 7. Simvastatin 20 milligrams daily. 8. Vitamin D3. 9. Metoprolol currently on 25 twice a day, although the history and physical says he was on 50 twice a day. 10. Spironolactone 25 milligrams daily. 11. Allopurinol 100 milligrams twice a day. 12. Symbicort and Spiriva inhalers. REVIEW OF SYSTEMS: He has had no recent chest pain. He has had no syncope. He has no definite history of seizure or stroke. There is a history of COPD and emphysema noted on CT scan. There is a history of GI bleeding on Eliquis. It is unclear if he has had a diagnosis of acid peptic disease. There is apparently no history of liver disease. He does have chronic renal failure and does not know why with the exception of exposure to nonsteroidal anti-inflammatory drugs. There is no history of thyroid disease. He has had no recent chest pain. He has had fever and chills. He has chronic lower extremity edema in his legs which appears to be dependent. PHYSICAL EXAMINATION: GENERAL: His physical exam at this time demonstrates an alert oriented male sitting up in a chair. He is breathing room air. He is not tachypneic or dyspneic. VITAL SIGNS: His blood pressure is 122/75 with a heart rate of 100. HEAD, EYES, EARS, NOSE, THROAT: Anicteric sclerae. NECK: Jugular venous pressures do not appear to be elevated. LUNGS: He has scattered rhonchi and wheezes which clear posttussively. Lungs are essentially clear. CARDIAC: Regular rate and rhythm. No S3 noted. There is a 1-2/6 systolic ejection murmur. ABDOMEN: Abdomen is soft, nontender. EXTREMITIES: He has a cellulitis of the left lower extremity. He has trophic changes of chronic venous stasis. EKGS: A 12-lead EKG demonstrated sinus rhythm with interventricular conduction delay and PVCs. IMAGING STUDIES: Chest x-ray demonstrated cardiomegaly, increased markings right lower lung field, ICD in adequate position, the atrial lead has pulled back slightly. LABORATORY EVALUATION: On his admitting CBC, his white cell count was 10,900 however there was a significant left shift. Hematocrit 39%, platelet count 83,000 on admission and 97,000 today. White cell count was 10,100 today. His most recent chemistries are lytes 137, 3.9, 102, 23 with a BUN of 37, creatinine of 1.9, magnesium level was 1.8. Albumin level 2.3. DISCUSSION: This is a 81-year-old male with cardiomyopathy of unclear etiology, although I suspect it may be in part alcohol-related who was admitted to the hospital with a febrile illness and probable sepsis. Culture is pending. He has had appropriate ICD shocks however for supraventricular arrhythmias including paroxysmal atrial fibrillation / supraventricular tachycardia. RECOMMENDATIONS: As noted above. DO MELIDA Waldrop/SEGUNDO /3:13 PM /5:12 PM
[2017-03-11] MEDS: SOTALOL HCL 80 MG TAB PO SCH (21:07)
[2017-03-11] MEDS: LORazepam 0.5 MG TAB PO PRN (23:16)
[2017-03-12] VITALS (9 sets, daily range): BP systolic 112–129; BP diastolic 76–89; PULSE 60–89; RESP 18–20; TEMP 97.2–98.5; O2SAT 92–97
[2017-03-12] MEDS: RESP: ALBUTEROL 2.5 MG/IPRATROPIUM 0.5 MG NEB (SCH) NEB ×4 (08:33→19:46)
[2017-03-12] MEDS: MAGNESIUM OXIDE 400 MG TAB PO SCH (09:34)
[2017-03-12] MEDS: SPIRONOLACTONE 25 MG TAB PO SCH ×2 (09:34→21:28)
[2017-03-12] MEDS: SOTALOL HCL 80 MG TAB PO SCH ×2 (09:34→21:28)
[2017-03-12] MEDS: LACTOBACILLUS ACIDOPHILUS TAB PO SCH ×3 (09:34→17:34)
[2017-03-12] MEDS: METOPROLOL TARTRATE 25 MG TAB PO SCH ×2 (09:34→21:28)
[2017-03-12] MEDS: LEVOFLOXACIN 750 MG TAB PO SCH (09:34)
[2017-03-12] MEDS: DOCUSATE SODIUM 50 MG/SENNA 8.6 MG TAB PO SCH ×2 (09:34→21:28)
[2017-03-12] MEDS: THIAMINE HCL 100 MG TAB PO SCH (09:34)
[2017-03-12] MEDS: SODIUM CHLORIDE 0.9% FLUSH 10 ML FLUSH IV FLUSH SCH ×2 (09:37→21:28)
[2017-03-12] MEDS: ENOXAPARIN SODIUM 30 MG/0.3 ML SYRINGE SQ SCH (09:37)
[2017-03-12] MEDS: BUMETANIDE INJ 1 MG/4 ML VIAL IV PUSH SCH ×2 (09:37→17:34)
--- NOTE | 2017-03-12 10:21 | PD.ONC.PN ---
Subjective Subjective Remarks Afebrile overnight. Patient resting in bed in nad. No complaints. JUst had blood drawn prior to my entering the room. Objective Data Date Time Temp Pulse Resp B/P Pulse Ox O2 Delivery O2 Flow Rate FiO2 03/12/17 08:35 93 03/12/17 08:00 98.5 60 20 129/89 97 03/12/17 04:00 98.1 70 20 122/86 95 03/12/17 00:00 97.3 81 20 124/76 94 03/11/17 22:00 Room Air 03/11/17 20:26 114 03/11/17 20:00 94 21 03/11/17 20:00 97.1 102 20 142/58 94 03/11/17 17:21 97.1 78 118/95 94 03/11/17 12:36 97.2 81 119/76 93 03/12/17 03/12/17 03/12/17 07:00 15:00 23:00 Intake Total 480 ml Output Total 250 ml Balance 230 ml Result Diagram: 03/11/1715 03/11/1715 Culture Results Microbiology Date/Time Procedure Status Source Growth 03/09/17 21:00 Legionella Antigen - Final Complete Urine Random Urine PRESUMPTIVE NEGATIVE FOR LEGIONELLA P... 03/09/17 21:00 Streptococcus pneumoniae Antigen (M - Final Complete Urine Random Urine PRESUMPTIVE NEGATIVE FOR STREPTOCOCCU... 03/10/17 11:45 Stool Occult Blood (HENRRY) - Final Complete Stool Stool HEMOCCULT NEGATIVE Administered Medications Medications (Trade) Dose Ordered Sig/Guy Route PRN Reason Start Time Stop Time Status Last Admin Dose Admin Sodium Chloride (NS Flush) 2 ml BID IV FLUSH 03/08/17 21:00 03/12/17 09:37 Acetaminophen (Tylenol) 650 mg Q4H PRN PO headache, fever, pain 1-4 03/08/17 14:00 03/10/17 12:20 Senna/Docusate Sodium (Melanie-Colace) 1 tab BID PO 03/08/17 21:00 03/12/17 09:34 Lactobacillus Acidophilus 1 tab 1 tab TID PO 03/08/17 18:00 03/12/17 09:34 Ceftriaxone Sodium/Sodium Chloride (Rocephin Inj/NS Inj) 100 ml @ 200 mls/hr Q24H IV 03/09/17 18:00 03/11/17 17:23 Levofloxacin (Levaquin) 750 mg Q48H PO 03/12/17 09:00 03/12/17 09:34 Enoxaparin Sodium (Lovenox Inj) 30 mg Q24H SQ 03/11/17 09:00 03/12/17 09:37 Bumetanide (Bumex Inj) 2 mg BID@09,18 IV PUSH 03/11/17 18:00 03/12/17 09:37 Spironolactone (Aldactone) 25 mg BID PO 03/11/17 21:00 03/12/17 09:34 Lorazepam (Ativan) 0.5 mg HS PRN PO INSOMNIA 03/11/17 14:15 03/11/17 23:16 Metoprolol Tartrate (Lopressor) 12.5 mg Q12HR PO 03/11/17 15:00 03/12/17 09:34 Sotalol HCl (Betapace) 80 mg BID PO 03/11/17 21:00 03/12/17 09:34 Magnesium Oxide (Mag-Ox) 400 mg MoTh@09 PO 03/12/17 09:00 03/12/17 09:34 Thiamine HCl (Vitamin B1) 100 mg DAILY PO 03/11/17 15:49 03/12/17 09:34 Objective Remarks GENERAL: Pleasant elderly male supine in bed SKIN: Warm and dry. HEAD: Normocephalic. EYES: No injection or drainage. NECK: Supple, trachea midline. CARDIOVASCULAR: Regular rate and rhythm RESPIRATORY: Breath sounds equal bilaterally. No accessory muscle use. GASTROINTESTINAL: Abdomen soft, non-tender, nondistended. EXTREMITIES: No cyanosis. BLE with 2-3+ pitting edema. NEUROLOGICAL: No obvious focal deficit. Awake, alert, and oriented x3. Assessment/Plan Problem List: (1) Thrombocytopenia Status: Acute Plan: -- platelet count was normal on the last admission in late January. He also received unfractionated heparin as DVT prophylaxis at that time. -- Cytopenia unlikely due to DIC as his coags are normal. -- Possibly caused by cephalosporin use -- HIT negative. Assessment 81 y/o male admitted for SOB, hypoxia and LE edema and was found to have thrombocytopenia. Plan 1. continue low dose Lovenox 2. monitor CBC 3. follow up in clinic once discharged. fs faxed to npr. Attending Statement Discussed above. Cont Lovenox. Monitor platelets. Tiffany Gavin Mar 12, 2017 10:21 Park Allan MD Mar 12, 2017 22:04
[2017-03-12] MEDS: ACETAMINOPHEN 325 MG TAB PO PRN (10:59)
--- NOTE | 2017-03-12 11:09 | HHI.NPPN ---
Subjective General Problems: Anemia, Edema, Heart Disease, Hypertension Renal Failure: Chronic, Stage III Interval History at bedside. EKG taken he is in NSR. Minor swelling. No new concerns. Respiratory status unchanged. (Gosia Mike) Review of Systems General Constitutional: Fatigue (Gosia Mike) Respiratory Lungs: SOB (Gosia Mike) Cardiovascular Cardiac: Edema, ROGERS (Gosia Mike) Objective Data Data 03/11/17 03/12/17 19:00 07:00 Intake Total 100 ml 830 ml Output Total 1150 ml Balance 100 ml -320 ml Intake Oral 830 ml IV Total 100 ml Output Urine Total 1150 ml # Bowel Movements 1 Vital Signs Date Time Temp Pulse Resp B/P Pulse Ox O2 Delivery O2 Flow Rate FiO2 03/12/17 08:35 93 03/12/17 08:00 98.5 60 20 129/89 97 03/12/17 04:00 98.1 70 20 122/86 95 03/12/17 00:00 97.3 81 20 124/76 94 03/11/17 22:00 Room Air 03/11/17 20:26 114 03/11/17 20:00 94 21 03/11/17 20:00 97.1 102 20 142/58 94 03/11/17 17:21 97.1 78 118/95 94 03/11/17 12:36 97.2 81 119/76 93 (Gosia Mike) -: 03/11/17 0915 03/11/17 0915 Physical Exam General Appearance: Well Developed, No Acute Distress, Comfortable (Gosia Mike) Eyes Eye Exam: Pupils Equal (Gosia Mike) Throat Throat Exam: Oral Mucosa [place] & Moist (Gosia Mike) Neck Neck Exam: Neck Supple (Gosia Mike) Pulmonary Resp Exam: Breath Sounds Equal, No Distress, Crackles, Decreased Bases, Diminished Breath Sounds (Gosia Mike) Cardiology CV Exam: Regular, Normal Sinus Rhythm, Good Perfusion (Gosia Mike) Gastrointestinal/Abdomen GI Exam: Soft, Non-Tender, Bowel Sounds Present (Gosia Mike) Musculoskeletal MS Exam: Joints Intact, Normal Tone (Gosia Mike) Extremeties Extremities Exam: Pedal Pulses Palpable, Moderate Edema (Gosia Mike) Neurologic Neuro Exam: Alert, Awake, Oriented, Speech Clear, Moving All Extremities ( Gosia Mike) Psychiatric Psych Exam: Appropriate Responses (Gosia Mike) Assessment/Plan Discussed Condition With: Patient, Spouse Assessment Summary: Hypertension, CKD Stage III Problem List: (1) Chronic kidney disease, stage 3 Plan: His renal function is at baseline, with GFR normally in 30s. CKD likely due to nephrosclerosis no acute electrolyte concerns repeat renal penal in AM diuresing well, on Bumex 2 mg BID and Aldactone 25mg BID; also on doxazosin avoid nephrotoxic substances, avoid IVF the has informed me there is a discussion about cardiac catheterization possibly this admission (2) Shortness of breath Plan: Hx CHF, COPD; on oxygen chest xray negative; CT chest negative continue nebulizers pulmonary and ID following; on Levaquin to cover pneumonia (3) Cellulitis Plan: being treated for left leg cellulitis on Rocephin (4) Edema Plan: continue diuretics as ordered follow urine output, fluid volume status (5) Hypertension Plan: continue ordered medications follow blood pressure (6) Anemia Plan: Hb stable and at baseline monitor for changes (7) Thrombocytopenia Plan: hematology following thought to be medication related no reports of bleeding follow CBC (Gosia Mike) Plan patient was seen and examined. Renal function is stable. Clinically he feels better. (Uli Light MD) Problem Qualifiers (1) Cellulitis: Qualified Code: L03.116 - Cellulitis of left lower extremity Gosia Mike Mar 12, 2017 11:09 Uli Light MD Mar 13, 2017 11:38
[2017-03-12 11:31] LABS: BASOPHIL % 0.1 % (0.0-2.0); HEMATOCRIT 32.6 % (39.0-51.0); HEMO FLAGS DIFF FINAL; LYMPH % 3.8 % (9.0-44.0); LYMPHOCYTE # 0.4 TH/MM3 (1.0-4.8); MEAN CELL VOLUME 91.3 FL (80.0-100.0); MEAN CORPUSCULAR HEMOGLOBIN 30.1 PG (27.0-34.0); MEAN CORPUSCULAR HGB CONC 32.9 % (32.0-36.0); MONO % 5.9 % (0.0-8.0); NEUT % 90.2 % (16.0-70.0); PLATELET COUNT 116 TH/MM3 (150-450); RED BLOOD COUNT 3.57 MIL/MM3 (4.50-5.90); RED CELL DISTRIBUTION WIDTH 17.5 % (11.6-17.2); WHITE BLOOD COUNT 9.9 TH/MM3 (4.0-11.0)
[2017-03-12 11:42] LABS: APTT (PATIENT) 24.9 SEC (24.3-30.1)
[2017-03-12] MEDS ORDERED: METOLAZONE 2.5 MG TAB PO ONE (12:45)
--- NOTE | 2017-03-12 13:59 | HHI.PR ---
Subjective Remarks This is a pleasant 81 y/o Male with CAD, CHF, COPD, on Oxygen 2L at HS, MILY came to ER with dyspnea, Febrile and confused chronic lower extremity edema. with diagnosis of Cellulitis of Left lower extremity and Pneumonia. Sepsis on admission, followed by ID specialist, recommended to continue Levaquin, Started on Ceftriaxone, Discontinued Vancomycin, Consulted orientation and mobility specialist due to Thrombocytopenia in a patient on Heparin and Multiple antibiotics, questionable HIT, Avoid Zyvox due to low platelets. Seen in his bedroom in the presence of his and seen already by orientation and mobility specialist with Diagnosis of Thrombocytopenia His platelet count was normal on the last admission in late January, cytopenia probable caused by Cephalosporin, recommended to continue Argatroban, await result for HIT 03/11: Seen in her bedroom in the presence of his , discussed with nurse Miss Grissom the patient has two episodes of firing from his Defibrillator, that was Interrogated and found Bigeminy and PVCs. no need changes at this time as per clinical dental technician. patient stable no other complaint, asked for Ativan at bed time placed for low dose Ativan if Insomnia. 03/12: Stable in his bedroom, discussed with ID specialist doctor Nicole she will switch to by mouth antibiotics probable Levaquin and if Improving probable will Clear tomorrow, at this time in sitting position and no complaint, no nausea, vomit or diarrhea. Objective Vital Signs Date Time Temp Pulse Resp B/P Pulse Ox O2 Delivery O2 Flow Rate FiO2 03/12/17 12:00 97.6 79 18 127/84 96 03/12/17 08:35 93 03/12/17 08:00 98.5 60 20 129/89 97 03/12/17 04:00 98.1 70 20 122/86 95 03/12/17 00:00 97.3 81 20 124/76 94 03/11/17 22:00 Room Air 03/11/17 20:26 114 03/11/17 20:00 94 21 03/11/17 20:00 97.1 102 20 142/58 94 03/11/17 17:21 97.1 78 118/95 94 I/O 03/11/17 03/11/17 03/11/17 03/12/17 03/12/17 03/12/17 07:00 15:00 23:00 07:00 15:00 23:00 Intake Total 90 ml 100 ml 350 ml 480 ml Output Total 0 ml 900 ml 250 ml Balance 90 ml 100 ml -550 ml 230 ml Intake Oral 0 ml 350 ml 480 ml IV Total 90 ml 100 ml Output Urine Total 0 ml 900 ml 250 ml # Bowel Movements 1 Result Diagram: 03/12/17 0958 03/11/17 0915 Imaging Last Impressions Chest CT 03/09/17 0000 Signed Impressions: Service Date/Time: Thursday, March 09, 2017 09:21 - CONCLUSION: 1. 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 2. Subsegmental airspace disease left lower lobe. 3. AICD Agapito Keys MD Chest X-Ray 03/08/17 1149 Signed Impressions: Service Date/Time: February 11:57 - CONCLUSION: No acute disease Rusty Mccurdy MD Procedures None Other Results Laboratory Tests Test 03/08/17 03/08/17 03/08/17 03/08/17 12:00 12:02 15:35 15:40 Differential Total Cells 100 Counted Neutrophils % (Manual) 95 % Lymphocytes % 2 % Monocytes % 2 % Neutrophils # (Manual) 10.5 TH/MM3 Myelocytes 1 % Red Cell Morphology Comment NORMAL Total Bilirubin 0.9 MG/DL Aspartate Amino Transf 18 U/L (AST/SGOT) Alanine Aminotransferase 37 U/L (ALT/SGPT) Alkaline Phosphatase 70 U/L Total Creatine Kinase 14 U/L C-Reactive Protein 4.60 MG/DL Total Protein 6.4 GM/DL Lipase 195 U/L Blood Gas Puncture Site RT RADIAL Blood Gas Patient Temperature 98.6 Blood Gas HCO3 22 mmol/L Blood Gas Base Excess -1.0 mmol/L Blood Gas Oxygen Saturation 86 % Arterial Blood pH 7.50 Arterial Blood Partial 29 mmHg Pressure CO2 Arterial Blood Partial 52 mmHG Pressure O2 Arterial Blood Oxygen Content 14.4 Vol % Arterial Blood 1.9 % Carboxyhemoglobin Arterial Blood Methemoglobin 0.7 % Blood Gas Hemoglobin 11.9 G/DL Oxygen Delivery Device ROOM AIR Blood Gas Inspired Oxygen 21 % Urine Color YELLOW Urine Turbidity CLEAR Urine pH 6.5 Urine Specific [place] 1.019 Urine Protein TRACE mg/dL Urine Glucose (UA) NEG mg/dL Urine Ketones NEG mg/dL Urine Occult Blood NEG Urine Nitrite NEG Urine Bilirubin NEG Urine Urobilinogen LESS THAN 2.0 MG/DL Urine Leukocyte Esterase NEG Urine RBC 1 /hpf Urine WBC 1 /hpf Microscopic Urinalysis Comment CATH-CULT NOT IND Lactic Acid Level 1.8 mmol/L Test 03/09/17 03/10/17 03/10/17 03/11/17 21:50 02:54 23:35 09:15 Prothrombin Time 10.4 SEC Prothromb Time International 0.9 RATIO Ratio Fibrinogen 569 mg/dL Heparin-Induced Platelet Ab NEGATIVE (Rebekah) HIPA Patient Optical Density 0.044 O.D. Blood Smear Pathologist Review Reticulocyte Count 1.5 % Absolute Reticulocyte Count 49.8 MIL/L Phosphorus Level 3.8 MG/DL Lactate Dehydrogenase 221 U/L Albumin 2.3 GM/DL Blood Type O POSITIVE Direct Antiglobulin Test NEGATIVE (Harrison) Magnesium Level 1.8 MG/DL Troponin I 0.04 NG/ML B-Type Natriuretic Peptide 114 PG/ML Platelet Estimate LOW Platelet Morphology Comment NORMAL Sodium Level 137 MEQ/L Potassium Level 3.9 MEQ/L Chloride Level 102 MEQ/L Carbon Dioxide Level 23.3 MEQ/L Anion Gap 12 MEQ/L Blood Urea Nitrogen 37 MG/DL Creatinine 1.86 MG/DL Estimat Glomerular Filtration 35 ML/MIN Rate Random Glucose 126 MG/DL Calcium Level 8.6 MG/DL Test 03/12/17 09:58 White Blood Count 9.9 TH/MM3 Red Blood Count 3.57 MIL/MM3 Hemoglobin 10.7 GM/DL Hematocrit 32.6 % Mean Corpuscular Volume 91.3 FL Mean Corpuscular Hemoglobin 30.1 PG Mean Corpuscular Hemoglobin 32.9 % Concent Red Cell Distribution Width 17.5 % Platelet Count 116 TH/MM3 Mean Platelet Volume 9.0 FL Neutrophils (%) (Auto) 90.2 % Lymphocytes (%) (Auto) 3.8 % Monocytes (%) (Auto) 5.9 % Eosinophils (%) (Auto) 0.0 % Basophils (%) (Auto) 0.1 % Neutrophils # (Auto) 9.0 TH/MM3 Lymphocytes # (Auto) 0.4 TH/MM3 Monocytes # (Auto) 0.6 TH/MM3 Eosinophils # (Auto) 0.0 TH/MM3 Basophils # (Auto) 0.0 TH/MM3 CBC Comment DIFF FINAL Differential Comment Activated Partial 24.9 SEC Thromboplast Time Objective Remarks GENERAL: Alert, NAD. SKIN: Warm and dry. HEAD: Normocephalic. EYES: No scleral icterus. No injection or drainage. NECK: Supple, trachea midline. No JVD or lymphadenopathy. CARDIOVASCULAR: Regular rate and rhythm without murmurs, gallops, or rubs. RESPIRATORY: Breath sounds equal bilaterally. No accessory muscle use. GASTROINTESTINAL: Abdomen soft, non-tender, nondistended. MUSCULOSKELETAL: No cyanosis, Edema 3+, Left lower ext erythema with skin ulceration. BACK: Nontender without obvious deformity. No CVA tenderness. Medications and IVs Current Medications Medications (Trade) Dose Ordered Sig/Guy Route Start Time Stop Time Status Last Admin (NS Flush) 2 ml UNSCH PRN IV FLUSH 03/08/17 14:00 (NS Flush) 2 ml BID IV FLUSH 03/08/17 21:00 03/12/17 09:37 (Tylenol) 650 mg Q4H PRN PO 03/08/17 14:00 03/12/17 10:59 (Zofran Inj) 4 mg Q6H PRN IVP 03/08/17 14:00 (Narcan Inj) 0.4 mg UNSCH PRN IV 03/08/17 14:00 (Melanie-Colace) 1 tab BID PO 03/08/17 21:00 03/12/17 09:34 (Milk Of Magnesia Liq) 30 ml Q12H PRN PO 03/08/17 14:00 (Senokot) 17.2 mg Q12H PRN PO 03/08/17 14:00 (Dulcolax Supp) 10 mg DAILY PRN RECTAL 03/08/17 14:00 (Lactulose Liq) 30 ml DAILY PRN PO 03/08/17 14:00 Lactobacillus Acidophilus 1 tab 1 tab TID PO 03/08/17 18:00 03/12/17 12:04 (Rocephin Inj/NS Inj) 100 ml @ 200 mls/hr Q24H IV 03/09/17 18:00 03/11/17 17:23 (Levaquin) 750 mg Q48H PO 03/12/17 09:00 03/12/17 09:34 (Lovenox Inj) 30 mg Q24H SQ 03/11/17 09:00 03/12/17 09:37 (Bumex Inj) 2 mg BID@,18 IV PUSH 03/11/17 18:00 03/12/17 09:37 (Aldactone) 25 mg BID PO 03/11/17 21:00 03/12/17 09:34 (Ativan) 0.5 mg HS PRN PO 03/11/17 14:15 03/11/17 23:16 (Lopressor) 12.5 mg Q12HR PO 03/11/17 15:00 03/12/17 09:34 (Betapace) 80 mg BID PO 03/11/17 21:00 03/12/17 09:34 (Mag-Ox) 400 mg MoTh@09 PO 03/12/17 09:00 03/12/17 09:34 (Vitamin B1) 100 mg DAILY PO 03/11/17 15:49 03/12/17 09:34 (Symbicort 160-4.5 Inh) 1 puff Q12HR INH 03/12/17 21:00 A/P Assessment and Plan 81 y/o male with a history of CAD, CHF, COPD 2L at HS, sleep apnea and MILY presented to the ED with complaints of increased dyspnea. Acute respiratory failure, now requiring O2 2L during the day Chest xray reviewed and unremarkable -Cont O2 via NC to keep O2 sat > 90%. -Consulted pulmonology -CT chest showed emphysema and left sided airspace disease. -Started Levaquin and Vancomycin. Consulted ID - abx changed to Levaquin and Ceftriaxone. -Duonebs as needed for dyspnea, today as per ID specialist will switch to by mouth Levaquin and if continue Improving will clear in am tomorrow. Obesity strongly recommended diet and exercise as outpatient. Cellulitis, Left lower extremity, history of Levaquin use multiple times in the last few months, Improving. - Given patient's overall deconditioning, no improvement since admission, we will consult ID for Pneumonia and left lower ext cellulitis. - Per ID, will switch to Levaquin by mouth only and if continue Improving okay to discharge home. CKD, stage 4, creatine 2.0, at baseline. Improved creatinine 1.68 today. -Avoid nephrotoxins - Nephrology following. Thrombocytopenia - Possibly related to medications. - Hematology consulted and did not found HIT Argatroban removed. Defibrillator firing status post [facility] [place] Interrogated device and did not found malfunction no changes recommended needs to re start his Beta Meño Metoprolol at 12.5 mg BID. Discussed with patient and ID specialist doctor Bonnie I had the Pleasure to talk today with Infectious Disease Specialist Doctor Ayse Nicole input and recommendations Highly appreciated. Code status DNR. Heparin SQ Discharge Planning Once cleared by specialists. Sudhakar Reyes MD Mar 12, 2017 13:59
--- NOTE | 2017-03-12 14:12 | PD.CARD.PN ---
Subjective Subjective Remarks Less SOB today. Has BLE edema. No chest pain. (Veronica Gamboa) Objective Medications Current Medications Medications (Trade) Dose Ordered Sig/Guy Route Start Time Stop Time Status Last Admin (NS Flush) 2 ml UNSCH PRN IV FLUSH 03/08/17 14:00 (NS Flush) 2 ml BID IV FLUSH 03/08/17 21:00 03/12/17 09:37 (Tylenol) 650 mg Q4H PRN PO 03/08/17 14:00 03/12/17 10:59 (Zofran Inj) 4 mg Q6H PRN IVP 03/08/17 14:00 (Narcan Inj) 0.4 mg UNSCH PRN IV 03/08/17 14:00 (Melanie-Colace) 1 tab BID PO 03/08/17 21:00 03/12/17 09:34 (Milk Of Magnesia Liq) 30 ml Q12H PRN PO 03/08/17 14:00 (Senokot) 17.2 mg Q12H PRN PO 03/08/17 14:00 (Dulcolax Supp) 10 mg DAILY PRN RECTAL 03/08/17 14:00 (Lactulose Liq) 30 ml DAILY PRN PO 03/08/17 14:00 Lactobacillus Acidophilus 1 tab 1 tab TID PO 03/08/17 18:00 03/12/17 12:04 (Rocephin Inj/NS Inj) 100 ml @ 200 mls/hr Q24H IV 03/09/17 18:00 03/11/17 17:23 (Levaquin) 750 mg Q48H PO 03/12/17 09:00 03/12/17 09:34 (Lovenox Inj) 30 mg Q24H SQ 03/11/17 09:00 03/12/17 09:37 (Bumex Inj) 2 mg BID@09,18 IV PUSH 03/11/17 18:00 03/12/17 09:37 (Aldactone) 25 mg BID PO 03/11/17 21:00 03/12/17 09:34 (Ativan) 0.5 mg HS PRN PO 03/11/17 14:15 03/11/17 23:16 (Lopressor) 12.5 mg Q12HR PO 03/11/17 15:00 03/12/17 09:34 (Betapace) 80 mg BID PO 03/11/17 21:00 03/12/17 09:34 (Mag-Ox) 400 mg MoTh@09 PO 03/12/17 09:00 03/12/17 09:34 (Vitamin B1) 100 mg DAILY PO 03/11/17 15:49 03/12/17 09:34 (Symbicort 160-4.5 Inh) 1 puff Q12HR INH 03/12/17 21:00 Vital Signs / I&O Vital Signs Date Time Temp Pulse Resp B/P Pulse Ox O2 Delivery O2 Flow Rate FiO2 03/12/17 12:00 97.6 79 18 127/84 96 03/12/17 08:35 93 03/12/17 08:00 98.5 60 20 129/89 97 03/12/17 04:00 98.1 70 20 122/86 95 03/12/17 00:00 97.3 81 20 124/76 94 03/11/17 22:00 Room Air 03/11/17 20:26 114 03/11/17 20:00 94 21 03/11/17 20:00 97.1 102 20 142/58 94 03/11/17 17:21 97.1 78 118/95 94 I/O 03/11/17 03/11/17 03/11/17 03/12/17 03/12/17 03/12/17 07:00 15:00 23:00 07:00 15:00 23:00 Intake Total 90 ml 100 ml 350 ml 480 ml Output Total 0 ml 900 ml 250 ml Balance 90 ml 100 ml -550 ml 230 ml Intake Oral 0 ml 350 ml 480 ml IV Total 90 ml 100 ml Output Urine Total 0 ml 900 ml 250 ml # Bowel Movements 1 Physical Exam GENERAL: Elderly, obese male SKIN: Warm and dry. HEAD: Normocephalic. EYES: No scleral icterus. No injection or drainage. NECK: Supple, trachea midline. CARDIOVASCULAR: Regular rate and rhythm without murmurs, gallops, or rubs. ICD RESPIRATORY: Breath sounds equal bilaterally. Diminished bases GASTROINTESTINAL: Abdomen soft, non-tender, nondistended. MUSCULOSKELETAL: No cyanosis,3 + BLE with erythema BACK: Nontender without obvious deformity. No CVA tenderness. Laboratory Laboratory Tests Test 03/12/17 09:58 White Blood Count 9.9 TH/MM3 Red Blood Count 3.57 MIL/MM3 Hemoglobin 10.7 GM/DL Hematocrit 32.6 % Mean Corpuscular Volume 91.3 FL Mean Corpuscular Hemoglobin 30.1 PG Mean Corpuscular Hemoglobin 32.9 % Concent Red Cell Distribution Width 17.5 % Platelet Count 116 TH/MM3 Mean Platelet Volume 9.0 FL Neutrophils (%) (Auto) 90.2 % Lymphocytes (%) (Auto) 3.8 % Monocytes (%) (Auto) 5.9 % Eosinophils (%) (Auto) 0.0 % Basophils (%) (Auto) 0.1 % Neutrophils # (Auto) 9.0 TH/MM3 Lymphocytes # (Auto) 0.4 TH/MM3 Monocytes # (Auto) 0.6 TH/MM3 Eosinophils # (Auto) 0.0 TH/MM3 Basophils # (Auto) 0.0 TH/MM3 CBC Comment DIFF FINAL Differential Comment Activated Partial 24.9 SEC Thromboplast Time (Veronica Gamboa) Assessment and Plan Assessment and Plan Multiple admissions for SOB- CT chest suggestive of LLL pneumonia. BNP only slightly elevated. Pending cardiac echo. ABG respiratory alkalosis. The patient had a cardiac PET scan 01/2016. Apparently, the patient had a CTA to exclude PE another hospital for similar symptoms. The patient has a history of DVT. 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 Eliquis stopped due to suspected GI bleed. 01/2017 BLE doppler negative for PE PLAN: Increase treatment rates on ICD Sotalol started Continue ABX for pneumonia Continue diuresis with careful monitoring of renal function Patient seen and evaluated by Dr Simental who completed a face to face encounter , completed physical exam and participated in the evaluation and management LATE ENTRY. PATIENT SEEN AND EVALUATED AT 0930 (Veronica Gamboa) Assessment and Plan The exam, history, and the medical decision-making described in the above note were completed with the assistance of the mid-level provider. I reviewed and agree with the findings presented. I attest that I had a [id number] encounter with the patient on the same day, and personally performed and documented my assessment and findings in the medical record. Doing a little better.hj (Kirsten Simental MD) Veronica Gamboa Mar 12, 2017 14:12 Kirsten Simental MD Mar 15, 2017 15:18
--- NOTE | 2017-03-12 16:36 | EKG ---
Date Performed: 03/12/2017 Time Performed: 10:51:39 PTAGE: 81 years EKG: Sinus rhythm LOW QRS VOLTAGE IN PRECORDIAL LEADS BORDERLINE ECG PREVIOUS TRACING : 03/08/2017 11.53 Since previous tracing, no significant change noted DOCTOR: Kirsten Simental Interpretating Date/Time 03/12/2017 16:34:14
--- NOTE | 2017-03-12 17:28 | HHI.IDPN ---
Subjective Subjective Remarks Ms. Grace is a 81 y/o CF with PMHx of COPD moderate severity, CAD (sees ), CHF, Ventricular arrhythmias s/p defibrillator, PAD, MILY, Chronic venous insufficiency, CRF stage III (per steve Nephro team). She needs provided most of the history and reports that patient has had at least 4 or 5 admissions this year due to respiratory issues. Patient has been diagnosed with pneumonia, exacerbation of COPD and sepsis on several of these occasions. Patient was seeing Dr. mason in follow-up after his hospitalizations and was in respiratory distress with a temperature of 103, obvious significant edema and so therefore was sent to the emergency room for readmission. His arterial blood gases on room air: his pO2 was 52 with a pH 7.5, pCO2 was 29 on room air. During hospitalization patient has been treated for both cellulitis and pneumonia since admission and has received multiple antibiotics ( Levaquin, Doxy, Vanco IV. Of note I did place order for Zyvox but patient has not received any doses and Zyvox order was cancelled by me. Of note patient had normal platelets in his end of January admission but now has platelets in 80s. The patients reports blisters with fluid that now bust spontaneously. Blood cultures and Flu antigen are negative. ID is consulted for evaluation and management of cellulitis and pneumonia. Hospital course patient reports ongoing shortness of breath and need for oxygen although he is not on oxygen at home. Patient denies any cough with expectoration but does report some chest discomfort. Patient's reports that overall his pedal edema has now remarkably improved but the area of erythema lore about the same. Patient had a CT of his chest which revealed minimal density at the left posterior base probable scarring versus pneumonia. Overnight events reviewed. No fever No rash No diarrhea Complains of wheezing and difficulty breathing. Was in good mood. 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 We had a good discussion about vaccine preventable diseases. He was happy and smiling when we discussed the stories and anecdotes we shared. Antibiotics Ceftriaxone IV Levaquin Lines Line sites with no e.o infection Past Medical History reviewed. Allergies: Coded Allergies: Heparin (Verified Allergy, Severe, 03/10/17) HIT Objective . Vital Signs Date Time Temp Pulse Resp B/P Pulse Ox O2 Delivery O2 Flow Rate FiO2 03/12/17 12:00 97.6 79 18 127/84 96 03/12/17 08:35 93 03/12/17 08:00 98.5 60 20 129/89 97 03/12/17 08:00 93 Room Air 03/12/17 08:00 67 03/12/17 04:00 98.1 70 20 122/86 95 03/12/17 00:00 97.3 81 20 124/76 94 03/11/17 22:00 Room Air 03/11/17 20:26 114 03/11/17 20:00 94 21 03/11/17 20:00 97.1 102 20 142/58 94 03/11/17 03/11/17 03/12/17 15:00 23:00 07:00 Intake Total 100 ml 350 ml 480 ml Output Total 900 ml 250 ml Balance 100 ml -550 ml 230 ml Intake Oral 350 ml 480 ml IV Total 100 ml Output Urine Total 900 ml 250 ml # Bowel Movements 1 . Laboratory Tests Test 03/11/17 03/12/17 09:15 09:58 White Blood Count 10.1 TH/MM3 9.9 TH/MM3 Red Blood Count 3.63 MIL/MM3 3.57 MIL/MM3 Hemoglobin 11.0 GM/DL 10.7 GM/DL Hematocrit 33.1 % 32.6 % Mean Corpuscular Volume 91.2 FL 91.3 FL Mean Corpuscular Hemoglobin 30.4 PG 30.1 PG Mean Corpuscular Hemoglobin 33.4 % 32.9 % Concent Red Cell Distribution Width 17.4 % 17.5 % Platelet Count 97 TH/MM3 116 TH/MM3 Mean Platelet Volume 9.4 FL 9.0 FL Neutrophils (%) (Auto) 92.1 % 90.2 % Lymphocytes (%) (Auto) 2.9 % 3.8 % Monocytes (%) (Auto) 4.8 % 5.9 % Eosinophils (%) (Auto) 0.1 % 0.0 % Basophils (%) (Auto) 0.1 % 0.1 % Neutrophils # (Auto) 9.3 TH/MM3 9.0 TH/MM3 Lymphocytes # (Auto) 0.3 TH/MM3 0.4 TH/MM3 Monocytes # (Auto) 0.5 TH/MM3 0.6 TH/MM3 Eosinophils # (Auto) 0.0 TH/MM3 0.0 TH/MM3 Basophils # (Auto) 0.0 TH/MM3 0.0 TH/MM3 CBC Comment AUTO DIFF DIFF FINAL Differential Comment AUTO DIFF CONFIRMED Platelet Estimate LOW Platelet Morphology Comment NORMAL Laboratory Tests Test 03/10/17 03/11/17 23:35 09:15 Sodium Level 138 MEQ/L 137 MEQ/L Potassium Level 3.9 MEQ/L 3.9 MEQ/L Chloride Level 101 MEQ/L 102 MEQ/L Carbon Dioxide Level 25.7 MEQ/L 23.3 MEQ/L Anion Gap 11 MEQ/L 12 MEQ/L Blood Urea Nitrogen 40 MG/DL 37 MG/DL Creatinine 2.07 MG/DL 1.86 MG/DL Estimat Glomerular Filtration 31 ML/MIN 35 ML/MIN Rate Random Glucose 168 MG/DL 126 MG/DL Calcium Level 8.3 MG/DL 8.6 MG/DL Magnesium Level 1.8 MG/DL Troponin I 0.04 NG/ML B-Type Natriuretic Peptide 114 PG/ML Microbiology Date/Time Procedure Status Source Growth 03/09/17 21:00 Legionella Antigen - Final Complete Urine Random Urine PRESUMPTIVE NEGATIVE FOR LEGIONELLA P... 03/09/17 21:00 Streptococcus pneumoniae Antigen (M - Final Complete Urine Random Urine PRESUMPTIVE NEGATIVE FOR STREPTOCOCCU... 03/10/17 11:45 Stool Occult Blood (HENRRY) - Final Complete Stool Stool HEMOCCULT NEGATIVE Imaging Last Impressions Chest CT 03/09/17 0000 Signed Impressions: Service Date/Time: Thursday, March 09, 2017 09:21 - CONCLUSION: 1. 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 2. Subsegmental airspace disease left lower lobe. 3. AICD Agapito Keys MD Chest X-Ray 03/08/17 1149 Signed Impressions: Service Date/Time: February 11:57 - CONCLUSION: No acute disease Rusty Mccurdy MD Physical Exam GENERAL: [place] P[place] face, Obese, Large neck, Pt in mild respiratory distress. SKIN: No rashes, ecchymoses or lesions. Cool and dry. Dry oral mucosa. HEAD: Atraumatic. Normocephalic. No temporal or scalp tenderness. EYES: Pupils equal round and reactive. Extraocular motions intact. No scleral icterus. No injection or drainage. ENT: Nose without bleeding, purulent drainage or septal hematoma. Throat without erythema, tonsillar hypertrophy or exudate. Uvula midline. Airway patent. NECK: Trachea midline. Supple, nontender, no meningeal signs. CARDIOVASCULAR: HS audible. Defib site ok. RESPIRATORY: Bilateral occ wheezes. Breath sounds equal bilaterally but decreased in bases L > R GASTROINTESTINAL: Abdomen soft, non-tender, nondistended. Obese. MUSCULOSKELETAL: Pedal edema pitting bilaterally noted much increased since days before. Left silva of tibia with area of busted blisters. Erythema and induration noted. NEUROLOGICAL: Awake and alert.Grossly non focal Psych: appears anxious. IV line sites with no e.o infection. Assessment & Plan Remarks Sepsis present on admission (fever 103, chills, elevated lactic acid, source: pneumonia, cellulitis) Pneumonia (likely atypical or CAP) Left LE cellulitis Acute resp failure CKD stage III PAD, Chronic venous insufficiency CAD, CHF, Venous arrhythmias s/p AICD/defib Recs Continue Levaquin (monitor QT interval) Continue Ceftriaxone IV (covers CAP and also strep in cellulitis) Avoid nephrotoxins per steve Nephro team Appreciate Hematology recs. Avoid Zyvox due to low platelets. I think most of 's problems are fluid overload related at this point. He needs diuresis. Follow cultures Follow clinically Will steve Rasmussen Pulmonology if Palliative care would be appropriate to discuss goals of care. Pt well known to him and may be more amenable to discussion with him involved. Ayse Nicole MD Mar 12, 2017 17:28
[2017-03-12] MEDS: cefTRIAXone INJ 2,000 MG in SODIUM CHLORIDE 0.9% INJ 100 ML IV SCH (17:34)
--- NOTE | 2017-03-12 19:54 | ECHRPT ---
Indication: chf pulmonary htn CONCLUSIONS Normal left ventricular size. Wall thickness is normal. The left ventricular systolic function is mildly reduced with an estimated ejection fraction of 45%. Mild mitral valve regurgitation. Aortic valve sclerosis is present. BP: 119 / 76 HR: 81 Rhythm: MEASUREMENTS (Male / Female) Normal Values Technical Quality:Technically difficult study 2D ECHO LV Diastolic Diameter PLAX 5.5 cm 4.2 - 5.9 / 3.9 - 5.3 cm LV Systolic Diameter PLAX 4.5 cm IVS Diastolic Thickness 1.2 cm 0.6 - 1.0 / 0.6 - 0.9 cm LVPW Diastolic Thickness 0.9 cm 0.6 - 1.0 / 0.6 - 0.9 cm LV Relative Wall Thickness 0.4 M-MODE Aortic Root Diameter MM 4.0 cm AV Cusp Separation MM 2.1 cm DOPPLER Mitral E Point Velocity 62.2 cm/s Mitral A Point Velocity 93.3 cm/s Mitral E to A Ratio 0.7 TR Peak Velocity 186.0 cm/s TR Peak Gradient 13.8 mmHg FINDINGS LEFT VENTRICLE Normal left ventricular size. Wall thickness is normal. . RIGHT VENTRICLE Normal right ventricular size and systolic function. LEFT ATRIUM The left atrial size is normal. RIGHT ATRIUM The right atrial size is normal. ATRIAL SEPTUM Normal atrial septal thickness without atrial level shunting by limited color doppler interrogation. AORTA The aortic root and proximal ascending aorta are normal in size on limited imaging. MITRAL VALVE Mild mitral valve regurgitation. AORTIC VALVE Aortic valve sclerosis is present. TRICUSPID VALVE Structurally normal tricuspid valve. No tricuspid valve stenosis or regurgitation. PULMONARY VALVE The pulmonary valve is not well visualized. VESSELS The inferior vena cava is normal in size. PERICARDIUM No pericardial effusion. Jeffery Butt MD, FACC (Electronically Signed) Final Date:12 March 2017 19:52
[2017-03-12] MEDS: BUDESONIDE-FORMOTEROL 160/4.5 MCG INHALER INH SCH (21:00)
[2017-03-12] MEDS: LORazepam 0.5 MG TAB PO PRN (22:51)
[2017-03-13] VITALS (8 sets, daily range): BP systolic 95–126; BP diastolic 58–79; PULSE 65–87; RESP 18–22; TEMP 96.3–97.6; O2SAT 92–98
[2017-03-13] MEDS: SOTALOL HCL 80 MG TAB PO SCH (08:30)
[2017-03-13] MEDS: SPIRONOLACTONE 25 MG TAB PO SCH ×2 (08:30→21:09)
[2017-03-13] MEDS: BUMETANIDE INJ 1 MG/4 ML VIAL IV PUSH SCH (08:30)
[2017-03-13] MEDS: THIAMINE HCL 100 MG TAB PO SCH (08:30)
[2017-03-13] MEDS: METOPROLOL TARTRATE 25 MG TAB PO SCH ×2 (08:31→21:09)
[2017-03-13] MEDS: DOCUSATE SODIUM 50 MG/SENNA 8.6 MG TAB PO SCH ×2 (08:31→21:09)
[2017-03-13] MEDS: ENOXAPARIN SODIUM 30 MG/0.3 ML SYRINGE SQ SCH (08:31)
[2017-03-13] MEDS: BUDESONIDE-FORMOTEROL 160/4.5 MCG INHALER INH SCH ×2 (08:32→21:10)
[2017-03-13] MEDS: LACTOBACILLUS ACIDOPHILUS TAB PO SCH ×3 (08:32→16:36)
[2017-03-13] MEDS: SODIUM CHLORIDE 0.9% FLUSH 10 ML FLUSH IV FLUSH SCH ×2 (08:32→21:10)
[2017-03-13] MEDS: RESP: ALBUTEROL 2.5 MG/IPRATROPIUM 0.5 MG NEB (SCH) NEB ×4 (08:32→20:24)
[2017-03-13 09:31] LABS: AUTOMATED NEUTROPHIL # 6.1 TH/MM3 (1.8-7.7); BASOPHIL % 0.1 % (0.0-2.0); EOSINOPHIL # 0.1 TH/MM3 (0-0.4); EOSINOPHIL % 1.7 % (0.0-4.0); HEMATOCRIT 36.1 % (39.0-51.0); HEMO FLAGS DIFF FINAL; LYMPHOCYTE # 0.6 TH/MM3 (1.0-4.8); MEAN CELL VOLUME 92.1 FL (80.0-100.0); MEAN CORPUSCULAR HEMOGLOBIN 29.7 PG (27.0-34.0); MEAN CORPUSCULAR HGB CONC 32.3 % (32.0-36.0); MONO % 7.6 % (0.0-8.0); NEUT % 82.6 % (16.0-70.0); PLATELET COUNT 126 TH/MM3 (150-450); RED BLOOD COUNT 3.92 MIL/MM3 (4.50-5.90); RED CELL DISTRIBUTION WIDTH 17.7 % (11.6-17.2); WHITE BLOOD COUNT 7.4 TH/MM3 (4.0-11.0)
[2017-03-13 09:39] LABS: APTT (PATIENT) 23.8 SEC (24.3-30.1)
[2017-03-13 10:00] LABS: BICARBONATE 27.3 MEQ/L (21.0-32.0); POTASSIUM 3.5 MEQ/L (3.5-5.1)
--- NOTE | 2017-03-13 10:49 | PD.ONC.PN ---
Subjective Subjective Remarks Afebrile overnight. Patient resting in room. Somewhat dyspneic. received breathing treatment this morning. no bleeding. Objective Data Date Time Temp Pulse Resp B/P Pulse Ox O2 Delivery O2 Flow Rate FiO2 03/13/17 08:36 95 2.00 03/13/17 08:00 97.5 67 22 123/79 93 03/13/17 07:15 Room Air 2.00 21 03/13/17 04:00 Room Air 03/13/17 04:00 97.5 65 18 118/58 96 03/13/17 00:00 96.3 81 18 95/61 96 03/13/17 00:00 Room Air 03/12/17 20:00 97.2 68 18 112/83 94 03/12/17 20:00 Room Air 03/12/17 19:49 89 03/12/17 19:46 92 Nasal Cannula 3.00 03/12/17 16:00 97.5 77 18 125/83 94 03/12/17 12:00 97.6 79 18 127/84 96 03/13/17 03/13/17 03/13/17 06:59 14:59 22:59 Output Total 450 ml Balance -450 ml Result Diagram: 03/13/17 0845 03/13/17 0845 Laboratory Results Laboratory Tests Test 03/13/17 08:45 White Blood Count 7.4 TH/MM3 Red Blood Count 3.92 MIL/MM3 Hemoglobin 11.7 GM/DL Hematocrit 36.1 % Mean Corpuscular Volume 92.1 FL Mean Corpuscular Hemoglobin 29.7 PG Mean Corpuscular Hemoglobin 32.3 % Concent Red Cell Distribution Width 17.7 % Platelet Count 126 TH/MM3 Mean Platelet Volume 8.3 FL Neutrophils (%) (Auto) 82.6 % Lymphocytes (%) (Auto) 8.0 % Monocytes (%) (Auto) 7.6 % Eosinophils (%) (Auto) 1.7 % Basophils (%) (Auto) 0.1 % Neutrophils # (Auto) 6.1 TH/MM3 Lymphocytes # (Auto) 0.6 TH/MM3 Monocytes # (Auto) 0.6 TH/MM3 Eosinophils # (Auto) 0.1 TH/MM3 Basophils # (Auto) 0.0 TH/MM3 CBC Comment DIFF FINAL Differential Comment Activated Partial 23.8 SEC Thromboplast Time Sodium Level 136 MEQ/L Potassium Level 3.5 MEQ/L Chloride Level 100 MEQ/L Carbon Dioxide Level 27.3 MEQ/L Anion Gap 9 MEQ/L Blood Urea Nitrogen 58 MG/DL Creatinine 2.05 MG/DL Estimat Glomerular Filtration 31 ML/MIN Rate Random Glucose 91 MG/DL Calcium Level 8.5 MG/DL Phosphorus Level 4.0 MG/DL Albumin 2.6 GM/DL Culture Results Microbiology Date/Time Procedure Status Source Growth 03/10/17 11:45 Stool Occult Blood (HENRRY) - Final Complete Stool Stool HEMOCCULT NEGATIVE Administered Medications Medications (Trade) Dose Ordered Sig/Guy Route PRN Reason Start Time Stop Time Status Last Admin Dose Admin Sodium Chloride (NS Flush) 2 ml BID IV FLUSH 03/08/17 21:00 03/13/17 08:32 Acetaminophen (Tylenol) 650 mg Q4H PRN PO headache, fever, pain 1-4 03/08/17 14:00 03/12/17 10:59 Senna/Docusate Sodium (Melanie-Colace) 1 tab BID PO 03/08/17 21:00 03/13/17 08:31 Lactobacillus Acidophilus 1 tab 1 tab TID PO 03/08/17 18:00 03/13/17 08:32 Ceftriaxone Sodium/Sodium Chloride (Rocephin Inj/NS Inj) 100 ml @ 200 mls/hr Q24H IV 03/09/17 18:00 03/12/17 17:34 Levofloxacin (Levaquin) 750 mg Q48H PO 03/12/17 09:00 03/12/17 09:34 Enoxaparin Sodium (Lovenox Inj) 30 mg Q24H SQ 03/11/17 09:00 03/13/17 08:31 Bumetanide (Bumex Inj) 2 mg BID@09,18 IV PUSH 03/11/17 18:00 03/13/17 08:30 Spironolactone (Aldactone) 25 mg BID PO 03/11/17 21:00 03/13/17 08:30 Lorazepam (Ativan) 0.5 mg HS PRN PO INSOMNIA 03/11/17 14:15 03/12/17 22:51 Metoprolol Tartrate (Lopressor) 12.5 mg Q12HR PO 03/11/17 15:00 03/13/17 08:31 Sotalol HCl (Betapace) 80 mg BID PO 03/11/17 21:00 03/13/17 08:30 Magnesium Oxide (Mag-Ox) 400 mg MoTh@09 PO 03/12/17 09:00 03/12/17 09:34 Thiamine HCl (Vitamin B1) 100 mg DAILY PO 03/11/17 15:49 03/13/17 08:30 Budesonide/ Formoterol Fumarate (Symbicort 160-4.5 Inh) 1 puff Q12HR INH 03/12/17 21:00 03/13/17 08:32 Objective Remarks GENERAL: Pleasant elderly male upright in chair next to bed. SKIN: Warm and dry. HEAD: Normocephalic. EYES: No injection or drainage. NECK: Supple, trachea midline. CARDIOVASCULAR: Regular rate and rhythm RESPIRATORY: diminished at bases, inspiratory and expiratory wheeze all lung nicole. On 2L O2 GASTROINTESTINAL: Abdomen soft, non-tender, nondistended. EXTREMITIES: No cyanosis. NEUROLOGICAL: awake and alert, normal speech. Assessment/Plan Problem List: (1) Thrombocytopenia Status: Acute Plan: 03/13: continuing to improve -- platelet count was normal on the last admission in late January. He also received unfractionated heparin as DVT prophylaxis at that time. -- Cytopenia unlikely due to DIC as his coags are normal. -- Possibly caused by cephalosporin use -- HIT negative. Assessment 81 y/o male admitted for SOB, hypoxia and LE edema and was found to have thrombocytopenia. Plan 1. monitor CBC 2. clear for d/c-->continue low dose Lovenox upon discharge 3. f/u in clinic Attending Statement The exam, history, and the medical decision-making described in the above note were completed with the assistance of the mid-level provider. I reviewed and agree with the findings presented. I attest that I had a [id number] encounter with the patient on the same day, and personally performed and documented my assessment and findings in the medical record. Pt seen in evening. Discussed platelet and hgb continue to increase. Cheeks have more color. He reports not feeling well today but hopes he will be better tomorrow. As such he has up and down days. No acute need. Respiratory therapy are providing tx Q4H, he decline additional tx. Follow peripherally. Tiffany Gavin Mar 13, 2017 10:49 Park Allan MD Mar 13, 2017 20:09
--- NOTE | 2017-03-13 11:54 | HHI.PR ---
Subjective Remarks This is a pleasant 81 y/o Male with CAD, CHF, COPD, on Oxygen 2L at HS, MILY came to ER with dyspnea, Febrile and confused chronic lower extremity edema. with diagnosis of Cellulitis of Left lower extremity and Pneumonia. Sepsis on admission, followed by ID specialist, recommended to continue Levaquin, Started on Ceftriaxone, Discontinued Vancomycin, Consulted natural resource specialist due to Thrombocytopenia in a patient on Heparin and Multiple antibiotics, questionable HIT, Avoid Zyvox due to low platelets. Seen in his bedroom in the presence of his and seen already by natural resource specialist with Diagnosis of Thrombocytopenia His platelet count was normal on the last admission in late January, cytopenia probable caused by Cephalosporin, recommended to continue Argatroban, await result for HIT 03/11: Seen in her bedroom in the presence of his , discussed with nurse Miss Grissom the patient has two episodes of firing from his Defibrillator, that was Interrogated and found Bigeminy and PVCs. no need changes at this time as per pool technician. patient stable no other complaint, asked for Ativan at bed time placed for low dose Ativan if Insomnia. 03/12: Stable in his bedroom, discussed with ID specialist doctor Nicole she will switch to by mouth antibiotics probable Levaquin and if Improving probable will Clear tomorrow, at this time in sitting position and no complaint. 03/13: Seen in his bedroom, in sitting position, switch antibiotics as per ID specialist discontinued Ceftriaxone and recommended to continue Levaquin and on discharge if continue with erythema doxycycline, as per Hematology and Oncology okay to discharge home, as per Cardiology Increased treatment rate on ICD, stopped Sotalol and started on Cardizem LA 120 BID, recommended to continue diuresis. No nausea, vomit or diarrhea. Objective Vital Signs Date Time Temp Pulse Resp B/P Pulse Ox O2 Delivery O2 Flow Rate FiO2 03/13/17 08:36 95 2.00 03/13/17 08:00 97.5 67 22 123/79 93 03/13/17 07:15 Room Air 2.00 21 03/13/17 04:00 Room Air 03/13/17 04:00 97.5 65 18 118/58 96 03/13/17 00:00 96.3 81 18 95/61 96 03/13/17 00:00 Room Air 03/12/17 20:00 97.2 68 18 112/83 94 03/12/17 20:00 Room Air 03/12/17 19:49 89 03/12/17 19:46 92 Nasal Cannula 3.00 03/12/17 16:00 97.5 77 18 125/83 94 03/12/17 12:00 97.6 79 18 127/84 96 I/O 03/12/17 03/12/17 03/12/17 03/13/17 03/13/17 03/13/17 07:00 15:00 23:00 07:00 15:00 23:00 Intake Total 480 ml 906 ml Output Total 250 ml 1900 ml 450 ml Balance 230 ml -994 ml -450 ml Intake Oral 480 ml 900 ml IV Total 6 ml Output Urine Total 250 ml 1900 ml 450 ml # Bowel Movements 1 1 Result Diagram: 03/13/17 0845 03/13/17 0845 Imaging Last Impressions Chest CT 03/09/17 0000 Signed Impressions: Service Date/Time: Thursday, March 09, 2017 09:21 - CONCLUSION: 1. 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 2. Subsegmental airspace disease left lower lobe. 3. AICD Agapito Keys MD Chest X-Ray 03/08/17 1149 Signed Impressions: Service Date/Time: February 11:57 - CONCLUSION: No acute disease Rusty Mccurdy MD Procedures None Other Results Laboratory Tests Test 03/09/17 03/10/17 03/10/17 03/11/17 21:50 02:54 23:35 09:15 Prothrombin Time 10.4 SEC Prothromb Time International 0.9 RATIO Ratio Fibrinogen 569 mg/dL Heparin-Induced Platelet Ab NEGATIVE (Rebekah) HIPA Patient Optical Density 0.044 O.D. Blood Smear Pathologist Review Reticulocyte Count 1.5 % Absolute Reticulocyte Count 49.8 MIL/L Lactate Dehydrogenase 221 U/L Blood Type O POSITIVE Direct Antiglobulin Test NEGATIVE (Harrison) Magnesium Level 1.8 MG/DL Troponin I 0.04 NG/ML B-Type Natriuretic Peptide 114 PG/ML Platelet Estimate LOW Platelet Morphology Comment NORMAL Test 03/13/17 08:45 White Blood Count 7.4 TH/MM3 Red Blood Count 3.92 MIL/MM3 Hemoglobin 11.7 GM/DL Hematocrit 36.1 % Mean Corpuscular Volume 92.1 FL Mean Corpuscular Hemoglobin 29.7 PG Mean Corpuscular Hemoglobin 32.3 % Concent Red Cell Distribution Width 17.7 % Platelet Count 126 TH/MM3 Mean Platelet Volume 8.3 FL Neutrophils (%) (Auto) 82.6 % Lymphocytes (%) (Auto) 8.0 % Monocytes (%) (Auto) 7.6 % Eosinophils (%) (Auto) 1.7 % Basophils (%) (Auto) 0.1 % Neutrophils # (Auto) 6.1 TH/MM3 Lymphocytes # (Auto) 0.6 TH/MM3 Monocytes # (Auto) 0.6 TH/MM3 Eosinophils # (Auto) 0.1 TH/MM3 Basophils # (Auto) 0.0 TH/MM3 CBC Comment DIFF FINAL Differential Comment Activated Partial 23.8 SEC Thromboplast Time Sodium Level 136 MEQ/L Potassium Level 3.5 MEQ/L Chloride Level 100 MEQ/L Carbon Dioxide Level 27.3 MEQ/L Anion Gap 9 MEQ/L Blood Urea Nitrogen 58 MG/DL Creatinine 2.05 MG/DL Estimat Glomerular Filtration 31 ML/MIN Rate Random Glucose 91 MG/DL Calcium Level 8.5 MG/DL Phosphorus Level 4.0 MG/DL Albumin 2.6 GM/DL Objective Remarks GENERAL: Alert, NAD. SKIN: Warm and dry. HEAD: Normocephalic. EYES: No scleral icterus. No injection or drainage. NECK: Supple, trachea midline. No JVD or lymphadenopathy. CARDIOVASCULAR: Regular rate and rhythm without murmurs, gallops, or rubs. RESPIRATORY: Breath sounds equal bilaterally. No accessory muscle use. GASTROINTESTINAL: Abdomen soft, non-tender, nondistended. MUSCULOSKELETAL: No cyanosis, Edema 3+, Left lower ext erythema with skin ulceration. BACK: Nontender without obvious deformity. No CVA tenderness. Medications and IVs Current Medications Medications (Trade) Dose Ordered Sig/Guy Route Start Time Stop Time Status Last Admin (NS Flush) 2 ml UNSCH PRN IV FLUSH 03/08/17 14:00 (NS Flush) 2 ml BID IV FLUSH 03/08/17 21:00 03/13/17 08:32 (Tylenol) 650 mg Q4H PRN PO 03/08/17 14:00 03/12/17 10:59 (Zofran Inj) 4 mg Q6H PRN IVP 03/08/17 14:00 (Narcan Inj) 0.4 mg UNSCH PRN IV 03/08/17 14:00 (Melanie-Colace) 1 tab BID PO 03/08/17 21:00 03/13/17 08:31 (Milk Of Magnesia Liq) 30 ml Q12H PRN PO 03/08/17 14:00 (Senokot) 17.2 mg Q12H PRN PO 03/08/17 14:00 (Dulcolax Supp) 10 mg DAILY PRN RECTAL 03/08/17 14:00 (Lactulose Liq) 30 ml DAILY PRN PO 03/08/17 14:00 Lactobacillus Acidophilus 1 tab 1 tab TID PO 03/08/17 18:00 03/13/17 08:32 (Rocephin Inj/NS Inj) 100 ml @ 200 mls/hr Q24H IV 03/09/17 18:00 03/12/17 17:34 (Levaquin) 750 mg Q48H PO 03/12/17 09:00 03/12/17 09:34 (Lovenox Inj) 30 mg Q24H SQ 03/11/17 09:00 03/13/17 08:31 (Bumex Inj) 2 mg BID@09,18 IV PUSH 03/11/17 18:00 03/13/17 08:30 (Aldactone) 25 mg BID PO 03/11/17 21:00 03/13/17 08:30 (Ativan) 0.5 mg HS PRN PO 03/11/17 14:15 03/12/17 22:51 (Lopressor) 12.5 mg Q12HR PO 03/11/17 15:00 03/13/17 08:31 (Betapace) 80 mg BID PO 03/11/17 21:00 03/13/17 08:30 (Mag-Ox) 400 mg MoTh@09 PO 03/12/17 09:00 03/12/17 09:34 (Vitamin B1) 100 mg DAILY PO 03/11/17 15:49 03/13/17 08:30 (Symbicort 160-4.5 Inh) 1 puff Q12HR INH 03/12/17 21:00 03/13/17 08:32 A/P Assessment and Plan 81 y/o male with a history of CAD, CHF, COPD 2L at HS, sleep apnea and MILY presented to the ED with complaints of increased dyspnea. Acute respiratory failure, now requiring O2 2L during the day Chest xray reviewed and unremarkable -Cont O2 via NC to keep O2 sat > 90%. -Consulted pulmonology -CT chest showed emphysema and left sided airspace disease. -Started Levaquin and Vancomycin. Consulted ID - abx changed to Levaquin and Ceftriaxone. -Duonebs as needed for dyspnea, today as per ID specialist will switch to by mouth Levaquin and if continue erythema switch to doxycycline. Obesity strongly recommended diet and exercise as outpatient. Cellulitis, Left lower extremity, history of Levaquin use multiple times in the last few months, Improving. - Given patient's overall deconditioning, no improvement since admission, we will consult ID for Pneumonia and left lower ext cellulitis. - Per ID, will switch to Levaquin by mouth discontinued Ceftriaxone and if continue erythema on discharge give doxycycline. CKD, stage 4, creatine 2.0, at baseline. Improved creatinine 1.68 today. -Avoid nephrotoxins - Nephrology following. Thrombocytopenia - Possibly related to medications. - Hematology consulted and did not found HIT Argatroban removed. okay to discharge. Defibrillator firing status post [facility] [place] Interrogated device and did not found malfunction no changes recommended needs to re start his Beta Meño Metoprolol at 12.5 mg BID. Code status DNR. Heparin SQ Discharge Planning Once cleared by specialists. Sudhakar Reyes MD Mar 13, 2017 11:54
--- NOTE | 2017-03-13 12:19 | HHI.NPPN ---
Subjective General Problems: Anemia, Edema, Heart Disease, Hypertension Renal Failure: Chronic, Stage III Interval History Creatinine slightly higher. Still with lower extremity edema. (Gosia Mike) Review of Systems General Constitutional: Fatigue (Gosia Mike) Respiratory Lungs: SOB (Gosia Mike) Cardiovascular Cardiac: Edema, ROGERS (Gosia Mike) Objective Data Data 03/12/17 03/13/17 19:00 07:00 Intake Total 900 ml 6 ml Output Total 1100 ml 1250 ml Balance -200 ml -1244 ml Intake Oral 900 ml IV Total 6 ml Output Urine Total 1100 ml 1250 ml # Bowel Movements 1 1 Vital Signs Date Time Temp Pulse Resp B/P Pulse Ox O2 Delivery O2 Flow Rate FiO2 03/13/17 08:36 95 2.00 03/13/17 08:00 97.5 67 22 123/79 93 03/13/17 07:15 Room Air 2.00 21 03/13/17 04:00 Room Air 03/13/17 04:00 97.5 65 18 118/58 96 03/13/17 00:00 96.3 81 18 95/61 96 03/13/17 00:00 Room Air 03/12/17 20:00 97.2 68 18 112/83 94 03/12/17 20:00 Room Air 03/12/17 19:49 89 03/12/17 19:46 92 Nasal Cannula 3.00 03/12/17 16:00 97.5 77 18 125/83 94 (Gosia Mike) -: 03/13/17 0845 03/13/17 0845 Physical Exam General Appearance: Well Developed, No Acute Distress, Comfortable (Gosia Mike) Eyes Eye Exam: Pupils Equal (Gosia Mike) Throat Throat Exam: Oral Mucosa [place] & Moist (Gosia Mike) Neck Neck Exam: Neck Supple (Gosia Mike) Pulmonary Resp Exam: Breath Sounds Equal, No Distress, Crackles, Decreased Bases, Diminished Breath Sounds (Gosia Mike) Cardiology CV Exam: Regular, Normal Sinus Rhythm, Good Perfusion (Gosia Mike) Gastrointestinal/Abdomen GI Exam: Soft, Non-Tender, Bowel Sounds Present (Gosia Mike) Musculoskeletal MS Exam: Joints Intact, Normal Tone (Gosia Mike) Extremeties Extremities Exam: Pedal Pulses Palpable, Moderate Edema (Gosia Mike) Neurologic Neuro Exam: Alert, Awake, Oriented, Speech Clear, Moving All Extremities ( Gosia Mike) Psychiatric Psych Exam: Appropriate Responses (Gosia Mike) Assessment/Plan Discussed Condition With: Patient, Spouse Assessment Summary: Hypertension, CKD Stage III Problem List: (1) Chronic kidney disease, stage 3 Plan: Renal funciton varies, creatinine sligyhlty higher likely due to aggressive diuresis GFR normally in 30s. CKD likely due to nephrosclerosis no acute electrolyte concerns diuresing well, on Bumex 2 mg BID and Aldactone 25mg BID; give a dose of Zaroxolyn avoid nephrotoxic substances, avoid IVF (2) Shortness of breath Plan: Hx CHF, COPD; on oxygen chest xray negative; CT chest negative continue nebulizers pulmonary and ID following; on Levaquin to cover pneumonia (3) Cellulitis Plan: being treated for left leg cellulitis on Rocephin (4) Edema Plan: continue diuretics as ordered follow urine output, fluid volume status (5) Hypertension Plan: continue ordered medications follow blood pressure (6) Anemia Plan: Hb stable and at baseline monitor for changes (7) Thrombocytopenia Plan: improving, hematology following thought to be medication related no reports of bleeding follow CBC (Gosia Mike) Plan patient was seen and examined. Renal function is slightly worse. Prognosis is poor. Continue to monitor. (Uli Light MD) Problem Qualifiers (1) Cellulitis: Qualified Code: L03.116 - Cellulitis of left lower extremity Gosia Mike Mar 13, 2017 12:19 Uli Light MD Mar 13, 2017 17:35
--- NOTE | 2017-03-13 14:39 | HHI.PR ---
Addendum to Inpatient Note Addendum Reason: Additional Documentation Additional Information Discussed with Dr.Steven Villegas: patient would benefit from further diuresis but his Cr and BUN are high. His fluid status remains a challenge. thinks patient not a candidate for palliative care yet. DC Ceftriaxone IV Continue oral Levaquin for few more days. May be switched to oral Doxy on discharge if still has persistent erythema. Appears to be more stasis dermatitis related at this point. Will follow prn. If any change in clinical condition or questions please call back sooner. Ayse Nicole MD Mar 13, 2017 14:39
--- NOTE | 2017-03-13 14:41 | PD.CARD.PN ---
Subjective Subjective Remarks The patient complains of profound fatigue today. "Im not able to stand". He denies CP. No change of respiratory symptoms. (Veronica Gamboa) Objective Medications Current Medications Medications (Trade) Dose Ordered Sig/Guy Route Start Time Stop Time Status Last Admin (NS Flush) 2 ml UNSCH PRN IV FLUSH 03/08/17 14:00 (NS Flush) 2 ml BID IV FLUSH 03/08/17 21:00 03/13/17 08:32 (Tylenol) 650 mg Q4H PRN PO 03/08/17 14:00 03/12/17 10:59 (Zofran Inj) 4 mg Q6H PRN IVP 03/08/17 14:00 (Narcan Inj) 0.4 mg UNSCH PRN IV 03/08/17 14:00 (Melanie-Colace) 1 tab BID PO 03/08/17 21:00 03/13/17 08:31 (Milk Of Magnesia Liq) 30 ml Q12H PRN PO 03/08/17 14:00 (Senokot) 17.2 mg Q12H PRN PO 03/08/17 14:00 (Dulcolax Supp) 10 mg DAILY PRN RECTAL 03/08/17 14:00 (Lactulose Liq) 30 ml DAILY PRN PO 03/08/17 14:00 Lactobacillus Acidophilus 1 tab 1 tab TID PO 03/08/17 18:00 03/13/17 08:32 (Rocephin Inj/NS Inj) 100 ml @ 200 mls/hr Q24H IV 03/09/17 18:00 03/12/17 17:34 (Levaquin) 750 mg Q48H PO 03/12/17 09:00 03/12/17 09:34 (Lovenox Inj) 30 mg Q24H SQ 03/11/17 09:00 03/13/17 08:31 (Bumex Inj) 2 mg BID@09,18 IV PUSH 03/11/17 18:00 03/13/17 08:30 (Aldactone) 25 mg BID PO 03/11/17 21:00 03/13/17 08:30 (Ativan) 0.5 mg HS PRN PO 03/11/17 14:15 03/12/17 22:51 (Lopressor) 12.5 mg Q12HR PO 03/11/17 15:00 03/13/17 08:31 (Betapace) 80 mg BID PO 03/11/17 21:00 03/13/17 08:30 (Mag-Ox) 400 mg MoTh@09 PO 03/12/17 09:00 03/12/17 09:34 (Vitamin B1) 100 mg DAILY PO 03/11/17 15:49 03/13/17 08:30 (Symbicort 160-4.5 Inh) 1 puff Q12HR INH 03/12/17 21:00 03/13/17 08:32 Vital Signs / I&O Vital Signs Date Time Temp Pulse Resp B/P Pulse Ox O2 Delivery O2 Flow Rate FiO2 03/13/17 08:36 95 2.00 03/13/17 08:00 97.5 67 22 123/79 93 03/13/17 07:15 Room Air 2.00 21 03/13/17 04:00 Room Air 03/13/17 04:00 97.5 65 18 118/58 96 03/13/17 00:00 96.3 81 18 95/61 96 03/13/17 00:00 Room Air 03/12/17 20:00 97.2 68 18 112/83 94 03/12/17 20:00 Room Air 03/12/17 19:49 89 03/12/17 19:46 92 Nasal Cannula 3.00 03/12/17 16:00 97.5 77 18 125/83 94 I/O 03/12/17 03/12/17 03/12/17 03/13/17 03/13/17 03/13/17 07:00 15:00 23:00 07:00 15:00 23:00 Intake Total 480 ml 906 ml Output Total 250 ml 1900 ml 450 ml Balance 230 ml -994 ml -450 ml Intake Oral 480 ml 900 ml IV Total 6 ml Output Urine Total 250 ml 1900 ml 450 ml # Bowel Movements 1 1 Physical Exam GENERAL: Elderly, tired appearing, obese male SKIN: Warm and dry. HEAD: Normocephalic. EYES: No scleral icterus. No injection or drainage. NECK: Supple, trachea midline. CARDIOVASCULAR: Regular rate and rhythm without murmurs, gallops, or rubs. ICD RESPIRATORY: Breath sounds equal bilaterally. Diminished bases GASTROINTESTINAL: Abdomen soft, non-tender, nondistended. MUSCULOSKELETAL: No cyanosis,2 + BLE with erythema BACK: Nontender without obvious deformity. No CVA tenderness. Laboratory Laboratory Tests Test 03/13/17 08:45 White Blood Count 7.4 TH/MM3 Red Blood Count 3.92 MIL/MM3 Hemoglobin 11.7 GM/DL Hematocrit 36.1 % Mean Corpuscular Volume 92.1 FL Mean Corpuscular Hemoglobin 29.7 PG Mean Corpuscular Hemoglobin 32.3 % Concent Red Cell Distribution Width 17.7 % Platelet Count 126 TH/MM3 Mean Platelet Volume 8.3 FL Neutrophils (%) (Auto) 82.6 % Lymphocytes (%) (Auto) 8.0 % Monocytes (%) (Auto) 7.6 % Eosinophils (%) (Auto) 1.7 % Basophils (%) (Auto) 0.1 % Neutrophils # (Auto) 6.1 TH/MM3 Lymphocytes # (Auto) 0.6 TH/MM3 Monocytes # (Auto) 0.6 TH/MM3 Eosinophils # (Auto) 0.1 TH/MM3 Basophils # (Auto) 0.0 TH/MM3 CBC Comment DIFF FINAL Differential Comment Activated Partial 23.8 SEC Thromboplast Time Sodium Level 136 MEQ/L Potassium Level 3.5 MEQ/L Chloride Level 100 MEQ/L Carbon Dioxide Level 27.3 MEQ/L Anion Gap 9 MEQ/L Blood Urea Nitrogen 58 MG/DL Creatinine 2.05 MG/DL Estimat Glomerular Filtration 31 ML/MIN Rate Random Glucose 91 MG/DL Calcium Level 8.5 MG/DL Phosphorus Level 4.0 MG/DL Albumin 2.6 GM/DL (Veronica Gamboa) Assessment and Plan Assessment and Plan Multiple admissions for SOB- CT chest suggestive of LLL pneumonia. BNP only slightly elevated. ABG respiratory alkalosis. The patient had a cardiac PET scan 01/2016. Apparently, the patient had a CTA to exclude PE another hospital for similar symptoms. The patient has a history of DVT. Eliquis discontinued in the past due to suspected GI bleed Appropriate ICD shock Cardiomyopathy EF 45% 02/2017 Chronic systolic CHF exacerbation. The patient's BNP is only slightly elevated and no evidence of pulmonary edema on CXR or CT chest. No TR on echo. 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 Eliquis stopped due to suspected GI bleed. 01/2017 BLE doppler negative for PE Acute on chronic CKD PLAN: Increase treatment rates on ICD Stop Sotalol and start Cardizem LA 120 BID. The patient does not have an absolute indication for Sotalol. Continue ABX for pneumonia BLE vascular US. High risk for new DVT Continue diuresis with careful monitoring of renal function. Decrease frequency of Bumex. BMP/BNP tomorrow. CXR Patient seen and evaluated by Dr Simental who completed a face to face encounter , completed physical exam and participated in the evaluation and management (Veronica Gamboa) Assessment and Plan The exam, history, and the medical decision-making described in the above note were completed with the assistance of the mid-level provider. I reviewed and agree with the findings presented. I attest that I had a [id number] encounter with the patient on the same day, and personally performed and documented my assessment and findings in the medical record CHF and COPD. ( Kirsten Simental MD) Veronica Gamboa Mar 13, 2017 14:41 Kirsten Simental MD Mar 15, 2017 15:26
[2017-03-13] MEDS ORDERED: METOLAZONE 5 MG TAB PO ONE (16:00)
--- NOTE | 2017-03-13 17:24 | RADRPT ---
EXAM DATE/TIME: 03/13/2017 15:21 [facility] COMPARISON: CT THORAX W/O CONTRAST, March 09, 2017, 9:21. INDICATIONS : Short of breath. MEDICAL HISTORY : Chronic obstructive pulmonary disease. SURGICAL HISTORY : None. ENCOUNTER: Subsequent ACUITY: 3 days PAIN SCORE: 0/10 LOCATION: Bilateral chest FINDINGS: There is a bilead pacing device in place from the left subclavian approach. The heart size is normal . There is increased density at the left base. Right lung is grossly clear. There is diffuse prominen ce of interstitial markings. CONCLUSION: Diffuse prominence of interstitial markings likely from COPD. There is atelectasis or consolidation a t the left base. The lungs were better characterized on recent CT examination from 03/09/2017 Rusty Drew MD on March 13, 2017 at 17:19 Board Certified Radiologist. This report was verified electronically.
--- NOTE | 2017-03-13 17:47 | RADRPT ---
EXAM DATE/TIME: 03/13/2017 16:30 [facility] COMPARISON: US LEG BILATERAL VENOUS DOPPLER, February 23, 2017, 15:21. EXTERNAL COMPARISON : [facility], US LEG, RIGHT VENOUS DOPPLER, January 10, 2017 INDICATIONS : Bilateral leg edema. MEDICAL HISTORY : Congestive heart failure. Myocardial infarction. Emphysema. CVA. Ocular stroke. Head trauma. Brain bl eed. Coronary artery disease. HTN. Irregular heartbeat. DVT. COPD. GI bleed. Sleep apnea. Dyspnea. Ch ronic kidney disease. Anemia. Skinc cancer. Arthritis. Gout. Anticoagulant therapy, Eliquis. SURGICAL HISTORY : Tonsillectomy.CABG Umbilical hernia repair.Bilateral cataracts. Fem-pop right leg. Right total hip re placement. Blood transfusions. ENCOUNTER: Subsequent ACUITY: 4 - 6 days PAIN SCORE: 3/10 LOCATION: Bilateral leg. TECHNIQUE: Venous ultrasound of the left and right leg was performed from the inguinal ligament to the proximal calf. Real-time, color Doppler and spectral tracing, compression and augmentation techniques were us ed. FINDINGS: RIGHT LEG: There is normal compressibility of the deep venous system from the inguinal region to the proximal ca lf. No echogenic clot is seen in the lumen of the common femoral, femoral, popliteal, and posterior tibial veins. There is a normal response of the venous system to proximal and distal augmentation an d respiration. Note is made of aneurysmal popliteal artery. This measures approximately 2.8 cm. This appears occlude d. There is probable old occluded bypass graft evident as well. LEFT LEG: There is normal compressibility of the deep venous system from the inguinal region to the proximal ca lf. No echogenic clot is seen in the lumen of the common femoral, femoral, popliteal, and posterior tibial veins. There is a normal response of the venous system to proximal and distal augmentation an d respiration. The superficial femoral artery is occluded. CONCLUSION: 1. No DVT identified. 2. 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 There is evidence of previous surgery. Fredi Mercer MD on March 13, 2017 at 17:42 Board Certified Radiologist. This report was verified electronically.
[2017-03-13] MEDS: DILTIAZEM-CD 120 MG CAP ER PO SCH (21:09)
[2017-03-13] MEDS: LORazepam 0.5 MG TAB PO PRN (22:24)
[2017-03-14] VITALS (9 sets, daily range): BP systolic 95–124; BP diastolic 64–76; PULSE 61–83; RESP 18–23; TEMP 97.3–98.4; O2SAT 93–99
[2017-03-14] MEDS: DOCUSATE SODIUM 50 MG/SENNA 8.6 MG TAB PO SCH ×2 (09:00→21:21)
[2017-03-14] MEDS: SPIRONOLACTONE 25 MG TAB PO SCH ×2 (09:00→21:21)
[2017-03-14] MEDS: BUDESONIDE-FORMOTEROL 160/4.5 MCG INHALER INH SCH ×2 (09:04→21:20)
[2017-03-14] MEDS: SODIUM CHLORIDE 0.9% FLUSH 10 ML FLUSH IV FLUSH SCH ×2 (09:05→21:20)
[2017-03-14] MEDS: ENOXAPARIN SODIUM 30 MG/0.3 ML SYRINGE SQ SCH (09:06)
[2017-03-14] MEDS: THIAMINE HCL 100 MG TAB PO SCH (09:06)
[2017-03-14] MEDS: BUMETANIDE INJ 1 MG/4 ML VIAL IV PUSH SCH (09:08)
[2017-03-14] MEDS: DILTIAZEM-CD 120 MG CAP ER PO SCH ×2 (09:11→21:21)
[2017-03-14] MEDS: ACETAMINOPHEN 325 MG TAB PO PRN (09:11)
[2017-03-14] MEDS: LACTOBACILLUS ACIDOPHILUS TAB PO SCH ×3 (09:11→17:51)
[2017-03-14] MEDS: LEVOFLOXACIN 750 MG TAB PO SCH (09:13)
[2017-03-14] MEDS: METOPROLOL TARTRATE 25 MG TAB PO SCH ×2 (09:13→21:21)
[2017-03-14] MEDS: RESP: ALBUTEROL 2.5 MG/IPRATROPIUM 0.5 MG NEB (SCH) NEB ×4 (09:26→19:40)
[2017-03-14 10:47] LABS: AUTOMATED NEUTROPHIL # 6.7 TH/MM3 (1.8-7.7); BASOPHIL % 0.1 % (0.0-2.0); EOSINOPHIL # 0.2 TH/MM3 (0-0.4); EOSINOPHIL % 2.3 % (0.0-4.0); HEMO FLAGS DIFF FINAL; LYMPH % 4.7 % (9.0-44.0); LYMPHOCYTE # 0.4 TH/MM3 (1.0-4.8); MEAN CELL VOLUME 93.3 FL (80.0-100.0); MEAN CORPUSCULAR HEMOGLOBIN 29.8 PG (27.0-34.0); MEAN CORPUSCULAR HGB CONC 31.9 % (32.0-36.0); MONO % 5.6 % (0.0-8.0); NEUT % 87.3 % (16.0-70.0); PLATELET COUNT 135 TH/MM3 (150-450); RED BLOOD COUNT 3.97 MIL/MM3 (4.50-5.90); RED CELL DISTRIBUTION WIDTH 17.2 % (11.6-17.2); WHITE BLOOD COUNT 7.7 TH/MM3 (4.0-11.0)
[2017-03-14 10:54] LABS: APTT (PATIENT) 24.7 SEC (24.3-30.1)
[2017-03-14 11:25] LABS: BICARBONATE 25.9 MEQ/L (21.0-32.0); POTASSIUM 3.6 MEQ/L (3.5-5.1)
[2017-03-14] MEDS ORDERED: METOLAZONE 5 MG TAB PO ONE (13:00)
--- NOTE | 2017-03-14 13:13 | HHI.PR ---
Subjective Remarks This is a pleasant 81 y/o Male with CAD, CHF, COPD, on Oxygen 2L at HS, MILY came to ER with dyspnea, Febrile and confused chronic lower extremity edema. with diagnosis of Cellulitis of Left lower extremity and Pneumonia. Sepsis on admission, followed by ID specialist, recommended to continue Levaquin, Started on Ceftriaxone, Discontinued Vancomycin, Consulted international marketing specialist due to Thrombocytopenia in a patient on Heparin and Multiple antibiotics, questionable HIT, Avoid Zyvox due to low platelets. Seen in his bedroom in the presence of his and seen already by international marketing specialist with Diagnosis of Thrombocytopenia His platelet count was normal on the last admission in late January, cytopenia probable caused by Cephalosporin, recommended to continue Argatroban, await result for HIT 03/11: Seen in her bedroom in the presence of his , discussed with nurse Miss Grissom the patient has two episodes of firing from his Defibrillator, that was Interrogated and found Bigeminy and PVCs. no need changes at this time as per crane service technician. patient stable no other complaint, asked for Ativan at bed time placed for low dose Ativan if Insomnia. 03/12: Stable in his bedroom, discussed with ID specialist doctor Nicole she will switch to by mouth antibiotics probable Levaquin and if Improving probable will Clear tomorrow, at this time in sitting position and no complaint. 03/13: Seen in his bedroom, in sitting position, switch antibiotics as per ID specialist discontinued Ceftriaxone and recommended to continue Levaquin and on discharge if continue with erythema doxycycline, as per Hematology and Oncology okay to discharge home, as per Cardiology Increased treatment rate on ICD, stopped Sotalol and started on Cardizem LA 120 BID, recommended to continue diuresis. 03/14: In his Bedroom in the presence of his , to continue diuresis as per product management specialist, had Appropriate ICD Shock, was on Eliquis removed due to suspected GI bleed, Cardiomyopathy EF 45% 02/2017 Chronic systolic CHF exacerbation. The patient's BNP is only slightly elevated and no evidence of pulmonary edema on CXR or CT chest. Atherosclerotic Heart disease, AAA 4.2 cm, 01/2017 BLE doppler negative for PE as per rn document improvement specialist to continue Cardizem and BB, recommended to continue antibiotics for Pneumonia, no nausea, vomit or diarrhea. Objective Vital Signs Date Time Temp Pulse Resp B/P Pulse Ox O2 Delivery O2 Flow Rate FiO2 03/14/17 12:00 97.9 80 18 95/64 96 03/14/17 09:33 95 Nasal Cannula 2.50 03/14/17 08:00 98.4 81 18 114/76 99 03/14/17 07:10 Nasal Cannula 2.00 03/14/17 04:00 97.5 68 23 108/69 98 03/14/17 04:00 93 Room Air 03/14/17 00:00 97.6 83 20 124/76 93 03/14/17 00:00 93 Room Air 03/13/17 20:24 94 Nasal Cannula 2.00 03/13/17 20:00 86 03/13/17 20:00 93 Room Air 03/13/17 20:00 97.6 87 21 126/75 98 03/13/17 16:00 97.4 78 18 118/77 92 I/O 03/13/17 03/13/17 03/13/17 03/14/17 03/14/17 03/14/17 07:00 15:00 23:00 07:00 15:00 23:00 Intake Total 360 ml 380 ml 440 ml Output Total 450 ml 1000 ml 700 ml 800 ml Balance -450 ml -640 ml -320 ml -360 ml Intake Oral 360 ml 380 ml 440 ml Output Urine Total 450 ml 1000 ml 700 ml 800 ml # Bowel Movements 1 1 0 1 Result Diagram: 03/14/17 0950 03/14/17 0950 Imaging Last Impressions Lower Extremity Ultrasound 03/13/17 0000 Signed Impressions: Service Date/Time: Monday, March 13, 2017 16:30 - CONCLUSION: 1. No DVT identified. 2. 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 There is evidence of previous surgery. Fredi Mercer MD Chest X-Ray 03/13/17 0000 Signed Impressions: Service Date/Time: Monday, March 13, 2017 15:21 - CONCLUSION: Diffuse prominence of interstitial markings likely from COPD. There is atelectasis or consolidation at the left base. The lungs were better characterized on recent CT examination from 03/09/2017 Rusty Drew MD Chest CT 03/09/17 0000 Signed Impressions: Service Date/Time: Thursday, March 09, 2017 09:21 - CONCLUSION: 1. 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 2. Subsegmental airspace disease left lower lobe. 3. AICD Agapito Keys MD Procedures None Other Results Laboratory Tests Test 03/09/17 03/10/17 03/10/17 03/11/17 21:50 02:54 23:35 09:15 Heparin-Induced Platelet Ab NEGATIVE (Rebekah) HIPA Patient Optical Density 0.044 O.D. Blood Smear Pathologist Review Reticulocyte Count 1.5 % Absolute Reticulocyte Count 49.8 MIL/L Lactate Dehydrogenase 221 U/L Blood Type O POSITIVE Direct Antiglobulin Test NEGATIVE (Harrison) Magnesium Level 1.8 MG/DL Troponin I 0.04 NG/ML Platelet Estimate LOW Platelet Morphology Comment NORMAL Test 03/13/17 03/14/17 08:45 09:50 Phosphorus Level 4.0 MG/DL Albumin 2.6 GM/DL White Blood Count 7.7 TH/MM3 Red Blood Count 3.97 MIL/MM3 Hemoglobin 11.8 GM/DL Hematocrit 37.0 % Mean Corpuscular Volume 93.3 FL Mean Corpuscular Hemoglobin 29.8 PG Mean Corpuscular Hemoglobin 31.9 % Concent Red Cell Distribution Width 17.2 % Platelet Count 135 TH/MM3 Mean Platelet Volume 8.5 FL Neutrophils (%) (Auto) 87.3 % Lymphocytes (%) (Auto) 4.7 % Monocytes (%) (Auto) 5.6 % Eosinophils (%) (Auto) 2.3 % Basophils (%) (Auto) 0.1 % Neutrophils # (Auto) 6.7 TH/MM3 Lymphocytes # (Auto) 0.4 TH/MM3 Monocytes # (Auto) 0.4 TH/MM3 Eosinophils # (Auto) 0.2 TH/MM3 Basophils # (Auto) 0.0 TH/MM3 CBC Comment DIFF FINAL Differential Comment Activated Partial 24.7 SEC Thromboplast Time Sodium Level 136 MEQ/L Potassium Level 3.6 MEQ/L Chloride Level 99 MEQ/L Carbon Dioxide Level 25.9 MEQ/L Anion Gap 11 MEQ/L Blood Urea Nitrogen 49 MG/DL Creatinine 1.96 MG/DL Estimat Glomerular Filtration 33 ML/MIN Rate Random Glucose 138 MG/DL Calcium Level 8.7 MG/DL B-Type Natriuretic Peptide 80 PG/ML Objective Remarks GENERAL: Alert, NAD. SKIN: Warm and dry. HEAD: Normocephalic. EYES: No scleral icterus. No injection or drainage. NECK: Supple, trachea midline. No JVD or lymphadenopathy. CARDIOVASCULAR: Regular rate and rhythm without murmurs, gallops, or rubs. RESPIRATORY: Breath sounds equal bilaterally. No accessory muscle use. GASTROINTESTINAL: Abdomen soft, non-tender, nondistended. MUSCULOSKELETAL: No cyanosis, Bilateral edema both legs with THEO Hose in place. BACK: Nontender without obvious deformity. No CVA tenderness. Medications and IVs Current Medications Medications (Trade) Dose Ordered Sig/Guy Route Start Time Stop Time Status Last Admin (NS Flush) 2 ml UNSCH PRN IV FLUSH 03/08/17 14:00 (NS Flush) 2 ml BID IV FLUSH 03/08/17 21:00 03/14/17 09:05 (Tylenol) 650 mg Q4H PRN PO 03/08/17 14:00 03/14/17 09:11 (Zofran Inj) 4 mg Q6H PRN IVP 03/08/17 14:00 (Narcan Inj) 0.4 mg UNSCH PRN IV 03/08/17 14:00 (Melanie-Colace) 1 tab BID PO 03/08/17 21:00 03/13/17 21:09 (Milk Of Magnesia Liq) 30 ml Q12H PRN PO 03/08/17 14:00 (Senokot) 17.2 mg Q12H PRN PO 03/08/17 14:00 (Dulcolax Supp) 10 mg DAILY PRN RECTAL 03/08/17 14:00 (Lactulose Liq) 30 ml DAILY PRN PO 03/08/17 14:00 (Lactinex) 1 tab TID PO 03/08/17 18:00 03/14/17 12:04 (Levaquin) 750 mg Q48H PO 03/12/17 09:00 03/14/17 09:13 (Lovenox Inj) 30 mg Q24H SQ 03/11/17 09:00 03/14/17 09:06 (Aldactone) 25 mg BID PO 03/11/17 21:00 03/13/17 21:09 (Ativan) 0.5 mg HS PRN PO 03/11/17 14:15 03/13/17 22:24 (Lopressor) 12.5 mg Q12HR PO 03/11/17 15:00 03/14/17 09:13 (Mag-Ox) 400 mg MoTh@09 PO 03/12/17 09:00 03/12/17 09:34 (Vitamin B1) 100 mg DAILY PO 03/11/17 15:49 03/14/17 09:06 (Symbicort 160-4.5 Inh) 1 puff Q12HR INH 03/12/17 21:00 03/14/17 09:04 (Bumex Inj) 2 mg DAILY IV PUSH 03/14/17 09:00 03/14/17 09:08 (Cardizem Cd) 120 mg BID PO 03/13/17 21:00 03/14/17 09:11 (Zaroxolyn) 5 mg ONCE ONCE PO 03/14/17 13:00 03/14/17 13:01 UNV (Albumin 25% Inj) 12.5 gm DAILY IV 03/15/17 09:00 03/20/17 07:00 UNV A/P Assessment and Plan 81 y/o male with a history of CAD, CHF, COPD 2L at HS, sleep apnea and MILY presented to the ED with complaints of increased dyspnea. Acute respiratory failure, now requiring O2 2L during the day Chest xray reviewed and unremarkable -Cont O2 via NC to keep O2 sat > 90%. -CT chest showed emphysema and left sided airspace disease. -Started Levaquin and Vancomycin. Consulted ID - abx changed to Levaquin and Ceftriaxone. -Bronchodilators, Mucolytic and switch to Levaquin by mouth May need Doxycycline at discharge if continue with erythema. Obesity strongly recommended diet and exercise as outpatient. Cellulitis, Left lower extremity, history of Levaquin use multiple times in the last few months, Improving. - Given patient's overall deconditioning, no improvement since admission, we will consult ID for Pneumonia and left lower ext cellulitis. - Per ID, will switch to Levaquin by mouth discontinued Ceftriaxone and if continue erythema on discharge give doxycycline. CKD, stage 4, creatine 2.0, at baseline. Improved creatinine 1.68 today. -Avoid nephrotoxins - Nephrology following. Thrombocytopenia - Possibly related to medications. - Hematology consulted and did not found HIT Argatroban removed. okay to discharge. Defibrillator firing status post [facility] [place] Interrogated device and did not found malfunction no changes recommended needs to re start his Beta Meño Metoprolol at 12.5 mg BID. Appropriate ICD Shock. Cardiology following. Eliquis removed due to suspected GI bleed, Cardiomyopathy EF 45% 02/2017 Chronic systolic CHF exacerbation. The patient's BNP is only slightly elevated and no evidence of pulmonary edema on CXR or CT chest. Atherosclerotic Heart disease, AAA 4.2 cm, continue Cardizem and Beta blockers. Code status DNR. Heparin SQ Discussed with patient and his in the room, all questions answered to the best of my abilities. Discharge Planning Once cleared by specialists. Sudhakar Reyes MD Mar 14, 2017 13:13
--- NOTE | 2017-03-14 14:31 | PD.CARD.PN ---
Subjective Subjective Remarks No major change overnight. BP a little low. Stopped sotalol and started cardizem yesterday. Objective Medications Current Medications Medications (Trade) Dose Ordered Sig/Guy Route Start Time Stop Time Status Last Admin (NS Flush) 2 ml UNSCH PRN IV FLUSH 03/08/17 14:00 (NS Flush) 2 ml BID IV FLUSH 03/08/17 21:00 03/14/17 09:05 (Tylenol) 650 mg Q4H PRN PO 03/08/17 14:00 03/14/17 09:11 (Zofran Inj) 4 mg Q6H PRN IVP 03/08/17 14:00 (Narcan Inj) 0.4 mg UNSCH PRN IV 03/08/17 14:00 (Melanie-Colace) 1 tab BID PO 03/08/17 21:00 03/13/17 21:09 (Milk Of Magnesia Liq) 30 ml Q12H PRN PO 03/08/17 14:00 (Senokot) 17.2 mg Q12H PRN PO 03/08/17 14:00 (Dulcolax Supp) 10 mg DAILY PRN RECTAL 03/08/17 14:00 (Lactulose Liq) 30 ml DAILY PRN PO 03/08/17 14:00 (Lactinex) 1 tab TID PO 03/08/17 18:00 03/14/17 12:04 (Levaquin) 750 mg Q48H PO 03/12/17 09:00 03/14/17 09:13 (Lovenox Inj) 30 mg Q24H SQ 03/11/17 09:00 03/14/17 09:06 (Aldactone) 25 mg BID PO 03/11/17 21:00 03/13/17 21:09 (Ativan) 0.5 mg HS PRN PO 03/11/17 14:15 03/13/17 22:24 (Lopressor) 12.5 mg Q12HR PO 03/11/17 15:00 03/14/17 09:13 (Mag-Ox) 400 mg MoTh@09 PO 03/12/17 09:00 03/12/17 09:34 (Vitamin B1) 100 mg DAILY PO 03/11/17 15:49 03/14/17 09:06 (Symbicort 160-4.5 Inh) 1 puff Q12HR INH 03/12/17 21:00 03/14/17 09:04 (Bumex Inj) 2 mg DAILY IV PUSH 03/14/17 09:00 03/14/17 09:08 (Cardizem Cd) 120 mg BID PO 03/13/17 21:00 03/14/17 09:11 (Albumin 25% Inj) 12.5 gm DAILY IV 03/15/17 09:00 03/20/17 07:00 Vital Signs / I&O Vital Signs Date Time Temp Pulse Resp B/P Pulse Ox O2 Delivery O2 Flow Rate FiO2 03/14/17 12:00 97.9 80 18 95/64 96 03/14/17 09:33 95 Nasal Cannula 2.50 03/14/17 08:00 98.4 81 18 114/76 99 03/14/17 07:10 Nasal Cannula 2.00 03/14/17 04:00 97.5 68 23 108/69 98 03/14/17 04:00 93 Room Air 03/14/17 00:00 97.6 83 20 124/76 93 03/14/17 00:00 93 Room Air 03/13/17 20:24 94 Nasal Cannula 2.00 03/13/17 20:00 86 03/13/17 20:00 93 Room Air 03/13/17 20:00 97.6 87 21 126/75 98 03/13/17 16:00 97.4 78 18 118/77 92 I/O 03/13/17 03/13/17 03/13/17 03/14/17 03/14/17 03/14/17 07:00 15:00 23:00 07:00 15:00 23:00 Intake Total 360 ml 380 ml 440 ml Output Total 450 ml 1000 ml 700 ml 800 ml Balance -450 ml -640 ml -320 ml -360 ml Intake Oral 360 ml 380 ml 440 ml Output Urine Total 450 ml 1000 ml 700 ml 800 ml # Bowel Movements 1 1 0 1 Physical Exam GENERAL: Elderly, obese male on home CPAP machine SKIN: Warm and dry. HEAD: Normocephalic. EYES: No scleral icterus. No injection or drainage. NECK: Supple, trachea midline. CARDIOVASCULAR: Regular rate and rhythm without murmurs, gallops, or rubs. ICD RESPIRATORY: Breath sounds equal bilaterally. Diminished bases GASTROINTESTINAL: Abdomen soft, non-tender, nondistended. MUSCULOSKELETAL: No cyanosis,2 + BLE with erythema BACK: Nontender without obvious deformity. No CVA tenderness. Laboratory Laboratory Tests Test 03/14/17 09:50 White Blood Count 7.7 TH/MM3 Red Blood Count 3.97 MIL/MM3 Hemoglobin 11.8 GM/DL Hematocrit 37.0 % Mean Corpuscular Volume 93.3 FL Mean Corpuscular Hemoglobin 29.8 PG Mean Corpuscular Hemoglobin 31.9 % Concent Red Cell Distribution Width 17.2 % Platelet Count 135 TH/MM3 Mean Platelet Volume 8.5 FL Neutrophils (%) (Auto) 87.3 % Lymphocytes (%) (Auto) 4.7 % Monocytes (%) (Auto) 5.6 % Eosinophils (%) (Auto) 2.3 % Basophils (%) (Auto) 0.1 % Neutrophils # (Auto) 6.7 TH/MM3 Lymphocytes # (Auto) 0.4 TH/MM3 Monocytes # (Auto) 0.4 TH/MM3 Eosinophils # (Auto) 0.2 TH/MM3 Basophils # (Auto) 0.0 TH/MM3 CBC Comment DIFF FINAL Differential Comment Activated Partial 24.7 SEC Thromboplast Time Sodium Level 136 MEQ/L Potassium Level 3.6 MEQ/L Chloride Level 99 MEQ/L Carbon Dioxide Level 25.9 MEQ/L Anion Gap 11 MEQ/L Blood Urea Nitrogen 49 MG/DL Creatinine 1.96 MG/DL Estimat Glomerular Filtration 33 ML/MIN Rate Random Glucose 138 MG/DL Calcium Level 8.7 MG/DL B-Type Natriuretic Peptide 80 PG/ML Imaging Last 72 hours Impressions Lower Extremity Ultrasound 03/13/17 0000 Signed Impressions: Service Date/Time: Monday, March 13, 2017 16:30 - CONCLUSION: 1. No DVT identified. 2. 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 There is evidence of previous surgery. Fredi Mercer MD Chest X-Ray 03/13/17 0000 Signed Impressions: Service Date/Time: Monday, March 13, 2017 15:21 - CONCLUSION: Diffuse prominence of interstitial markings likely from COPD. There is atelectasis or consolidation at the left base. The lungs were better characterized on recent CT examination from 03/09/2017 Rusty Drew MD Assessment and Plan Assessment and Plan Multiple admissions for SOB- CT chest suggestive of LLL pneumonia. BNP 80. The patient had a cardiac PET scan 01/2016. Apparently, the patient had a CTA to exclude PE another hospital for similar symptoms. BLE doppler 03/13/2017 negative for DVT. The patient has a history of DVT. Eliquis discontinued in the past due to suspected GI bleed. Appropriate ICD shock Cardiomyopathy EF 45% 02/2017 Chronic systolic CHF exacerbation. The patient's BNP is only slightly elevated and no evidence of pulmonary edema on CXR or CT chest. No TR on echo. 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 Eliquis stopped due to suspected GI bleed. 01/2017 BLE doppler negative for PE Acute on chronic CKD PLAN: Continue cardizem and BB. May need to decrease cardizem due to decreased BP. Will follow one more day. Cardizem with hold parameters Continue ABX for pneumonia Continue diuresis with careful monitoring of renal function. Patient seen and evaluated by Dr Simental who completed a face to face encounter , completed physical exam and participated in the evaluation and management Veronica Gamboa Mar 14, 2017 14:31
--- NOTE | 2017-03-14 14:40 | HHI.NPPN ---
Subjective General Problems: Anemia, Edema, Heart Disease, Hypertension Renal Failure: Chronic, Stage III Interval History Renal function is better. His breathing is less labored. Has dependent edema. Discussed with . (Gosia Mike) Review of Systems General Constitutional: Fatigue (Gosia Mike) Respiratory Lungs: SOB (Gosia Mike) Cardiovascular Cardiac: Edema, ROGERS (Gosia Mike) Objective Data Data 03/13/17 03/14/17 18:59 06:59 Intake Total 360 ml 820 ml Output Total 1000 ml 1500 ml Balance -640 ml -680 ml Intake Oral 360 ml 820 ml Output Urine Total 1000 ml 1500 ml # Bowel Movements 1 1 Vital Signs Date Time Temp Pulse Resp B/P Pulse Ox O2 Delivery O2 Flow Rate FiO2 03/14/17 12:00 97.9 80 18 95/64 96 03/14/17 09:33 95 Nasal Cannula 2.50 03/14/17 08:00 98.4 81 18 114/76 99 03/14/17 07:10 Nasal Cannula 2.00 03/14/17 04:00 97.5 68 23 108/69 98 03/14/17 04:00 93 Room Air 03/14/17 00:00 97.6 83 20 124/76 93 03/14/17 00:00 93 Room Air 03/13/17 20:24 94 Nasal Cannula 2.00 03/13/17 20:00 86 03/13/17 20:00 93 Room Air 03/13/17 20:00 97.6 87 21 126/75 98 03/13/17 16:00 97.4 78 18 118/77 92 (Gosia Mike) -: 03/14/17 0950 03/14/17 0950 Imaging Last 72 hours Impressions Lower Extremity Ultrasound 03/13/17 0000 Signed Impressions: Service Date/Time: Monday, March 13, 2017 16:30 - CONCLUSION: 1. No DVT identified. 2. 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 There is evidence of previous surgery. Fredi Mercer MD Chest X-Ray 03/13/17 0000 Signed Impressions: Service Date/Time: Monday, March 13, 2017 15:21 - CONCLUSION: Diffuse prominence of interstitial markings likely from COPD. There is atelectasis or consolidation at the left base. The lungs were better characterized on recent CT examination from 03/09/2017 Rusty Drew MD (Gosia Mike. DATA COORDINATOR) Physical Exam General Appearance: Well Developed, No Acute Distress, Comfortable (Gosia Mike B. DATA COORDINATOR) Eyes Eye Exam: Pupils Equal (Gosia Mike B. DATA COORDINATOR) Throat Throat Exam: Oral Mucosa Amado & Moist (Gosia Mike B. DATA COORDINATOR) Neck Neck Exam: Neck Supple (Gosia Mike B. DATA COORDINATOR) Pulmonary Resp Exam: Breath Sounds Equal, No Distress, Crackles, Decreased Bases, Diminished Breath Sounds (Gosia Mike B. DATA COORDINATOR) Cardiology CV Exam: Regular, Normal Sinus Rhythm, Good Perfusion (Gosia Mike B. DATA COORDINATOR) Gastrointestinal/Abdomen GI Exam: Soft, Non-Tender, Bowel Sounds Present (Gosia Mike B. DATA COORDINATOR) Musculoskeletal MS Exam: Joints Intact, Normal Tone (Gosia Mike B. DATA COORDINATOR) Extremeties Extremities Exam: Pedal Pulses Palpable, Moderate Edema (Gosia Mike B. DATA COORDINATOR) Neurologic Neuro Exam: Alert, Awake, Oriented, Speech Clear, Moving All Extremities ( Gosia Mike B. DATA COORDINATOR) Psychiatric Psych Exam: Appropriate Responses (Gosia Mike. DATA COORDINATOR) Assessment/Plan Discussed Condition With: Patient, Spouse Assessment Summary: JOHN/Acute Renal Failure, Fluid/Volume Overload, Hypertension, CKD Stage III Problem List: (1) Chronic kidney disease, stage 3 Plan: Renal function improved, baseline GFR in 30s. Underlying CKD likely due to nephrosclerosis At this time he still has dependent edema despite diuretics. THEO hose and leg Elevation encouraged He has some venous insufficiency, if we aggressively diurese we risk worsening his renal function in that instance he likely will not do well on fdc dialysis, is considering palliative care evaluation in the meantime, avoid IVF, Continue Bumex 2 mg BID and Aldactone 25mg BID avoid nephrotoxic substances, avoid IVF no electrolyte concerns today, repeat renal panel in AM (2) Shortness of breath Plan: Hx CHF, COPD; on oxygen chest xray reviewed, he does not have significant fluid accumulation he also has physical deconditioning, D/W he may benefit from rehab after discharge continue nebulizers pulmonary and ID following; on Levaquin to cover pneumonia (3) Cellulitis Plan: being treated for left leg cellulitis on Rocephin (4) Edema Plan: continue diuretics as ordered follow urine output, fluid volume status (5) Hypertension Plan: continue ordered medications follow blood pressure (6) Anemia Plan: Hb stable and at baseline monitor for changes (7) Thrombocytopenia Plan: improving, hematology following thought to be medication related no reports of bleeding follow CBC (Gosia Mike) Plan patient was seen and examined. Agree with above assessment and plan. Discussed with patient's . I do not believe dialysis will help at this juncture. Leg elevation and stockings, Tedhose might be useful. CXR not consistent with significant pulmonary edema. Continue diuretics as ordered. (Uli Light MD ) Problem Qualifiers (1) Cellulitis: Qualified Code: L03.116 - Cellulitis of left lower extremity Gosia Mike Mar 14, 2017 14:40 Uli Light MD Mar 14, 2017 18:28
[2017-03-14] MEDS: LORazepam 0.5 MG TAB PO PRN (21:20)
[2017-03-15] VITALS (8 sets, daily range): BP systolic 92–120; BP diastolic 61–82; PULSE 65–98; RESP 16–24; TEMP 98–98.9; O2SAT 92–98
[2017-03-15] MEDS: ACETAMINOPHEN 325 MG TAB PO PRN (02:47)
[2017-03-15] MEDS: RESP: ALBUTEROL 2.5 MG/IPRATROPIUM 0.5 MG NEB (PRN) NEB (05:43)
[2017-03-15] MEDS: BUDESONIDE-FORMOTEROL 160/4.5 MCG INHALER INH SCH ×2 (08:47→20:54)
[2017-03-15] MEDS: ALBUMIN HUMAN 25% 12.5 GM/50 ML BAGP IV SCH (08:48)
[2017-03-15] MEDS: SPIRONOLACTONE 25 MG TAB PO SCH ×2 (08:48→20:55)
[2017-03-15] MEDS: THIAMINE HCL 100 MG TAB PO SCH (08:48)
[2017-03-15] MEDS: LACTOBACILLUS ACIDOPHILUS TAB PO SCH ×3 (08:48→17:04)
[2017-03-15] MEDS: ENOXAPARIN SODIUM 30 MG/0.3 ML SYRINGE SQ SCH (08:48)
[2017-03-15] MEDS: DOCUSATE SODIUM 50 MG/SENNA 8.6 MG TAB PO SCH ×2 (08:49→20:55)
[2017-03-15] MEDS: MAGNESIUM OXIDE 400 MG TAB PO SCH (08:49)
[2017-03-15] MEDS: SODIUM CHLORIDE 0.9% FLUSH 10 ML FLUSH IV FLUSH SCH ×2 (08:49→20:55)
[2017-03-15] MEDS: BUMETANIDE INJ 1 MG/4 ML VIAL IV PUSH SCH (08:49)
[2017-03-15] MEDS: METOPROLOL TARTRATE 25 MG TAB PO SCH (08:50)
[2017-03-15] MEDS: DILTIAZEM-CD 120 MG CAP ER PO SCH (08:50)
[2017-03-15] MEDS: RESP: ALBUTEROL 2.5 MG/IPRATROPIUM 0.5 MG NEB (SCH) NEB ×4 (09:36→20:33)
[2017-03-15 09:43] LABS: APTT (PATIENT) 26.1 SEC (24.3-30.1)
[2017-03-15 09:51] LABS: BICARBONATE 26.8 MEQ/L (21.0-32.0)
[2017-03-15 10:06] LABS: POTASSIUM 3.4 MEQ/L (3.5-5.1)
--- NOTE | 2017-03-15 10:41 | HHI.PR ---
Subjective Remarks This is a pleasant 81 y/o Male with CAD, CHF, COPD, on Oxygen 2L at HS, MILY came to ER with dyspnea, Febrile and confused chronic lower extremity edema. with diagnosis of Cellulitis of Left lower extremity and Pneumonia. Sepsis on admission, followed by ID specialist, recommended to continue Levaquin, Started on Ceftriaxone, Discontinued Vancomycin, Consulted obstetrics specialist due to Thrombocytopenia in a patient on Heparin and Multiple antibiotics, questionable HIT, Avoid Zyvox due to low platelets. Seen in his bedroom in the presence of his and seen already by obstetrics specialist with Diagnosis of Thrombocytopenia His platelet count was normal on the last admission in late January, cytopenia probable caused by Cephalosporin, recommended to continue Argatroban, await result for HIT 03/11: Seen in her bedroom in the presence of his , discussed with nurse Miss Grissom the patient has two episodes of firing from his Defibrillator, that was Interrogated and found Bigeminy and PVCs. no need changes at this time as per control systems technician. patient stable no other complaint, asked for Ativan at bed time placed for low dose Ativan if Insomnia. 03/12: Stable in his bedroom, discussed with ID specialist doctor Nicole she will switch to by mouth antibiotics probable Levaquin and if Improving probable will Clear tomorrow, at this time in sitting position and no complaint. 03/13: Seen in his bedroom, in sitting position, switch antibiotics as per ID specialist discontinued Ceftriaxone and recommended to continue Levaquin and on discharge if continue with erythema doxycycline, as per Hematology and Oncology okay to discharge home, as per Cardiology Increased treatment rate on ICD, stopped Sotalol and started on Cardizem LA 120 BID, recommended to continue diuresis. 03/14: In his Bedroom in the presence of his , to continue diuresis as per clinical research specialist, had Appropriate ICD Shock, was on Eliquis removed due to suspected GI bleed, Cardiomyopathy EF 45% 02/2017 Chronic systolic CHF exacerbation. The patient's BNP is only slightly elevated and no evidence of pulmonary edema on CXR or CT chest. Atherosclerotic Heart disease, AAA 4.2 cm, 01/2017 BLE doppler negative for PE as per closing specialist to continue Cardizem and BB, recommended to continue antibiotics for Pneumonia. 03/15: Seen in his bedroom in the presence of his , no complaint, improving his endurance and working with Physical Therapy as per specialists continue with diuresis. Objective Vital Signs Date Time Temp Pulse Resp B/P Pulse Ox O2 Delivery O2 Flow Rate FiO2 03/15/17 09:37 96 Nasal Cannula 2.50 03/15/17 09:01 Nasal Cannula 2.00 03/15/17 08:00 98.0 69 22 98/67 98 03/15/17 03:49 98.6 65 24 92/61 95 03/15/17 00:32 98.1 03/15/17 00:32 98.1 74 22 102/70 92 03/15/17 00:00 Nasal Cannula 2.00 03/14/17 20:04 79 03/14/17 20:00 Nasal Cannula 2.00 03/14/17 19:50 97.6 69 22 107/71 93 03/14/17 19:45 93 Nasal Cannula 3.00 03/14/17 16:00 97.3 61 18 99/69 96 03/14/17 12:00 97.9 80 18 95/64 96 I/O 03/14/17 03/14/17 03/14/17 03/15/17 03/15/17 03/15/17 06:59 14:59 22:59 06:59 14:59 22:59 Intake Total 440 ml 600 ml 240 ml 100 ml Output Total 800 ml 700 ml 350 ml 250 ml Balance -360 ml -100 ml -110 ml -150 ml Intake Oral 440 ml 600 ml 240 ml 100 ml Output Urine Total 800 ml 700 ml 350 ml 250 ml # Bowel Movements 1 1 0 0 Result Diagram: 03/14/17 0950 03/15/17 0818 Imaging Last Impressions Lower Extremity Ultrasound 03/13/17 0000 Signed Impressions: Service Date/Time: Monday, March 13, 2017 16:30 - CONCLUSION: 1. No DVT identified. 2. 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 There is evidence of previous surgery. Fredi Mercer MD Chest X-Ray 03/13/17 0000 Signed Impressions: Service Date/Time: Monday, March 13, 2017 15:21 - CONCLUSION: Diffuse prominence of interstitial markings likely from COPD. There is atelectasis or consolidation at the left base. The lungs were better characterized on recent CT examination from 03/09/2017 Rusty Drew MD Chest CT 03/09/17 0000 Signed Impressions: Service Date/Time: Thursday, March 09, 2017 09:21 - CONCLUSION: 1. 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 2. Subsegmental airspace disease left lower lobe. 3. AICD Agapito Keys MD Procedures None Other Results Laboratory Tests Test 03/10/17 03/11/17 03/14/17 03/15/17 23:35 09:15 09:50 08:18 Magnesium Level 1.8 MG/DL Troponin I 0.04 NG/ML Platelet Estimate LOW Platelet Morphology Comment NORMAL White Blood Count 7.7 TH/MM3 Red Blood Count 3.97 MIL/MM3 Hemoglobin 11.8 GM/DL Hematocrit 37.0 % Mean Corpuscular Volume 93.3 FL Mean Corpuscular Hemoglobin 29.8 PG Mean Corpuscular Hemoglobin 31.9 % Concent Red Cell Distribution Width 17.2 % Platelet Count 135 TH/MM3 Mean Platelet Volume 8.5 FL Neutrophils (%) (Auto) 87.3 % Lymphocytes (%) (Auto) 4.7 % Monocytes (%) (Auto) 5.6 % Eosinophils (%) (Auto) 2.3 % Basophils (%) (Auto) 0.1 % Neutrophils # (Auto) 6.7 TH/MM3 Lymphocytes # (Auto) 0.4 TH/MM3 Monocytes # (Auto) 0.4 TH/MM3 Eosinophils # (Auto) 0.2 TH/MM3 Basophils # (Auto) 0.0 TH/MM3 CBC Comment DIFF FINAL Differential Comment B-Type Natriuretic Peptide 80 PG/ML Activated Partial 26.1 SEC Thromboplast Time Sodium Level 133 MEQ/L Potassium Level 3.4 MEQ/L Chloride Level 96 MEQ/L Carbon Dioxide Level 26.8 MEQ/L Anion Gap 10 MEQ/L Blood Urea Nitrogen 54 MG/DL Creatinine 2.04 MG/DL Estimat Glomerular Filtration 32 ML/MIN Rate Random Glucose 121 MG/DL Calcium Level 8.6 MG/DL Phosphorus Level 3.6 MG/DL Albumin 2.6 GM/DL Objective Remarks GENERAL: Alert, NAD. SKIN: Warm and dry. HEAD: Normocephalic. EYES: No scleral icterus. No injection or drainage. NECK: Supple, trachea midline. No JVD or lymphadenopathy. CARDIOVASCULAR: Regular rate and rhythm without murmurs, gallops, or rubs. RESPIRATORY: Breath sounds equal bilaterally. No accessory muscle use. GASTROINTESTINAL: Abdomen soft, non-tender, nondistended. MUSCULOSKELETAL: No cyanosis, Bilateral edema both legs with THEO Hose in place. BACK: Nontender without obvious deformity. No CVA tenderness. Medications and IVs Current Medications Medications (Trade) Dose Ordered Sig/Guy Route Start Time Stop Time Status Last Admin (NS Flush) 2 ml UNSCH PRN IV FLUSH 03/08/17 14:00 (NS Flush) 2 ml BID IV FLUSH 03/08/17 21:00 03/15/17 08:49 (Tylenol) 650 mg Q4H PRN PO 03/08/17 14:00 03/15/17 02:47 (Zofran Inj) 4 mg Q6H PRN IVP 03/08/17 14:00 (Narcan Inj) 0.4 mg UNSCH PRN IV 03/08/17 14:00 (Melanie-Colace) 1 tab BID PO 03/08/17 21:00 03/15/17 08:49 (Milk Of Magnesia Liq) 30 ml Q12H PRN PO 03/08/17 14:00 (Senokot) 17.2 mg Q12H PRN PO 03/08/17 14:00 (Dulcolax Supp) 10 mg DAILY PRN RECTAL 03/08/17 14:00 (Lactulose Liq) 30 ml DAILY PRN PO 03/08/17 14:00 (Lactinex) 1 tab TID PO 03/08/17 18:00 03/15/17 08:48 (Levaquin) 750 mg Q48H PO 03/12/17 09:00 03/14/17 09:13 (Lovenox Inj) 30 mg Q24H SQ 03/11/17 09:00 03/15/17 08:48 (Aldactone) 25 mg BID PO 03/11/17 21:00 03/15/17 08:48 (Ativan) 0.5 mg HS PRN PO 03/11/17 14:15 03/14/17 21:20 (Lopressor) 12.5 mg Q12HR PO 03/11/17 15:00 03/14/17 21:21 (Mag-Ox) 400 mg MoTh@09 PO 03/12/17 09:00 03/15/17 08:49 (Vitamin B1) 100 mg DAILY PO 03/11/17 15:49 03/15/17 08:48 (Symbicort 160-4.5 Inh) 1 puff Q12HR INH 03/12/17 21:00 03/15/17 08:47 (Bumex Inj) 2 mg DAILY IV PUSH 03/14/17 09:00 03/15/17 08:49 (Cardizem Cd) 120 mg BID PO 03/13/17 21:00 03/14/17 21:21 (Albumin 25% Inj) 12.5 gm DAILY IV 03/15/17 09:00 03/20/17 07:00 03/15/17 08:48 A/P Assessment and Plan 81 y/o male with a history of CAD, CHF, COPD 2L at HS, sleep apnea and MILY presented to the ED with complaints of increased dyspnea. Acute respiratory failure, now requiring O2 2L during the day Chest xray reviewed and unremarkable -Cont O2 via NC to keep O2 sat > 90%. -CT chest showed emphysema and left sided airspace disease. -Started Levaquin and Vancomycin. Consulted ID - abx changed to Levaquin and Ceftriaxone. -Bronchodilators, Mucolytic and switch to Levaquin by mouth May need Doxycycline at discharge if continue with erythema. Obesity strongly recommended diet and exercise as outpatient. Cellulitis, Left lower extremity, history of Levaquin use multiple times in the last few months, Improving. - Given patient's overall deconditioning, no improvement since admission, we will consult ID for Pneumonia and left lower ext cellulitis. - Per ID, will switch to Levaquin by mouth discontinued Ceftriaxone and if continue erythema on discharge give doxycycline. at this time Improving. CKD, stage 4, creatine 2.0, at baseline. -Avoid nephrotoxins - Nephrology following. Thrombocytopenia - Possibly related to medications. - Hematology consulted and did not found HIT Argatroban removed. okay to discharge. Defibrillator firing status post [facility] [place] Interrogated device and did not found malfunction no changes recommended needs to re start his Beta Meño Metoprolol at 12.5 mg BID. Appropriate ICD Shock. Cardiology following. Eliquis removed due to suspected GI bleed, Cardiomyopathy EF 45% 02/2017 Chronic systolic CHF exacerbation. The patient's BNP is only slightly elevated and no evidence of pulmonary edema on CXR or CT chest. Atherosclerotic Heart disease, AAA 4.2 cm, continue Cardizem and Beta blockers. Code status DNR. Heparin SQ Discussed with patient and his in the room, all questions answered to the best of my abilities. Discharge Planning Once cleared by specialists. Sudhakar Reyes MD Mar 15, 2017 10:41
--- NOTE | 2017-03-15 11:54 | PD.CARD.PN ---
Subjective Subjective Remarks The patient feels a little strong and less SOB. Still SOB with minimal exertion. BP still low since adding cardizem. HR controlled. Objective Medications Current Medications Medications (Trade) Dose Ordered Sig/Guy Route Start Time Stop Time Status Last Admin (NS Flush) 2 ml UNSCH PRN IV FLUSH 03/08/17 14:00 (NS Flush) 2 ml BID IV FLUSH 03/08/17 21:00 03/15/17 08:49 (Tylenol) 650 mg Q4H PRN PO 03/08/17 14:00 03/15/17 02:47 (Zofran Inj) 4 mg Q6H PRN IVP 03/08/17 14:00 (Narcan Inj) 0.4 mg UNSCH PRN IV 03/08/17 14:00 (Melanie-Colace) 1 tab BID PO 03/08/17 21:00 03/15/17 08:49 (Milk Of Magnesia Liq) 30 ml Q12H PRN PO 03/08/17 14:00 (Senokot) 17.2 mg Q12H PRN PO 03/08/17 14:00 (Dulcolax Supp) 10 mg DAILY PRN RECTAL 03/08/17 14:00 (Lactulose Liq) 30 ml DAILY PRN PO 03/08/17 14:00 (Lactinex) 1 tab TID PO 03/08/17 18:00 03/15/17 08:48 (Levaquin) 750 mg Q48H PO 03/12/17 09:00 03/14/17 09:13 (Lovenox Inj) 30 mg Q24H SQ 03/11/17 09:00 03/15/17 08:48 (Aldactone) 25 mg BID PO 03/11/17 21:00 03/15/17 08:48 (Ativan) 0.5 mg HS PRN PO 03/11/17 14:15 03/14/17 21:20 (Lopressor) 12.5 mg Q12HR PO 03/11/17 15:00 03/14/17 21:21 (Mag-Ox) 400 mg MoTh@09 PO 03/12/17 09:00 03/15/17 08:49 (Vitamin B1) 100 mg DAILY PO 03/11/17 15:49 03/15/17 08:48 (Symbicort 160-4.5 Inh) 1 puff Q12HR INH 03/12/17 21:00 03/15/17 08:47 (Bumex Inj) 2 mg DAILY IV PUSH 03/14/17 09:00 03/15/17 08:49 (Cardizem Cd) 120 mg BID PO 03/13/17 21:00 03/14/17 21:21 (Albumin 25% Inj) 12.5 gm DAILY IV 03/15/17 09:00 03/20/17 07:00 03/15/17 08:48 (KCl) 20 meq ONCE ONCE PO 03/15/17 12:00 03/15/17 12:01 Vital Signs / I&O Vital Signs Date Time Temp Pulse Resp B/P Pulse Ox O2 Delivery O2 Flow Rate FiO2 03/15/17 09:37 96 Nasal Cannula 2.50 03/15/17 09:01 Nasal Cannula 2.00 03/15/17 08:00 98.0 69 22 98/67 98 03/15/17 03:49 98.6 65 24 92/61 95 03/15/17 00:32 98.1 03/15/17 00:32 98.1 74 22 102/70 92 03/15/17 00:00 Nasal Cannula 2.00 03/14/17 20:04 79 03/14/17 20:00 Nasal Cannula 2.00 03/14/17 19:50 97.6 69 22 107/71 93 03/14/17 19:45 93 Nasal Cannula 3.00 03/14/17 16:00 97.3 61 18 99/69 96 03/14/17 12:00 97.9 80 18 95/64 96 I/O 03/14/17 03/14/17 03/14/17 03/15/17 03/15/17 03/15/17 06:59 14:59 22:59 06:59 14:59 22:59 Intake Total 440 ml 600 ml 240 ml 100 ml Output Total 800 ml 700 ml 350 ml 250 ml Balance -360 ml -100 ml -110 ml -150 ml Intake Oral 440 ml 600 ml 240 ml 100 ml Output Urine Total 800 ml 700 ml 350 ml 250 ml # Bowel Movements 1 1 0 0 Physical Exam GENERAL: Elderly, obese male, sitting up in the chair SKIN: Warm and dry. HEAD: Normocephalic. EYES: No scleral icterus. No injection or drainage. NECK: Supple, trachea midline. CARDIOVASCULAR: Regular rate and rhythm without murmurs, gallops, or rubs. ICD RESPIRATORY: Breath sounds equal bilaterally. Right base rales GASTROINTESTINAL: Abdomen soft, non-tender, nondistended. MUSCULOSKELETAL: No cyanosis,2 + BLE with THEO hose BACK: Nontender without obvious deformity. No CVA tenderness. Laboratory Laboratory Tests Test 03/15/17 08:18 Activated Partial 26.1 SEC Thromboplast Time Sodium Level 133 MEQ/L Potassium Level 3.4 MEQ/L Chloride Level 96 MEQ/L Carbon Dioxide Level 26.8 MEQ/L Anion Gap 10 MEQ/L Blood Urea Nitrogen 54 MG/DL Creatinine 2.04 MG/DL Estimat Glomerular Filtration 32 ML/MIN Rate Random Glucose 121 MG/DL Calcium Level 8.6 MG/DL Phosphorus Level 3.6 MG/DL Albumin 2.6 GM/DL Imaging Last 72 hours Impressions Lower Extremity Ultrasound 03/13/17 0000 Signed Impressions: Service Date/Time: Monday, March 13, 2017 16:30 - CONCLUSION: 1. No DVT identified. 2. 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 There is evidence of previous surgery. Fredi Mercer MD Chest X-Ray 03/13/17 0000 Signed Impressions: Service Date/Time: Monday, March 13, 2017 15:21 - CONCLUSION: Diffuse prominence of interstitial markings likely from COPD. There is atelectasis or consolidation at the left base. The lungs were better characterized on recent CT examination from 03/09/2017 Rusty Drew MD Assessment and Plan Assessment and Plan Multiple admissions for SOB- CT chest suggestive of LLL pneumonia. BNP 80. The patient had a cardiac PET scan 01/2016. Apparently, the patient had a CTA to exclude PE another hospital for similar symptoms. BLE doppler 03/13/2017 negative for DVT. The patient has a history of DVT. Eliquis discontinued in the past due to suspected GI bleed. Appropriate ICD shock Cardiomyopathy EF 45% 02/2017 Chronic systolic CHF exacerbation. The patient's BNP is only slightly elevated and no evidence of pulmonary edema on CXR or CT chest. No TR on echo. 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 Eliquis stopped due to suspected GI bleed. 01/2017 BLE doppler negative for PE Acute on chronic CKD PLAN: Decrease to Cardizem LA 180 mg daily Continue ABX for pneumonia Continue diuresis with careful monitoring of renal function. Patient seen and evaluated by Dr Simental who completed a face to face encounter , completed physical exam and participated in the evaluation and management Veronica Gamboa Mar 15, 2017 11:54
[2017-03-15] MEDS ORDERED: POTASSIUM CHLORIDE 20 MEQ CONTROLLED RELEASE TAB PO ONE (12:00)
[2017-03-15] MEDS ORDERED: METOLAZONE 2.5 MG TAB PO ONE (13:00)
--- NOTE | 2017-03-15 15:53 | HHI.NPPN ---
Subjective General Problems: Anemia, Edema, Heart Disease, Hypertension Renal Failure: Chronic, Stage III Interval History is concerned about his lack of progress and recent decline. His renal function is stable. Low energy. He is short of breath. (Gosia Mike ) Review of Systems General Constitutional: Fatigue (Gosia Mike) Respiratory Lungs: SOB (Gosia Mike) Cardiovascular Cardiac: Edema, ROGERS (Gosia Mike) Objective Data Data 03/14/17 03/15/17 19:00 07:00 Intake Total 600 ml 340 ml Output Total 700 ml 600 ml Balance -100 ml -260 ml Intake Oral 600 ml 340 ml Output Urine Total 700 ml 600 ml # Bowel Movements 1 0 Vital Signs Date Time Temp Pulse Resp B/P Pulse Ox O2 Delivery O2 Flow Rate FiO2 03/15/17 12:00 98.3 81 22 120/77 96 03/15/17 09:37 96 Nasal Cannula 2.50 03/15/17 09:01 Nasal Cannula 2.00 03/15/17 08:00 98.0 69 22 98/67 98 03/15/17 03:49 98.6 65 24 92/61 95 03/15/17 00:32 98.1 03/15/17 00:32 98.1 74 22 102/70 92 03/15/17 00:00 Nasal Cannula 2.00 03/14/17 20:04 79 03/14/17 20:00 Nasal Cannula 2.00 03/14/17 19:50 97.6 69 22 107/71 93 03/14/17 19:45 93 Nasal Cannula 3.00 03/14/17 16:00 97.3 61 18 99/69 96 (Gosia Mike) -: 03/14/17 0950 03/15/17 0818 Imaging Last 72 hours Impressions Lower Extremity Ultrasound 03/13/17 0000 Signed Impressions: Service Date/Time: Monday, March 13, 2017 16:30 - CONCLUSION: 1. No DVT identified. 2. 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 There is evidence of previous surgery. Fredi Mercer MD Chest X-Ray 03/13/17 0000 Signed Impressions: Service Date/Time: Monday, March 13, 2017 15:21 - CONCLUSION: Diffuse prominence of interstitial markings likely from COPD. There is atelectasis or consolidation at the left base. The lungs were better characterized on recent CT examination from 03/09/2017 Rusty Drew MD (Gosia Mike B. INSOLE LIP TURNER) Physical Exam General Appearance: Well Developed, No Acute Distress, Comfortable (Rashid,Gosia B. INSOLE LIP TURNER) Eyes Eye Exam: Pupils Equal (Rashid,Gosia B. INSOLE LIP TURNER) Throat Throat Exam: Oral Mucosa [place] & Moist (Rashid,Gosia B. INSOLE LIP TURNER) Neck Neck Exam: Neck Supple (Rashid,Gosia B. INSOLE LIP TURNER) Pulmonary Resp Exam: Breath Sounds Equal, No Distress, Crackles, Decreased Bases, Diminished Breath Sounds (Edd Mikeon B. INSOLE LIP TURNER) Cardiology CV Exam: Regular, Normal Sinus Rhythm, Good Perfusion (Edd Mikeon B. INSOLE LIP TURNER) Gastrointestinal/Abdomen GI Exam: Soft, Non-Tender, Bowel Sounds Present (Gosia Mike B. INSOLE LIP TURNER) Musculoskeletal MS Exam: Joints Intact, Normal Tone (Edd Mikeon B. INSOLE LIP TURNER) Extremeties Extremities Exam: Pedal Pulses Palpable, Moderate Edema (Edd Mikeon B. INSOLE LIP TURNER) Neurologic Neuro Exam: Alert, Awake, Oriented, Speech Clear, Moving All Extremities ( Gosia Mike B. INSOLE LIP TURNER) Psychiatric Psych Exam: Appropriate Responses (Gosia Mike B. INSOLE LIP TURNER) Assessment/Plan Discussed Condition With: Patient, Spouse Assessment Summary: JOHN/Acute Renal Failure, Fluid/Volume Overload, Hypertension, CKD Stage III Problem List: (1) Chronic kidney disease, stage 3 Plan: Renal function varies but overall stable, his baseline GFR is in 30s. Underlying CKD likely due to nephrosclerosis dependent edema likely due to venous insufficiency, if we aggressively diurese we risk worsening his renal function in that instance he likely will not do well on technician terminal and repeater dialysis continue to elevate lower extremities, low Na diet, compression stockings begin PT/OT and encourage ambulation, deep breathing in the meantime, avoid IVF, Continue Bumex 2 mg BID and Aldactone 25mg BID; he has received Zaroxolyn intermittently avoid nephrotoxic substances, avoid IVF replace potassium orally daily repeat renal panel (2) Shortness of breath Plan: Hx CHF, COPD; on oxygen he also has physical deconditioning continue nebulizers pulmonary and ID following; on Levaquin to cover pneumonia (3) Cellulitis Plan: being treated for left leg cellulitis on Rocephin (4) Edema Plan: continue diuretics as ordered follow urine output, fluid volume status (5) Hypertension Plan: continue ordered medications follow blood pressure (6) Anemia Plan: Hb stable and at baseline monitor for changes (7) Thrombocytopenia Plan: improving, hematology following thought to be medication related no reports of bleeding follow CBC (Gosia Mike) Plan patient was seen and examined. Agree with above assessment and plan. Renal function is stable. No need for dialysis. Needs rehab. Continue diuretic as ordered. (Uli Light MD) Problem Qualifiers (1) Cellulitis: Qualified Code: L03.116 - Cellulitis of left lower extremity Gosia Mike Mar 15, 2017 15:53 Uli Light MD Mar 16, 2017 20:27
[2017-03-15] MEDS ORDERED: ZOLPIDEM TARTRATE 5 MG TAB PO ONE (21:45)
[2017-03-16] VITALS (9 sets, daily range): BP systolic 110–129; BP diastolic 55–78; PULSE 66–106; RESP 18–20; TEMP 97.3–98.4; O2SAT 92–98
[2017-03-16] MEDS: BUDESONIDE-FORMOTEROL 160/4.5 MCG INHALER INH SCH ×2 (08:30→21:34)
[2017-03-16] MEDS: ALBUMIN HUMAN 25% 12.5 GM/50 ML BAGP IV SCH (08:31)
[2017-03-16] MEDS: DOCUSATE SODIUM 50 MG/SENNA 8.6 MG TAB PO SCH ×2 (08:31→21:33)
[2017-03-16] MEDS: THIAMINE HCL 100 MG TAB PO SCH (08:31)
[2017-03-16] MEDS: LEVOFLOXACIN 750 MG TAB PO SCH (08:31)
[2017-03-16] MEDS: ENOXAPARIN SODIUM 30 MG/0.3 ML SYRINGE SQ SCH (08:31)
[2017-03-16] MEDS: LACTOBACILLUS ACIDOPHILUS TAB PO SCH ×3 (08:31→18:20)
[2017-03-16] MEDS: SPIRONOLACTONE 25 MG TAB PO SCH ×2 (08:31→21:33)
[2017-03-16] MEDS: BUMETANIDE INJ 1 MG/4 ML VIAL IV PUSH SCH (08:32)
[2017-03-16] MEDS: SODIUM CHLORIDE 0.9% FLUSH 10 ML FLUSH IV FLUSH SCH ×2 (08:32→21:34)
[2017-03-16] MEDS: RESP: ALBUTEROL 2.5 MG/IPRATROPIUM 0.5 MG NEB (SCH) NEB ×3 (08:33→15:43)
[2017-03-16] MEDS ORDERED: DILTIAZEM-CD 120 MG CAP ER PO SCH (09:00)
[2017-03-16] MEDS ORDERED: DILTIAZEM-CD 180 MG CAP ER PO SCH (09:00)
[2017-03-16 09:47] LABS: BICARBONATE 30.2 MEQ/L (21.0-32.0); POTASSIUM 3.3 MEQ/L (3.5-5.1)
[2017-03-16 12:26] LABS: AUTOMATED NEUTROPHIL # 6.4 TH/MM3 (1.8-7.7); BASOPHIL # 0.1 TH/MM3 (0-0.2); BASOPHIL % 1.6 % (0.0-2.0); EOSINOPHIL # 0.1 TH/MM3 (0-0.4); EOSINOPHIL % 1.4 % (0.0-4.0); HEMO FLAGS DIFF FINAL; LYMPH % 4.1 % (9.0-44.0); LYMPHOCYTE # 0.3 TH/MM3 (1.0-4.8); MEAN CELL VOLUME 91.5 FL (80.0-100.0); MEAN CORPUSCULAR HEMOGLOBIN 30.7 PG (27.0-34.0); MEAN CORPUSCULAR HGB CONC 33.6 % (32.0-36.0); MONO % 6.1 % (0.0-8.0); NEUT % 86.8 % (16.0-70.0); PLATELET COUNT 155 TH/MM3 (150-450); RED BLOOD COUNT 3.94 MIL/MM3 (4.50-5.90); RED CELL DISTRIBUTION WIDTH 17.4 % (11.6-17.2); WHITE BLOOD COUNT 7.3 TH/MM3 (4.0-11.0)
--- NOTE | 2017-03-16 12:29 | HHI.NPPN ---
Subjective General Problems: Anemia, Edema, Heart Disease, Hypertension Renal Failure: Chronic, Stage III Interval History Sitting up in chair. He looks better. Slept last night with the addition of Ambien. Renal function stable. (Gosia Mike) Review of Systems General Constitutional: Fatigue (Gosia Mike) Respiratory Lungs: SOB (Gosia Mike) Cardiovascular Cardiac: Edema, ROGERS (Gosia Mike) Objective Data Data 03/15/17 03/16/17 19:00 07:00 Intake Total 600 ml 582 ml Output Total 450 ml 375 ml Balance 150 ml 207 ml Intake Oral 600 ml 580 ml IV Total 2 ml Output Urine Total 450 ml 375 ml # Bowel Movements 1 Vital Signs Date Time Temp Pulse Resp B/P Pulse Ox O2 Delivery O2 Flow Rate FiO2 03/16/17 08:34 95 Nasal Cannula 4.00 03/16/17 08:00 98.1 90 20 110/69 95 03/16/17 05:25 Nasal Cannula 2.00 03/16/17 04:00 97.3 74 20 118/78 96 03/16/17 01:39 Nasal Cannula 2.00 03/16/17 00:00 97.3 80 20 115/66 96 03/15/17 20:15 97 03/15/17 20:00 98.2 98 24 102/67 92 03/15/17 20:00 Nasal Cannula 2.00 03/15/17 16:00 98.9 94 20 109/82 94 (Gosia Mike) -: 03/14/17 0950 03/16/17 0730 Physical Exam General Appearance: Well Developed, No Acute Distress, Comfortable (Gosia Mike) Eyes Eye Exam: Pupils Equal (Gosia Mike) Throat Throat Exam: Oral Mucosa [place] & Moist (Gosia Mike) Neck Neck Exam: Neck Supple (Gosia Mike) Pulmonary Resp Exam: Breath Sounds Equal, No Distress, Crackles, Decreased Bases, Diminished Breath Sounds (Gosia Mike) Cardiology CV Exam: Regular, Normal Sinus Rhythm, Good Perfusion (Gosia Mike) Gastrointestinal/Abdomen GI Exam: Soft, Non-Tender, Bowel Sounds Present (Gosia Mike) Musculoskeletal MS Exam: Joints Intact, Normal Tone (Gosia Mike) Extremeties Extremities Exam: Pedal Pulses Palpable, Moderate Edema (Gosia Mike) Neurologic Neuro Exam: Alert, Awake, Oriented, Speech Clear, Moving All Extremities ( Gosia Mike) Psychiatric Psych Exam: Appropriate Responses (Gosia Mike) Assessment/Plan Discussed Condition With: Patient, Spouse Assessment Summary: JOHN/Acute Renal Failure, Fluid/Volume Overload, Hypertension, CKD Stage III Problem List: (1) Chronic kidney disease, stage 3 Plan: Renal function varies but overall stable, his baseline GFR is in 30s. . 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 dialysis continue to elevate lower extremities, low Na diet, compression stockings avoid IVF Continue Bumex , dosage reduced to 2 mg daily, change to PO dosage he is also on Aldactone 25mg BID; he has received Zaroxolyn intermittently by pulmonary avoid nephrotoxic substances, avoid IVF K was replaced he is non oliguric daily repeat renal panel (2) Shortness of breath Plan: Hx CHF, COPD; on oxygen he also has physical deconditioning continue nebulizers pulmonary and ID following; on Levaquin to cover pneumonia begin PT/OT and encourage ambulation, deep breathing he is to go to rehab after discharge (3) Cellulitis Plan: being treated for left leg cellulitis on Rocephin (4) Edema Plan: continue diuretics as ordered follow urine output, fluid volume status ordered albumin (5) Hypertension Plan: continue ordered medications follow blood pressure (6) Anemia Plan: Hb stable and at baseline monitor for changes (7) Thrombocytopenia Plan: improving, hematology following thought to be medication related no reports of bleeding follow CBC (Gosia Mike) Plan patient was seen and examined. Overall his renal function is stable. He may be developing contraction alkalosis. Avoid nephrotoxic agents. Needs rehab placement. (Uli Light MD) Problem Qualifiers (1) Cellulitis: Qualified Code: L03.116 - Cellulitis of left lower extremity Gosia Mike Mar 16, 2017 12:29 Uli Light MD Mar 16, 2017 21:00
[2017-03-16] MEDS ORDERED: POTASSIUM CHLORIDE 20 MEQ CONTROLLED RELEASE TAB PO ONE (13:30)
[2017-03-16] MEDS ORDERED: METOPROLOL TARTRATE 5 MG/5 ML VIAL IV PUSH PRN (15:00)
--- NOTE | 2017-03-16 15:15 | PD.CARD.PN ---
Subjective Subjective Remarks The patient is feeling a little better. Metoprolol stopped yesterday and cardizem decreased yesterday. Now HR increasing with rates up to 145 bpm. The patient is eating [place] while in the room. (Veronica Gamboa) Objective Medications Current Medications Medications (Trade) Dose Ordered Sig/Guy Route Start Time Stop Time Status Last Admin (NS Flush) 2 ml UNSCH PRN IV FLUSH 03/08/17 14:00 (NS Flush) 2 ml BID IV FLUSH 03/08/17 21:00 03/16/17 08:32 (Tylenol) 650 mg Q4H PRN PO 03/08/17 14:00 03/15/17 02:47 (Zofran Inj) 4 mg Q6H PRN IVP 03/08/17 14:00 (Narcan Inj) 0.4 mg UNSCH PRN IV 03/08/17 14:00 (Melanie-Colace) 1 tab BID PO 03/08/17 21:00 03/16/17 08:31 (Milk Of Magnesia Liq) 30 ml Q12H PRN PO 03/08/17 14:00 (Senokot) 17.2 mg Q12H PRN PO 03/08/17 14:00 (Dulcolax Supp) 10 mg DAILY PRN RECTAL 03/08/17 14:00 (Lactulose Liq) 30 ml DAILY PRN PO 03/08/17 14:00 (Lactinex) 1 tab TID PO 03/08/17 18:00 03/16/17 13:15 (Levaquin) 750 mg Q48H PO 03/12/17 09:00 03/16/17 08:31 (Lovenox Inj) 30 mg Q24H SQ 03/11/17 09:00 03/16/17 08:31 (Aldactone) 25 mg BID PO 03/11/17 21:00 03/16/17 08:31 (Ativan) 0.5 mg HS PRN PO 03/11/17 14:15 03/14/17 21:20 (Mag-Ox) 400 mg MoTh@09 PO 03/12/17 09:00 03/15/17 08:49 (Vitamin B1) 100 mg DAILY PO 03/11/17 15:49 03/16/17 08:31 (Symbicort 160-4.5 Inh) 1 puff Q12HR INH 03/12/17 21:00 03/16/17 08:30 (Albumin 25% Inj) 12.5 gm DAILY IV 03/15/17 09:00 03/20/17 07:00 03/16/17 08:31 (Bumetanide) 2 mg DAILY PO 03/17/17 09:00 (Cardizem Cd) 180 mg DAILY PO 03/17/17 09:00 UNV Vital Signs / I&O Vital Signs Date Time Temp Pulse Resp B/P Pulse Ox O2 Delivery O2 Flow Rate FiO2 03/16/17 12:00 97.3 106 20 111/55 98 03/16/17 08:34 95 Nasal Cannula 4.00 03/16/17 08:00 98.1 90 20 110/69 95 03/16/17 05:25 Nasal Cannula 2.00 03/16/17 04:00 97.3 74 20 118/78 96 03/16/17 01:39 Nasal Cannula 2.00 03/16/17 00:00 97.3 80 20 115/66 96 03/15/17 20:15 97 03/15/17 20:00 98.2 98 24 102/67 92 03/15/17 20:00 Nasal Cannula 2.00 03/15/17 16:00 98.9 94 20 109/82 94 I/O 03/15/17 03/15/17 03/15/17 03/16/17 03/16/17 03/16/17 07:00 15:00 23:00 07:00 15:00 23:00 Intake Total 100 ml 600 ml 582 ml 600 ml Output Total 250 ml 450 ml 375 ml Balance -150 ml 150 ml 207 ml 600 ml Intake Oral 100 ml 600 ml 580 ml 600 ml IV Total 2 ml Output Urine Total 250 ml 450 ml 375 ml # Voids 3 # Bowel Movements 0 1 0 Physical Exam GENERAL: Elderly, obese male, sitting up in the chair SKIN: Warm and dry. HEAD: Normocephalic. EYES: No scleral icterus. No injection or drainage. NECK: Supple, trachea midline. CARDIOVASCULAR: Regular rate and rhythm without murmurs, gallops, or rubs. ICD tachycardia RESPIRATORY: Breath sounds equal bilaterally. GASTROINTESTINAL: Abdomen soft, non-tender, nondistended. MUSCULOSKELETAL: No cyanosis, 3 + BLE BACK: Nontender without obvious deformity. Laboratory Laboratory Tests Test 03/16/17 03/16/17 07:30 11:41 Activated Partial 27.0 SEC Thromboplast Time Sodium Level 134 MEQ/L Potassium Level 3.3 MEQ/L Chloride Level 95 MEQ/L Carbon Dioxide Level 30.2 MEQ/L Anion Gap 9 MEQ/L Blood Urea Nitrogen 47 MG/DL Creatinine 1.90 MG/DL Estimat Glomerular Filtration 34 ML/MIN Rate Random Glucose 102 MG/DL Calcium Level 8.7 MG/DL White Blood Count 7.3 TH/MM3 Red Blood Count 3.94 MIL/MM3 Hemoglobin 12.1 GM/DL Hematocrit 36.0 % Mean Corpuscular Volume 91.5 FL Mean Corpuscular Hemoglobin 30.7 PG Mean Corpuscular Hemoglobin 33.6 % Concent Red Cell Distribution Width 17.4 % Platelet Count 155 TH/MM3 Mean Platelet Volume 8.6 FL Neutrophils (%) (Auto) 86.8 % Lymphocytes (%) (Auto) 4.1 % Monocytes (%) (Auto) 6.1 % Eosinophils (%) (Auto) 1.4 % Basophils (%) (Auto) 1.6 % Neutrophils # (Auto) 6.4 TH/MM3 Lymphocytes # (Auto) 0.3 TH/MM3 Monocytes # (Auto) 0.4 TH/MM3 Eosinophils # (Auto) 0.1 TH/MM3 Basophils # (Auto) 0.1 TH/MM3 CBC Comment DIFF FINAL Differential Comment (Veronica Gamboa) Assessment and Plan Assessment and Plan Multiple admissions for SOB- CT chest suggestive of LLL pneumonia. BNP 80. The patient had a cardiac PET scan 01/2016. Apparently, the patient had a CTA to exclude PE another hospital for similar symptoms. BLE doppler 03/13/2017 negative for DVT. The patient has a history of DVT. Eliquis discontinued in the past due to suspected GI bleed. Appropriate ICD shock Cardiomyopathy EF 45% 02/2017 Chronic systolic CHF exacerbation. The patient's BNP is only slightly elevated and no evidence of pulmonary edema on CXR or CT chest. No TR on echo. 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 Eliquis stopped due to suspected GI bleed. 01/2017 BLE doppler negative for PE Acute on chronic CKD PLAN: Increase cardizem to 180 mg daily Provide lopressor PRN order for HR > 150 bpm Continue ABX for pneumonia Change to heart healthy diet Continue diuresis with careful monitoring of renal function. Patient seen and evaluated by Dr Simental who completed a face to face encounter , completed physical exam and participated in the evaluation and management (Veronica Gamboa) Assessment and Plan Overall doing better continue antibiotics (Kirsten Simental MD) Veronica Gamboa Mar 16, 2017 15:15 Kirsten Simental MD Mar 16, 2017 21:53
[2017-03-16] MEDS ORDERED: METOLAZONE 2.5 MG TAB PO ONE (16:15)
--- NOTE | 2017-03-16 16:37 | HHI.PR ---
Subjective Remarks This is a pleasant 81 y/o Male with CAD, CHF, COPD, on Oxygen 2L at HS, MILY came to ER with dyspnea, Febrile and confused chronic lower extremity edema. with diagnosis of Cellulitis of Left lower extremity and Pneumonia. Sepsis on admission, followed by ID specialist, recommended to continue Levaquin, Started on Ceftriaxone, Discontinued Vancomycin, Consulted apartment leasing specialist due to Thrombocytopenia in a patient on Heparin and Multiple antibiotics, questionable HIT, Avoid Zyvox due to low platelets. Seen in his bedroom in the presence of his and seen already by apartment leasing specialist with Diagnosis of Thrombocytopenia His platelet count was normal on the last admission in late January, cytopenia probable caused by Cephalosporin, recommended to continue Argatroban, await result for HIT 03/11: Seen in her bedroom in the presence of his , discussed with nurse Miss Grissom the patient has two episodes of firing from his Defibrillator, that was Interrogated and found Bigeminy and PVCs. no need changes at this time as per compressor technician. patient stable no other complaint, asked for Ativan at bed time placed for low dose Ativan if Insomnia. 03/12: Stable in his bedroom, discussed with ID specialist doctor Nicole she will switch to by mouth antibiotics probable Levaquin and if Improving probable will Clear tomorrow, at this time in sitting position and no complaint. 03/13: Seen in his bedroom, in sitting position, switch antibiotics as per ID specialist discontinued Ceftriaxone and recommended to continue Levaquin and on discharge if continue with erythema doxycycline, as per Hematology and Oncology okay to discharge home, as per Cardiology Increased treatment rate on ICD, stopped Sotalol and started on Cardizem LA 120 BID, recommended to continue diuresis. 03/14: In his Bedroom in the presence of his , to continue diuresis as per women specialist, had Appropriate ICD Shock, was on Eliquis removed due to suspected GI bleed, Cardiomyopathy EF 45% 02/2017 Chronic systolic CHF exacerbation. The patient's BNP is only slightly elevated and no evidence of pulmonary edema on CXR or CT chest. Atherosclerotic Heart disease, AAA 4.2 cm, 01/2017 BLE doppler negative for PE as per clinical specialist medical device to continue Cardizem and BB, recommended to continue antibiotics for Pneumonia. 03/15: No issues 03/16: Sable in his bedroom in the presence of his , he has MILY on CPAP, was increased Cardizem to 180 mg daily by Cardiology, to continue antibiotics for Pneumonia, continue diuresis but careful not to worsen his renal function. continue Compression stockings and elevate legs when resting by Nephrology, no nausea, vomit or diarrhea. Objective Vital Signs Date Time Temp Pulse Resp B/P Pulse Ox O2 Delivery O2 Flow Rate FiO2 03/16/17 16:00 97.5 74 18 110/77 98 03/16/17 15:43 92 2.50 03/16/17 12:00 97.3 106 20 111/55 98 03/16/17 08:44 80 03/16/17 08:44 Nasal Cannula 3.00 03/16/17 08:34 95 Nasal Cannula 4.00 03/16/17 08:00 98.1 90 20 110/69 95 03/16/17 05:25 Nasal Cannula 2.00 03/16/17 04:00 97.3 74 20 118/78 96 03/16/17 01:39 Nasal Cannula 2.00 03/16/17 00:00 97.3 80 20 115/66 96 03/15/17 20:15 97 03/15/17 20:00 98.2 98 24 102/67 92 03/15/17 20:00 Nasal Cannula 2.00 I/O 03/15/17 03/15/17 03/15/17 03/16/17 03/16/17 03/16/17 07:00 15:00 23:00 07:00 15:00 23:00 Intake Total 100 ml 600 ml 582 ml 600 ml Output Total 250 ml 450 ml 375 ml Balance -150 ml 150 ml 207 ml 600 ml Intake Oral 100 ml 600 ml 580 ml 600 ml IV Total 2 ml Output Urine Total 250 ml 450 ml 375 ml # Voids 3 # Bowel Movements 0 1 0 Result Diagram: 03/16/17 1141 03/16/17 0730 Imaging Last Impressions Lower Extremity Ultrasound 03/13/17 0000 Signed Impressions: Service Date/Time: Monday, March 13, 2017 16:30 - CONCLUSION: 1. No DVT identified. 2. 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 There is evidence of previous surgery. Fredi Mercer MD Chest X-Ray 03/13/17 0000 Signed Impressions: Service Date/Time: Monday, March 13, 2017 15:21 - CONCLUSION: Diffuse prominence of interstitial markings likely from COPD. There is atelectasis or consolidation at the left base. The lungs were better characterized on recent CT examination from 03/09/2017 Rusty Drew MD Chest CT 03/09/17 0000 Signed Impressions: Service Date/Time: Thursday, March 09, 2017 09:21 - CONCLUSION: 1. 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 2. Subsegmental airspace disease left lower lobe. 3. AICD Agapito Keys MD Procedures None Other Results Laboratory Tests Test 03/14/17 03/15/17 03/16/17 03/16/17 09:50 08:18 07:30 11:41 B-Type Natriuretic Peptide 80 PG/ML Phosphorus Level 3.6 MG/DL Albumin 2.6 GM/DL Activated Partial 27.0 SEC Thromboplast Time Sodium Level 134 MEQ/L Potassium Level 3.3 MEQ/L Chloride Level 95 MEQ/L Carbon Dioxide Level 30.2 MEQ/L Anion Gap 9 MEQ/L Blood Urea Nitrogen 47 MG/DL Creatinine 1.90 MG/DL Estimat Glomerular Filtration 34 ML/MIN Rate Random Glucose 102 MG/DL Calcium Level 8.7 MG/DL White Blood Count 7.3 TH/MM3 Red Blood Count 3.94 MIL/MM3 Hemoglobin 12.1 GM/DL Hematocrit 36.0 % Mean Corpuscular Volume 91.5 FL Mean Corpuscular Hemoglobin 30.7 PG Mean Corpuscular Hemoglobin 33.6 % Concent Red Cell Distribution Width 17.4 % Platelet Count 155 TH/MM3 Mean Platelet Volume 8.6 FL Neutrophils (%) (Auto) 86.8 % Lymphocytes (%) (Auto) 4.1 % Monocytes (%) (Auto) 6.1 % Eosinophils (%) (Auto) 1.4 % Basophils (%) (Auto) 1.6 % Neutrophils # (Auto) 6.4 TH/MM3 Lymphocytes # (Auto) 0.3 TH/MM3 Monocytes # (Auto) 0.4 TH/MM3 Eosinophils # (Auto) 0.1 TH/MM3 Basophils # (Auto) 0.1 TH/MM3 CBC Comment DIFF FINAL Differential Comment Objective Remarks GENERAL: Alert, NAD. SKIN: Warm and dry. HEAD: Normocephalic. EYES: No scleral icterus. No injection or drainage. NECK: Supple, trachea midline. No JVD or lymphadenopathy. CARDIOVASCULAR: Regular rate and rhythm without murmurs, gallops, or rubs. RESPIRATORY: Breath sounds equal bilaterally. No accessory muscle use. GASTROINTESTINAL: Abdomen soft, non-tender, nondistended. MUSCULOSKELETAL: No cyanosis, Bilateral edema both legs with THEO Hose in place. BACK: Nontender without obvious deformity. No CVA tenderness. Medications and IVs Current Medications Medications (Trade) Dose Ordered Sig/Guy Route Start Time Stop Time Status Last Admin (NS Flush) 2 ml UNSCH PRN IV FLUSH 03/08/17 14:00 (NS Flush) 2 ml BID IV FLUSH 03/08/17 21:00 03/16/17 08:32 (Tylenol) 650 mg Q4H PRN PO 03/08/17 14:00 03/15/17 02:47 (Zofran Inj) 4 mg Q6H PRN IVP 03/08/17 14:00 (Narcan Inj) 0.4 mg UNSCH PRN IV 03/08/17 14:00 (Melanie-Colace) 1 tab BID PO 03/08/17 21:00 03/16/17 08:31 (Milk Of Magnesia Liq) 30 ml Q12H PRN PO 03/08/17 14:00 (Senokot) 17.2 mg Q12H PRN PO 03/08/17 14:00 (Dulcolax Supp) 10 mg DAILY PRN RECTAL 03/08/17 14:00 (Lactulose Liq) 30 ml DAILY PRN PO 03/08/17 14:00 (Lactinex) 1 tab TID PO 03/08/17 18:00 03/16/17 13:15 (Levaquin) 750 mg Q48H PO 03/12/17 09:00 03/16/17 08:31 (Lovenox Inj) 30 mg Q24H SQ 03/11/17 09:00 03/16/17 08:31 (Aldactone) 25 mg BID PO 03/11/17 21:00 03/16/17 08:31 (Ativan) 0.5 mg HS PRN PO 03/11/17 14:15 03/14/17 21:20 (Mag-Ox) 400 mg MoTh@09 PO 03/12/17 09:00 03/15/17 08:49 (Vitamin B1) 100 mg DAILY PO 03/11/17 15:49 03/16/17 08:31 (Symbicort 160-4.5 Inh) 1 puff Q12HR INH 03/12/17 21:00 03/16/17 08:30 (Albumin 25% Inj) 12.5 gm DAILY IV 03/15/17 09:00 03/20/17 07:00 03/16/17 08:31 (Bumetanide) 2 mg DAILY PO 03/17/17 09:00 (Cardizem Cd) 180 mg DAILY PO 03/17/17 09:00 (Lopressor Inj) 5 mg Q5M PRN IV PUSH 03/16/17 15:00 (Ambien) 5 mg HS PRN PO 03/16/17 15:45 A/P Assessment and Plan 81 y/o male with a history of CAD, CHF, COPD 2L at HS, sleep apnea and MILY presented to the ED with complaints of increased dyspnea. Acute respiratory failure, now requiring O2 2L during the day Chest xray reviewed and unremarkable -Cont O2 via NC to keep O2 sat > 90%. -CT chest showed emphysema and left sided airspace disease. -Started Levaquin and Vancomycin. Consulted ID - abx changed to Levaquin and Ceftriaxone. -Bronchodilators, Mucolytic and switch to Levaquin by mouth May need Doxycycline at discharge if continue with erythema. Obesity strongly recommended diet and exercise as outpatient. Cellulitis, Left lower extremity, history of Levaquin use multiple times in the last few months, Improving. - Given patient's overall deconditioning, no improvement since admission, we will consult ID for Pneumonia and left lower ext cellulitis. - Per ID, will switch to Levaquin by mouth discontinued Ceftriaxone and if continue erythema on discharge give doxycycline. CKD, stage 4, creatine 2.0, at baseline. Improved creatinine 1.68 today. -Avoid nephrotoxins. Compression stockings and elevate legs when resting by Nephrology MILY on CPAP. - Nephrology following. Thrombocytopenia - Possibly related to medications. - Hematology consulted and did not found HIT Argatroban removed. okay to discharge. Defibrillator firing status post [facility] [place] Interrogated device and did not found malfunction no changes recommended needs to re start his [place] Metoprolol at 12.5 mg BID. Appropriate ICD Shock. Cardiology following. Eliquis removed due to suspected GI bleed, Cardiomyopathy EF 45% 02/2017 Chronic systolic CHF exacerbation. The patient's BNP is only slightly elevated and no evidence of pulmonary edema on CXR or CT chest. Atherosclerotic Heart disease, AAA 4.2 cm, continue Cardizem and Beta blockers. increased Cardizem to 180 mg daily by Cardiology, Code status DNR. Heparin SQ Discussed with patient and his in the room, all questions answered to the best of my abilities. Discharge Planning Once cleared by specialists. Sudhakar Reyes MD Mar 16, 2017 16:37
[2017-03-16] MEDS: RESP: ALBUTEROL 2.5 MG/IPRATROPIUM 0.5 MG NEB (PRN) NEB (19:55)
[2017-03-16] MEDS: ZOLPIDEM TARTRATE 5 MG TAB PO PRN (21:33)
[2017-03-17] VITALS (8 sets, daily range): BP systolic 95–119; BP diastolic 57–89; PULSE 64–103; RESP 18–26; TEMP 97.1–98.3; O2SAT 92–97
[2017-03-17] MEDS: ACETAMINOPHEN 325 MG TAB PO PRN (05:48)
[2017-03-17] MEDS: DILTIAZEM-CD 180 MG CAP ER PO SCH (08:51)
[2017-03-17] MEDS: BUMETANIDE 1 MG TAB PO SCH (08:51)
[2017-03-17] MEDS: THIAMINE HCL 100 MG TAB PO SCH (08:51)
[2017-03-17] MEDS: SPIRONOLACTONE 25 MG TAB PO SCH ×2 (08:51→22:34)
[2017-03-17] MEDS: LACTOBACILLUS ACIDOPHILUS TAB PO SCH ×3 (08:51→17:35)
[2017-03-17] MEDS: DOCUSATE SODIUM 50 MG/SENNA 8.6 MG TAB PO SCH ×2 (08:52→21:00)
[2017-03-17] MEDS: ENOXAPARIN SODIUM 30 MG/0.3 ML SYRINGE SQ SCH (08:52)
[2017-03-17] MEDS: SODIUM CHLORIDE 0.9% FLUSH 10 ML FLUSH IV FLUSH SCH ×2 (08:53→22:35)
[2017-03-17] MEDS: BUDESONIDE-FORMOTEROL 160/4.5 MCG INHALER INH SCH ×2 (08:54→22:33)
[2017-03-17] MEDS: ALBUMIN HUMAN 25% 12.5 GM/50 ML BAGP IV SCH (09:02)
[2017-03-17] MEDS: RESP: ALBUTEROL 2.5 MG/IPRATROPIUM 0.5 MG NEB (PRN) NEB (09:21)
[2017-03-17 11:10] LABS: APTT (PATIENT) 26.7 SEC (24.3-30.1)
--- NOTE | 2017-03-17 15:27 | HHI.PR ---
Subjective Remarks This is a pleasant 81 y/o Male with CAD, CHF, COPD, on Oxygen 2L at HS, MILY came to ER with dyspnea, Febrile and confused chronic lower extremity edema. with diagnosis of Cellulitis of Left lower extremity and Pneumonia. Sepsis on admission, followed by ID specialist, recommended to continue Levaquin, Started on Ceftriaxone, Discontinued Vancomycin, Consulted facility practice specialist due to Thrombocytopenia in a patient on Heparin and Multiple antibiotics, questionable HIT, Avoid Zyvox due to low platelets. Seen in his bedroom in the presence of his and seen already by facility practice specialist with Diagnosis of Thrombocytopenia His platelet count was normal on the last admission in late January, cytopenia probable caused by Cephalosporin, recommended to continue Argatroban, await result for HIT 03/11: Seen in her bedroom in the presence of his , discussed with nurse Miss Grissom the patient has two episodes of firing from his Defibrillator, that was Interrogated and found Bigeminy and PVCs. no need changes at this time as per materials technician. patient stable no other complaint, asked for Ativan at bed time placed for low dose Ativan if Insomnia. 03/12: Stable in his bedroom, discussed with ID specialist doctor Nicole she will switch to by mouth antibiotics probable Levaquin and if Improving probable will Clear tomorrow, at this time in sitting position and no complaint. 03/13: Seen in his bedroom, in sitting position, switch antibiotics as per ID specialist discontinued Ceftriaxone and recommended to continue Levaquin and on discharge if continue with erythema doxycycline, as per Hematology and Oncology okay to discharge home, as per Cardiology Increased treatment rate on ICD, stopped Sotalol and started on Cardizem LA 120 BID, recommended to continue diuresis. 03/14: In his Bedroom in the presence of his , to continue diuresis as per legal contracts specialist, had Appropriate ICD Shock, was on Eliquis removed due to suspected GI bleed, Cardiomyopathy EF 45% 02/2017 Chronic systolic CHF exacerbation. The patient's BNP is only slightly elevated and no evidence of pulmonary edema on CXR or CT chest. Atherosclerotic Heart disease, AAA 4.2 cm, 01/2017 BLE doppler negative for PE as per medical insurance claims specialist to continue Cardizem and BB, recommended to continue antibiotics for Pneumonia. 03/15: No issues 03/16: MILY on CPAP, was increased Cardizem to 180 mg daily by Cardiology, to continue antibiotics for Pneumonia, continue diuresis but careful not to worsen his renal function. continue Compression stockings and elevate legs when resting by Nephrology. Objective Vital Signs Date Time Temp Pulse Resp B/P Pulse Ox O2 Delivery O2 Flow Rate FiO2 03/17/17 12:00 97.1 70 24 119/81 95 03/17/17 09:23 94 Nasal Cannula 2.50 03/17/17 08:00 97.3 69 26 103/58 95 03/17/17 04:00 98.3 95 18 116/59 97 03/17/17 00:00 98.3 69 18 119/89 95 03/16/17 20:00 103 03/16/17 20:00 97 Nasal Cannula 3.00 03/16/17 20:00 98.4 66 18 129/66 97 03/16/17 16:00 97.5 74 18 110/77 98 03/16/17 15:43 92 2.50 I/O 03/16/17 03/16/17 03/16/17 03/17/17 03/17/17 03/17/17 07:00 15:00 23:00 07:00 15:00 23:00 Intake Total 600 ml Output Total 600 ml Balance 600 ml -600 ml Intake Oral 600 ml Output Urine Total 600 ml # Voids 3 # Bowel Movements 0 Result Diagram: 03/16/17 1141 03/16/17 0730 Imaging Last Impressions Lower Extremity Ultrasound 03/13/17 0000 Signed Impressions: Service Date/Time: Monday, March 13, 2017 16:30 - CONCLUSION: 1. No DVT identified. 2. 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 There is evidence of previous surgery. Fredi Mercer MD Chest X-Ray 03/13/17 0000 Signed Impressions: Service Date/Time: Monday, March 13, 2017 15:21 - CONCLUSION: Diffuse prominence of interstitial markings likely from COPD. There is atelectasis or consolidation at the left base. The lungs were better characterized on recent CT examination from 03/09/2017 Rusty Drew MD Chest CT 03/09/17 0000 Signed Impressions: Service Date/Time: Thursday, March 09, 2017 09:21 - CONCLUSION: 1. 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 2. Subsegmental airspace disease left lower lobe. 3. AICD Agapito Keys MD Procedures None Other Results Laboratory Tests Test 03/14/17 03/15/17 03/16/17 03/16/17 09:50 08:18 07:30 11:41 B-Type Natriuretic Peptide 80 PG/ML Phosphorus Level 3.6 MG/DL Albumin 2.6 GM/DL Sodium Level 134 MEQ/L Potassium Level 3.3 MEQ/L Chloride Level 95 MEQ/L Carbon Dioxide Level 30.2 MEQ/L Anion Gap 9 MEQ/L Blood Urea Nitrogen 47 MG/DL Creatinine 1.90 MG/DL Estimat Glomerular Filtration 34 ML/MIN Rate Random Glucose 102 MG/DL Calcium Level 8.7 MG/DL White Blood Count 7.3 TH/MM3 Red Blood Count 3.94 MIL/MM3 Hemoglobin 12.1 GM/DL Hematocrit 36.0 % Mean Corpuscular Volume 91.5 FL Mean Corpuscular Hemoglobin 30.7 PG Mean Corpuscular Hemoglobin 33.6 % Concent Red Cell Distribution Width 17.4 % Platelet Count 155 TH/MM3 Mean Platelet Volume 8.6 FL Neutrophils (%) (Auto) 86.8 % Lymphocytes (%) (Auto) 4.1 % Monocytes (%) (Auto) 6.1 % Eosinophils (%) (Auto) 1.4 % Basophils (%) (Auto) 1.6 % Neutrophils # (Auto) 6.4 TH/MM3 Lymphocytes # (Auto) 0.3 TH/MM3 Monocytes # (Auto) 0.4 TH/MM3 Eosinophils # (Auto) 0.1 TH/MM3 Basophils # (Auto) 0.1 TH/MM3 CBC Comment DIFF FINAL Differential Comment Test 03/17/17 10:06 Activated Partial 26.7 SEC Thromboplast Time Objective Remarks GENERAL: Alert, NAD. SKIN: Warm and dry. HEAD: Normocephalic. EYES: No scleral icterus. No injection or drainage. NECK: Supple, trachea midline. No JVD or lymphadenopathy. CARDIOVASCULAR: Regular rate and rhythm without murmurs, gallops, or rubs. RESPIRATORY: Breath sounds equal bilaterally. No accessory muscle use. GASTROINTESTINAL: Abdomen soft, non-tender, nondistended. MUSCULOSKELETAL: No cyanosis, Bilateral edema both legs with THEO Hose in place. BACK: Nontender without obvious deformity. No CVA tenderness. Medications and IVs Current Medications Medications (Trade) Dose Ordered Sig/Guy Route Start Time Stop Time Status Last Admin (NS Flush) 2 ml UNSCH PRN IV FLUSH 03/08/17 14:00 (NS Flush) 2 ml BID IV FLUSH 03/08/17 21:00 03/17/17 08:53 (Tylenol) 650 mg Q4H PRN PO 03/08/17 14:00 03/17/17 05:48 (Zofran Inj) 4 mg Q6H PRN IVP 03/08/17 14:00 (Narcan Inj) 0.4 mg UNSCH PRN IV 03/08/17 14:00 (Melanie-Colace) 1 tab BID PO 03/08/17 21:00 03/17/17 08:52 (Milk Of Magnesia Liq) 30 ml Q12H PRN PO 03/08/17 14:00 (Senokot) 17.2 mg Q12H PRN PO 03/08/17 14:00 (Dulcolax Supp) 10 mg DAILY PRN RECTAL 03/08/17 14:00 (Lactulose Liq) 30 ml DAILY PRN PO 03/08/17 14:00 (Lactinex) 1 tab TID PO 03/08/17 18:00 03/17/17 08:51 (Levaquin) 750 mg Q48H PO 03/12/17 09:00 03/16/17 08:31 (Lovenox Inj) 30 mg Q24H SQ 03/11/17 09:00 03/16/17 08:31 (Aldactone) 25 mg BID PO 03/11/17 21:00 03/17/17 08:51 (Ativan) 0.5 mg HS PRN PO 03/11/17 14:15 03/14/17 21:20 (Mag-Ox) 400 mg MoTh@09 PO 03/12/17 09:00 03/15/17 08:49 (Vitamin B1) 100 mg DAILY PO 03/11/17 15:49 03/17/17 08:51 (Symbicort 160-4.5 Inh) 1 puff Q12HR INH 03/12/17 21:00 03/17/17 08:54 (Albumin 25% Inj) 12.5 gm DAILY IV 03/15/17 09:00 03/20/17 07:00 03/17/17 09:02 (Bumetanide) 2 mg DAILY PO 03/17/17 09:00 03/17/17 08:51 (Cardizem Cd) 180 mg DAILY PO 03/17/17 09:00 03/17/17 08:51 (Lopressor Inj) 5 mg Q5M PRN IV PUSH 03/16/17 15:00 (Ambien) 5 mg HS PRN PO 03/16/17 15:45 03/16/17 21:33 A/P Assessment and Plan 81 y/o male with a history of CAD, CHF, COPD 2L at HS, sleep apnea and MILY presented to the ED with complaints of increased dyspnea. Acute respiratory failure, now requiring O2 2L during the day Chest xray reviewed and unremarkable -Cont O2 via NC to keep O2 sat > 90%. -CT chest showed emphysema and left sided airspace disease. -Started Levaquin and Vancomycin. Consulted ID - abx changed to Levaquin and Ceftriaxone. -Bronchodilators, Mucolytic and switch to Levaquin by mouth May need Doxycycline at discharge if continue with erythema. Obesity strongly recommended diet and exercise as outpatient. Cellulitis, Left lower extremity, history of Levaquin use multiple times in the last few months, Improving. - Given patient's overall deconditioning, no improvement since admission, we will consult ID for Pneumonia and left lower ext cellulitis. - Per ID, will switch to Levaquin by mouth discontinued Ceftriaxone and if continue erythema on discharge give doxycycline. CKD, stage 4, creatine 2.0, at baseline. Improved creatinine 1.68 today. -Avoid nephrotoxins. Compression stockings and elevate legs when resting by Nephrology MILY on CPAP. - Nephrology following. Thrombocytopenia - Possibly related to medications. - Hematology consulted and did not found HIT Argatroban removed. okay to discharge. Defibrillator firing status post [facility] [employer] Interrogated device and did not found malfunction no changes recommended needs to re start his Beta Meño Metoprolol at 12.5 mg BID. Appropriate ICD Shock. Cardiology following. Eliquis removed due to suspected GI bleed, Cardiomyopathy EF 45% 02/2017 Chronic systolic CHF exacerbation. The patient's BNP is only slightly elevated and no evidence of pulmonary edema on CXR or CT chest. Atherosclerotic Heart disease, AAA 4.2 cm, continue Cardizem and Beta blockers. increased Cardizem to 180 mg daily by Cardiology, Code status DNR. Heparin SQ Discussed with patient and his in the room, all questions answered to the best of my abilities. No changes to anterior assessment. Discharge Planning Once cleared by specialists. Sudhakar Reyes MD Mar 17, 2017 15:27
[2017-03-17] MEDS ORDERED: POTASSIUM CHLORIDE 25 MEQ EFFERVESCENT TAB PO ONE (18:45)
--- NOTE | 2017-03-17 18:52 | HHI.NPPN ---
Subjective General Problems: Anemia, Edema, Heart Disease, Hypertension Renal Failure: Chronic, Stage III Additional Remarks No acute complaints Review of Systems General Constitutional: Fatigue Respiratory Lungs: SOB Cardiovascular Cardiac: Edema, ROGERS Objective Data Data 03/16/17 03/17/17 19:00 07:00 Intake Total 600 ml Output Total 600 ml Balance 600 ml -600 ml Intake Oral 600 ml Output Urine Total 600 ml # Voids 3 # Bowel Movements 0 Vital Signs Date Time Temp Pulse Resp B/P Pulse Ox O2 Delivery O2 Flow Rate FiO2 03/17/17 16:00 98.0 80 24 116/72 92 03/17/17 12:00 97.1 70 24 119/81 95 03/17/17 09:23 94 Nasal Cannula 2.50 03/17/17 09:00 Nasal Cannula 2.00 03/17/17 08:00 97.3 69 26 103/58 95 03/17/17 04:00 98.3 95 18 116/59 97 03/17/17 00:00 98.3 69 18 119/89 95 03/16/17 20:00 103 03/16/17 20:00 97 Nasal Cannula 3.00 03/16/17 20:00 98.4 66 18 129/66 97 -: 03/16/17 1141 03/16/17 0730 Physical Exam General Appearance: Well Developed, No Acute Distress, Comfortable Eyes Eye Exam: Pupils Equal Throat Throat Exam: Oral Mucosa [place] & Moist Neck Neck Exam: Neck Supple Pulmonary Resp Exam: Breath Sounds Equal, No Distress, Crackles, Decreased Bases, Diminished Breath Sounds Cardiology CV Exam: Regular, Normal Sinus Rhythm, Good Perfusion Gastrointestinal/Abdomen GI Exam: Soft, Non-Tender, Bowel Sounds Present Musculoskeletal MS Exam: Joints Intact, Normal Tone Extremeties Extremities Exam: Pedal Pulses Palpable, Moderate Edema Neurologic Neuro Exam: Alert, Awake, Oriented, Speech Clear, Moving All Extremities Psychiatric Psych Exam: Appropriate Responses Assessment/Plan Discussed Condition With: Patient, Spouse Assessment Summary: JOHN/Acute Renal Failure, Fluid/Volume Overload, Hypertension, CKD Stage III Problem List: (1) Chronic kidney disease, stage 3 Plan: Renal function varies but overall stable, his baseline GFR is in 30s. . Underlying CKD due to nephrosclerosis dependent edema likely due to venous insufficiency, avoid aggressive diurese for fear of worsening his renal function he likely will not do well on alf dialysis continue to elevate lower extremities, low Na diet, compression stockings avoid IVF Continue Bumex PO dosage, aldactone 25mg BID; he has received Zaroxolyn intermittently by pulmonary avoid nephrotoxic substances, avoid IVF K replacement ordered. he is non oliguric daily repeat renal panel Renal function improving. Stable for d/c from renal standpoint with outpatient follow-up. (2) Shortness of breath Plan: Hx CHF, COPD; on oxygen he also has physical deconditioning continue nebulizers pulmonary and ID following; on Levaquin to cover pneumonia begin PT/OT and encourage ambulation, deep breathing he is to go to rehab after discharge (3) Cellulitis Plan: being treated for left leg cellulitis on Rocephin (4) Edema Plan: continue diuretics as ordered follow urine output, fluid volume status ordered albumin (5) Hypertension Plan: continue ordered medications follow blood pressure (6) Anemia Plan: Hb stable and at baseline monitor for changes (7) Thrombocytopenia Plan: improving, hematology following thought to be medication related no reports of bleeding follow CBC Problem Qualifiers (1) Cellulitis: Qualified Code: L03.116 - Cellulitis of left lower extremity Fredi Palmer MD Mar 17, 2017 18:51
[2017-03-17] MEDS: ZOLPIDEM TARTRATE 5 MG TAB PO PRN (22:40)
[2017-03-18] VITALS: BP 116/75; PULSE 82; RESP 20; TEMP 97.4; O2SAT 96
[2017-03-18] MEDS: ACETAMINOPHEN 325 MG TAB PO PRN (01:31)
[2017-03-18 04:00] VITALS: BP 93/67; PULSE 96; RESP 20; TEMP 97.1; O2SAT 94
[2017-03-18 05:36] LABS: BASOPHIL % 0.4 % (0.0-2.0); EOSINOPHIL # 0.1 TH/MM3 (0-0.4); EOSINOPHIL % 2.4 % (0.0-4.0); HEMO FLAGS DIFF FINAL; LYMPH % 10.8 % (9.0-44.0); LYMPHOCYTE # 0.6 TH/MM3 (1.0-4.8); MEAN CELL VOLUME 90.1 FL (80.0-100.0); MEAN CORPUSCULAR HEMOGLOBIN 29.6 PG (27.0-34.0); MEAN CORPUSCULAR HGB CONC 32.9 % (32.0-36.0); MONO % 11.5 % (0.0-8.0); NEUT % 74.9 % (16.0-70.0); PLATELET COUNT 142 TH/MM3 (150-450); RED BLOOD COUNT 3.44 MIL/MM3 (4.50-5.90); RED CELL DISTRIBUTION WIDTH 17.6 % (11.6-17.2); WHITE BLOOD COUNT 5.3 TH/MM3 (4.0-11.0)
[2017-03-18 05:43] LABS: APTT (PATIENT) 27.5 SEC (24.3-30.1)
--- NOTE | 2017-03-18 06:16 | HHI.PR ---
Subjective Remarks This is a pleasant 81 y/o Male with CAD, CHF, COPD, on Oxygen 2L at HS, MILY came to ER with dyspnea, Febrile and confused chronic lower extremity edema. with diagnosis of Cellulitis of Left lower extremity and Pneumonia. Sepsis on admission, followed by ID specialist, recommended to continue Levaquin, Started on Ceftriaxone, Discontinued Vancomycin, Consulted occupational health specialist due to Thrombocytopenia in a patient on Heparin and Multiple antibiotics, questionable HIT, Avoid Zyvox due to low platelets. Seen in his bedroom in the presence of his and seen already by occupational health specialist with Diagnosis of Thrombocytopenia His platelet count was normal on the last admission in late January, cytopenia probable caused by Cephalosporin, recommended to continue Argatroban, await result for HIT 03/11: Seen in her bedroom in the presence of his , discussed with nurse Miss Grissom the patient has two episodes of firing from his Defibrillator, that was Interrogated and found Bigeminy and PVCs. no need changes at this time as per correctional maintenance technician. patient stable no other complaint, asked for Ativan at bed time placed for low dose Ativan if Insomnia. 03/12: Stable in his bedroom, discussed with ID specialist doctor Nicole she will switch to by mouth antibiotics probable Levaquin and if Improving probable will Clear tomorrow, at this time in sitting position and no complaint. 03/13: Seen in his bedroom, in sitting position, switch antibiotics as per ID specialist discontinued Ceftriaxone and recommended to continue Levaquin and on discharge if continue with erythema doxycycline, as per Hematology and Oncology okay to discharge home, as per Cardiology Increased treatment rate on ICD, stopped Sotalol and started on Cardizem LA 120 BID, recommended to continue diuresis. 03/14: In his Bedroom in the presence of his , to continue diuresis as per junk removal specialist, had Appropriate ICD Shock, was on Eliquis removed due to suspected GI bleed, Cardiomyopathy EF 45% 02/2017 Chronic systolic CHF exacerbation. The patient's BNP is only slightly elevated and no evidence of pulmonary edema on CXR or CT chest. Atherosclerotic Heart disease, AAA 4.2 cm, 01/2017 BLE doppler negative for PE as per station air traffic control specialist to continue Cardizem and BB, recommended to continue antibiotics for Pneumonia. 03/15: No issues 03/16: MILY on CPAP, was increased Cardizem to 180 mg daily by Cardiology, to continue antibiotics for Pneumonia, continue diuresis but careful not to worsen his renal function. continue Compression stockings and elevate legs when resting by Nephrology. 03/17: Seen in his bedroom in the presence of his , today more weak, and wants to stay in bed, continue using compression stockings improving bilateral leg edema, discussed with nurse he is not been cleared for discharge by Specialists but has bed in Rehab for discharge. 03/18: Seen in his bedroom, in the presence of his she is asking about discharge she was told by consultants she was able to go today no nausea, vomit or diarrhea, okay to discharge from medicine standpoint. Objective Vital Signs Date Time Temp Pulse Resp B/P Pulse Ox O2 Delivery O2 Flow Rate FiO2 03/18/17 04:00 97.1 96 20 93/67 94 03/18/17 02:44 18 03/18/17 00:00 97.4 82 20 116/75 96 03/17/17 22:35 Nasal Cannula 2.00 03/17/17 20:09 103 03/17/17 16:00 98.0 80 24 116/72 92 03/17/17 12:00 97.1 70 24 119/81 95 03/17/17 09:23 94 Nasal Cannula 2.50 03/17/17 09:00 Nasal Cannula 2.00 03/17/17 08:00 97.3 69 26 103/58 95 03/17/17 08:00 97 I/O 03/17/17 03/17/17 03/17/17 03/18/17 03/18/17 03/18/17 06:59 14:59 22:59 06:59 14:59 22:59 Intake Total 720 ml 350 ml Output Total 600 ml 1250 ml 175 ml Balance -600 ml -530 ml 175 ml Intake Oral 720 ml 350 ml Output Urine Total 600 ml 1250 ml 175 ml Result Diagram: 03/18/17 0430 03/16/17 0730 Imaging Last Impressions Lower Extremity Ultrasound 03/13/17 0000 Signed Impressions: Service Date/Time: Monday, March 13, 2017 16:30 - CONCLUSION: 1. No DVT identified. 2. 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 There is evidence of previous surgery. Fredi Mercer MD Chest X-Ray 03/13/17 0000 Signed Impressions: Service Date/Time: Monday, March 13, 2017 15:21 - CONCLUSION: Diffuse prominence of interstitial markings likely from COPD. There is atelectasis or consolidation at the left base. The lungs were better characterized on recent CT examination from 03/09/2017 Rusty Drew MD Chest CT 03/09/17 0000 Signed Impressions: Service Date/Time: Thursday, March 09, 2017 09:21 - CONCLUSION: 1. 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 2. Subsegmental airspace disease left lower lobe. 3. AICD Agapito Keys MD Procedures None Other Results Laboratory Tests Test 03/14/17 03/15/17 03/16/17 03/18/17 09:50 08:18 07:30 04:30 B-Type Natriuretic Peptide 80 PG/ML Phosphorus Level 3.6 MG/DL Albumin 2.6 GM/DL Sodium Level 134 MEQ/L Potassium Level 3.3 MEQ/L Chloride Level 95 MEQ/L Carbon Dioxide Level 30.2 MEQ/L Anion Gap 9 MEQ/L Blood Urea Nitrogen 47 MG/DL Creatinine 1.90 MG/DL Estimat Glomerular Filtration 34 ML/MIN Rate Random Glucose 102 MG/DL Calcium Level 8.7 MG/DL White Blood Count 5.3 TH/MM3 Red Blood Count 3.44 MIL/MM3 Hemoglobin 10.2 GM/DL Hematocrit 31.0 % Mean Corpuscular Volume 90.1 FL Mean Corpuscular Hemoglobin 29.6 PG Mean Corpuscular Hemoglobin 32.9 % Concent Red Cell Distribution Width 17.6 % Platelet Count 142 TH/MM3 Mean Platelet Volume 8.7 FL Neutrophils (%) (Auto) 74.9 % Lymphocytes (%) (Auto) 10.8 % Monocytes (%) (Auto) 11.5 % Eosinophils (%) (Auto) 2.4 % Basophils (%) (Auto) 0.4 % Neutrophils # (Auto) 4.0 TH/MM3 Lymphocytes # (Auto) 0.6 TH/MM3 Monocytes # (Auto) 0.6 TH/MM3 Eosinophils # (Auto) 0.1 TH/MM3 Basophils # (Auto) 0.0 TH/MM3 CBC Comment DIFF FINAL Differential Comment Activated Partial 27.5 SEC Thromboplast Time Objective Remarks GENERAL: Alert, NAD. SKIN: Warm and dry. HEAD: Normocephalic. EYES: No scleral icterus. No injection or drainage. NECK: Supple, trachea midline. No JVD or lymphadenopathy. CARDIOVASCULAR: Regular rate and rhythm without murmurs, gallops, or rubs. RESPIRATORY: Breath sounds equal bilaterally. No accessory muscle use. GASTROINTESTINAL: Abdomen soft, non-tender, nondistended. MUSCULOSKELETAL: No cyanosis, Bilateral edema both legs with THEO Hose in place. BACK: Nontender without obvious deformity. No CVA tenderness. Medications and IVs Current Medications Medications (Trade) Dose Ordered Sig/Guy Route Start Time Stop Time Status Last Admin (NS Flush) 2 ml UNSCH PRN IV FLUSH 03/08/17 14:00 (NS Flush) 2 ml BID IV FLUSH 03/08/17 21:00 03/17/17 22:35 (Tylenol) 650 mg Q4H PRN PO 03/08/17 14:00 03/18/17 01:31 (Zofran Inj) 4 mg Q6H PRN IVP 03/08/17 14:00 (Narcan Inj) 0.4 mg UNSCH PRN IV 03/08/17 14:00 (Melanie-Colace) 1 tab BID PO 03/08/17 21:00 03/17/17 08:52 (Milk Of Magnesia Liq) 30 ml Q12H PRN PO 03/08/17 14:00 (Senokot) 17.2 mg Q12H PRN PO 03/08/17 14:00 (Dulcolax Supp) 10 mg DAILY PRN RECTAL 03/08/17 14:00 (Lactulose Liq) 30 ml DAILY PRN PO 03/08/17 14:00 (Lactinex) 1 tab TID PO 03/08/17 18:00 03/17/17 17:35 (Levaquin) 750 mg Q48H PO 03/12/17 09:00 03/16/17 08:31 (Lovenox Inj) 30 mg Q24H SQ 03/11/17 09:00 03/16/17 08:31 (Aldactone) 25 mg BID PO 03/11/17 21:00 03/17/17 22:34 (Ativan) 0.5 mg HS PRN PO 03/11/17 14:15 03/14/17 21:20 (Mag-Ox) 400 mg MoTh@09 PO 03/12/17 09:00 03/15/17 08:49 (Vitamin B1) 100 mg DAILY PO 03/11/17 15:49 03/17/17 08:51 (Symbicort 160-4.5 Inh) 1 puff Q12HR INH 03/12/17 21:00 03/17/17 22:33 (Albumin 25% Inj) 12.5 gm DAILY IV 03/15/17 09:00 03/20/17 07:00 03/17/17 09:02 (Bumetanide) 2 mg DAILY PO 03/17/17 09:00 03/17/17 08:51 (Cardizem Cd) 180 mg DAILY PO 03/17/17 09:00 03/17/17 08:51 (Lopressor Inj) 5 mg Q5M PRN IV PUSH 03/16/17 15:00 (Ambien) 5 mg HS PRN PO 03/16/17 15:45 03/17/17 22:40 A/P Assessment and Plan 81 y/o male with a history of CAD, CHF, COPD 2L at HS, sleep apnea and MILY presented to the ED with complaints of increased dyspnea. Acute respiratory failure, now requiring O2 2L during the day Chest xray reviewed and unremarkable -Cont O2 via NC to keep O2 sat > 90%. -CT chest showed emphysema and left sided airspace disease. -Started Levaquin and Vancomycin. Consulted ID - abx changed to Levaquin and Ceftriaxone. -Bronchodilators, Mucolytic and switch to Levaquin by mouth will continue three days more on Levaquin at discharge. Obesity strongly recommended diet and exercise as outpatient. Cellulitis, Left lower extremity, history of Levaquin use multiple times in the last few months, Improving. - Given patient's overall deconditioning, no improvement since admission, we will consult ID for Pneumonia and left lower ext cellulitis. - Per ID, will switch to Levaquin by mouth discontinued Ceftriaxone. discontinued antibiotics for this matter either way will go on Levaquin for Bronchitis. CKD, stage 4, creatine 2.0, at baseline. Improved creatinine 1.68 today. -Avoid nephrotoxins. Compression stockings and elevate legs when resting by Nephrology MILY on CPAP. Thrombocytopenia - Possibly related to medications. - Hematology consulted and did not found HIT Argatroban removed. okay to discharge. Defibrillator firing status post [facility] [employer] Interrogated device and did not found malfunction no changes recommended needs to re start his Beta Meño Metoprolol at 12.5 mg BID. Appropriate ICD Shock. Cardiology following. Eliquis removed due to suspected GI bleed, Cardiomyopathy EF 45% 02/2017 Chronic systolic CHF exacerbation. The patient's BNP is only slightly elevated and no evidence of pulmonary edema on CXR or CT chest. Atherosclerotic Heart disease, AAA 4.2 cm, continue Cardizem and Beta blockers. increased Cardizem to 180 mg daily by Cardiology, Code status DNR. Heparin SQ Discussed with patient and his in the room, all questions answered to the best of my abilities. Discharge to Rehab today. Discharge Planning Once cleared by specialists. Sudhakar Reyes MD Mar 18, 2017 06:15
[2017-03-18 06:28] LABS: BICARBONATE 30.2 MEQ/L (21.0-32.0); POTASSIUM 3.4 MEQ/L (3.5-5.1)
[2017-03-18 06:32] VITALS: O2SAT 95
[2017-03-18 08:00] VITALS: BP 103/66; PULSE 75; RESP 16; TEMP 97.6; O2SAT 95
[2017-03-18] MEDS: BUMETANIDE 1 MG TAB PO SCH (09:00)
[2017-03-18] MEDS: SODIUM CHLORIDE 0.9% FLUSH 10 ML FLUSH IV FLUSH SCH (09:00)
[2017-03-18] MEDS: LEVOFLOXACIN 750 MG TAB PO SCH (09:00)
[2017-03-18] MEDS: THIAMINE HCL 100 MG TAB PO SCH (09:00)
[2017-03-18] MEDS: LACTOBACILLUS ACIDOPHILUS TAB PO SCH ×2 (09:00→13:00)
[2017-03-18] MEDS: ALBUMIN HUMAN 25% 12.5 GM/50 ML BAGP IV SCH (09:00)
[2017-03-18] MEDS: DILTIAZEM-CD 180 MG CAP ER PO SCH (09:00)
[2017-03-18] MEDS: BUDESONIDE-FORMOTEROL 160/4.5 MCG INHALER INH SCH (09:00)
[2017-03-18] MEDS: ENOXAPARIN SODIUM 30 MG/0.3 ML SYRINGE SQ SCH (09:00)
[2017-03-18] MEDS: DOCUSATE SODIUM 50 MG/SENNA 8.6 MG TAB PO SCH (09:00)
[2017-03-18] MEDS: SPIRONOLACTONE 25 MG TAB PO SCH (09:00)
[2017-03-18 12:00] VITALS: BP 106/67; PULSE 91; RESP 16; TEMP 98; O2SAT 94
[2017-03-18] MEDS ORDERED: LORA-373 PO (13:41)
[2017-03-18] MEDS ORDERED: DILT180C PO (13:54)
--- NOTE | 2017-03-18 13:58 | HHI.DS ---
Discharge Summary Admission Date Mar 08, 2017 at 14:01 Discharge Date: Mar 18, 2017 Admitting Diagnosis Sepsis, hypoxia (1) Acute respiratory failure ICD Code: J96.00 - Acute respiratory failure, unspecified whether with hypoxia or hypercapnia Diagnosis: Principal Status: Acute (2) Sepsis ICD Code: A41.9 - Sepsis, unspecified organism Diagnosis: Principal Status: Acute (3) Cellulitis ICD Code: L03.90 - Cellulitis Diagnosis: Principal Status: Acute (4) Chronic kidney disease (CKD) ICD Code: N18.9 - Chronic kidney disease Diagnosis: Principal Status: Chronic Procedures None Brief History - From Admission Written by EVELIN Madison acting as scribe for Dr. Courtney] on 03/08/17 at 14: 42. This note was transcribed by scribe EVELIN Madison. I, Dr. Oscar Mace personally performed the history, physical exam, and medical decision making; and confirmed the accuracy of the information in the transcribed note. Authenticated by Dr. Oscar Mace on 03/08/17 at 22:55. 81 y/o male with a history of CAD, CHF, COPD 2L at , sleep apnea and MILY presented to the ED with complaints of increased dyspnea. He woke up with chills this morning and per the his temperature was normal. He felt weak and had increased dyspnea and the felt he was a little confused. He felt normal yesterday. He denies any chest pain, nausea, diarrhea or dizziness. He had an appointment today with Dr. Villegas and was found to have a fever of 103, and he sent him to the ED. The states his past 5 admissions have presented the same way. Patient also complains of redness, swelling, and serous drainage to left lower extremity, the redness started today and the drainage has been on since last admission. He does have chronic lower extremity edema and no change is noted according to . A CTA was done in January in [place] and states it was negative for PE. Sensitometrist Dr. Palmer Personal Banking Officer Dr. Villegas CBC/BMP: 03/18/17 0430 03/18/17 0430 Significant Findings Laboratory Tests Test 03/16/17 07:30 03/16/17 11:41 03/17/17 10:06 03/18/17 04:30 Blood Urea Nitrogen 47 MG/DL (7-18) 49 MG/DL (7-18) Creatinine 1.90 MG/DL (0.60-1.30) 2.13 MG/DL (0.60-1.30) Sodium Level 134 MEQ/L (136-145) 134 MEQ/L (136-145) Potassium Level 3.3 MEQ/L (3.5-5.1) 3.4 MEQ/L (3.5-5.1) Chloride Level 95 MEQ/L (98-107) 93 MEQ/L (98-107) Estimat Glomerular Filtration Rate 34 ML/MIN (>89) 30 ML/MIN (>89) Red Blood Count 3.94 MIL/MM3 (4.50-5.90) 3.44 MIL/MM3 (4.50-5.90) Hemoglobin 12.1 GM/DL (13.0-17.0) 10.2 GM/DL (13.0-17.0) Hematocrit 36.0 % (39.0-51.0) 31.0 % (39.0-51.0) Red Cell Distribution Width 17.4 % (11.6-17.2) 17.6 % (11.6-17.2) Neutrophils (%) (Auto) 86.8 % (16.0-70.0) 74.9 % (16.0-70.0) Lymphocytes (%) (Auto) 4.1 % (9.0-44.0) Lymphocytes # (Auto) 0.3 TH/MM3 (1.0-4.8) 0.6 TH/MM3 (1.0-4.8) Platelet Count 142 TH/MM3 (150-450) Monocytes (%) (Auto) 11.5 % (0.0-8.0) Random Glucose 112 MG/DL (74-106) Imaging Last Impressions Lower Extremity Ultrasound 03/13/17 0000 Signed Impressions: Service Date/Time: Monday, March 13, 2017 16:30 - CONCLUSION: 1. No DVT identified. 2. 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 There is evidence of previous surgery. Fredi Mercer MD Chest X-Ray 03/13/17 0000 Signed Impressions: Service Date/Time: Monday, March 13, 2017 15:21 - CONCLUSION: Diffuse prominence of interstitial markings likely from COPD. There is atelectasis or consolidation at the left base. The lungs were better characterized on recent CT examination from 03/09/2017 Rusty Drew MD Chest CT 03/09/17 0000 Signed Impressions: Service Date/Time: Thursday, March 09, 2017 09:21 - CONCLUSION: 1. 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 2. Subsegmental airspace disease left lower lobe. 3. AICD Agapito Keys MD PE at Discharge GENERAL: Alert, NAD. SKIN: Warm and dry. HEAD: Normocephalic. EYES: No scleral icterus. No injection or drainage. NECK: Supple, trachea midline. No JVD or lymphadenopathy. CARDIOVASCULAR: Regular rate and rhythm without murmurs, gallops, or rubs. RESPIRATORY: Breath sounds equal bilaterally. No accessory muscle use. GASTROINTESTINAL: Abdomen soft, non-tender, nondistended. MUSCULOSKELETAL: No cyanosis, Bilateral edema both legs with THEO Hose in place. BACK: Nontender without obvious deformity. No CVA tenderness. Hospital Course This is a pleasant 81 y/o Male with CAD, CHF, COPD, on Oxygen 2L at HS, MILY came to ER with dyspnea, Febrile and confused chronic lower extremity edema. with diagnosis of Cellulitis of Left lower extremity and Pneumonia. Sepsis on admission, followed by ID specialist, recommended to continue Levaquin, Started on Ceftriaxone, Discontinued Vancomycin, Consulted environmental permitting specialist due to Thrombocytopenia in a patient on Heparin and Multiple antibiotics, questionable HIT, Avoid Zyvox due to low platelets. Seen in his bedroom in the presence of his and seen already by environmental permitting specialist with Diagnosis of Thrombocytopenia His platelet count was normal on the last admission in late January, cytopenia probable caused by Cephalosporin, recommended to continue Argatroban, await result for HIT 03/11: Seen in her bedroom in the presence of his , discussed with nurse Miss Grissom the patient has two episodes of firing from his Defibrillator, that was Interrogated and found Bigeminy and PVCs. no need changes at this time as per molding technician. patient stable no other complaint, asked for Ativan at bed time placed for low dose Ativan if Insomnia. 03/12: Stable in his bedroom, discussed with ID specialist doctor Bonnie she will switch to by mouth antibiotics probable Levaquin and if Improving probable will Clear tomorrow, at this time in sitting position and no complaint. 03/13: Seen in his bedroom, in sitting position, switch antibiotics as per ID specialist discontinued Ceftriaxone and recommended to continue Levaquin and on discharge if continue with erythema doxycycline, as per Hematology and Oncology okay to discharge home, as per Cardiology Increased treatment rate on ICD, stopped Sotalol and started on Cardizem LA 120 BID, recommended to continue diuresis. 03/14: In his Bedroom in the presence of his , to continue diuresis as per retina subspecialist, had Appropriate ICD Shock, was on Eliquis removed due to suspected GI bleed, Cardiomyopathy EF 45% 02/2017 Chronic systolic CHF exacerbation. The patient's BNP is only slightly elevated and no evidence of pulmonary edema on CXR or CT chest. Atherosclerotic Heart disease, AAA 4.2 cm, 01/2017 BLE doppler negative for PE as per agricultural extension specialist to continue Cardizem and BB, recommended to continue antibiotics for Pneumonia. 03/15: No issues 03/16: MILY on CPAP, was increased Cardizem to 180 mg daily by Cardiology, to continue antibiotics for Pneumonia, continue diuresis but careful not to worsen his renal function. continue Compression stockings and elevate legs when resting by Nephrology. 03/17: Seen in his bedroom in the presence of his , today more weak, and wants to stay in bed, continue using compression stockings improving bilateral leg edema, discussed with nurse he is not been cleared for discharge by Specialists but has bed in Rehab for discharge. 03/18: Seen in his bedroom, in the presence of his she is asking about discharge she was told by consultants she was able to go today no nausea, vomit or diarrhea, okay to discharge from medicine standpoint. Assessment and Plan 81 y/o male with a history of CAD, CHF, COPD 2L at HS, sleep apnea and MILY presented to the ED with complaints of increased dyspnea. Acute respiratory failure, now requiring O2 2L during the day Chest xray reviewed and unremarkable -Cont O2 via NC to keep O2 sat > 90%. -CT chest showed emphysema and left sided airspace disease. -Started Levaquin and Vancomycin. Consulted ID - abx changed to Levaquin and Ceftriaxone. -Bronchodilators, Mucolytic and switch to Levaquin by mouth will continue three days more on Levaquin at discharge. Obesity strongly recommended diet and exercise as outpatient. Cellulitis, Left lower extremity, history of Levaquin use multiple times in the last few months, Improving. - Given patient's overall deconditioning, no improvement since admission, we will consult ID for Pneumonia and left lower ext cellulitis. - Per ID, will switch to Levaquin by mouth discontinued Ceftriaxone. discontinued antibiotics for this matter either way will go on Levaquin for Bronchitis. CKD, stage 4, creatine 2.0, at baseline. Improved creatinine 1.68 today. -Avoid nephrotoxins. Compression stockings and elevate legs when resting by Nephrology MILY on CPAP. Thrombocytopenia - Possibly related to medications. - Hematology consulted and did not found HIT Argatroban removed. okay to discharge. Defibrillator firing status post [facility] [place] Interrogated device and did not found malfunction no changes recommended needs to re start his Beta Meño Metoprolol at 12.5 mg BID. Appropriate ICD Shock. Cardiology following. Eliquis removed due to suspected GI bleed, Cardiomyopathy EF 45% 02/2017 Chronic systolic CHF exacerbation. The patient's BNP is only slightly elevated and no evidence of pulmonary edema on CXR or CT chest. Atherosclerotic Heart disease, AAA 4.2 cm, continue Cardizem and Beta blockers. increased Cardizem to 180 mg daily by Cardiology, Code status DNR. Heparin SQ Discussed with patient and his in the room, all questions answered to the best of my abilities. Discharge to Rehab today. Pt Condition on Discharge: Fair Discharge Disposition: Rehab Inpatient Discharge Time: > 30 minutes Discharge Instructions DIET: Follow Instructions for: Heart Healthy Diet Activities you can perform: Regular-No Restrictions Other Activity Instructions: Follow recommendations by Physical Therapy in Rehab. Sudhakar Reyes MD Mar 18, 2017 13:58
[2017-03-18] MEDS ORDERED: BUME2TAB PO (14:02)
[2017-03-18] MEDS ORDERED: LEVA750T9 PO (14:20)
[2017-03-18] MEDS ORDERED: METO25TA6 PO (14:20)
[2017-03-18] MEDS ORDERED: MAGN400T3 PO (14:20)
[2017-03-18 16:00] VITALS: BP 96/65; PULSE 92; RESP 16; TEMP 97.7; O2SAT 92
--- NOTE | 2017-03-18 18:08 | HHI.NPPN ---
Subjective General Problems: Anemia, Edema, Heart Disease, Hypertension Renal Failure: Chronic, Stage III Additional Remarks No acute complaints Review of Systems General Constitutional: Fatigue Respiratory Lungs: SOB Cardiovascular Cardiac: Edema, ROGERS Objective Data Data 03/18/17 03/19/17 19:00 07:00 Intake Total 600 ml Output Total 750 ml Balance -150 ml Intake Oral 600 ml Output Urine Total 750 ml # Bowel Movements 1 Vital Signs Date Time Temp Pulse Resp B/P (MAP) Pulse Ox O2 Delivery O2 Flow Rate FiO2 03/18/17 16:00 97.7 92 16 96/65 (75) 92 03/18/17 12:00 98.0 91 16 106/67 (80) 94 03/18/17 09:30 94 Nasal Cannula 3.00 Humidified 03/18/17 08:00 97.6 75 16 103/66 (78) 95 03/18/17 06:32 95 home cpap 2.50 03/18/17 04:00 97.1 96 20 93/67 (76) 94 03/18/17 02:44 18 03/18/17 00:00 97.4 82 20 116/75 (89) 96 03/17/17 22:35 Nasal Cannula 2.00 03/17/17 20:09 103 03/17/17 20:00 97.2 64 20 95/57 (70) 96 -: 03/18/17 0430 03/18/17 0430 Physical Exam General Appearance: Well Developed, No Acute Distress, Comfortable Eyes Eye Exam: Pupils Equal Throat Throat Exam: Oral Mucosa [place] & Moist Neck Neck Exam: Neck Supple Pulmonary Resp Exam: Breath Sounds Equal, No Distress, Crackles, Decreased Bases, Diminished Breath Sounds Cardiology CV Exam: Regular, Normal Sinus Rhythm, Good Perfusion Gastrointestinal/Abdomen GI Exam: Soft, Non-Tender, Bowel Sounds Present Musculoskeletal MS Exam: Joints Intact, Normal Tone Extremeties Extremities Exam: Pedal Pulses Palpable, Moderate Edema Neurologic Neuro Exam: Alert, Awake, Oriented, Speech Clear, Moving All Extremities Psychiatric Psych Exam: Appropriate Responses Assessment/Plan Discussed Condition With: Patient, Spouse Assessment Summary: JOHN/Acute Renal Failure, Fluid/Volume Overload, Hypertension, CKD Stage III Problem List: (1) Chronic kidney disease, stage 3 ICD Codes: N18.3 - Chronic kidney disease, stage 3 (moderate) Status: Acute Plan: Renal function varies but overall stable, his baseline GFR is in 30s. . Underlying CKD due to nephrosclerosis dependent edema likely due to venous insufficiency, avoid aggressive diurese for fear of worsening his renal function he likely will not do well on computer terminal operator dialysis continue to elevate lower extremities, low Na diet, compression stockings avoid IVF Continue Bumex PO dosage, aldactone 25mg BID; he has received Zaroxolyn intermittently by pulmonary avoid nephrotoxic substances, avoid IVF K replaced he is non oliguric Renal function improving. Stable for d/c from renal standpoint with outpatient follow-up. (2) Shortness of breath ICD Codes: R06.02 - Shortness of breath Status: Acute Plan: Hx CHF, COPD; on oxygen he also has physical deconditioning continue nebulizers on Levaquin to cover pneumonia Planned d/c to rehab (3) Cellulitis ICD Codes: L03.90 - Cellulitis Status: Acute Plan: being treated for left leg cellulitis stable (4) Edema ICD Codes: R60.9 - Edema, unspecified Status: Acute Plan: continue diuretics as ordered (5) Hypertension ICD Codes: I10 - Hypertension Status: Chronic Plan: continue ordered medications follow blood pressure (6) Anemia ICD Codes: D64.9 - Anemia, unspecified Status: Acute Plan: Hb stable and at baseline monitor for changes (7) Thrombocytopenia ICD Codes: D69.6 - Thrombocytopenia, unspecified Status: Acute Plan: improving, hematology following thought to be medication related no reports of bleeding stable Problem Qualifiers (1) Cellulitis: Fredi Palmer MD Mar 18, 2017 18:08
== END 2017-03-18 18:29 | DRG 871 ==
LOC: NEPC 11:36 → NEDA 14:01 → N04B 18:27
PROVIDERS: ADMIT Internal Medicine; ATTEND Internal Medicine
DX: A41.9 Sepsis, unspecified organism (principal); J96.01 Acute respiratory failure with hypoxia; I50.23 Acute on chronic systolic (congestive) heart failure; N18.4 Chronic kidney disease, stage 4 (severe); E87.3 Alkalosis; J18.9 Pneumonia, unspecified organism; I42.9 Cardiomyopathy, unspecified; N17.9 Acute kidney failure, unspecified; I13.0 Hypertensive heart and chronic kidney disease with heart failure and stage 1 through stage 4 chronic kidney disease, or unspecified chronic kidney disease; J44.0 Chronic obstructive pulmonary disease with (acute) lower respiratory infection; I47.1 Supraventricular tachycardia; L03.116 Cellulitis of left lower limb; I48.0 Paroxysmal atrial fibrillation; I25.10 Atherosclerotic heart disease of native coronary artery without angina pectoris; Z96.641 Presence of right artificial hip joint; M10.9 Gout, unspecified; M19.90 Unspecified osteoarthritis, unspecified site; I73.9 Peripheral vascular disease, unspecified; G47.33 Obstructive sleep apnea (adult) (pediatric); Z66 Do not resuscitate; E66.9 Obesity, unspecified; D64.9 Anemia, unspecified; D69.59 Other secondary thrombocytopenia; I87.2 Venous insufficiency (chronic) (peripheral); I71.4 Abdominal aortic aneurysm, without rupture; Z99.81 Dependence on supplemental oxygen; Z87.891 Personal history of nicotine dependence; Z86.718 Personal history of other venous thrombosis and embolism; I25.2 Old myocardial infarction; Z95.820 Peripheral vascular angioplasty status with implants and grafts; Z86.73 Personal history of transient ischemic attack (TIA), and cerebral infarction without residual deficits; Z95.810 Presence of automatic (implantable) cardiac defibrillator; Z95.1 Presence of aortocoronary bypass graft; Z85.828 Personal history of other malignant neoplasm of skin
CPT/HCPCS: 36600; 71010; 71020; 71250; 76937; 80048; 80053; 80069; 81001; 82272; 82550; 82805; 83605; 83615; 83690; 83735; 83880; 84484; 85007; 85025; 85027; 85044; 85060; 85384; 85610; 85730; 86022; 86140; 86880; 87040; 87449; 87804; 93005; 93306; 93970; 94640; 94664; 96365; J0456; J0696; J0883; J1644; J1650; J2920; J3370; J7040; J7050; P9047

== ENCOUNTER → 2017-05-08 | Outpatient (CLI) | payer MEDICARE, OTHER ==
[~2017-05-08] MED LIST changes: -BUME1TAB PO; +BUME2TAB PO; +DILT180C PO; +LEVA750T9 PO; +LORA-373 PO; -LORA-392 PO; +MAGN400T3 PO; +METO25TA6 PO; -METO50TA PO; -PRED10 PO; -REST15CA PO; +SIMV20TA PO
[2017-05-08 10:47] LABS: BICARBONATE 24.1 MEQ/L (21.0-32.0); POTASSIUM 4.7 MEQ/L (3.5-5.1)
== END ==
LOC: PLAB 09:01
PROVIDERS: ATTEND Internal Medicine Nephrology
DX: N18.3 Chronic kidney disease, stage 3 (moderate) (principal)
CPT/HCPCS: 36415; 80069

== ENCOUNTER → 2017-06-07 | Outpatient (CLI) | payer MEDICARE, OTHER ==
[~2017-06-07] MED LIST changes: +ASPI-516 CHEW; -ASPI81CH CHEW; -CHOL20003 PO; +D200CAP2 PO; -LORA-373 PO; +LORA0.5T PO; +METO1TAB42 PO; -METO25TA6 PO
[2017-06-07 13:49] LABS: AUTOMATED NEUTROPHIL # 5.5 TH/MM3 (1.8-7.7); BASOPHIL % 0.3 % (0.0-2.0); EOSINOPHIL # 0.5 TH/MM3 (0-0.4); HEMATOCRIT 31.8 % (39.0-51.0); HEMO FLAGS DIFF FINAL; LYMPHOCYTE # 0.9 TH/MM3 (1.0-4.8); MEAN CELL VOLUME 92.4 FL (80.0-100.0); MEAN CORPUSCULAR HEMOGLOBIN 30.2 PG (27.0-34.0); MEAN CORPUSCULAR HGB CONC 32.6 % (32.0-36.0); MONO % 8.6 % (0.0-8.0); NEUT % 73.1 % (16.0-70.0); PLATELET COUNT 220 TH/MM3 (150-450); RED BLOOD COUNT 3.44 MIL/MM3 (4.50-5.90); WHITE BLOOD COUNT 7.5 TH/MM3 (4.0-11.0)
[2017-06-07 14:06] LABS: BICARBONATE 23.5 MEQ/L (21.0-32.0); POTASSIUM 3.9 MEQ/L (3.5-5.1)
[2017-06-07 14:08] LABS: URIC ACID 7.4 MG/DL (2.6-7.2)
[2017-06-07 16:16] LABS: BLOOD, URINE NEG (NEG); COMMENT (UR) CULT NOT INDICATED; CULTURE IF INDICATED CULT NOT INDICATED; GLUCOSE,URINE NEG (NEG); KETONE, URINE NEG (NEG); MUCUS URINE FEW /lpf (OCC); NITRITE,URINE NEG (NEG); PH, URINE 5.5 (5.0-8.5); URINE COLOR YELLOW (YELLW/STRAW)
== END ==
LOC: PLAB 08:41
PROVIDERS: ATTEND Nurse Practitioner Acute Care
DX: N18.3 Chronic kidney disease, stage 3 (moderate) (principal); I50.9 Heart failure, unspecified; M10.00 Idiopathic gout, unspecified site; E55.9 Vitamin D deficiency, unspecified
CPT/HCPCS: 36415; 80048; 81001; 82306; 83970; 84100; 84550; 85025

== ENCOUNTER → 2017-07-11 | Outpatient (CLI) | payer MEDICARE, OTHER ==
[2017-07-11 13:30] LABS: HEMATOCRIT 35.4 % (39.0-51.0); MEAN CELL VOLUME 91.5 FL (80.0-100.0); MEAN CORPUSCULAR HEMOGLOBIN 29.6 PG (27.0-34.0); MEAN CORPUSCULAR HGB CONC 32.3 % (32.0-36.0); PLATELET COUNT 217 TH/MM3 (150-450); RED BLOOD COUNT 3.87 MIL/MM3 (4.50-5.90); RED CELL DISTRIBUTION WIDTH 18.1 % (11.6-17.2); REVIEW FLAG FINAL; WHITE BLOOD COUNT 8.6 TH/MM3 (4.0-11.0)
[2017-07-11 13:52] LABS: ALT (GPT) 20 U/L (12-78); ANION GAP 7 MEQ/L (5-15); AST (GOT) 20 U/L (15-37); BICARBONATE 26.2 MEQ/L (21.0-32.0); BLOOD UREA NITROGEN 39 MG/DL (7-18); CHLORIDE 109 MEQ/L (98-107); GLOMERULAR FILTRATION RATE 37 ML/MIN (>89); GLUCOSE,FASTING 93 MG/DL (74-99); POTASSIUM 4.6 MEQ/L (3.5-5.1); SODIUM (NA) 142 MEQ/L (136-145); URIC ACID 7.5 MG/DL (2.6-7.2)
[2017-07-11 13:54] LABS: ALKALINE PHOSPHATASE 136 U/L (45-117); HDL CHOLESTEROL 53.2 MG/DL (40.0-60.0); LDL CHOLESTEROL 44 MG/DL (0-99); TOTAL BILIRUBIN ADULT 0.5 MG/DL (0.2-1.0)
== END ==
LOC: PLAB 08:31
PROVIDERS: ATTEND Family Medicine
DX: E78.2 Mixed hyperlipidemia (principal); D63.8 Anemia in other chronic diseases classified elsewhere; M10.9 Gout, unspecified; Z96.641 Presence of right artificial hip joint
CPT/HCPCS: 36415; 80053; 80061; 84550; 85027; 85652; 86140

== ENCOUNTER → 2017-08-09 | Outpatient (CLI) | payer MEDICARE, OTHER ==
[2017-08-09 13:24] LABS: AUTOMATED NEUTROPHIL # 4.9 TH/MM3 (1.8-7.7); BASOPHIL # 0.1 TH/MM3 (0-0.2); EOSINOPHIL # 0.3 TH/MM3 (0-0.4); HEMATOCRIT 35.8 % (39.0-51.0); HEMOGLOBIN 11.3 GM/DL (13.0-17.0); LYMPH % 14.2 % (9.0-44.0); MEAN CELL VOLUME 90.7 FL (80.0-100.0); MEAN CORPUSCULAR HEMOGLOBIN 28.5 PG (27.0-34.0); MEAN CORPUSCULAR HGB CONC 31.4 % (32.0-36.0); MEAN PLATELET VOLUME 7.9 FL (7.0-11.0); MONO % 11.8 % (0.0-8.0); MONOCYTE # 0.8 TH/MM3 (0-0.9); PLATELET COUNT 198 TH/MM3 (150-450); RED BLOOD COUNT 3.95 MIL/MM3 (4.50-5.90); RED CELL DISTRIBUTION WIDTH 18.7 % (11.6-17.2); WHITE BLOOD COUNT 7.1 TH/MM3 (4.0-11.0)
[2017-08-09 13:26] LABS: BICARBONATE 26.8 MEQ/L (21.0-32.0); CALCIUM 8.7 MG/DL (8.5-10.1); CREATININE 1.92 MG/DL (0.60-1.30); PHOSPHORUS 3.6 MG/DL (2.5-4.9)
== END ==
LOC: PLAB 08:28
PROVIDERS: ATTEND Nurse Practitioner Acute Care
DX: I50.9 Heart failure, unspecified (principal); N18.3 Chronic kidney disease, stage 3 (moderate); M10.00 Idiopathic gout, unspecified site
CPT/HCPCS: 36415; 80048; 83970; 84100; 84550; 85025

== ENCOUNTER 2017-08-15 18:30 | Inpatient (IN) | payer MEDICARE, OTHER ==
[~2017-08-15] VITALS: Ht 190.5 cm; Wt 110.0 kg
[2017-08-15 18:44] VITALS: BP 111/72; PULSE 93; RESP 29; TEMP 99.4; O2SAT 95
[2017-08-15] MEDS ORDERED: SODIUM CHLORIDE 0.9% FLUSH 10 ML FLUSH IVF PRN (19:00)
[2017-08-15 19:05] VITALS: BP 98/64; PULSE 94; RESP 21; O2SAT 95
--- NOTE | 2017-08-15 19:08 | RADRPT ---
EXAM DATE/TIME: 08/15/2017 18:56 [facility] COMPARISON: CHEST SINGLE AP, March 08, 2017, 11:57. INDICATIONS : Short of breath. MEDICAL HISTORY : None. SURGICAL HISTORY : Pacemaker. ENCOUNTER: Initial ACUITY: 4 - 6 days PAIN SCORE: 0/10 LOCATION: Bilateral chest FINDINGS: A single portable frontal view the chest shows a focal area of consolidation within the right base. U nderlying chronic interstitial changes also noted. Heart is normal in size. No effusions. Left-sided pacing device. CONCLUSION: 1. Right lower lobe infiltrate. 2. Chronic interstitial changes. Ayaz Harper Jr., MD on August 15, 2017 at 19:05 Board Certified Radiologist. This report was verified electronically.
[2017-08-15] MEDS ORDERED: AZITHROMYCIN INJ 500 MG in SODIUM CHLOR 0.9% 250 ML INJ 250 ML IV ONE (19:30)
[2017-08-15] MEDS ORDERED: RESP: ALBUTEROL 2.5 MG/IPRATROPIUM 0.5 MG NEB (SCH) NEB ONE (19:30)
[2017-08-15] MEDS ORDERED: cefTRIAXone INJ 1,000 MG in SODIUM CHLORIDE 0.9% INJ 100 ML IV ONE (19:30)
[2017-08-15 20:19] LABS: AUTOMATED NEUTROPHIL # 5.7 TH/MM3 (1.8-7.7); BASOPHIL # 0.1 TH/MM3 (0-0.2); BASOPHIL % 1.6 % (0.0-2.0); EOSINOPHIL # 0.2 TH/MM3 (0-0.4); EOSINOPHIL % 2.2 % (0.0-4.0); HEMATOCRIT 37.4 % (39.0-51.0); HEMOGLOBIN 12.1 GM/DL (13.0-17.0); LYMPH % 9.7 % (9.0-44.0); LYMPHOCYTE # 0.7 TH/MM3 (1.0-4.8); MEAN CELL VOLUME 89.6 FL (80.0-100.0); MEAN CORPUSCULAR HGB CONC 32.3 % (32.0-36.0); MEAN PLATELET VOLUME 8.4 FL (7.0-11.0); MONOCYTE # 0.7 TH/MM3 (0-0.9); NEUT % 77.5 % (16.0-70.0); PLATELET COUNT 177 TH/MM3 (150-450); RED BLOOD COUNT 4.17 MIL/MM3 (4.50-5.90); RED CELL DISTRIBUTION WIDTH 18.9 % (11.6-17.2); WHITE BLOOD COUNT 7.3 TH/MM3 (4.0-11.0)
[2017-08-15 20:52] LABS: ALBUMIN 3.3 GM/DL (3.4-5.0); AST (GOT) 19 U/L (15-37); BICARBONATE 23.8 MEQ/L (21.0-32.0); BLOOD UREA NITROGEN 45 MG/DL (7-18); CALCIUM 8.9 MG/DL (8.5-10.1); CHLORIDE 100 MEQ/L (98-107); GLOMERULAR FILTRATION RATE 29 ML/MIN (>89); GLUCOSE,RANDOM 118 MG/DL (74-106); SODIUM (NA) 136 MEQ/L (136-145)
[2017-08-15 20:57] LABS: ALKALINE PHOSPHATASE 131 U/L (45-117); ALT (GPT) 19 U/L (12-78); TOTAL PROTEIN 7.7 GM/DL (6.4-8.2); TROPONIN I LESS THAN 0.02 NG/ML (0.02-0.05)
[2017-08-15] MEDS ORDERED: NALOXONE HCL 0.4 MG/ML AMP IV PUSH PRN (21:00)
[2017-08-15] MEDS: SODIUM CHLORIDE 0.9% FLUSH 10 ML FLUSH IV FLUSH SCH (21:00)
[2017-08-15] MEDS ORDERED: SODIUM CHLORIDE 0.9% FLUSH 10 ML FLUSH IV FLUSH PRN (21:00)
[2017-08-15 21:02] VITALS: O2SAT 94
--- NOTE | 2017-08-15 22:04 | PD ---
HPI Chief Complaint: Respiratory Distress Time Seen by Provider: 19:08 Travel History International Travel<30 days: No Contact w/Intl Traveler<30days: No Traveled to known affect area: No History of Present Illness HPI Patient is an 82-year-old male coming in with 3 days of cough congestion shortness of breath progressively getting worse he has a home nebulizer machine which she's been using without relief of his symptoms he also sleeps with CPAP at night with 2 L of oxygen on. He feels chills tiredness and the satting he went to his doctor's office doctor saw that he was the satting down to the high 80s on room air and told him to come to the ER. The doctor did not give him any medications at that time did not start any antibiotics and complaint is shortness of breath progressively getting worse patient is on furosemide for CHF metoprolol spironolactone known allergies medications are relieving his symptoms he's taking them daily denies chest pain denies nausea or vomiting just feels short of breath. His symptoms Continues in the ER PFSH Past Medical History Anemia: Yes Arthritis: Yes Asthma: No Autoimmune Disease: No Blood Disorders: No Anxiety: No Depression: No Heart Rhythm Problems: Yes Cancer: Yes (SKIN CANCER) Cardiovascular Problems: Yes (CHF, PA) High Cholesterol: No Chemotherapy: No Chest Pain: No Congestive Heart Failure: Yes COPD: Yes Cerebrovascular Accident: Yes (OCULAR STROKE) Coronary Artery Disease: Yes Diabetes: No Diminished Hearing: No Deep Vein Thrombosis: Yes (off anticoagulation secondary to GI bleed) Endocrine: No Gastrointestinal Disorders: Yes (illeus) GERD: No Glaucoma: No Gout: Yes Genitourinary: Yes Headaches: No Hepatitis: No Hiatal Hernia: No Hypertension: Yes Immune Disorder: No Implanted Vascular Access Dvce: Yes Kidney Stones: No Medical other: Yes (GOUT SAMANTHA) Musculoskeletal: Yes Neurologic: Yes Psychiatric: No Reproductive: No Respiratory: Yes (COPD) Immunizations Current: Yes Migraines: No Myocardial Infarction: Yes Radiation Therapy: No Renal Failure: Yes (chronic kidney disease) Seizures: No Sickle Cell Disease: No Sleep Apnea: Yes (C-Pap) Thyroid Disease: No Ulcer: No Tetanus Vaccination: Unknown Past Surgical History Abdominal Surgery: Yes (umbilical hernia) AICD: Yes Appendectomy: No Arteriovenous Shunt: No Body Medical Devices: N/A Cardiac Surgery: Yes (FEM-POP RIGHT LEG) Cholecystectomy: No Coronary Artery Bypass Graft: Yes Ear Surgery: No Endocrine Surgery: No Eye Surgery: Yes (bilateral cataracts) Genitourinary Surgery: No Gynecologic Surgery: No Insulin Pump: No Joint Replacement: Yes (RIGHT TOTAL HIP ) Oral Surgery: Yes Pacemaker: No Thoracic Surgery: No Tonsillectomy: Yes Other Surgery: Yes (AICD) Social History Alcohol Use: Yes (COUPLE DRINKS DAILY) Tobacco Use: No Substance Use: No Allergies-Medications (Allergen,Severity, Reaction): Coded Allergies: enoxaparin (Unverified Allergy, Severe, 08/15/17) HIT heparin (porcine) (Unverified Allergy, Severe, 08/15/17) HIT Reported Meds & Prescriptions Reported Meds & Active Scripts Active Metoprolol Succinate ER 24 HR (Metoprolol Succinate) 25 Mg Tab 25 Mg PO DAILY Proair Hfa 8.5 GM Inh (Albuterol Sulfate) 90 Mcg/Act Aer 2 Puff INH Q4-6H PRN 108 mcg/actuation Inspirease Drug Delivery (Spacer/Device For Mdi) 1 Ea Mis 1 Ea .ROUTE DIRECTED Duoneb (Ipratropium-Albuterol Neb) 0.5-2.5 Mg/3 Ml Neb 1 Nebule INH Q4HR NEB Oxygen tank (Oxygen) 1 Ea Tank 2 Liter MATY.CANQuitbit CONTINUOUS Oxygen Concentrator Portable Gaseous 2 L/min via Nasal Cannula Continuous For 99 months Reported Simvastatin 20 Mg Tab 20 Mg PO DAILY Tylenol (Acetaminophen) 325 Mg Tab 650 Mg PO Q4H PRN Aspirin 81 Mg Chew 81 Mg CHEW DAILY Allopurinol 100 Mg Tab 100 Mg PO BID Spiriva Handihaler (Tiotropium Inh) 18 Mcg Cap 18 Mcg INH DAILY 1 capsule = 18 mcg Symbicort Inh (Budesonide/Formoterol Fumarate) 80-4.5 Mcg/Act Aero 1 Puff INH Q12HR Spironolactone 25 Mg Tab 25 Mg PO DAILY Review of Systems Except as stated in HPI: all other systems reviewed are Neg HENT: Positive: Sore Throat Respiratory: Positive: Cough, Shortness of Breath Musculoskeletal: Positive: Weakness Physical Exam Narrative GENERAL: Patient is awake alert patient is wearing 2 L nasal cannula and he is satting at 93 on 2 L SKIN: Warm and dry. HEAD: Atraumatic. Normocephalic. EYES: Pupils equal and round. No scleral icterus. No injection or drainage. ENT: No nasal bleeding or discharge. Mucous membranes pink and moist. NECK: Trachea midline. No JVD. CARDIOVASCULAR: Regular rate and rhythm. RESPIRATORY: No accessory muscle use. Patient is crackles in the right base greater than the left upper airways minimal expiratory wheeze GASTROINTESTINAL: Abdomen soft, non-tender, nondistended. Hepatic and splenic margins not palpable. MUSCULOSKELETAL: Extremities without clubbing, cyanosis, or edema. No obvious deformities. NEUROLOGICAL: Awake and alert. No obvious cranial nerve deficits. Motor grossly within normal limits. Five out of 5 muscle strength in the arms and legs. Normal speech. PSYCHIATRIC: Appropriate mood and affect; insight and judgment normal. Data Data Last Documented VS Vital Signs Date Time Temp Pulse Resp B/P (MAP) Pulse Ox O2 Delivery O2 Flow Rate FiO2 08/15/17 19:05 94 21 98/64 (75) 95 Nasal Cannula 2.00 08/15/17 18:44 99.4 Orders Orders Complete Blood Count With Diff (08/15/17 18:50) Comprehensive Metabolic Panel (08/15/17 18:50) B-Type Natriuretic Peptide (08/15/17 18:50) Iv Access Insert/Monitor (08/15/17 18:50) Electrocardiogram (08/15/17 18:50) Ecg Monitoring (08/15/17 18:50) Oximetry (08/15/17 18:50) Oxygen Administration (08/15/17 18:50) Chest, Single Ap (08/15/17 18:50) Sodium Chloride 0.9% Flush (Ns Flush) (08/15/17 19:00) Ceftriaxone Inj (Rocephin Inj) (08/15/17 19:30) Azithromycin Inj (Zithromax Inj) (08/15/17 19:30) Albuterol-Ipratropium Neb (Duoneb Neb) (08/15/17 19:30) Troponin I (08/15/17 19:00) Admit Order (Ed Use Only) (08/15/17 20:40) Place In Observation (08/15/17 ) Vital Signs (Adult) Q4H (08/15/17 20:50) Activity Oob With Assistance (08/15/17 20:50) Tour Agent / Telemetry .CONTINUOUS (08/15/17 20:50) Diet Heart Healthy (08/16/17 Breakfast) Sodium Chloride 0.9% Flush (Ns Flush) (08/15/17 21:00) Sodium Chloride 0.9% Flush (Ns Flush) (08/15/17 21:00) Basic Metabolic Panel (Bmp) (08/16/17 06:00) Complete Blood Count With Diff (08/16/17 06:00) Pt Request For Service (08/15/17 20:50) Case Management Consult (08/15/17 20:50) Naloxone Inj (Narcan Inj) (08/15/17 21:00) Resp Oxygen Nasal Cannula (08/15/17 ) Resp Cpap Trial (08/15/17 ) Labs Laboratory Tests Test 08/15/17 19:00 White Blood Count 7.3 TH/MM3 Red Blood Count 4.17 MIL/MM3 Hemoglobin 12.1 GM/DL Hematocrit 37.4 % Mean Corpuscular Volume 89.6 FL Mean Corpuscular Hemoglobin 29.0 PG Mean Corpuscular Hemoglobin Concent 32.3 % Red Cell Distribution Width 18.9 % Platelet Count 177 TH/MM3 Mean Platelet Volume 8.4 FL Neutrophils (%) (Auto) 77.5 % Lymphocytes (%) (Auto) 9.7 % Monocytes (%) (Auto) 9.0 % Eosinophils (%) (Auto) 2.2 % Basophils (%) (Auto) 1.6 % Neutrophils # (Auto) 5.7 TH/MM3 Lymphocytes # (Auto) 0.7 TH/MM3 Monocytes # (Auto) 0.7 TH/MM3 Eosinophils # (Auto) 0.2 TH/MM3 Basophils # (Auto) 0.1 TH/MM3 CBC Comment DIFF FINAL Differential Comment Blood Urea Nitrogen 45 MG/DL Creatinine 2.20 MG/DL Random Glucose 118 MG/DL Total Protein 7.7 GM/DL Albumin 3.3 GM/DL Calcium Level 8.9 MG/DL Alkaline Phosphatase 131 U/L Aspartate Amino Transf (AST/SGOT) 19 U/L Alanine Aminotransferase (ALT/SGPT) 19 U/L Total Bilirubin 1.0 MG/DL Sodium Level 136 MEQ/L Potassium Level 4.3 MEQ/L Chloride Level 100 MEQ/L Carbon Dioxide Level 23.8 MEQ/L Anion Gap 12 MEQ/L Estimat Glomerular Filtration Rate 29 ML/MIN Troponin I LESS THAN 0.02 NG/ML B-Type Natriuretic Peptide 73 PG/ML MDM Medical Decision Making Medical Screen Exam Complete: Yes Emergency Medical Condition: Yes Differential Diagnosis Chest x-ray shows a right lower lobe pneumonia and giving him steroids as well as a antibiotic ceftriaxone and azithromycin duo neb he is on 2 L maintaining a sat around 94 I admit him to the medical service for COPD exacerbation as well as a right lower lobe pneumonia Narrative Course Patient's treated for pneumonia seen on the x-ray he is 2 L nasal cannula plus duo nebs as well as ceftriaxone and azithromycin he is admitted after stabilizing his respirations his O2 sat is 95 on 2 L a minute medical service I give him antibiotic steroids and DuoNeb nebs to help decrease inflammation secondary to a upper respiratory infection causing a COPD exacerbation Diagnosis Primary Impression: Right lower lobe pneumonia Qualified Codes: J18.1 - Lobar pneumonia, unspecified organism Additional Impression: Shortness of breath Admitting Information Admitting Physician Requests: Admit Davie Jasmine MD Aug 15, 2017 22:04
[2017-08-15 22:27] VITALS: BP 97/66; PULSE 87; RESP 21; TEMP 98; O2SAT 93
[2017-08-16] VITALS (7 sets, daily range): BP systolic 93–121; BP diastolic 61–80; PULSE 82–96; RESP 18–24; TEMP 97.5–98.2; O2SAT 92–98
[2017-08-16] MEDS ORDERED: ACETAMINOPHEN 325 MG TAB PO ONE (00:30)
--- NOTE | 2017-08-16 03:25 | HHI.HP ---
[facility] Stanislav Castro MD Admission Diagnosis PNA RLL Diagnoses: Travel History International Travel<30 Days: No Contact w/Intl Traveler <30 Da: No Traveled to Known Affected Are: No History of Present Illness History from patient, ER physician communication, and review of medical records. Patient reported that since last Sunday, he just has not been feeling well. He described this as lack of energy. He reports he had hip surgery in March 2016. However since then, his right leg has not been normal and he was not really able to bear weight on that right leg. He reports shortness of breath since Sunday. However does not have any dryness or cough or mucus Denies fever. Denies myalgias. Denies any nausea/vomiting/diarrhea/blood in his urine or stool. Denies any urinary burning or pain on urination or frequent urination. Patient also denies any recent prolonged travels. His recent travel was May to [facility]. Although patient denies any coughing at home, during my interview, he is constantly coughing with thick congested cough. When asked about this, he stated he was actually sick and had a very serious cold a week before [facility]. He was placed on antibiotics and steroids by his PCP and he reports that he was well by [facility]. Patient denies being on home oxygen. He does use C Pap at night at home and at which time oxygen is applied. He even visited his pulmonary doctor Dr. Villegas yesterday morning and was found to have low oxygen at the clinic. He was told at that time that he might need home oxygen. Review of Systems Except as stated in HPI: all other systems reviewed are Neg Past Family Social History Past Medical History Hypertension Hyperlipidemia CHF- EF of 45% latest echo. 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 Gout Anemia Arthritis Past Surgical History AICD Cataract removal - Bilateral Colonoscopy - 2014 small polyps Hernia repair - Umbilical Popliteal bypass to right lower extremity Tonsillectomy Hip Surgery Right in 2016 Allergies: Coded Allergies: enoxaparin (Unverified Allergy, Severe, 08/15/17) HIT heparin (porcine) (Unverified Allergy, Severe, 08/15/17) HIT Family History sister- parkinson father- alzeimers mother- RA Social History used to smoke, quit 3 yrs ago drinks about 2-3 martinis a day no drugs started driving back now for past couple of months Physical Exam Vital Signs Vital Signs Date Time Temp Pulse Resp B/P (MAP) Pulse Ox O2 Delivery O2 Flow Rate FiO2 08/16/17 01:49 16 08/16/17 01:22 97.5 83 19 106/69 (81) 93 08/15/17 22:27 98.0 87 21 97/66 (76) 93 08/15/17 21:02 94 Nasal Cannula 3.00 08/15/17 19:05 94 21 98/64 (75) 95 Nasal Cannula 2.00 08/15/17 18:44 94 Nasal Cannula 2.00 08/15/17 18:44 99.4 93 29 111/72 (85) 95 Nasal Cannula 2.00 Physical Exam GENERAL: This is a well-nourished, well-developed patient, in no apparent distress. SKIN: No rashes, ecchymoses or lesions. Cool and dry. rosacea HEAD: Atraumatic. Normocephalic. No temporal or scalp tenderness. EYES: No scleral icterus. No injection or drainage. ENT: Nose without bleeding, purulent drainage or septal hematoma. Airway patent. NECK: Trachea midline. No JVD . Supple, nontender, no meningeal signs. CARDIOVASCULAR: Regular rate and rhythm without murmurs, gallops, or rubs. RESPIRATORY: Clear to auscultation. Breath sounds equal bilaterally. No wheezes , rales, or rhonchi. GASTROINTESTINAL: Abdomen soft, non-tender, nondistended. No guarding. MUSCULOSKELETAL: Extremities without clubbing, cyanosis. Right lower extremity significantly bigger than the left- chronic. NEUROLOGICAL: Awake and alert. Motor and sensory grossly within normal limits. Normal speech. Laboratory Laboratory Tests Test 08/15/17 19:00 White Blood Count 7.3 Red Blood Count 4.17 Hemoglobin 12.1 Hematocrit 37.4 Mean Corpuscular Volume 89.6 Mean Corpuscular Hemoglobin 29.0 Mean Corpuscular Hemoglobin Concent 32.3 Red Cell Distribution Width 18.9 Platelet Count 177 Mean Platelet Volume 8.4 Neutrophils (%) (Auto) 77.5 Lymphocytes (%) (Auto) 9.7 Monocytes (%) (Auto) 9.0 Eosinophils (%) (Auto) 2.2 Basophils (%) (Auto) 1.6 Neutrophils # (Auto) 5.7 Lymphocytes # (Auto) 0.7 Monocytes # (Auto) 0.7 Eosinophils # (Auto) 0.2 Basophils # (Auto) 0.1 CBC Comment DIFF FINAL Differential Comment Blood Urea Nitrogen 45 Creatinine 2.20 Random Glucose 118 Total Protein 7.7 Albumin 3.3 Calcium Level 8.9 Alkaline Phosphatase 131 Aspartate Amino Transf (AST/SGOT) 19 Alanine Aminotransferase (ALT/SGPT) 19 Total Bilirubin 1.0 Sodium Level 136 Potassium Level 4.3 Chloride Level 100 Carbon Dioxide Level 23.8 Anion Gap 12 Estimat Glomerular Filtration Rate 29 Troponin I LESS THAN 0.02 B-Type Natriuretic Peptide 73 Result Diagram: 08/15/17189908/15/171899 Imaging Last 48 hours Impressions Chest X-Ray 08/15/171849 Signed Impressions: Service Date/Time: Tuesday, August 15, 2017 18:56 - CONCLUSION: 1. Right lower lobe infiltrate. 2. Chronic interstitial changes. MD Tierra Sosa Jr. VTE Risk Assessment Tierra VTE Risk Assessment: Mod/High Risk (score >= 2) Caprini Risk Assessment Model Point Value = 1 Point Value = 2 Point Value = 3 Point Value = 5 Age 41-60 Minor surgery BMI > 25 kg/m2 Swollen legs Varicose veins or History of unexplained or recurrent spontaneous Oral contraceptives or hormone replacement Sepsis (< 1 month) Serious lung disease, including pneumonia (< 1 month) Abnormal pulmonary function Acute myocardial infarction Congestive heart failure (< 1 month) History of inflammatory bowel disease Medical patient at bed rest Age 61-74 Arthroscopic surgery Major open surgery (> 45 min) Laparoscopic surgery (> 45 min) Malignancy Confined to bed (> 72 hours) Immobilizing plaster cast Central venous access Age >= 75 History of VTE Family history of VTE Factor V Leiden Prothrombin [id number] Lupus anticoagulant Anticardiolipin antibodies Elevated serum homocysteine Heparin-induced thrombocytopenia Other congenital or acquired thrombophilia Stroke (< 1 month) Elective arthroplasty Hip, pelvis, or leg fracture Acute spinal cord injury (< 1 month) Prophylaxis Regimen Total Risk Factor Score Risk Level Prophylaxis Regimen 0-1 Low Early ambulation 2 Moderate Order ONE of the following: *Sequential Compression Device (SCD) *Heparin 5000 units SQ BID 3-4 Higher Order ONE of the following medications: *Heparin 5000 units SQ TID *Enoxaparin/Lovenox 40 mg SQ daily (WT < 150 kg, CrCl > 30 mL/min) *Enoxaparin/Lovenox 30 mg SQ daily (WT < 150 kg, CrCl > 10-29 mL/min) *Enoxaparin/Lovenox 30 mg SQ BID (WT < 150 kg, CrCl > 30 mL/min) AND/OR *Sequential Compression Device (SCD) 5 or more Highest Order ONE of the following medications: *Heparin 5000 units SQ TID (Preferred with Epidurals) *Enoxaparin/Lovenox 40 mg SQ daily (WT < 150 kg, CrCl > 30 mL/min) *Enoxaparin/Lovenox 30 mg SQ daily (WT < 150 kg, CrCl > 10-29 mL/min) *Enoxaparin/Lovenox 30 mg SQ BID (WT < 150 kg, CrCl > 30 mL/min) AND *Sequential Compression Device (SCD) Assessment and Plan Assessment and Plan Impression: Right lower lobe pneumonia Generalized weakness secondary to pneumonia Hypertension Hyperlipidemia CHF-EF of 45% latest echo. 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 Nebulizers Continue C Pap at night. PT evaluation. Case management consult for discharge planning. Resume his home medications. DVT prophylaxis with heparin. Discussed Condition With Patient, ER physician, nursing staff Phyllis Nova MD Aug 16, 2017 03:25
[2017-08-16] MEDS ORDERED: ACETAMINOPHEN 325 MG TAB PO PRN (03:30)
[2017-08-16 05:01] LABS: AUTOMATED NEUTROPHIL # 3.1 TH/MM3 (1.8-7.7); BASOPHIL % 0.1 % (0.0-2.0); EOSINOPHIL % 0.1 % (0.0-4.0); HEMATOCRIT 35.3 % (39.0-51.0); HEMOGLOBIN 11.4 GM/DL (13.0-17.0); LYMPH % 8.8 % (9.0-44.0); LYMPHOCYTE # 0.3 TH/MM3 (1.0-4.8); MEAN CELL VOLUME 90.1 FL (80.0-100.0); MEAN CORPUSCULAR HEMOGLOBIN 29.1 PG (27.0-34.0); MEAN CORPUSCULAR HGB CONC 32.3 % (32.0-36.0); MEAN PLATELET VOLUME 8.2 FL (7.0-11.0); MONO % 2.2 % (0.0-8.0); MONOCYTE # 0.1 TH/MM3 (0-0.9); NEUT % 88.8 % (16.0-70.0); PLATELET COUNT 173 TH/MM3 (150-450); RED BLOOD COUNT 3.92 MIL/MM3 (4.50-5.90); WHITE BLOOD COUNT 3.5 TH/MM3 (4.0-11.0)
[2017-08-16 05:31] LABS: BICARBONATE 23.2 MEQ/L (21.0-32.0); CALCIUM 8.7 MG/DL (8.5-10.1); CREATININE 2.09 MG/DL (0.60-1.30)
[2017-08-16] MEDS: cefTRIAXone INJ 1,000 MG in SODIUM CHLORIDE 0.9% INJ 100 ML IV SCH (08:52)
[2017-08-16] MEDS: ASPIRIN 81 MG CHEW TAB CHEW SCH (08:53)
[2017-08-16] MEDS: SPIRONOLACTONE 25 MG TAB PO SCH (08:53)
[2017-08-16] MEDS: AZITHROMYCIN 250 MG TAB PO SCH (08:53)
[2017-08-16] MEDS: PRAVASTATIN SOD 40 MG TAB PO SCH (08:53)
[2017-08-16] MEDS: SODIUM CHLORIDE 0.9% FLUSH 10 ML FLUSH IV FLUSH SCH ×2 (08:53→21:23)
[2017-08-16] MEDS: METOPROLOL SUCCINATE 25 MG EXTENDED RELEASE TAB PO SCH (08:53)
[2017-08-16] MEDS ORDERED: RESP: ALBUTEROL 2.5 MG/IPRATROPIUM 0.5 MG NEB (PRN) NEB (09:30)
--- NOTE | 2017-08-16 10:31 | HHI.PR ---
Subjective Remarks Follow up on patient with PNA. Patient seen and examined. Patient states he feels better today. Reports his breathing has improved. He denies any fever or chills. Denies any chest pain or dyspnea. Does report generalized fatigue. He denies any nausea, vomiting or abdominal pain. Denies any hematuria or dysuria. He had normal BM this morning. 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 Objective Vitals Vital Signs Date Time Temp Pulse Resp B/P (MAP) Pulse Ox O2 Delivery O2 Flow Rate FiO2 08/16/17 07:36 98.2 86 24 121/80 (94) 92 08/16/17 04:54 97.5 82 20 110/75 (87) 93 08/16/17 01:49 16 08/16/17 01:22 97.5 83 19 106/69 (81) 93 08/15/17 22:27 98.0 87 21 97/66 (76) 93 08/15/17 21:02 94 Nasal Cannula 3.00 08/15/17 19:05 94 21 98/64 (75) 95 Nasal Cannula 2.00 08/15/17 18:44 94 Nasal Cannula 2.00 08/15/17 18:44 99.4 93 29 111/72 (85) 95 Nasal Cannula 2.00 I/O 08/15/17 08/15/17 08/15/17 08/16/17 08/16/17 08/16/17 07:00 15:00 23:00 07:00 15:00 23:00 Intake Total 350 ml Balance 350 ml IV Total 350 ml Result Diagram: 08/16/17 0401 08/16/17 0401 Imaging Last Impressions Chest X-Ray 08/15/17 1850 Signed Impressions: Service Date/Time: Tuesday, August 15, 2017 18:56 - CONCLUSION: 1. Right lower lobe infiltrate. 2. Chronic interstitial changes. Ayaz Harper Jr., MD Objective Remarks GENERAL: This is a well-nourished, well-developed male patient, in no apparent distress. Awake and alert. Appears comfortable. Witnessed ambulating in hallway with PT. SKIN: Cool and dry. Rosacea. Mild erythema noted over both lower legs, chronic per patient report. HEAD: Atraumatic. Normocephalic. EYES: EOMI. No scleral icterus. No injection or drainage. ENT: Nose without bleeding or purulent drainage. Airway patent. MMM. NECK: Trachea midline. CARDIOVASCULAR: Regular rate and rhythm without murmurs, gallops, or rubs. RESPIRATORY: Fair air entry. Crackles right lung base. GASTROINTESTINAL: Abdomen soft, non-tender, nondistended. No guarding. MUSCULOSKELETAL: Extremities without clubbing, cyanosis. Right lower extremity significantly bigger than the left- chronic. NEUROLOGICAL: Awake and alert. Able to move all extremities spontaneously. Motor and sensory grossly within normal limits. Normal speech. Medications and IVs Current Medications Medications (Trade) Dose Ordered Sig/Guy Route Start Time Stop Time Status Last Admin (NS Flush) 2 ml UNSCH PRN IVF 08/15/17 19:00 (NS Flush) 2 ml UNSCH PRN IV FLUSH 08/15/17 21:00 (NS Flush) 2 ml BID IV FLUSH 08/15/17 21:00 08/16/17 08:53 (Narcan Inj) 0.4 mg UNSCH PRN IV PUSH 08/15/17 21:00 (Tylenol) 650 mg Q4H PRN PO 08/16/17 03:30 (Zyloprim) 100 mg BID PO 08/16/17 09:00 (Aspirin Chew) 81 mg DAILY CHEW 08/16/17 09:00 08/16/17 08:53 (Symbicort 80-4.5 Mcg Inh) 1 puff Q12HR INH 08/16/17 09:00 (Toprol Xl) 25 mg DAILY PO 08/16/17 09:00 08/16/17 08:53 (Aldactone) 25 mg DAILY PO 08/16/17 09:00 08/16/17 08:53 (Spiriva Inh) 18 mcg DAILY INH 08/16/17 09:00 (Pravachol) 40 mg DAILY PO 08/16/17 09:00 08/16/17 08:53 Ceftriaxone Sodium 1000 mg/ Sodium Chloride 100 ml @ 200 mls/hr Q24H IV 08/16/17 09:00 08/16/17 08:52 (Zithromax) 250 mg DAILY PO 08/16/17 09:00 08/16/17 08:53 (Duoneb Neb) 1 ampule Q4HR NEB PRN NEB 08/16/17 09:30 (Heparin Inj) 5,000 units Q8HR SQ 08/16/17 14:00 UNV A/P Assessment and Plan Right lower lobe pneumonia - continue patient on Azithromycin and IV Rocephin - 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 Villegas, appreciate his assistance - Duonebs - monitor respiratory status and continue supplemental oxygen to maintain O2 sats above 92% CHF, systolic, chronic, not decompensated - EF 45% - resume patient on Aldactone and Torsemide - heart healthy low Na diet - monitor for signs of fluid overload Hypertension - controlled - continue home antihypertensive meds - monitor BP and adjust treatment accordingly Ventricular tachycardia - s/p AICD placement COPD, not in acute exacerabation - resume home bronchodilator therapy - Duonebs - monitor respiratory status CKD - creatinine appears near baseline - avoid nephrotoxic agents - monitor kidney function MILY - patient uses CPAP at night Generalized weakness secondary to PNA s/p right THR 2016 with residual difficulty bearing weight - PT eval/tx DVT prophylaxis - Xarelto 10mg daily Eve Madrid Aug 16, 2017 10:31
[2017-08-16] MEDS: ALLOPURINOL 100 MG TAB PO SCH ×2 (11:47→21:23)
[2017-08-16] MEDS: BUDESONIDE-FORMOTEROL 80/4.5 MCG INHALER INH SCH ×2 (11:47→21:23)
[2017-08-16] MEDS: TIOTROPIUM BROMIDE 18 MCG INH INH SCH (11:48)
[2017-08-16] MEDS ORDERED: FONDAPARINUX SODIUM 2.5 MG/0.5 ML SYRINGE SQ SCH (12:00)
[2017-08-16] MEDS: RIVAROXABAN 10 MG TAB PO SCH (13:00)
[2017-08-16] MEDS: TORSEMIDE 20 MG TAB PO SCH (13:45)
[2017-08-16] MEDS ORDERED: HEPARIN SODIUM - SQ 10,000 UNITS/ML VIAL SQ SCH (14:00)
--- NOTE | 2017-08-16 21:31 | MB ---
cc: Matty COHN DATE OF CONSULTATION 08/16/17 HISTORY OF PRESENT ILLNESS Mr. Grace is a 81-year-old white male I have known for many years with COPD, former smoker, although he quit many years ago who had been fairly stable recently on bronchodilators at home. He has a complex history including coronary disease, ventricular arrhythmias with an AICD in place, obstructive sleep apnea on C-PAP and O2 at night, peripheral arterial disease as well as severe chronic venous insufficiency followed for several years by Dr. Garrett and then several admissions earlier this last year in January and February, three separate admissions, the final one with sepsis and severe cellulitis in his legs at which time he was really quite debilitated. However, he improved after that, had a mild URI during the holidays, was treated as an outpatient. When I saw him in the office yesterday on Sunday other than being mildly hypoxic O2 sats were in the 88% range on room air at rest in the office. He actually looked much better. He is generally weak, has chronic dyspnea on exertion but has had no chest pain, minimal residual cough after that URI, no hemoptysis. No significant change in edema. However, last night he went to bed with his C-PAP and oxygen. Nothing new had happened, but when he got up in the middle of the night to go to the bathroom he was very weak and could not get up. His had to call and of course he was brought to the emergency room. Today he has been ambulatory. He said he took several walks around the unit here in the emergency room with physical therapy off of oxygen with adequate O2 saturations. His initial laboratory work - white count was 7300, hemoglobin 12, normal platelet count. His BUN had risen though to 2.2. It is down to 2.09 today, but on the previous admission in February he was below two. Apparently he was seen by his nuisance wildlife trapper a week or so ago and he was below two again so there has been a slight increase. In addition, he had a chest x-ray which reveals chronic scarring but a very faint density at the right base above the diaphragm which could be a mild pneumonia. He has had no cultures. He was placed on Rocephin and Zithromax, nebulized aerosol treatments, oxygen and Symbicort. He feels better today. PAST MEDICAL HISTORY As noted above as well documented in previous notes. ALLERGIES HEPARIN LOVENOX SOCIAL HISTORY living with his . 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 No significant alcohol use. REVIEW OF SYSTEMS As noted above. No GI symptoms. No nausea, vomiting or diarrhea. PHYSICAL EXAMINATION VITAL SIGNS: 97 degrees, 118/74, pulse 90, RR 18, sat 96% documented on 2 liters. HEENT: Sclerae are anicteric. NECK: Neck veins are flat. CHEST: Completely clear diminished but without rales or wheezes. No congestion. HEART: No harsh murmur. No audible S3. ABDOMEN: Obese but soft EXTREMITIES: Chronic significant lower extremity edema 2+. DISCUSSION Mr. Grace presents possibly with a mild right lower lobe pneumonia, a little bump in his creatinine. I wonder if he was a little dehydrated to cause the weakness that he experienced. That has resolved. I think he could be changed to oral therapy. Suggest reduced dose based on his creatinine of Levaquin for another week. If his oxygen level was adequate tomorrow from a pulmonary standpoint, he could be discharged home. I will see him back in the office with a followup chest x-ray and I have asked him to just use his oxygen continuously at this point at 2 liters. Further diagnostic and/or therapeutic range will depend on his response and ongoing clinical course. R. MD SPENSER Phan/ /6:18 PM /9:11 PM
--- NOTE | 2017-08-16 22:22 | EKG ---
Date Performed: 08/15/2017 Time Performed: 18:51:05 PTAGE: 82 years EKG: Sinus rhythm NORMAL ECG NO PREVIOUS TRACING DOCTOR: Dylon Antonio Interpretating Date/Time 08/16/2017 22:21:16
[2017-08-17] VITALS (7 sets, daily range): BP systolic 95–138; BP diastolic 58–82; PULSE 65–81; RESP 17–20; TEMP 97.6–98; O2SAT 93–94
--- NOTE | 2017-08-17 08:51 | HHI.PR ---
Subjective Remarks In the room ambulating without any problems. Less cough. No n/v/d/c. no fever or chills. No chest apin . SOB improved. Seen by pulm Dr Villegas. Cleared for DC to follow up as Op with him Objective Vitals Vital Signs Date Time Temp Pulse Resp B/P (MAP) Pulse Ox O2 Delivery O2 Flow Rate FiO2 08/17/17 07:25 65 08/17/17 07:21 98.0 70 20 138/81 (100) 94 08/17/17 06:03 95/58 (70) 08/17/17 05:30 97.6 81 17 129/82 (98) 93 08/17/17 03:15 71 08/17/17 02:51 CPAP 2.00 08/17/17 01:39 97.6 77 18 111/76 (88) 94 08/16/17 20:11 97.6 95 20 116/73 (87) 96 08/16/17 15:49 97.6 96 18 118/74 (89) 96 08/16/17 11:20 98.1 89 22 93/61 (72) 94 I/O 08/16/17 08/16/17 08/16/17 08/17/17 08/17/17 08/17/17 07:00 15:00 23:00 07:00 15:00 23:00 Intake Total 940 ml Output Total 450 ml 600 ml Balance 490 ml -600 ml Intake Oral 840 ml IV Total 100 ml Output Urine Total 450 ml 600 ml # Bowel Movements 0 Result Diagram: 08/16/17 0401 08/16/17 0401 Imaging Last Impressions Chest X-Ray 08/15/17 1850 Signed Impressions: Service Date/Time: Tuesday, August 15, 2017 18:56 - CONCLUSION: 1. Right lower lobe infiltrate. 2. Chronic interstitial changes. Ayaz Harper Jr., MD Objective Remarks GENERAL: This is a well-nourished, well-developed male patient, in no apparent distress. Awake and alert. Appears comfortable. Witnessed ambulating in hallway with PT. CARDIOVASCULAR: Regular rate and rhythm without murmurs, gallops, or rubs. RESPIRATORY: Fair air entry. Crackles right lung base. GASTROINTESTINAL: Abdomen soft, non-tender, nondistended. No guarding. MUSCULOSKELETAL: Extremities without clubbing, cyanosis. Right lower extremity significantly bigger than the left- chronic. NEUROLOGICAL: Awake and alert. Able to move all extremities spontaneously. Motor and sensory grossly within normal limits. Normal speech. A/P Assessment and Plan Right lower lobe pneumonia - continue patient on Azithromycin and IV Rocephin. 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 Villegas, appreciate his assistance, cleared patient for Dc - Duonebs - monitor respiratory status and continue supplemental oxygen to maintain O2 sats above 92% CHF, systolic, chronic, not decompensated - EF 45% - resume patient on Aldactone and Torsemide - heart healthy low Na diet - monitor for signs of fluid overload Hypertension - controlled - continue home antihypertensive meds - monitor BP and adjust treatment accordingly Ventricular tachycardia - s/p AICD placement COPD, not in acute exacerabation - resume home bronchodilator therapy - Duonebs - monitor respiratory status CKD - creatinine appears near baseline - avoid nephrotoxic agents - monitor kidney function MILY - patient uses CPAP at night Generalized weakness secondary to PNA s/p right THR 2015 with residual difficulty bearing weight - PT eval/tx DVT prophylaxis - Xarelto 10mg daily as patient with h/o HIT Improved cleared by pulm for DC Discharge Planning DC home in stable condition to follow up as OP with PCP and consultants Diet healthy heart diet Activity ad susanna as tolerated Meds per med reconciliations DC time> 30 min Nuris Hightower MD Aug 17, 2017 08:51
[2017-08-17] MEDS ORDERED: CEFU1TAB18 PO ×2 (08:55→10:49)
--- NOTE | 2017-08-17 08:55 | HHI.DCPOC ---
Discharge Care Plan Goals to Promote Your Health * To prevent worsening of your condition and complications * To maintain your health at the optimal level Directions to Meet Your Goals Take your medications as prescribed Follow your dietary instruction Follow activity as directed Keep your appointments as scheduled Take your immunizations and boosters as scheduled If your symptoms worsen call your PCP, if no PCP go to Urgent Care Center or Emergency Room Smoking is Dangerous to Your Health. Avoid second hand smoke Call the 24-hour hour crisis hotline for domestic abuse at Nuris Hightower MD Aug 17, 2017 08:55
--- NOTE | 2017-08-17 08:56 | HHI.DCPOC ---
Discharge Care Plan Diagnosis: (1) Shortness of breath (2) Right lower lobe pneumonia (3) JOHN (acute kidney injury) Goals to Promote Your Health * To prevent worsening of your condition and complications * To maintain your health at the optimal level Directions to Meet Your Goals Take your medications as prescribed Follow your dietary instruction Follow activity as directed Keep your appointments as scheduled Take your immunizations and boosters as scheduled If your symptoms worsen call your PCP, if no PCP go to Urgent Care Center or Emergency Room Smoking is Dangerous to Your Health. Avoid second hand smoke Call the 24-hour hour crisis hotline for domestic abuse at Eve Madrid Aug 17, 2017 08:56
[2017-08-17] MEDS: TIOTROPIUM BROMIDE 18 MCG INH INH SCH (09:00)
[2017-08-17] MEDS: BUDESONIDE-FORMOTEROL 80/4.5 MCG INHALER INH SCH (09:00)
[2017-08-17] MEDS: PRAVASTATIN SOD 40 MG TAB PO SCH (09:01)
[2017-08-17] MEDS: RIVAROXABAN 10 MG TAB PO SCH (09:01)
[2017-08-17] MEDS: TORSEMIDE 20 MG TAB PO SCH (09:02)
[2017-08-17] MEDS: ALLOPURINOL 100 MG TAB PO SCH (09:02)
[2017-08-17] MEDS: AZITHROMYCIN 250 MG TAB PO SCH (09:02)
[2017-08-17] MEDS: ASPIRIN 81 MG CHEW TAB CHEW SCH (09:02)
[2017-08-17] MEDS: SPIRONOLACTONE 25 MG TAB PO SCH (09:02)
[2017-08-17] MEDS: METOPROLOL SUCCINATE 25 MG EXTENDED RELEASE TAB PO SCH (09:02)
[2017-08-17] MEDS: SODIUM CHLORIDE 0.9% FLUSH 10 ML FLUSH IV FLUSH SCH (09:02)
[2017-08-17] MEDS: cefTRIAXone INJ 1,000 MG in SODIUM CHLORIDE 0.9% INJ 100 ML IV SCH (09:06)
[2017-08-17] MEDS ORDERED: BENZ100 PO (10:48)
== END 2017-08-17 11:53 | disposition home or self-care (01) | DRG 194 ==
LOC: NEPC 18:30 → INTOOBSV 20:52 → NEDA 20:52 → NEPFCDU 21:54 → OBSVTOIN 08-16 11:06
PROVIDERS: ADMIT Internal Medicine; ATTEND Hospitalist
DX: J18.9 Pneumonia, unspecified organism (principal); N17.9 Acute kidney failure, unspecified; I47.2 Ventricular tachycardia; I13.0 Hypertensive heart and chronic kidney disease with heart failure and stage 1 through stage 4 chronic kidney disease, or unspecified chronic kidney disease; I50.22 Chronic systolic (congestive) heart failure; J44.0 Chronic obstructive pulmonary disease with (acute) lower respiratory infection; R53.1 Weakness; D64.9 Anemia, unspecified; I73.9 Peripheral vascular disease, unspecified; G47.33 Obstructive sleep apnea (adult) (pediatric); M10.9 Gout, unspecified; M19.90 Unspecified osteoarthritis, unspecified site; N18.9 Chronic kidney disease, unspecified; Z85.828 Personal history of other malignant neoplasm of skin; Z86.718 Personal history of other venous thrombosis and embolism; Z87.891 Personal history of nicotine dependence; Z95.810 Presence of automatic (implantable) cardiac defibrillator; Z88.8 Allergy status to other drugs, medicaments and biological substances
CPT/HCPCS: 71045; 80048; 80053; 83880; 84484; 85025; 93005; 94664; 96365; 96368; 96376; G0378; G8987-GP; G8988-GP; J0456; J0696; J7050

== ENCOUNTER → 2017-10-01 | Outpatient (CLI) | payer MEDICARE, OTHER ==
[~2017-10-01] MED LIST changes: +BENZ100 PO; -BUME2TAB PO; +CEFU1TAB18 PO; -D200CAP2 PO; -DILT180C PO; -LEVA750T9 PO; -LORA0.5T PO; -MAGN400T3 PO; -NEBULIZER1 MI1; -UNIS25TA3 PO
[2017-10-01 11:54] LABS: AUTOMATED NEUTROPHIL # 4.4 TH/MM3 (1.8-7.7); BASOPHIL # 0.1 TH/MM3 (0-0.2); EOSINOPHIL # 0.2 TH/MM3 (0-0.4); EOSINOPHIL % 3.3 % (0.0-4.0); HEMATOCRIT 35.5 % (39.0-51.0); HEMOGLOBIN 11.4 GM/DL (13.0-17.0); LYMPH % 15.9 % (9.0-44.0); MEAN CELL VOLUME 92.8 FL (80.0-100.0); MEAN CORPUSCULAR HEMOGLOBIN 29.8 PG (27.0-34.0); MEAN CORPUSCULAR HGB CONC 32.2 % (32.0-36.0); MEAN PLATELET VOLUME 8.2 FL (7.0-11.0); MONO % 11.3 % (0.0-8.0); MONOCYTE # 0.7 TH/MM3 (0-0.9); NEUT % 68.5 % (16.0-70.0); PLATELET COUNT 146 TH/MM3 (150-450); RED BLOOD COUNT 3.83 MIL/MM3 (4.50-5.90); RED CELL DISTRIBUTION WIDTH 18.5 % (11.6-17.2); WHITE BLOOD COUNT 6.5 TH/MM3 (4.0-11.0)
[2017-10-01 12:16] LABS: ALBUMIN 3.1 GM/DL (3.4-5.0); BICARBONATE 27.6 MEQ/L (21.0-32.0); CALCIUM 8.8 MG/DL (8.5-10.1); CREATININE 1.84 MG/DL (0.60-1.30); PHOSPHORUS 3.4 MG/DL (2.5-4.9)
== END ==
LOC: PLAB 09:11
PROVIDERS: ATTEND Nurse Practitioner Acute Care
DX: N18.3 Chronic kidney disease, stage 3 (moderate) (principal); M10.00 Idiopathic gout, unspecified site
CPT/HCPCS: 36415; 80069; 83970; 84550; 85025

== ENCOUNTER → 2017-12-11 | Outpatient (CLI) | payer MEDICARE, OTHER ==
[2017-12-11 14:38] LABS: BICARBONATE 29.5 MEQ/L (21.0-32.0); CALCIUM 8.8 MG/DL (8.5-10.1); CREATININE 1.96 MG/DL (0.60-1.30)
== END ==
LOC: PLAB 11:45
PROVIDERS: ATTEND Internal Medicine Cardiovascular Disease
DX: I50.9 Heart failure, unspecified (principal); I10 Essential (primary) hypertension; E78.5 Hyperlipidemia, unspecified; I51.0 Cardiac septal defect, acquired; J44.9 Chronic obstructive pulmonary disease, unspecified
CPT/HCPCS: 36415; 80048